=== PATIENT | male | born 1970 | race Two or more races ===

== ENCOUNTER 2017-01-17 09:24 | Inpatient (IN) | payer MEDICARE, MEDICAID ==
[2017-01-17] MEDS ORDERED: NEUR100C PO (09:39)
[2017-01-17] MEDS ORDERED: INSUDET SC (09:39)
[2017-01-17] MEDS ORDERED: DULO1CAP PO (09:39)
[2017-01-17] MEDS ORDERED: OXYC1TAB23 PO (09:39)
[2017-01-17] MEDS ORDERED: AMLO5TAB2 PO (09:39)
[2017-01-17] MEDS ORDERED: SYNT150T PO (09:39)
[2017-01-17] MEDS ORDERED: METO12TA PO (09:39)
[2017-01-17] MEDS ORDERED: LOSA50TA20 PO (09:39)
[2017-01-17] MEDS ORDERED: QUET1TAB7 PO (09:39)
[2017-01-17] MEDS ORDERED: PANT40TA2 PO (09:39)
[2017-01-17] MEDS ORDERED: PERCOCET 5MG/325MG TAB PO ONE (10:30)
[2017-01-17] MEDS ORDERED: amLODIPine 5 MG TAB PO ONE (10:45)
[2017-01-17] MEDS ORDERED: METOPROLOL TART 25 MG TABLET PO ONE (10:45)
[2017-01-17] MEDS ORDERED: LOSARTAN 50 MG TAB PO ONE (10:45)
[2017-01-17] MEDS ORDERED: PANTOPRAZOLE 40MG TAB (PROTONIX) PO ONE (10:45)
[2017-01-17 11:00] LABS: ANION GAP 14 MEQ/L (8-16); BLOOD UREA NITROGEN 103 MG/DL (7-18); CALCIUM LEVEL 8.1 MG/DL (8.5-10.1); CARBON DIOXIDE LEVEL 18 MEQ/L (21-32); CHLORIDE LEVEL 105 MEQ/L (98-107); GLOMERULAR FILTRATION RATE 4.9 (>60); GLUCOSE, FASTING 95 MG/DL (70-105); SODIUM LEVEL 137 MEQ/L (136-145)
[2017-01-17 11:06] LABS: BASO % 0.3 % (0.0-1.0); EOS # 0.1 K/mm3 (0.0-0.50); EOS % 0.9 % (0.0-3.0); LARGE UNSTAINED CELL # 0.1 K/mm3 (0.0-0.4); LARGE UNSTAINED CELL % 1.2 % (0.0-4.0); LYMPH # 1.2 K/mm3 (1.5-4.5); LYMPH % 12.4 % (24.0-44.0); MEAN CORPUSCULAR HEMOGLOBIN 27.4 pg (27.0-33.0); MEAN CORPUSCULAR HGB CONC 31.6 g/dl (32.0-36.5); MEAN CORPUSCULAR VOLUME 86.7 fl (80.0-96.0); MONO # 0.4 K/mm3 (0.0-0.8); MONO % 4.6 % (0.0-5.0); NEUTROPHILS # 7.8 K/mm3 (1.8-7.7); NEUTROPHILS % 80.7 % (36.0-66.0); PLATELET COUNT, AUTOMATED 261 k/mm3 (150-450); RED CELL DISTRIBUTION WIDTH 16.8 % (11.5-14.5); WHITE BLOOD COUNT 9.7 K/mm3 (4.0-10.0)
[2017-01-17] MEDS ORDERED: HumuLIN R (REGULAR) INSULIN (NovoLIN R) **100U/ML** PER UNIT IV STA (11:23)
[2017-01-17] MEDS ORDERED: DEXTROSE 50% 50 ML SYRINGE IV STA (11:26)
--- NOTE | 2017-01-17 11:27 | REP ---
Clinical: Dyspnea and cough. Comparison: None. Findings: Examination is limited by portable technique, underpenetration and poor inspiratory effort. Cardiomegaly along with atelectasis and/or pulmonary vascular congestion/interstitial edema cannot definitively be excluded. No prior examination is available for comparison. Double-lumen central venous catheter with tip in the right atrium. No obvious effusion. No pneumothorax. Skeletal structures grossly intact. Impression: Cardiomegaly. Cannot exclude pulmonary vascular congestion/interstitial edema as well as atelectasis. Signed by Bladimir Hough MD 01/17/2017 11:18 A
[2017-01-17] MEDS ORDERED: SOD POLYSTYRENE SULFONATE SUSP 15 GM/60 ML UD PO ONE (11:30)
[2017-01-17] MEDS ORDERED: CALCIUM CHLORIDE 10% 1 GM in D5W 100 ML IV ONE (11:30)
[2017-01-17] MEDS ORDERED: GLUCAGON FOR INJ 1 MG VIAL (J1610) SC PRN (11:45)
[2017-01-17] MEDS ORDERED: GLUCOSE 4 GM CHEW TABLET PO PRN (11:45)
[2017-01-17] MEDS ORDERED: DEXTROSE 50% 50 ML SYRINGE IV PRN (11:45)
[2017-01-17] MEDS ORDERED: NYST100024 TOP (11:57)
[2017-01-17] MEDS ORDERED: CALC667T PO (11:57)
[2017-01-17] MEDS: HumaLOG INSULIN (NovoLOG) PER UNIT SC SCH ×3 (12:00→21:00)
[2017-01-17] MEDS ORDERED: PERCOCET 5MG/325MG TAB PO PRN (12:15)
[2017-01-17] MEDS ORDERED: VANCOMYCIN HCL 1,000 MG, VIAL MATE ADAPTER 1 EACH in D5W 250 ML IV SCH (12:15)
--- NOTE | 2017-01-17 12:34 | REP ---
Clinical: Scrotal swelling. Rule out abscess. Technique: Real time tabor scale and color Doppler evaluation using linear high frequency transducer. Findings: The bilateral testicles demonstrate microlithiasis without evidence for mass lesion and there is no evidence for orchitis/epididymitis or torsion. No hydrocele or varicoceles are identified. Right testicle measures 2.7 x 1.6 x 2.9 cm. Left testicle measures 3.8 x 1.6 x 2.6 cm. Right epididymis demonstrates two cysts measuring 3.1 x 1.2 x 1.6 cm and 1.4 x 1.0 x 1.0 cm as well as a 3 mm tunica cyst at the lower pole. Left epididymis demonstrates 4 mm cyst. Posterior scrotal wall edema and infiltration is appreciated without discrete fluid collection, abscess or mass. Impression: 1. The testicles demonstrate microlithiasis without mass lesion. 2. Scrotal wall swelling and edema without discrete fluid collection/abscess or mass lesion. 3. Large right epididymal cysts and smaller bilateral cysts as described above. 4. No evidence for torsion or epididymitis/orchitis. Signed by Bladimir Hough MD 01/17/2017 12:25 P
[2017-01-17] MEDS: ONDANSETRON 4MG/2ML VIAL (J2405) IV PRN ×2 (12:39→18:48)
--- NOTE | 2017-01-17 13:49 | HPE ---
DATE OF ADMISSION: 01/17/2017 PRIMARY CARE PROVIDER: Dr. Hang Etienne SANE NURSE: Patient is in the process of moving over from [place], nephrology on consult, Dr. Melany Sen. CHIEF COMPLAINT: Missing dialysis, shortness of breath. HISTORY OF PRESENT ILLNESS: This is a 46-year-old male patient with underlying medical history of end stage renal disease on dialysis, poor compliance, missing dialysis Wednesday and Wednesday, chronic phantom pain lower extremity with bilateral lower extremity amputations with right above knee and left below knee amputation, and also with history of scrotal infection, diabetes, hypertension, gastroesophageal reflux disease (GERD). Patient is in the process of moving from [place] to [place]. Initially moved from [place] to [place]. Patient stated he is moving because he wants a better experience in a bigger town. Subsequently, patient missed dialysis on Wednesday and Wednesday. Reported since Wednesday with progressive worsening weakness and shortness of breath, nausea and vomiting. Subsequently presented to the emergency room. Denies any chest pain, pressure or discomfort. Reported scrotal pain. Has a history of scrotal infection. The patient is also legally blind by history. Patient is poorly compliant at baseline, missing dialysis with 10 days to a week often. Patient is also a smoker. In the ED, patient was found to have a potassium of 7 with no EKG changes. Given Kayexalate, calcium chloride, insulin, D50 in the emergency room. Nephrology was consulted urgently in the emergency room. ALLERGIES: No known drug allergies. PAST MEDICAL HISTORY: End stage renal disease. Diabetes, insulin dependent. Hypertension. Legally blind. Scrotal infection. Poor compliance. PAST SURGICAL HISTORY: Tunneled hemodialysis catheter placement. Bilateral lower extremity amputation. FAMILY HISTORY: Mother with congestive heart failure (CHF). Father and brother with kidney disease. SOCIAL HISTORY: Patient just moved over from [place], lives alone. Family is in [place]. One pack per day smoking history for 30 years. No alcohol drinking. Denies cocaine, heroine, marijuana or any other illicit drugs. REVIEW OF SYSTEMS: Negative except for those mentioned in the history of present illness, nausea and vomiting, and also phantom limb pain as well as legally blind and shortness of breath. Denies any shortness of breath. Otherwise, other review of systems are negative. HOME MEDICATIONS: - Norvasc 5 mg by mouth daily - calcium acetate 1334 mg by mouth with meals - duloxetine 20 mg by mouth at bedtime - Neurontin 100 mg by mouth three times a day - Levemir 10 units subcu at bedtime - Synthroid 150 mcg by mouth daily - losartan 50 mg by mouth daily - metoprolol 25 mg by mouth twice a day - nystatin topical twice a day as needed - Percocet 5/325 by mouth three times a day as needed - Protonix 40 mg by mouth daily - Seroquel 25 mg by mouth at bedtime PHYSICAL EXAMINATION: VITAL SIGNS: Temperature 98, pulse 100, respirations 20, blood pressure 194/99, pulse oximetry 96% on room air. GENERAL: Patient alert and oriented times three in no acute distress, obese. Disheveled. HEENT: Normocephalic, atraumatic. PULMONARY: Diminished breath sounds bilateral. CARDIAC: Mild tachycardia. Regular S1 and S2. ABDOMEN: Soft, obese, nontender. GENITALIA: With scrotal swelling and redness and ulcers. EXTREMITIES: Bilateral lower extremity amputation, seems to be healing well. No abscess or drainage. NEUROLOGIC: No focal deficits. EKG shows left anterior fascicular block. Sinus rhythm. Nonspecific ST segment changes. No peak T waves. No Sin waves. LABORATORY: WBC 9.7, hemoglobin and hematocrit 12.3/33.8, platelets 261. Chemistries: Sodium 137, potassium 7, chloride 105, bicarb 18, anion gap 14, BUN 103, creatinine 11.9. Troponin negative times one. X-ray cardiomegaly. No acute changes. IMPRESSION: This is a 46-year-old male, poorly compliant, end stage renal disease on dialysis, diabetes insulin dependent, hypertension, legally blind with diabetic retinopathy, and scrotal cellulitis admitted with missing dialysis and hyperkalemia. PROBLEMS: 1. End stage renal disease with hyperkalemia, missing dialysis. Nephrology consulted. Urgently patient taken for dialysis. Continue home medications as ordered. Further management as per dialysis. Patient and family services (PFS) consulted for outpatient arrangement and social work. 2. Peripheral vascular disease with bilateral lower extremity amputation. PFS, physical therapy/occupational therapy. Followup cardiac enzymes. EKG is appreciated. Telemetry monitoring. 3. Insulin dependent diabetes. Insulin at a reduced dose, basal bolus. Follow fingerstick. Followup A1c. Fingerstick every hour for the next 4-5 given the patient was given D50 and insulin as well as Kayexalate and calcium. Will continue to monitor. 4. Diabetic retinopathy. Control glucose. Encouraged compliance. 5. Hypertensive urgency. Monitoring in ICU. Urgently taken to dialysis. Continue home blood pressure medication. 6. Scrotal cellulitis. Ultrasound appreciated with no fluid collection. Vancomycin and Zosyn for now. Followup cultures, wound care. 7. Poor compliance. Complicating care. 8. Obesity. Complicating care. 9. Phantom limb pain. Pain medication as ordered. 10. Deep vein thrombosis (DVT) prophylaxis. Heparin subcu. 11. Hypothyroidism. Followup thyroid panel. Continue Synthroid. DISPOSITION: Pending dialysis, social work, clinical improvement. Followup C-reactive protein. Physical therapy/occupational therapy. MTDD
[2017-01-17] MEDS: CHECK TO SEE IF PATIENT IS RECEIVING DIALYSIS TODAY AND REFER TO THE VANCOMYCIN ORDER XX SCH (16:00)
[2017-01-17 16:43] LABS: ANION GAP 12 MEQ/L (8-16); BLOOD UREA NITROGEN 43 MG/DL (7-18); CALCIUM LEVEL 8.5 MG/DL (8.5-10.1); CARBON DIOXIDE LEVEL 22 MEQ/L (21-32); CHLORIDE LEVEL 106 MEQ/L (98-107); GLOMERULAR FILTRATION RATE 10.6 (>60); GLUCOSE, FASTING 98 MG/DL (70-105); POTASSIUM SERUM 4.2 MEQ/L (3.5-5.1); SODIUM LEVEL 140 MEQ/L (136-145)
[2017-01-17 17:33] VITALS: BP 143/82
[2017-01-17] MEDS: CALCIUM ACETATE 667 MG GELCAP PO SCH (18:24)
[2017-01-17] MEDS: GABAPENTIN 100 MG CAP PO SCH ×2 (18:24→21:23)
[2017-01-17] MEDS: PIPERACILLIN/TAZOBACTAM SOD 2.25 GM in D5W MINI-BAG PLUS 50 ML IV SCH (18:25)
[2017-01-17] MEDS: NYSTATIN 100,000 UNITS/GM TOPICAL PWD 15 GM TOP PRN ×2 (18:48→21:36)
[2017-01-17 20:00] VITALS: BP 154/87
--- NOTE | 2017-01-17 20:40 | CR ---
DATE OF CONSULTATION: 01/17/2017 REQUESTING PHYSICIAN: Dr. Kenan Rivera CONSULTING PHYSICIAN: Dr. Sen REASON FOR CONSULTATION: Management of end-stage renal disease, hemodialysis and hyperkalemia. CHIEF COMPLAINT: Patient presented to the emergency room today after missing two sessions of hemodialysis. HISTORY OF PRESENT ILLNESS: Mr. William Moore is a 46-year-old male with a past medical history of end-stage renal disease on hemodialysis every Wednesday, Wednesday and Wednesday. He gets his hemodialysis at [place], [place]. He recently moved to [place] for a better level of care. His regular hemodialysis days are Wednesday, Wednesday and Wednesday. He missed his dialysis on last Wednesday and Wednesday. He presented to the emergency room today with weakness, shortness of breath, headache, nausea, vomiting. In the emergency room, he was found to have systolic blood pressures in the 200s. Initial laboratories in the emergency room showed that his potassium was 7. His BUN was 103, creatinine was 11.9. Patient reports that he was scheduled to start hemodialysis at [place], but because of the transportation issues, he was not able to go there. Patient denies any recent fevers, chills, rigors. He has multiple other comorbidities, as mentioned below. In the emergency room, patient got a starting dose of Kayexalate, calcium chloride, insulin, and D50 for hyperkalemia and nephrology service was called for further help in the management of end-stage renal disease and hemodialysis in this patient. Patient also reports a history of a scrotal infection, which is not being treated at this time. PAST MEDICAL HISTORY: 1. Diabetes mellitus type 2. 2. Hypertension. 3. End-stage renal disease on hemodialysis since 2003, with poor compliance of hemodialysis in the past. 4. Patient is legally blind. PAST SURGICAL HISTORY: 1. Status post right internal jugular (IJ) tunneled hemodialysis catheter placement. 2. Status post right above-knee amputation. 3. Status post left below-knee amputation. ALLERGIES: No known drug allergies. FAMILY HISTORY: No significant family history of inherited cancers. There is positive history of congestive heart failure (CHF) in the mother. Patient gets history of kidney disease in father and brother. SOCIAL HISTORY: Patient has his family members in [facility], but [place] here. He was originally at [place], [place], but he wanted to move to [place] for a higher level of care. He recently moved to [place], but he has not started getting hemodialysis at the hemodialysis center over here. Patient denies any alcohol abuse or illicit drug abuse and patient has a 30-pack year history of smoking. REVIEW OF SYSTEMS: CONSTITUTIONAL: Patient denies any fevers, chills, rigors. He did report weakness and feeling weak and tired. EYES: Patient reports legal blindness. EARS, NOSE AND THROAT (ENT): He denies any dysphagia, odynophagia or ear discharge. CARDIOVASCULAR: He denies any chest pain or palpitations, but he was found to have very high blood pressures in the emergency room (ER). RESPIRATORY: Patient reports some shortness of breath at rest. GASTROINTESTINAL (GI): Patient reports decreased appetite, nausea and vomiting, but he denies any constipation or abdominal pain. GENITOURINARY: Patient reports history of scrotal infection and inflammation in the groin. MUSCULOSKELETAL: Patient reports right above-knee amputation and left below-knee amputation. PSYCHIATRIC: He denies any history of depression or anxiety. CENTRAL NERVOUS SYSTEM: He denies any strokes or seizures. SKIN: Patient reports skin ulcerations and infection in the groin area. All other review of systems is found to be negative. PHYSICAL EXAMINATION: GENERAL: Patient is awake, alert, oriented times three, laying in bed. No apparent distress. VITAL SIGNS: Temperature is 98.5 degrees Fahrenheit, blood pressure 212/101, pulse 105, respiratory rate 16, saturating 96% on room air. HEAD AND NECK EXAMINATION: Patient is legally blind. He can only do finger counting. Mucous membranes are moist. Neck is supple. There is no jugular venous distention (JVD). Patient has a right internal jugular (IJ) tunneled hemodialysis catheter. CARDIOVASCULAR: S1, S2. Regular rate. No murmurs, rubs or gallops. RESPIRATORY: Mildly decreased breath sounds at the bases. Otherwise, no rales or rhonchi. ABDOMEN: Soft, obese. Positive bowel sounds. Nontender. No ascites. No organomegaly. EXTREMITIES: Patient has a right above-knee amputation and a left below-knee amputation. Mild tenderness at the left below-knee amputation site. There was no active bleeding or drainage on the left-sided below-knee amputation stump. GENITOURINARY: Patient has scrotal swelling, redness and multiple small abscesses and drainage from the groin area, which are foul smelling. CENTRAL NERVOUS SYSTEM: No focal neurological deficits apart from legal blindness. Power is 5/5 in bilateral upper extremities. SKIN: No rashes were found, but active groin infection, as mentioned above. PSYCHIATRIC: Normal mood and affect. LABORATORY REVIEW: CBC showed a WBC 9.7, hemoglobin 12.3, platelets 261. BMP showed sodium 137, potassium 7, chloride 105, bicarbonate 18, BUN 103, creatinine 11.9, calcium 8.1. Troponin less than 0.02. MICROBIOLOGY: Blood cultures are pending. IMAGING: An ultrasound of the scrotum was done today. It showed microlithiasis in the testes without mass lesion, scrotal wall swelling and edema without discrete fluid collection, large right epididymal cyst. Chest x-ray done today in the emergency room showed cardiomegaly along with pulmonary vascular congestion and interstitial edema. HOME MEDICATIONS: Patient's home medications include: - amlodipine 5 mg by mouth daily - PhosLo two tablets by mouth three times a day with meals - duloxetine 20 mg at bedtime - gabapentin 100 mg by mouth three times a day - insulin Levemir 10 units subcutaneously at bedtime - levothyroxine 150 mcg by mouth daily - losartan 50 mg by mouth daily - metoprolol 25 mg by mouth twice a day - oxycodone one tablet by mouth three times a day as needed for pain - Protonix 40 mg by mouth daily - quetiapine 25 mg by mouth at bedtime CURRENT INPATIENT MEDICATIONS: Patient's inpatient medications include: - Zosyn 2.25 grams IV every 12 hours - vancomycin 1 gram after hemodialysis - amlodipine 5 mg by mouth daily - PhosLo two tablets by mouth three times a day - Cymbalta 20 mg by mouth at bedtime - Neurontin 100 mg by mouth three times a day - Levemir 8 units subcutaneously at bedtime - insulin Humalog sliding scale - levothyroxine 150 mcg by mouth daily - losartan 50 mg by mouth daily - metoprolol 25 mg by mouth twice a day - Percocet as needed - Protonix 40 mg by mouth daily - Seroquel 25 mg by mouth at bedtime ASSESSMENT: A 46-year-old male with past medical history of end-stage renal disease on hemodialysis, hypertension, insulin-dependent diabetes mellitus, hypothyroidism, admitted this time because of fluid overload, missing hemodialysis and hyperkalemia, along with cellulitis in the groin area. PLANS: 1. End-stage renal disease on hemodialysis. Patient's regular dialysis days are Wednesday, Wednesday and Wednesday. He missed two sessions of hemodialysis. I have arranged urgent hemodialysis to be done today. We shall try to do his hemodialysis today for three hours and we will try to remove around 2 kg fluid as tolerated by his blood pressure. 2. Hyperkalemia. Hyperkalemia is secondary to missing hemodialysis. Patient was already given insulin, D50, Kayexalate in the emergency room. Emergent hemodialysis has been arranged. He will be dialyzed against a 1 K bath. Potassium is expected to improve after hemodialysis. 3. Cellulitis in the groin. Patient has already been started on vancomycin and Zosyn. Those will be adjusted according to renal failure. 4. Insulin-dependent diabetes mellitus. Continue current dose of insulin and sliding scale. 5. Chronic kidney disease/mineral bone disease. Continue current dose of PhosLo two tablets by mouth three times a day with meals. Check phosphorus level. 6. Hypothyroidism. Continue current dose of levothyroxine and check THS level and Free T4 in the morning. 7. Hypertension. Patient has hypertensive urgency at this time. I am not sure whether he is compliant with his medications. Part of the hypertensive urgency is because of fluid overload. Continue the home dose of medications at this time, which include amlodipine 5 mg by mouth daily, losartan 50 mg by mouth daily, metoprolol 25 mg by mouth twice a day. Blood pressure is expected to improve after hemodialysis and ultrafiltration. 8. Anemia in end-stage renal disease. Hemoglobin is 12.3 at this time. No need of Aranesp administration at this time. 9. Status post bilateral amputations and inability to ambulate. Please get social service on board for placement of this patient and arrangement of transportation from his home in [place] to dialysis center in [place]. Thank you for involving us in the care of this patient. We shall be happy to follow the patient along with you tomorrow morning. Plan of care was discussed with the hospitalist, Dr. Wilda Cassidy. Emergency hemodialysis was arranged. Patient was seen and examined during hemodialysis again.
[2017-01-17] MEDS: LEVEMIR (INSULIN DETEMIR) 1 UNITS/0.01ML SC SCH (21:00)
[2017-01-17] MEDS ORDERED: VANCOMYCIN HCL 750 MG, VIAL MATE ADAPTER 1 EACH in D5W 250 ML IV ONE (21:00)
[2017-01-17] MEDS: QUEtiapine FUMARATE 25 MG TAB PO SCH (21:22)
[2017-01-17] MEDS: METOPROLOL TART 25 MG TABLET PO SCH (21:23)
[2017-01-17] MEDS: SENOKOT S TAB PO SCH (21:23)
[2017-01-17] MEDS: DULoxetine 20 MG CAP (CYMBALTA) PO SCH (21:24)
[2017-01-17] MEDS: HEPARIN SOD (PORCINE) 5000 UNITS/ML VIAL SC SCH (21:25)
[2017-01-18] VITALS: BP 151/89
[2017-01-18 04:00] VITALS: BP 147/82
[2017-01-18 05:22] LABS: MEAN CORPUSCULAR HEMOGLOBIN 27.4 pg (27.0-33.0); MEAN CORPUSCULAR HGB CONC 31.4 g/dl (32.0-36.5); MEAN CORPUSCULAR VOLUME 87.4 fl (80.0-96.0); RED CELL DISTRIBUTION WIDTH 16.8 % (11.5-14.5); WHITE BLOOD COUNT 6.1 K/mm3 (4.0-10.0)
[2017-01-18 05:38] LABS: ALBUMIN 2.2 GM/DL (3.2-5.2); CALCIUM LEVEL 7.9 MG/DL (8.5-10.1); CREATININE FOR GFR 8.62 MG/DL (0.70-1.30); GLOMERULAR FILTRATION RATE 7.1 (>60); MAGNESIUM LEVEL 1.8 MG/DL (1.8-2.4); PHOSPHORUS LEVEL 8.4 MG/DL (2.5-4.9); THYROXINE (T4) 2.2 UG/DL (4.5-12.0)
[2017-01-18 05:41] LABS: POTASSIUM SERUM 6.2 MEQ/L (3.5-5.1)
[2017-01-18] MEDS: HEPARIN SOD (PORCINE) 5000 UNITS/ML VIAL SC SCH ×3 (06:26→21:48)
[2017-01-18] MEDS: LEVOTHYROXINE 0.15 MG TAB (150 MCG) PO SCH (06:26)
[2017-01-18] MEDS: PIPERACILLIN/TAZOBACTAM SOD 2.25 GM in D5W MINI-BAG PLUS 50 ML IV SCH ×2 (06:26→17:13)
[2017-01-18 07:25] VITALS: BP 152/87
[2017-01-18] MEDS: HumaLOG INSULIN (NovoLOG) PER UNIT SC SCH ×4 (07:28→21:00)
[2017-01-18] MEDS ORDERED: SLF 3 ML SYR IV PRN (09:00)
--- NOTE | 2017-01-18 09:02 | IPN ---
DATE: 01/18/2017 Mr. Moore is a hospitalist patient admitted with scrotal cellulitis and end stage renal disease with hyperkalemia after missing dialysis. Events the last few days have been outlined in previous notes. He is having significant itching in his groin and is demanding medication for this. He has already been seen by nephrology. He had dialysis yesterday and has more planned for today. EXAM: 154/82. Pulse 89. Respiratory rate 18. 93% oxygen saturation. General Appearance: Lying in bed. He has excoriations on his groin, inguinal area, scrotum and abdomen. Lungs: Clear. Heart: Regular rhythm. Abdomen: Soft. Nontender. Bilateral lower extremity amputations. LABS: White count 6.1, hemoglobin 11.3 and platelets 247. Sodium 137, potassium 6.2, BUN 59, creatinine 8.6, glucose 78. Hemoglobin A1c was 4.5%. IMPRESSIONS: 1. Scrotal cellulitis. He is currently on Zosyn and vancomycin. I would continue these for now. Dosing is being done after dialysis. I have ordered some Atarax for the pruritus, but most of which is related to his renal condition. He also has Nystatin powder ordered. 2. Hypertension. His blood pressure has come down with initiating antihypertensives and being dialyzed. 3. Hyperkalemia. He is due for another dialysis session today. He is on telemetry. 4. Diabetes. He is on a sliding scale with coverage as well as low dose Levemir 8 units at bedtime. His hemoglobin A1c is actually low, which puts him actually at increased cardiovascular risk and would suggest less strident control of his blood sugars as an outpatient. 5. Peripheral arterial disease. Bilateral amputations. He is not on a statin. Defer to nephrology on this issue.
[2017-01-18] MEDS: CALCIUM ACETATE 667 MG GELCAP PO SCH ×3 (09:37→17:13)
[2017-01-18] MEDS ORDERED: HEPARIN 1,000 UNITS/ML 10ML VIAL (FOR RADIOLOGY& DIALYSIS ONLY) IV ONE (11:15)
[2017-01-18 12:50] VITALS: BP 141/81
[2017-01-18] MEDS: LANTHANUM CARBONATE 500 MG CHEW TABLET PO SCH ×2 (13:17→17:13)
[2017-01-18] MEDS: amLODIPine 5 MG TAB PO SCH (13:18)
[2017-01-18] MEDS: LOSARTAN 50 MG TAB PO SCH (13:19)
[2017-01-18] MEDS: METOPROLOL TART 25 MG TABLET PO SCH ×2 (13:19→21:47)
[2017-01-18] MEDS: SENOKOT S TAB PO SCH ×2 (13:19→21:47)
[2017-01-18] MEDS: CALCITRIOL 0.25 MCG CAP (S0169) PO SCH (13:19)
[2017-01-18] MEDS: hydrOXYzine 25 MG TAB PO PRN ×2 (13:19→21:54)
[2017-01-18] MEDS: PANTOPRAZOLE 40MG TAB (PROTONIX) PO SCH (13:20)
[2017-01-18] MEDS: GABAPENTIN 100 MG CAP PO SCH ×4 (13:22→21:47)
[2017-01-18] MEDS: CHECK TO SEE IF PATIENT IS RECEIVING DIALYSIS TODAY AND REFER TO THE VANCOMYCIN ORDER XX SCH (14:45)
[2017-01-18] MEDS: SLF 3 ML SYR IV SCH ×2 (14:45→21:48)
[2017-01-18 15:50] VITALS: BP 140/59
[2017-01-18 20:00] VITALS: BP 137/74
--- NOTE | 2017-01-18 20:46 | IPN ---
DATE: 01/18/2017 SUBJECTIVE: Patient was seen and examined at the bedside today morning during hemodialysis. He was tolerating the hemodialysis procedure well. Patient got a hemodialysis session yesterday as well, but he was hyperkalemic again so he had to be dialyzed. Patient reports that he is having itching all over, which is not getting better with the baths and topical lotions. REVIEW OF SYSTEMS: Patient denies any fevers, chills, rigors headache, nausea, vomiting, chest pain, shortness of breath, abdominal pain, constipation or diarrhea. He reports itching all over the skin. OBJECTIVE: VITAL SIGNS: Temperature 98 degrees Fahrenheit, blood pressure 141/81, pulse 90 , respiratory rate 18, saturating 94% on room air. INTAKE AND OUTPUT: Patient got hemodialysis don yesterday. 2.5 liters of fluid was removed. He made 200 mL of urine as well. Weight in the bed scale is 94.4 kg. PHYSICAL EXAMINATION: GENERAL: Patient is awake, alert, oriented times three, laying in bed getting hemodialysis done. No apparent distress at this time. HEAD AND NECK EXAMINATION: Patient is legally blind. He can do finger counting. Mucous membranes are moist. Neck is supple. There is no jugular venous distention (JVD). He has a right internal jugular (IJ) tunneled hemodialysis catheter. CARDIOVASCULAR: S1, S2. Regular rate. No murmurs, rubs or gallops. RESPIRATORY: Clear to auscultation bilaterally. Bilateral equal air entry. No rales or rhonchi. ABDOMEN: Soft, obese. Positive bowel sounds. Nontender. No ascites. No organomegaly. EXTREMITIES: Patient has right above-knee amputation and left below-knee amputation. GENITOURINARY: Patient has scrotal swelling and multiple small swellings and fungal rash in the groin area. CENTRAL NERVOUS SYSTEM: No focal neurological deficits apart from legal blindness. Power is 5/5 in bilateral upper extremities. SKIN: Multiple hyperpigmented scars from previous infections on the back. Otherwise, no rash. LABORATORY REVIEW: CBC showed a WBC 6.1, hemoglobin 11.3, platelets 247. BMP showed sodium 137, potassium 6.2, chloride 107, bicarbonate 21, BUN 59, creatinine 8.6, glucose 78, <<2:34>> 4.5, calcium 7.9, phosphorus 8.4. Parathyroid hormone 1351. Albumin 2.2. MICROBIOLOGY: Blood cultures are negative so far. CURRENT MEDICATIONS: Patient's medications were all reviewed by me. He continues to be on IV antibiotics. - Patient was started on calcitriol 0.25 mcg by mouth daily - He has also been started on lanthanum 500 mg by mouth three times a day with meals There are no other changes in the medications today as compared with yesterday. ASSESSMENT: A 46-year-old male with past medical history of end-stage renal disease on hemodialysis, history of diabetic foot ulcers and peripheral vascular disease, history of right above-knee amputation and left below-knee amputation, hypertension, insulin-dependent diabetes, hypothyroidism, admitted this time because of fluid overload and hyperkalemia after missing two sessions of hemodialysis. PLAN: 1. End-stage renal disease on hemodialysis. Patient's regular dialysis days are Wednesday, Wednesday and Wednesday. He is being dialyzed according to his regular schedule today. We shall try to do an ultrafiltration of 2 liters, as tolerated by his blood pressure. 2. Hyperkalemia. Patient's hyperkalemia is after missing dialysis. Potassium is still high today. Patient is again being dialyzed with a 1 K bath. I have changed his diet to a low potassium diet as well. 3. Cellulitis in the groin. Patient is already on vancomycin and Zosyn. He is also getting topical nystatin for fungal rash as well. 4. Insulin-dependent diabetes mellitus. Continue insulin sliding scale as per primary team. 5. Secondary hyperparathyroidism. Patient's PTH level is very high. I have started him on calcitriol 0.25 micrograms by mouth daily. The rest of the secondary hyperparathyroid management will be according to outpatient dialysis protocol. 6. Hypertension. Blood pressure is acceptable at this time. It significantly improved after hemodialysis and ultrafiltration. Continue amlodipine 5 mg daily , losartan 50 mg daily, metoprolol 25 mg by mouth twice a day. 7. Anemia in end-stage renal disease. Hemoglobin is more than 11. No need of Aranesp administration at this time. 8. Chronic kidney disease/mineral bone disease. Patient has hyperphosphatemia. He is already on PhosLo. I have added lanthanum 500 mg by mouth three times a day with meals to lower the phosphorus level. MTDD
[2017-01-18] MEDS: LEVEMIR (INSULIN DETEMIR) 1 UNITS/0.01ML SC SCH (21:00)
[2017-01-18] MEDS: QUEtiapine FUMARATE 25 MG TAB PO SCH (21:47)
[2017-01-18] MEDS: DULoxetine 20 MG CAP (CYMBALTA) PO SCH (21:47)
[2017-01-19] VITALS: BP 140/88
[2017-01-19 04:00] VITALS: BP 145/92
[2017-01-19 05:16] LABS: MEAN CORPUSCULAR HEMOGLOBIN 26.9 pg (27.0-33.0); MEAN CORPUSCULAR HGB CONC 30.9 g/dl (32.0-36.5); MEAN CORPUSCULAR VOLUME 87.1 fl (80.0-96.0); WHITE BLOOD COUNT 4.5 K/mm3 (4.0-10.0)
[2017-01-19 05:28] LABS: ALBUMIN 2.3 GM/DL (3.2-5.2); CALCIUM LEVEL 8.6 MG/DL (8.5-10.1); CREATININE FOR GFR 6.76 MG/DL (0.70-1.30); GLOMERULAR FILTRATION RATE 9.4 (>60); MAGNESIUM LEVEL 1.9 MG/DL (1.8-2.4); PHOSPHORUS LEVEL 7.1 MG/DL (2.5-4.9)
--- NOTE | 2017-01-19 06:26 | ECGEPIP ---
Stationary ECG Study [facility] - ED Test Date: 2017-01-17 Pat Name: ELO ROSENBERG Department: Room: [place] [id number] Gender: M Quality Control Head: lillian : 1970 Requested By: Kwabena Skaggs Order Number: [id number] Reading MD: Kwabena Ramirez Measurements Intervals [place] Rate: 99 P: 19 NE: 153 QRS: -79 QRSD: 110 T: 12 QT: 345 QTc: 444 Interpretive Statements SINUS RHYTHM LEFT ANTERIOR FASCICULAR BLOCK ANTERIOR MYOCARDIAL INFARCTION, OF INDETERMINATE AGE NSTTW ABNORMALITIES NO PRIORS Electronically Signed On 01-19-2017 6:25:35 EDT by Kwabena Ramirez
[2017-01-19] MEDS: SLF 3 ML SYR IV SCH ×2 (06:50→14:00)
[2017-01-19] MEDS: PIPERACILLIN/TAZOBACTAM SOD 2.25 GM in D5W MINI-BAG PLUS 50 ML IV SCH (06:50)
[2017-01-19] MEDS: HEPARIN SOD (PORCINE) 5000 UNITS/ML VIAL SC SCH ×2 (06:50→14:00)
[2017-01-19] MEDS: LEVOTHYROXINE 0.15 MG TAB (150 MCG) PO SCH (06:50)
[2017-01-19] MEDS: HumaLOG INSULIN (NovoLOG) PER UNIT SC SCH ×2 (07:30→12:00)
[2017-01-19 07:45] VITALS: BP 153/70
[2017-01-19] MEDS: CALCIUM ACETATE 667 MG GELCAP PO SCH ×2 (08:00→12:30)
[2017-01-19] MEDS: LANTHANUM CARBONATE 500 MG CHEW TABLET PO SCH ×2 (08:25→12:30)
[2017-01-19 08:27] VITALS: BP 153/70
[2017-01-19] MEDS: LOSARTAN 50 MG TAB PO SCH (08:27)
[2017-01-19] MEDS: amLODIPine 5 MG TAB PO SCH (08:27)
[2017-01-19] MEDS: PANTOPRAZOLE 40MG TAB (PROTONIX) PO SCH (08:27)
[2017-01-19] MEDS: SENOKOT S TAB PO SCH (08:27)
[2017-01-19] MEDS: METOPROLOL TART 25 MG TABLET PO SCH (08:27)
[2017-01-19] MEDS: GABAPENTIN 100 MG CAP PO SCH (08:27)
[2017-01-19] MEDS: CALCITRIOL 0.25 MCG CAP (S0169) PO SCH (08:28)
--- NOTE | 2017-01-19 11:40 | IPN ---
DATE: 01/19/2017 SUBJECTIVE: Patient was seen and examined at the bedside today morning. The patient was dialyzed yesterday. He tolerated the hemodialysis procedure well. The patient is afebrile and hemodynamically stable at this time. REVIEW OF SYSTEMS: Patient denies any fevers, chills, rigors headache, nausea, vomiting, chest pain, shortness of breath, pain in the abdomen, constipation or diarrhea. He reports that the pain in the groin is getting better. The rest of the review of systems is negative. OBJECTIVE: VITAL SIGNS: Temperature 98.3 degrees Fahrenheit, blood pressure is 153/70, pulse is 84, respiratory rate 18, saturating 97% on room air. INTAKE AND OUTPUT: Urine output was not recorded. He got hemodialysis done yesterday and 2 liters of fluid was removed. The patient refused to be weighed today. PHYSICAL EXAMINATION: GENERAL: Patient is awake, alert, oriented times three, laying in bed. No apparent distress. HEAD AND NECK EXAMINATION: Patient is legally blind. He can do finger counting only. Mucous membranes are moist. Neck is supple. There is no jugular venous distention (JVD). He has a right internal jugular (IJ) tunneled hemodialysis catheter. CARDIOVASCULAR: S1, S2. Regular rate. No murmurs, rubs or gallops. RESPIRATORY: Chest is clear to auscultation bilaterally. Bilateral equal air entry. No rales or rhonchi. ABDOMEN: Soft, obese. Positive bowel sounds. Nontender. No ascites. No organomegaly. EXTREMITIES: Patient has right above-knee amputation and left below-knee amputation. GENITOURINARY: Patient has fungal rash and multiple small swellings and abscesses in the groin and scrotal area, which is getting better as compared with his admission. CENTRAL NERVOUS SYSTEM: No focal neurological deficits apart from legal blindness. Power is 5/5 in bilateral upper extremities. SKIN: He does not have any active rash, but he does have multiple hyperpigmented scars from previous infections, boils and abscesses on the back. LABORATORY REVIEW: CBC showed a WBC 4.5, hemoglobin 11, platelets 220. BMP showed sodium 139, potassium 5, chloride 109, bicarbonate 21, BUN 39, creatinine 6.7, phosphorous 7.1, albumin is 2.3. CURRENT MEDICATIONS: Patient's current inpatient medications were reviewed. There are no changes in the medications today as compared with yesterday. ASSESSMENT: A 46-year-old male with past medical history of end-stage renal disease on hemodialysis, history of diabetic foot ulcers and peripheral vascular disease, status post right above-knee amputation and left below-knee amputations, hypertension, insulin-dependent diabetic, hypothyroidism, admitted this time because of fluid overload and hyperkalemia after missing dialysis. He recently moved to [place] from [place]. PLAN: 1. End-stage renal disease on hemodialysis. Patient's regular dialysis days are Wednesday, Wednesday and Wednesday. He is being dialyzed back to back for the last two days. Next hemodialysis session will be tomorrow. No urgent need of hemodialysis today. 2. Hyperkalemia. Potassium is improved after two sessions of hemodialysis. I have changed his diet to low potassium diet as well. Potassium is acceptable today. 3. Cellulitis in the groin. Patient is already on vancomycin and Zosyn. Groin cellulitis is improving. 4. Insulin-dependent diabetes mellitus. Continue insulin sliding scale and home dose of insulin regimen. 5. Secondary hyperparathyroidism. Patient was started on calcitriol 0.25 micrograms by mouth daily. The rest of the management of hyperparathyroid will be according to outpatient protocol. 6. Hypertension. Blood pressure is acceptable at this time. Continue current dose of amlodipine 5 mg daily, losartan 50 mg daily, metoprolol 25 mg by mouth twice a day. 7. Anemia in end-stage renal disease. Hemoglobin is 11. No need of Aranesp administration at this time. If hemoglobin drops below 11, he will be started on Aranesp. 8. Hyperphosphatemia. The patient is already on PhosLo. I have added lanthanum starting yesterday. Phosphorous level is coming down with the phos binders and dialysis. DISCHARGE PLAN: The patient just moved to [place] from [place]. He is legally blind. He has bilateral lower extremity amputations. He needs social support, including home health aide and arrangement of transportation from his home to dialysis center three times a week. Whenever the social scientist are taken care of, the patient can be discharged from nephrology standpoint. He already has a spot at [facility] for Wednesday, Wednesday and Wednesday.
[2017-01-19 12:00] VITALS: BP 153/93
[2017-01-19] MEDS ORDERED: CEFD1CAP8 PO (12:29)
[2017-01-19] MEDS ORDERED: CALC1CAP31 PO (12:29)
[2017-01-19] MEDS ORDERED: LANT50TA PO (12:29)
--- NOTE | 2017-01-20 08:38 | DSES ---
DATE OF ADMISSION: 01/17/2017 DATE OF DISCHARGE: 01/19/2017 PRIMARY CARE PROVIDER: Dr. Etienne at the resident's clinic. EMERGENCY COMMUNICATIONS OPERATOR: Dr. Sen DISCHARGE DIAGNOSES: 1. Hyperkalemia and fluid overload due to missing hemodialysis. 2. End stage renal disease on hemodialysis. 3. Peripheral vascular disease with bilateral lower extremity amputations. 4. Diabetes. 5. Diabetic retinopathy. 6. Legal blindness. 7. Hypertensive urgency. 8. Scrotal cellulitis. 9. Obesity. 10. Phantom limb pain. 11. Hypothyroidism. 12. Anemia of end stage renal disease. 13. Secondary hyperparathyroidism. DISCHARGE MEDICATIONS: - calcitriol 0.25 mcg by mouth daily - Cefdinir 300 mg by mouth every 48 hours - Fosrenol 500 mg by mouth with meals - amlodipine 5 mg by mouth daily - calcium acetate 1334 mg by mouth with meals - Cymbalta 20 mg by mouth at night - Neurontin 100 mg by mouth three times a day - Levemir 10 units at bedtime - Synthroid 150 mcg by mouth daily - Losartan 50 mg by mouth daily - metoprolol tartrate 25 mg by mouth twice a day - nystatin powder to be applied in the groin area - oxycodone/acetaminophen 5/325 one tablet by mouth three times a day as needed for pain - pantoprazole 40 mg by mouth daily - quetiapine 25 mg at bedtime -Vancomycin post HD. HOSPITALIZATION COURSE: This is a 46-year-old male with the above past medical history who recently moved from [facility] and missed dialysis on Wednesday and Wednesday, presented to the hospital with fever, weakness, and shortness of breath, nausea and vomiting on 01/17/2017. The patient at baseline has a history of poor compliance, missing hemodialysis up to 7 to 10 days at a stretch. The patient was found to be fluid overloaded and hyperkalemic. The patient was gently dialyzed back to back on 01/17/2017, and 01/18/2017 with resolution of his fluid overload and hyperkalemia. The patient was also noted to have swollen scrotum with scrotal cellulitis. The patient had an ultrasound of the scrotum done, which did not show any abscess or any fluid collection. He was started on Zosyn and vancomycin. Subsequently, Zosyn was changed to cefdinir and vancomycin was continued on discharge to be given post dialysis. The patient was seen by patient and family services (PFS) and case management and appropriate home care services were set up, as well as transportation to and from dialysis unit was set up. On the day of discharge, the patient's symptoms are resolved. The patient' s vitals were stable, and the patient was functioning at baseline. The patient was discharged home in a stable condition. PHYSICAL EXAMINATION: VITAL SIGNS: Temperature 98.1, pulse 69, respiratory rate 18, blood pressure 153/93, pulse oximetry 95% on room air. GENERAL: The patient was awake, alert and oriented times three. Lying down in bed and in no acute distress. HEENT: Normocephalic, atraumatic. Moist mucous membranes. Anicteric eyes. CHEST: Clear to auscultation. CARDIOVASCULAR: S1, S2 regular. No rub, murmur, or gallop. ABDOMEN: Obese, soft, nontender. Bowel sounds present. GENITAL: Scrotal swelling improved. There are some superficial excoriations present; however, there is no broken skin and cellulitis seems to be improving. EXTREMITIES: The patient is status post bilateral below knee amputations. LABORATORY DATA: WBC 4.5, hemoglobin 11, platelets 220. Sodium 139, potassium 5, chloride 109, bicarbonate 21, BUN 39, creatinine 6.7, glucose 74, calcium 8.6, phosphorous 7.1, magnesium 1.9, albumin 2.3. Blood cultures are negative after 48 hours. Scrotum ultrasound showed scrotal wall swelling and edema without discrete fluid collection or abscess or mass lesion. Testicles demonstrated microlithiasis without mass lesion. There was a large right epididymal cyst and smaller bilateral cysts, described above. No evidence of torsion or epididymis or orchitis. DISPOSITION: The patient is discharged home with home services. DISCHARGE INSTRUCTIONS: The patient is to followup with his routine hemodialysis on Wednesday, Wednesday and Wednesday. The patient is to followup with primary care provider in one week. Renal diet. Activity as tolerated. MTDD
== END 2017-01-19 15:25 | disposition home health service (06) | DRG 727 ==
LOC: EDBD 09:24 → M ED 10:25 → M ED INP 12:12 → M PCU 17:13
PROVIDERS: ADMIT Hospitalist; ATTEND Internal Medicine Nephrology
DX: N49.2 Inflammatory disorders of scrotum (principal); N18.6 End stage renal disease; N25.81 Secondary hyperparathyroidism of renal origin; Z91.19 Patient's noncompliance with other medical treatment and regimen; E03.9 Hypothyroidism, unspecified; D63.1 Anemia in chronic kidney disease; E66.9 Obesity, unspecified; E11.319 Type 2 diabetes mellitus with unspecified diabetic retinopathy without macular edema; E87.5 Hyperkalemia; H54.8 Legal blindness, as defined in USA; I16.0 Hypertensive urgency; I73.9 Peripheral vascular disease, unspecified; G54.6 Phantom limb syndrome with pain; Z79.899 Other long term (current) drug therapy; Z89.511 Acquired absence of right leg below knee; Z89.512 Acquired absence of left leg below knee; K21.9 Gastro-esophageal reflux disease without esophagitis; Z79.4 Long term (current) use of insulin; E83.39 Other disorders of phosphorus metabolism

== ENCOUNTER 2017-02-06 16:10 | Inpatient (IN) | payer MEDICARE, OTHER ==
[~2017-02-06 16:10] MED LIST: AMLO5TAB2 PO; CALC1CAP31 PO; CALC667T PO; CEFD1CAP8 PO; DULO1CAP PO; HEPARIN SOD (PORCINE) 5000 UNITS/ML VIAL SC SCH; INSUDET SC; LANT50TA PO; LOSA50TA20 PO; METO12TA PO; NEUR100C PO; NYST100024 TOP; OXYC1TAB23 PO; PANT40TA2 PO; QUET1TAB7 PO; SYNT150T PO
[2017-02-06] MEDS ORDERED: VANCOMYCIN HCL 1,000 MG, VIAL MATE ADAPTER 1 EACH in D5W 250 ML IV ONE (18:15)
[2017-02-06] MEDS ORDERED: CALC1CAP31 PO (18:22)
[2017-02-06] MEDS ORDERED: TYLE325T5 PO (18:26)
--- NOTE | 2017-02-06 18:30 | REPUSA ---
CLINICAL HISTORY: Rule out right-sided abscess. TECHNIQUE: Realtime sonographic images were obtained in multiple projections. COMMENTS: Both testicles are of normal size and shape and are of homogeneous echo texture. The right testicle measures 3.5 x 2.2 x 2.4 cm. The right epididymis measures 33.0 cm. The scrotal w all is 6.0 mm. Right epididymis head cysts measure 3.1 x 1.4 x 1.5 cm and 1.2 x 0.8 x 1.1 cm. Right cyst measuring 0.3 x 0.3 x 0.3 cm Tunica Albuginea. RI: 0.56. PSV: 2.7. EDV: 1.2. The left testicle measures 3.4 x 2.0 x 2.7 mm. Left epididymis measures 5.9mm. The scrotal wall is 3.3 mm. Left epididymis head cyst measure 0.4 x 0.3 x 0.5 cm. RI: 0.54. PSV: 2.8. EDV: 1.3. Bilateral microlithiasis. Severe soft tissue edema seen bilaterally, right > left. No drainable fluid collection seen. IMPRESSION: 1. Bilateral microlithiasis. 2. Left and right epididymis head cyst. 3. Severe soft tissue edema. Thank you for your kind referral of this patient. We appreciate the opportunity to participate in thi s patient's care.
[2017-02-06 18:41] LABS: BASO % 0.1 % (0.0-1.0); EOS # 0.1 K/mm3 (0.0-0.50); EOS % 0.4 % (0.0-3.0); LARGE UNSTAINED CELL # 0.1 K/mm3 (0.0-0.4); LARGE UNSTAINED CELL % 0.9 % (0.0-4.0); LYMPH # 0.9 K/mm3 (1.5-4.5); LYMPH % 6.7 % (24.0-44.0); MEAN CORPUSCULAR HEMOGLOBIN 27.2 pg (27.0-33.0); MEAN CORPUSCULAR HGB CONC 31.2 g/dl (32.0-36.5); MEAN CORPUSCULAR VOLUME 87.4 fl (80.0-96.0); MONO # 0.5 K/mm3 (0.0-0.8); MONO % 3.5 % (0.0-5.0); NEUTROPHILS # 11.7 K/mm3 (1.8-7.7); NEUTROPHILS % 88.3 % (36.0-66.0); PLATELET COUNT, AUTOMATED 200 k/mm3 (150-450); RED CELL DISTRIBUTION WIDTH 17.1 % (11.5-14.5); WHITE BLOOD COUNT 13.3 K/mm3 (4.0-10.0)
[2017-02-06 19:02] LABS: ALBUMIN 2.6 GM/DL (3.2-5.2); ALBUMIN/GLOBULIN RATIO 0.49 (1.00-1.93); BILIRUBIN,DIRECT 0.1 MG/DL (0.0-0.2); BILIRUBIN,TOTAL 0.5 MG/DL (0.2-1.0); CALCIUM LEVEL 7.2 MG/DL (8.5-10.1); GLOMERULAR FILTRATION RATE 4.1 (>60); TOTAL PROTEIN 7.9 GM/DL (6.4-8.2)
[2017-02-06] MEDS ORDERED: PIPERACILLIN/TAZOBACTAM SOD 3.375 GM in D5W MINI-BAG PLUS 50 ML IV ONE (19:15)
[2017-02-06 19:27] LABS: ERYTHROCYTE SEDIMENTATION RATE 84 mm/hr (0-15)
[2017-02-06 19:28] LABS: POTASSIUM SERUM 7.2 MEQ/L (3.5-5.1)
[2017-02-06] MEDS ORDERED: DEXTROSE 50% 50 ML SYRINGE IV STA (19:29)
[2017-02-06] MEDS ORDERED: ALBUTEROL SULFATE 2.5 MG/0.5 ML INH NEB SOLN INH ONE (19:30)
[2017-02-06] MEDS ORDERED: CALCIUM GLUCONATE 1,000 MG in D5W MINI-BAG PLUS 100 ML IV ONE (19:45)
[2017-02-06] MEDS ORDERED: SOD POLYSTYRENE SULFONATE SUSP 15 GM/60 ML UD PO ONE (19:45)
--- NOTE | 2017-02-06 19:51 | ECGEPIP ---
Stationary ECG Study [facility] - ED Test Date: 2017-02-06 Pat Name: ELO ROSENBERG Department: Room: - Gender: M Glass Calibrator: tanna : 1970 Requested By: Rachna Andre Order Number: [id number] Reading MD: Rachna Andre Measurements Intervals Platinum Rate: 110 P: 13 UT: 156 QRS: -70 QRSD: 109 T: 22 QT: 334 QTc: 452 Interpretive Statements SINUS TACHYCARDIA LEFT ANTERIOR FASCICULAR BLOCK POSSIBLE ANTERIOR MYOCARDIAL INFARCTION, OF INDETERMINATE AGE LAD CW 01/17/17 RATE INCREASED Electronically Signed On 02-06-2017 19:51:27 EDT by Rachna Andre
[2017-02-06] MEDS ORDERED: PIPERACILLIN/TAZOBACTAM SOD 2.25 GM in D5W MINI-BAG PLUS 50 ML IV ONE (20:00)
[2017-02-06] MEDS ORDERED: diphenhydrAMINE INJ 50MG/ML VIAL (J1200) IV ONE (21:45)
[2017-02-06] MEDS ORDERED: GLUCAGON FOR INJ 1 MG VIAL (J1610) SC PRN (23:15)
[2017-02-06] MEDS ORDERED: DEXTROSE 50% 50 ML SYRINGE IV PRN (23:15)
[2017-02-06] MEDS ORDERED: GLUCOSE 4 GM CHEW TABLET PO PRN (23:15)
[2017-02-07] VITALS (7 sets, daily range): BP systolic 139–200; BP diastolic 70–98
[2017-02-07] MEDS: GABAPENTIN 100 MG CAP PO SCH ×4 (01:47→20:31)
[2017-02-07] MEDS: QUEtiapine FUMARATE 25 MG TAB PO SCH ×2 (01:47→20:37)
[2017-02-07 01:49] LABS: CALCIUM LEVEL 7.3 MG/DL (8.5-10.1); CREATININE FOR GFR 14.4 MG/DL (0.70-1.30); GLOMERULAR FILTRATION RATE 3.9 (>60)
[2017-02-07 01:52] LABS: POTASSIUM SERUM 6.9 MEQ/L (3.5-5.1)
[2017-02-07] MEDS: METOPROLOL TART 25 MG TABLET PO SCH ×3 (01:54→20:31)
[2017-02-07] MEDS: PERCOCET 5MG/325MG TAB PO PRN (01:55)
[2017-02-07] MEDS ORDERED: HumuLIN R (REGULAR) INSULIN (NovoLIN R) **100U/ML** PER UNIT IV STA (01:59)
[2017-02-07] MEDS ORDERED: DEXTROSE 50% 50 ML SYRINGE IV STA (01:59)
[2017-02-07] MEDS ORDERED: SODIUM BICARBONATE 8.4% INJ 50 ML SYRINGE IV STA (01:59)
--- NOTE | 2017-02-07 03:11 | PHACANCOPD ---
PHARMACY VANCOMYCIN DOSING Pt Demographics Demographics Patient Age:46 , Weight:102.500 , Gender: male Adjusted Body Weight Date: 02/07/17, Adjusted Body Weight: [102] Kg Events Past 24 Hours Events Past 24 Hours: NO: Dialysis, Diuretic Therapy, Change in CrCl, Fever, Elevation in WBC, Pending Diagnostics, Pending Procedures, Other Vancomycin Vancomycin indication: SCROTAL, GROIN, PANNUS CELLULITIS Vancomycin Target Ranges: 10-20 mcg/ml Vancomycin Load Y/N: No Load Dose Date Time Vancomycin Load Dose: Date: Time: Vancomycin Dose Date: 02/07/17. Current Vancomycin Dose: [1G IV AFTER HD] Intermittent Dosing?: No Labs Labs Item Value Date Time White Blood Count 13.3 K/mm3 H 02/06/17 1714 Creatinine 14.40 MG/DL H 02/07/17 0117 Vital Signs Label Value Date Time Patient Temperature 98.7 degrees F 02/07/17 0200 Temperature Source Temporal 02/07/17 0200 Micro Microbiology 02/06/17 Blood Culture, Received Pending 02/06/17 Blood Culture, Received Pending 02/06/17 Wound Culture, Received Pending 02/06/17 Wound Culture, Received Pending Creatinine Clearance Date:02/07/17. Creatinine Clearance: [~2ML/MIN]. Assessment and Plan Maintaining Current Dose?: Yes Reason for dose change: No Dose Change Pharmacist Note Pharmacist Note Date: 02/07/17. Pharmacist note: Pt is a 46 year old male being treated for scrotal, groin, pannus, cellulitis and was previous treated for the same issue at the end of december 2016. Creatinine clearance is estimated at about 2ml/min. Pt is historically resistant to being measured or weighed, he is a double amputee above one knee and below the other. States he was 5'8" before amputation. Pt has not been attending Hemodialysis since last visit and is scheduled to receive HD tomorrow. His previous schedule was MWF. He received 1g of vancomycin at 21:00 02/06 and we will be continuing his previous therapy of 1g vancomycin after HD. We will continue to monitor and adjust dose as needed. [facility] Feb 07, 2017 03:11
[2017-02-07] MEDS: ACETAMINOPHEN TAB 650MG DOSE (2X325MG) PO PRN (03:21)
[2017-02-07] MEDS ORDERED: MORPHINE 4 MG/ML 1ML SYRINGE IV ONE (05:00)
[2017-02-07 05:13] LABS: EOS # 0.1 K/mm3 (0.0-0.50); EOS % 0.7 % (0.0-3.0); LARGE UNSTAINED CELL # 0.1 K/mm3 (0.0-0.4); LARGE UNSTAINED CELL % 0.4 % (0.0-4.0); LYMPH # 0.5 K/mm3 (1.5-4.5); LYMPH % 3.5 % (24.0-44.0); MEAN CORPUSCULAR HEMOGLOBIN 26.9 pg (27.0-33.0); MEAN CORPUSCULAR HGB CONC 31.9 g/dl (32.0-36.5); MEAN CORPUSCULAR VOLUME 84.4 fl (80.0-96.0); MONO # 0.6 K/mm3 (0.0-0.8); MONO % 4.3 % (0.0-5.0); NEUTROPHILS # 12.5 K/mm3 (1.8-7.7); PLATELET COUNT, AUTOMATED 180 k/mm3 (150-450); RED CELL DISTRIBUTION WIDTH 16.9 % (11.5-14.5); WHITE BLOOD COUNT 13.7 K/mm3 (4.0-10.0)
[2017-02-07 05:30] LABS: ALBUMIN 2.4 GM/DL (3.2-5.2); ALBUMIN/GLOBULIN RATIO 0.5 (1.00-1.93); BILIRUBIN,TOTAL 0.5 MG/DL (0.2-1.0); CREATININE FOR GFR 14.5 MG/DL (0.70-1.30); GLOMERULAR FILTRATION RATE 3.9 (>60); TOTAL PROTEIN 7.2 GM/DL (6.4-8.2)
[2017-02-07 05:34] LABS: POTASSIUM SERUM 6.6 MEQ/L (3.5-5.1)
[2017-02-07] MEDS: HEPARIN SOD (PORCINE) 5000 UNITS/ML VIAL SC SCH ×3 (06:00→23:01)
[2017-02-07] MEDS: LEVOTHYROXINE 150MCG TABLET (0.15MG) PO SCH (06:00)
[2017-02-07] MEDS: NYSTATIN 100,000 UNITS/GM TOPICAL PWD 15 GM TOP PRN (06:14)
[2017-02-07] MEDS: HumaLOG INSULIN (NovoLOG) PER UNIT SC SCH ×3 (07:30→17:04)
[2017-02-07 07:47] LABS: CALCIUM LEVEL 6.7 MG/DL (8.5-10.1); CREATININE FOR GFR 14.8 MG/DL (0.70-1.30); GLOMERULAR FILTRATION RATE 3.8 (>60)
[2017-02-07 07:54] LABS: POTASSIUM SERUM 6.8 MEQ/L (3.5-5.1)
--- NOTE | 2017-02-07 08:39 | REP ---
Portable chest x-ray: Single view. History: Systemic inflammatory response syndrome. Comparison chest x-ray: January 17, 2017. Findings: A tunneled catheter is seen via the right internal jugular vein region with its tip in the expected location of the superior vena cava. The heart is mildly enlarged but unchanged from the prior study. Pulmonary vasculature is somewhat cephalized. There is no evidence of infiltrate or pleural effusion. Impression: Cardiomegaly. Central line. No acute infiltrate. Signed by Tam Jones MD 02/07/2017 09:01 A
[2017-02-07] MEDS: CALCITRIOL 0.25 MCG CAP (S0169) PO SCH (08:56)
[2017-02-07] MEDS: PANTOPRAZOLE 40MG TAB (PROTONIX) PO SCH (08:56)
[2017-02-07] MEDS: CALCIUM ACETATE 667 MG GELCAP PO SCH ×3 (08:56→18:20)
[2017-02-07] MEDS: amLODIPine 5 MG TAB PO SCH (08:57)
[2017-02-07] MEDS: PIPERACILLIN/TAZOBACTAM SOD 2.25 GM in D5W MINI-BAG PLUS 50 ML IV SCH ×2 (08:57→20:32)
[2017-02-07] MEDS ORDERED: ISOVUE-370 76% 100ML VIAL (Q9967) As Ordered ONE (10:43)
--- NOTE | 2017-02-07 11:05 | SMCUROLCON ---
Urology Consultation General Date of Consultation 02/07/17 Reason For Consultation This patient is seen for Cellulitis,Scrotum;Esrd On Dialysis;Hyperkalemia. History of Present Illness The patient is a 46-year-old male with a past medical history for IDDM, ESRD on HD admitted for redness and tenderness of groin/scrotum, upper thighs, and lower abdominal wall. He reports that he first noticed a 'rash' that started about a week ago down in his scrotum. He reports that the rash spread over last week and he was brought to [facility] yesterday for this issue. He has had BLE AKA's secondary to his DM. He has not had any h/o previous genital infection or other significant genitourinary issue. He normally voids voluntarily per urethra without significant difficulty. Since admission he has placed on broad spectrum ABx and had a scrotal U/S. Past Medical History Medical History IDDM, ESRD on HD, hypothyroidism, depression, HTN Surgical Hstory Bilateral LE AKA, Vascular access Social History * Smoker: current smoker Alcohol: Denies Drugs: denies Medications Current Medications Current Medications Acetaminophen (Tylenol Tab) 650 mg QID PRN PO PAIN Last administered on 03:21; Start 02/06/17 at 23:00; Stop 03/08/17 at 22:59 Amlodipine Besylate (Norvasc) 5 mg DAILY PO Last administered on 02/07/17 08: 57; Start 02/07/17 at 09:00; Stop 03/09/17 at 08:59 Calcitriol (Rocaltrol) 0.25 mcg DAILY PO Last administered on 02/07/17 08:56; Start 02/07/17 at 09:00; Stop 03/09/17 at 08:59 Calcium Acetate (Phoslo) 1,334 mg WM PO Last administered on 02/07/17 08:56; Start 02/07/17 at 08:00; Stop 03/09/17 at 07:59 Dextrose (Dextrose 50%) 25 ml ASDIRECTED PRN IV SEE LABEL COMMENTS; Start 02/06 at 23:15; Stop 03/08/17 at 23:14 Dextrose (Dextrose 50%) 25 ml STAT STAT IV Last administered on 02/06/17 19: 54; Start 02/06/17 at 19:29; Stop 02/06/17 at 19:32; Status DC Dextrose (Dextrose 50%) 50 ml STAT STAT IV Last administered on 02/07/17 03: 55; Start 02/07/17 at 01:59; Stop 02/07/17 at 02:04; Status DC Duloxetine HCl (Cymbalta) 20 mg QHS PO ; Start 02/07/17 at 21:00; Stop 03/09/17 at 20:59 Gabapentin (Neurontin) 200 mg TID PO Last administered on 02/07/17 08:57; Start 02/06/17 at 21:00; Stop 03/08/17 at 20:59 Glucagon (Glucagon) 1 mg ASDIRECTED PRN SC SEE LABEL COMMENTS; Start 02/06/17 at 23:15; Stop 03/08/17 at 23:14 Glucose (Glucose) 16 GM ASDIRECTED PRN PO SEE LABEL COMMENTS; Start 02/06/17 at 23:15; Stop 03/08/17 at 23:14 Heparin Sodium (Porcine) (Heparin) 5,000 units Q8H SC ; Start 02/06/17 at 06:00 ; Stop 02/07/17 at 01:32; Status DC Heparin Sodium (Porcine) (Heparin) 5,000 units Q8H SC Last administered on 02/07 06:00; Start 02/07/17 at 06:00; Stop 02/12/17 at 05:59 Home Med (Med Rec Complete!) ASDIRECTED XX ; Start 02/06/17 at 18:45; Stop at 18:48; Status DC Insulin Detemir (Levemir Insulin) 10 units QHS SC ; Start 02/07/17 at 21:00; Stop 03/09/17 at 20:59 Insulin Human Lispro (HumaLOG INSULIN) See Protocol Table AC SC Last administered on 02/07/17 07:30; Start 02/07/17 at 07:30; Stop 03/09/17 at 07:29 Insulin Human Regular (HumuLIN R INSULIN) 5 units STAT STAT IV Last administered on 02/07/17 03:54; Start 02/07/17 at 01:59; Stop 02/07/17 at 02:04 ; Status DC Levothyroxine Sodium (Synthroid) 150 mcg DAILY@0600 PO Last administered on 06:00; Start 02/07/17 at 06:00; Stop 03/09/17 at 05:59 Metoprolol Tartrate (Lopressor) 25 mg BID PO Last administered on 02/07/17 08: 56; Start 02/06/17 at 21:00; Stop 03/08/17 at 20:59 Non-Formulary Medication ( See Comment Field Below ) . DAILY@16 XX ; Start 02/07/17 at 16:00; Stop 03/09/17 at 15:59 Nystatin (Mycostatin Powder, Nystop) 1 dose BID PRN TOP RASH Last administered on 02/07/17 06:14; Start 02/06/17 at 23:00; Stop 03/08/17 at 22:59 Oxycodone/ Acetaminophen (Percocet 5mg/ 325mg Tablet) 1 tab TID PRN PO PAIN Last administered on 02/07/17 01:55; Start 02/06/17 at 23:00; Stop 02/13/17 at 22:59 Pantoprazole Sodium (Protonix) 40 mg DAILY PO Last administered on 02/07/17 08 :56; Start 02/07/17 at 09:00; Stop 03/09/17 at 08:59 Piperacillin Sod/ Tazobactam Sod 2.25 gm/Dextrose 50 ml @ 100 mls/hr Q12H IV Last administered on 02/07/17 08:57; Start 02/07/17 at 09:00; Stop 02/14/17 at 08:59 Quetiapine Fumarate (SEROquel) 25 mg QHS PO Last administered on 02/07/17 01: 47; Start 02/06/17 at 21:00; Stop 03/08/17 at 20:59 Sodium Bicarbonate (Sodium Bicarbonate) 50 meq STAT STAT IV Last administered on 02/07/17 03:54; Start 02/07/17 at 01:59; Stop 02/07/17 at 02:04; Status DC Vancomycin HCl 1000 mg/IV Miscellaneous Supplies 1 each/ Dextrose 270 ml @ 270 mls/hr HD IV ; Start 02/07/17 at 10:00; Stop 02/14/17 at 09:59 Allergies Allergies: Coded Allergies: No Known Allergies (Unverified , 01/17/17) Review of Systems Gastrointestinal: Reports: Diarrhea Physical Examination General Exam: Cooperative, Mild Distress Chest Exam: Clear to auscultation, Normal air movement Heart Exam: Rate Normal, Regular Rhythm, Normal S1, Normal S2, No: Murmurs, Rubs Abdomen Exam: Normal Bowel Sounds, Soft, No: Tenderness, Hepatospenomegaly Male Exam: Tenderness Male Exam Circumcised phallus, widespread skin erythema tenderness and edema throughout scrotal skin and upper thighs and up to lower abdomen/pannus, no visible purulence or any other drainage, no visible necrotic or gangrenous lesions, no open skin wounds, no crepitus; bilateral testes palable in scrotum Extremity Exam: Other Neuro Exam: Sensation Intact Vital Signs/I&O Vital Signs Date Time Temp Pulse Resp B/P (MAP) Pulse Ox O2 Delivery O2 Flow Rate FiO2 02/07/17 08:00 101.2 103 20 149/70 (96) 91 Room Air I&O- Last 24 Hours up to 6 AM 02/07/17 06:00 Intake Total 840 ml Output Total 600 ml Balance 240 ml Laboratory Data 24H Labs Laboratory Tests 2 02/06/17 17:14: White Blood Count 13.3H, Red Blood Count 3.77L, Hemoglobin 10.3L, Hematocrit 32.9L, Mean Corpuscular Volume 87.4, Mean Corpuscular Hemoglobin 27.2, Mean Corpuscular Hemoglobin Concent 31.2L, Red Cell Distribution Width 17.1H, Platelet Count 200, Neutrophils (%) (Auto) 88.3H, Lymphocytes (%) (Auto) 6.7L, Monocytes (%) (Auto) 3.5, Eosinophils (%) (Auto) 0.4, Basophils (%) (Auto) 0.1, Neutrophils # (Auto) 11.7H, Lymphocytes # (Auto) 0.9L, Monocytes # (Auto) 0.5, Eosinophils # (Auto) 0.1, Basophils # (Auto) 0.0, Large Unclassified Cells % 0.9 , Large Unclassified Cells # 0.1, Erythrocyte Sedimentation Rate 84H, Anion Gap 17H, Glomerular Filtration Rate 4.1L, Lactic Acid Level 0.6, Calcium Level 7.2L , Aspartate Amino Transf (AST/SGOT) 19, Alanine Aminotransferase (ALT/SGPT) 24, Alkaline Phosphatase 174H, Total Bilirubin 0.5, Direct Bilirubin 0.1, Total Creatine Kinase 93, Creatine Kinase MB 7.5H, Creatine Kinase MB Relative Index 8.06H, Troponin I 0.02, C-Reactive Protein, Quantitative 18.80H, Total Protein 7.9, Albumin 2.6L, Albumin/Globulin Ratio 0.49L 02/06/17 23:10: Bedside Glucose (Misc Panel) 74 02/07/17 01:17: Anion Gap 16, Glomerular Filtration Rate 3.9L, Calcium Level 7.3L, Blood Urea Nitrogen 114H, Creatinine 14.40H, Sodium Level 135L, Potassium Level 6.9*H, Chloride Level 106, Carbon Dioxide Level 13L 02/07/17 02:38: Bedside Glucose (Misc Panel) 79 02/07/17 03:26: Bedside Glucose (Misc Panel) 88 02/07/17 04:13: Bedside Glucose (Misc Panel) 188H 02/07/17 04:49: White Blood Count 13.7H, Red Blood Count 3.54L, Hemoglobin 9.5L, Hematocrit 29.9L, Mean Corpuscular Volume 84.4, Mean Corpuscular Hemoglobin 26.9L, Mean Corpuscular Hemoglobin Concent 31.9L, Red Cell Distribution Width 16.9H, Platelet Count 180, Neutrophils (%) (Auto) 91.0H, Lymphocytes (%) (Auto) 3.5L, Monocytes (%) (Auto) 4.3, Eosinophils (%) (Auto) 0.7, Basophils (%) (Auto) 0.0, Neutrophils # (Auto) 12.5H, Lymphocytes # (Auto) 0.5L, Monocytes # (Auto) 0.6, Eosinophils # (Auto) 0.1, Basophils # (Auto) 0.0, Large Unclassified Cells % 0.4 , Large Unclassified Cells # 0.1, Anion Gap 17H, Glomerular Filtration Rate 3.9L , Blood Urea Nitrogen 110H, Creatinine 14.50H, Sodium Level 136, Potassium Level 6.6*H, Chloride Level 105, Carbon Dioxide Level 14L, Calcium Level 7.0L, Aspartate Amino Transf (AST/SGOT) 23, Alanine Aminotransferase (ALT/SGPT) 24, Alkaline Phosphatase 158H, Total Bilirubin 0.5, Total Protein 7.2, Albumin 2.4L , Albumin/Globulin Ratio 0.50L 02/07/17 07:06: Anion Gap 16, Glomerular Filtration Rate 3.8L, Blood Urea Nitrogen 112H, Creatinine 14.80H, Sodium Level 132L, Potassium Level 6.8*H, Chloride Level 102 , Carbon Dioxide Level 14L, Calcium Level 6.7L, Troponin I 0.04# CBC/BMP Laboratory Tests 02/06/17 17:14 Red Blood Count 3.77 L, Mean Corpuscular Volume 87.4, Mean Corpuscular Hemoglobin 27.2, Mean Corpuscular Hemoglobin Concent 31.2 L, Red Cell Distribution Width 17.1 H, Neutrophils (%) (Auto) 88.3 H, Lymphocytes (%) (Auto ) 6.7 L, Monocytes (%) (Auto) 3.5, Eosinophils (%) (Auto) 0.4, Basophils (%) ( Auto) 0.1, Neutrophils # (Auto) 11.7 H, Lymphocytes # (Auto) 0.9 L, Monocytes # (Auto) 0.5, Eosinophils # (Auto) 0.1, Basophils # (Auto) 0.0 02/07/17 01:17 Calcium Level 7.3 L 02/07/17 04:49 Red Blood Count 3.54 L, Mean Corpuscular Volume 84.4, Mean Corpuscular Hemoglobin 26.9 L, Mean Corpuscular Hemoglobin Concent 31.9 L, Red Cell Distribution Width 16.9 H, Neutrophils (%) (Auto) 91.0 H, Lymphocytes (%) (Auto ) 3.5 L, Monocytes (%) (Auto) 4.3, Eosinophils (%) (Auto) 0.7, Basophils (%) ( Auto) 0.0, Neutrophils # (Auto) 12.5 H, Lymphocytes # (Auto) 0.5 L, Monocytes # (Auto) 0.6, Eosinophils # (Auto) 0.1, Basophils # (Auto) 0.0, Calcium Level 7.0 L, Aspartate Amino Transf (AST/SGOT) 23, Alanine Aminotransferase (ALT/SGPT) 24 , Alkaline Phosphatase 158 H, Total Bilirubin 0.5, Total Protein 7.2, Albumin 2.4 L 02/07/17 07:06 Calcium Level 6.7 L Microbiology Microbiology 02/06/17 Blood Culture, Received Pending 02/06/17 Blood Culture, Received Pending 02/06/17 Wound Culture, Received Pending 02/06/17 Wound Culture, Received Pending Assessment Extensive groin, upper thigh and lower abdominal wall cellulitis, 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 -CT scan abdomen and pelvis with IV contrast to evaluate for subcutaneous gas or other findings suggestive of necrotizing fasciitis. - will follow Time Spent on Consult: Time Spent / Consult (Minutes): 45 IGOR GALINDO MD Feb 07, 2017 11:05
--- NOTE | 2017-02-07 11:30 | REP ---
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 No comparison CT study. Scrotal sonography from February 06, 2017 showed significant soft tissue edema. The patient has history of bilateral lsjse-pvi-ozzq amputations to the lower extremities. CT contrast dose: 100 ml of Isovue 370 is administered intravenously. The patient has a history of renal failure and is on dialysis. CT findings: Digital preliminary special procedure tech radiograph shows air distended loops of small bowel and colon in the abdomen and an ileus pattern. The lung bases show plate-like atelectasis in the lower lobes and lingula. A tiny left pleural effusion is seen. The liver and the spleen are normal in size and essentially homogeneous in texture. No adrenal lesion is seen. There is vascular calcification noted in the head of the pancreas. Somewhat atrophic kidneys are seen. Prominent vascular calcification seen in the renal arteries bilaterally. No retroperitoneal mass or adenopathy is seen. Small and large intestinal bowel loops are unremarkable in the abdomen and pelvis apart from the pattern suggesting mild ileus. There is no evidence of free intraperitoneal air. A normal appendix is seen. There is dermal thickening and subcutaneous edema in the proximal thigh soft tissues medially on both sides and laterally on the left. No abscess is seen. Scrotal skin is thickened as well. There is no evidence of soft tissue gas in the region of the peroneum. There is mild bilateral inguinal lymphadenopathy noted which may be reactive nodes. The largest inguinal lymph node is on the left measuring 3.7 x 2.0 x 1.8 cm. There is subcutaneous edema along the left flank in the extra-abdominal soft tissues extending up to the region of the left breast soft tissues. No abscess or soft tissue air is seen. Seminal vesicles, prostate and urinary bladder are unremarkable. No bony destructive lesion is appreciated. Impression: 1. Mild ileus pattern in the bowel gas. 2. No evidence of free air or intra-abdominal abscess. 3. Diffuse skin thickening and subcutaneous edema in the region of the peroneum with reactive bilateral inguinal lymphadenopathy. The soft tissue edema pattern extends along the left lateral abdominal wall into the left breast soft tissues. No abscess is seen. No soft tissue gas is noted. Signed by Tam Jones MD 02/07/2017 11:33 A
[2017-02-07] MEDS: CHECK TO SEE IF PATIENT IS RECEIVING DIALYSIS TODAY AND REFER TO THE VANCOMYCIN ORDER XX SCH (16:00)
[2017-02-07] MEDS: VANCOMYCIN HCL 1,000 MG, VIAL MATE ADAPTER 1 EACH in D5W 250 ML IV SCH (16:04)
[2017-02-07] MEDS: DULoxetine 20 MG CAP (CYMBALTA) PO SCH (20:31)
[2017-02-07] MEDS: LEVEMIR (INSULIN DETEMIR) 1 UNITS/0.01ML SC SCH (20:32)
--- NOTE | 2017-02-07 21:10 | CR ---
DATE OF CONSULTATION: 02/07/2017 NEPHROLOGY CONSULTATION FOR: Promise Wynn MD REASON FOR CONSULTATION: Severe hyperkalemia in this gentleman with end-stage renal disease. HISTORY OF PRESENT ILLNESS: Mr. Moore is a 46-year-old male with known history of end-stage renal disease and noncompliance with dialysis. He recently transferred his care to [place] from [place]. He has known history of type 2 diabetes, hypertension, secondary hyperparathyroidism, end-stage renal disease and diabetic retinopathy, legally blind. The patient has been receiving dialysis only sporadically due to his chronic noncompliance and was dialyzed about a week prior to this admission. He presented to the emergency room with generalized weakness and cellulitis in his groin and perineum area. He was found to have a potassium level of 7.2 last evening. The patient was treated with medical management for hyperkalemia after we discussed over the phone with the emergency room physician. Emergency dialysis has been arranged this morning and the patient is seen this morning. PAST MEDICAL AND SURGICAL HISTORY: Significant for: 1. Diabetes. 2. Hypertension. 3. End-stage renal disease. 4. Secondary hyperparathyroidism. 5. Anemia. 6. Peripheral vascular disease, status post left tkvkf-jjz-hwgo and right cunxo-vpo-rvwu amputation. 7. Legally blind due to diabetic retinopathy. 8. History of chronic noncompliance with medical care. Past surgical history is significant for right internal jugular vein hemodialysis catheter placement, right zvbnr-lba-kaog and left dqmgv-lcd-ezln amputation. ALLERGIES: The patient has no known drug allergies. PERSONAL AND SOCIAL HISTORY: The patient reports that his family lives in [facility], he was living in [facility] and recently moved to [place]. He denies any alcohol or illicit drug use. He does have history of smoking. FAMILY HISTORY: Significant for kidney disease and congestive heart failure. REVIEW OF SYSTEMS: The patient has been feeling poorly for the last several days. He reports generalized weakness, fever and chills. Ears, nose and throat are unremarkable. Cardiovascular system negative for dyspnea or chest pain. Respiratory system negative for cough or hemoptysis. Gastrointestinal (GI) system negative for vomiting or diarrhea. He denies any abdominal pain. Genitourinary () system is significant for cellulitis in his scrotal and groin area. Endocrine system is significant for diabetes and secondary hyperparathyroidism. Musculoskeletal system significant for bilateral lower extremity amputations. Psychosocial system is significant for chronic noncompliance with medical care. Neurological system is negative for seizures or stroke. Skin is significant for cellulitis in his skin folds and in the groin area. PHYSICAL EXAMINATION: Temperature 101.2 degrees Fahrenheit, heart rate 110 per minute and respiratory rate 20 per minute. Blood pressure 149/70 mmHg and oxygen saturation 91% on room air. Head is atraumatic. Neck is supple and mildly elevated jugular venous distention (JVD). There is no thyroid enlargement and trachea is midline. Pupils equal and reactive to light and sclerae is anicteric. Oral mucosa is dry and no thrush or ulcers noted. Heart sounds are tachycardiac. Lungs clear to auscultation bilaterally. Abdomen soft and bowel sounds are present. There is tenderness in the superficial palpation on left side where he has cellulitis. There is no palpable organomegaly. Skin has significant area of chronic skin changes and some acute cellulitis in his groin area and on the scrotal area. There is also some cellulitis extending on the left lateral abdominal wall up to his breast. Neurologically he is awake, alert and oriented times three. LABORATORY DATA: On admission WBC count 13.3, hemoglobin 10.3 and hematocrit 32.9. Sodium 136 and potassium 7.2. CO2 was 14, BUN 110 and creatinine 14.0. Glucose was 65 and lactic acid level 0.6. Calcium 7.2. Total protein 7.9 and albumin 2.6. This morning labs showed sodium level 132 and potassium 6.8. CO2 14, BUN 112 and creatinine 14.8. Calcium level 6.7. CT scan of abdomen and pelvis done just prior to dialysis negative for any acute intra-abdominal pathology. There is diffuse skin thickening and subcutaneous edema in the perineum and lower abdominal wall area. PROBLEMS: 1. Severe hyperkalemia related to end-stage renal disease and noncompliance with dialysis. Urgent dialysis has been arranged this morning and the patient is being dialyzed with low potassium bath. His electrolytes will be rechecked after dialysis treatment today. 2. End-stage renal disease. The patient has been noncompliant with dialysis treatment. I have discussed with him previously and again today about need for better compliance. The patient clearly understands that his life is at risk due to noncompliance with dialysis treatments. 3. Metabolic acidosis. Again, this is related to end-stage renal disease and missed dialysis treatments. This will be corrected with hemodialysis. The patient was given one dose of sodium bicarbonate 1 ampule earlier. No other intervention is indicated. 4. Cellulitis in groin area and lower abdominal wall area. The patient has been started on antibiotics including vancomycin and Zosyn which is appropriate. We will dose his vancomycin after hemodialysis. 5. Hypertension. Blood pressure is well-controlled. It is likely to improve once his infection improves. I thank you for involving me in the care of Mr. Moore. I will follow him along with you.
[2017-02-08 00:21] VITALS: BP 147/68
[2017-02-08] MEDS: ACETAMINOPHEN TAB 650MG DOSE (2X325MG) PO PRN (01:03)
--- NOTE | 2017-02-08 02:59 | HPE ---
DATE OF ADMISSION: 02/06/2017 PRIMARY CARE PROVIDER: Bladimir Langston DO. SHUTTLE FITTING SUPERVISOR: Aby Law MD. CHIEF COMPLAINT: Groin pain. HISTORY OF PRESENT ILLNESS: This is a 46-year-old male with a history of end-stage renal disease. He has been noncompliant with dialysis. He said he has not been dialyzed for 5 days. He feels weak. He was complaining of pain in his groin, scrotum and perineal area. He said he noticed it like a rash that started about a week ago in his scrotum and then it seems to have spread. Now it is very sore and painful. Upon arrival to the emergency room (ER), blood pressure was 185/90, pulse 109, respirations 18, temperature 99.9, oxygen saturation was 95% on room air. LABORATORY STUDIES: White count was 13.3, hemoglobin 10.3, hematocrit 32.9, platelets were 200. Sodium 136, potassium 7.2, BUN 110, creatinine 14, calcium 7.2, lactic acid 0.6, C-reactive protein 18.8. Troponin was 0.02. He was given calcium gluconate in the emergency room, a dose of Kayexalate. Antibiotics were started of vancomycin and Zosyn. He was given Benadryl for itching. An ultrasound of the scrotum was done, which showed bilateral microlithiasis, left and right epididymis head cyst, severe soft tissue edema. Chest x-ray showed cardiomegaly. Blood cultures were taken. Dr. Vasquez from urology was notified and he will consult on the patient. Dr. Law, weather stripper, was notified by the ER. He will consult on the patient. Assessment was done and patient will be admitted inpatient for cellulitis of the scrotum, abdomen and penis, hyperkalemia, end-stage renal disease noncompliant with dialysis for dialysis, history of hypertension, history of hypothyroidism. Patient will be admitted inpatient to the progressive care unit (PCU) on monitoring. SOCIAL HISTORY: He recently moved to [place] from [facility]. He does not smoke cigarettes. He does not drink alcohol. He does not use recreational drugs. ALLERGIES: No known allergies. FAMILY HISTORY: He has a family history of kidney disease and congestive heart failure. PAST MEDICAL HISTORY: 1. Insulin-dependent diabetes. 2. Hypertension. 3. End-stage renal disease. 4. Secondary hyperparathyroidism. 5. Anemia. 6. Peripheral vascular disease status post left below-knee and right above-knee amputation. 7. Diabetic retinopathy and is legally blind. PAST SURGICAL HISTORY: 1. Right jugular vein hemodialysis. 2. Right nuvff-ijp-inus and left qsbcq-nso-qwvr amputations. CURRENT MEDICATIONS: - losartan potassium 50 mg by mouth daily, which I will hold - Tylenol 650 mg by mouth four times a day as needed for pain - amlodipine 5 mg by mouth daily - calcitriol 0.25 mcg by mouth daily - calcium acetate 667 mg 1334 by mouth with meals - duloxetine 20 mg by mouth nightly - Neurontin 100 mg by mouth three times a day - Levemir 10 units subcutaneously nightly - levothyroxine 150 mcg by mouth daily - metoprolol tartrate 25 mg by mouth twice a day - nystatin powder twice a day as needed to skin rash in the groin - oxycodone 5/325 one by mouth three times a day as needed for pain - Protonix 40 mg by mouth daily - Seroquel 25 mg by mouth nightly REVIEW OF SYSTEMS: No complaint of headache. He has poor vision secondary to diabetic retinopathy. No fever. No chills. No tinnitus. No hoarseness. No difficulty swallowing. No lightheadedness. No vertigo. Cardiovascular: No complaints of chest pain, shortness of breath, palpitations or edema. Respiratory: No current cough. No sputum production. No hemoptysis. No orthopnea. No wheeze. Gastrointestinal: No nausea, vomiting or diarrhea. No hematochezia. No melena. Genitourinary: No difficulty urinating. He has had rash on his groin, which has spread. It is very painful from the scrotum to the groin, abdomen up to chest. Musculoskeletal: No joint redness or swelling. Endocrine: History of insulin-dependent diabetes type 2, history of hypothyroidism. Hematological: History of anemia. Neurological: No history of seizures. Does have neuropathy. Psychological: No history of suicidal ideations. PHYSICAL EXAMINATION: 46-year-old cooperative male who looks much older than his stated years. Weight 102.5 kg. Temperature 98.7, pulse 122, blood pressure 190/94, respiratory rate 22, oxygen saturation 91% on room air. Patient is alert and oriented times three. Pupils equal and reactive to light. Extraocular muscles (EOMs) are intact. Cornea and sclerae clear. Conjunctivae were normal. No facial asymmetry. Pharynx, tongue and gums pink and moist. Tongue is midline. Neck is supple without lymphadenopathy. No thyromegaly. No goiter. Chest has decreased breath sounds to base. No wheeze or retraction. Heart is regular. Abdomen: Just below nipple down to the abdomen, the pannus, groin and scrotal area is red, warm, tender to touch. No organomegaly. Bowel sounds are positive. Extremities: He has left laxnx-wss-xrxb, right mqycb-gmb-vvud amputations. Hand lead esthetician are equal. Skin is warm and dry. IMPRESSION: 1. Cellulitis of the scrotum, abdomen, pannus. 2. Hyperkalemia. 3. End-stage renal disease, noncompliant with dialysis requiring emergency dialysis. 4. Hypertension. 5. Insulin-dependent diabetes type 2. Patient will be admitted to the progressive care unit (PCU). Consult from the emergency room doctor has been done. Dr. Law will follow the patient. He will have dialysis in the morning. Intravenous (IV) antibiotics. Wound cultures of the scrotum, groin, abdomen cellulitis. Continue vancomycin. Pharmacy to dose. Continue Zosyn. Medicate for pain. Patient will be admitted, expect two midnights. Continue levothyroxine as before admission. Tylenol and morphine for pain.
[2017-02-08 03:45] VITALS: BP 154/83
[2017-02-08 06:03] LABS: CALCIUM LEVEL 7.3 MG/DL (8.5-10.1); CREATININE FOR GFR 9.05 MG/DL (0.70-1.30); GLOMERULAR FILTRATION RATE 6.7 (>60); POTASSIUM SERUM 4.2 MEQ/L (3.5-5.1)
[2017-02-08] MEDS: CALCIUM ACETATE 667 MG GELCAP PO SCH ×3 (06:57→17:46)
[2017-02-08] MEDS: CALCITRIOL 0.25 MCG CAP (S0169) PO SCH (06:58)
[2017-02-08] MEDS: PANTOPRAZOLE 40MG TAB (PROTONIX) PO SCH (06:58)
[2017-02-08] MEDS: LEVOTHYROXINE 150MCG TABLET (0.15MG) PO SCH (06:58)
[2017-02-08] MEDS: GABAPENTIN 100 MG CAP PO SCH ×3 (06:58→21:22)
[2017-02-08] MEDS: HEPARIN SOD (PORCINE) 5000 UNITS/ML VIAL SC SCH ×3 (07:04→21:23)
[2017-02-08] MEDS: METOPROLOL TART 25 MG TABLET PO SCH ×2 (07:05→21:22)
[2017-02-08] MEDS: amLODIPine 5 MG TAB PO SCH (07:06)
[2017-02-08 07:17] LABS: MEAN CORPUSCULAR HEMOGLOBIN 26.8 pg (27.0-33.0); MEAN CORPUSCULAR HGB CONC 32.4 g/dl (32.0-36.5); MEAN CORPUSCULAR VOLUME 82.9 fl (80.0-96.0); WHITE BLOOD COUNT 6.4 K/mm3 (4.0-10.0)
[2017-02-08 08:00] VITALS: BP 160/85
[2017-02-08] MEDS ORDERED: DARBEPOETIN 300 MCG/0.6 ML *DIALYSIS* SYRINGE (J0882) IV SCH (08:00)
[2017-02-08] MEDS: HumaLOG INSULIN (NovoLOG) PER UNIT SC SCH ×3 (08:34→17:30)
[2017-02-08] MEDS: PIPERACILLIN/TAZOBACTAM SOD 2.25 GM in D5W MINI-BAG PLUS 50 ML IV SCH ×2 (09:41→21:24)
--- NOTE | 2017-02-08 11:02 | IPN ---
DATE OF VISIT: 02/08/2017 Mr. Moore is seen this morning on his bedside. He reports feeling much better. His pain has improved, and his fever has also improved. He denies any nausea, vomiting, dyspnea, or chest pain. He underwent hemodialysis yesterday, which he tolerated well. On physical examination, temperature 99 degrees Fahrenheit, heart rate 79 per minute, and respiratory rate 18 per minute. Blood pressure 160/85 mmHg and oxygen saturation 90% on room air. His head is atraumatic. Neck is supple and without jugular venous distention (JVD) or thyroid enlargement. Heart sounds are regular. Lungs clear to auscultation bilaterally. Abdomen is soft and nontender. Bowel sounds are normal. There is no palpable organomegaly. Extremities: Have no cyanosis or clubbing. He has left xjkhv-exd-lnqz and right jugtm-bnd-qtkb amputations. Cellulitis on his groin area and left chest area is improving. Wound cultures are positive for Pseudomonas aeruginosa. Other laboratories show WBC count 6.4, hemoglobin 8.9, and hematocrit 27.6. Sodium 134 and potassium 4.2. BUN 54 and creatinine 9.0. PROBLEMS: 1. Severe hyperkalemia. Potassium level corrected with hemodialysis yesterday. I have discussed with the patient once again and emphasized the importance for compliance with dialysis treatments. 2. End-stage renal disease. The patient was dialyzed yesterday, and he will be dialyzed again today, as today is his regular dialysis day. 3. Cellulitis. The patient is improving clinically and remains on intravenous (IV) antibiotics. 4. Anemia. This is related to end-stage renal disease and acute infection. The patient will be given Aranesp 300 mcg today.
[2017-02-08 12:00] VITALS: BP 171/90
[2017-02-08] MEDS ORDERED: HEPARIN 1,000 UNITS/ML 10ML VIAL (FOR RADIOLOGY& DIALYSIS ONLY) XX ONE (12:30)
[2017-02-08] MEDS ORDERED: HEPARIN 1,000 UNITS/ML 10ML VIAL (FOR RADIOLOGY& DIALYSIS ONLY) IV ONE (12:30)
--- NOTE | 2017-02-08 13:12 | IPN ---
DATE: 02/08/2017 SUBJECTIVE: The patient tells me he is feeling better. He tells me that he is not as painful in his scrotal region. He denies shortness of breath, chest pain, nausea, vomiting, or diarrhea. OBJECTIVE: VITAL SIGNS: Temperature maximum (T max) 100.3 yesterday evening. Temperature 99 at the present time. Pulse 79. Respiratory rate 19. Blood pressure 160/85. Oxygen saturation 98% on room air. General: He is disheveled man laying in bed. He did not appear to be in any acute distress. He was sleeping peacefully, but was arousable to verbal stimuli. HEENT: Moist mucous membranes. He has malodorous poor dentition. Mild elevation in central venous pressure. Cardiovascular: S1, S2, regular. Respiratory Exam: Diminished breath sounds at the bases. There are scattered rales. Abdominal Exam: Grossly obese. Scrotum has persistent area of well demarcated erythema. It did appear improved and less tense than on previous days exams. No areas of fluctuance appreciated. Status post above knee amputation (AKA) bilaterally. He has a hemodialysis catheter in his right anterior thorax. LABORATORY STUDIES: WBC 6.4 down from 13.7, hemoglobin 8.9, hematocrit 27.5 and platelet count 180. He had a sed rate of 140. Chemistry panel: Sodium 134, potassium 4.2, chloride 99, bicarbonate 25, BUN 54, creatinine 9.0, CRP 21. MICROBIOLOGY: Scrotal wound culture positive for Pseudomonas aeruginosa. Preliminary positive for Pseudomonas sensitive to Zosyn. Blood cultures negative thus far. IMAGING: The patient had a CT scan of the abdomen and pelvis with IV contrast which revealed mild ileus, no evidence of free air or intra-abdominal abscess. Diffuse skin thickening and subcutaneous edema in the region of the perineum with reactive bilateral inguinal lymphadenopathy. Soft tissue edema pattern. No abscess seen. No soft tissue gases noted. He did also have a scrotal ultrasound that revealed bilateral microlithiasis, left and right epididymis had cysts, soft tissue edema. The patient also had a chest x-ray which revealed cardiomegaly, central line and no acute infiltrate. ASSESSMENT AND PLAN: This is a 46-year-old man with severe hypokalemia and end stage renal disease in the setting of recurrent scrotal cellulitis. PROBLEMS: 1. Severe hyperkalemia. The patient is status post hemodialysis yesterday. The patient was noncompliant with hemodialysis. Compliance was stressed. He was informed once again by myself that he will likely if he does not improve his habits of obtaining regularly scheduled hemodialysis. Hyperkalemia is resolved at this time. 2. End stage renal disease. The plan is to dialyze him again today as per Dr. Law. Today is his regular hemodialysis day. 3. Scrotal cellulitis. Urology's help is appreciated. No evidence of Bisi's gangrene. The patient is improving clinically. Would continue with IV antibiotics. I will check a methicillin-resistant Staphylococcus aureus (MRSA) screen of the nares. If this is negative, can likely discontinue the vancomycin and continue with Zosyn while his symptoms improve. 4. Anemia secondary to end stage renal disease. He is on Aranesp. 5. Mood disorder. He is on Cymbalta. The patient is on Seroquel. 6. Hypertension. He is on Norvasc and metoprolol 25 mg twice a day. 7. Gastroesophageal reflux disease. He is on Protonix. 8. Type 2 diabetes. He is on insulin with sliding scale. 9. Hypothyroidism. He is on Synthroid. 10. Deep vein thrombosis prophylaxis. He is on heparin. 11. Chronic pain. He is on Percocet and Neurontin. DISPOSITION: The patient is improved at this time and medically stable for transfer out of the progressive care unit. He had a similar hospitalization one month ago. I suspect that he would benefit from home care services or possibly even placement. He works with a wheelchair at his baseline. A patient and family service (PFS) consult has been placed.
[2017-02-08] MEDS: CHECK TO SEE IF PATIENT IS RECEIVING DIALYSIS TODAY AND REFER TO THE VANCOMYCIN ORDER XX SCH (16:00)
[2017-02-08 17:10] VITALS: BP 178/90
[2017-02-08] MEDS: VANCOMYCIN HCL 1,000 MG, VIAL MATE ADAPTER 1 EACH in D5W 250 ML IV SCH (17:47)
[2017-02-08] MEDS: QUEtiapine FUMARATE 25 MG TAB PO SCH (21:22)
[2017-02-08] MEDS: LEVEMIR (INSULIN DETEMIR) 1 UNITS/0.01ML SC SCH (21:23)
[2017-02-08] MEDS: DULoxetine 20 MG CAP (CYMBALTA) PO SCH (21:23)
[2017-02-08] MEDS ORDERED: METOPROLOL TART 25 MG TABLET PO ONE (22:15)
[2017-02-08] MEDS: **hydrALAZINE** 50 MG TAB PO SCH (23:34)
[2017-02-09 01:20] VITALS: BP 152/86
[2017-02-09] MEDS ORDERED: amLODIPine 5 MG TAB PO ONE (03:15)
[2017-02-09 04:00] VITALS: BP 170/104
[2017-02-09] MEDS: LEVOTHYROXINE 150MCG TABLET (0.15MG) PO SCH (05:30)
[2017-02-09] MEDS: HEPARIN SOD (PORCINE) 5000 UNITS/ML VIAL SC SCH ×3 (05:30→21:14)
[2017-02-09 06:00] VITALS: BP 168/90
[2017-02-09 06:26] LABS: MEAN CORPUSCULAR HEMOGLOBIN 27.2 pg (27.0-33.0); MEAN CORPUSCULAR HGB CONC 32.1 g/dl (32.0-36.5); MEAN CORPUSCULAR VOLUME 84.8 fl (80.0-96.0); RED CELL DISTRIBUTION WIDTH 17.2 % (11.5-14.5); WHITE BLOOD COUNT 4.5 K/mm3 (4.0-10.0)
[2017-02-09 06:44] LABS: CALCIUM LEVEL 7.7 MG/DL (8.5-10.1); CREATININE FOR GFR 5.56 MG/DL (0.70-1.30); GLOMERULAR FILTRATION RATE 11.8 (>60); POTASSIUM SERUM 4.4 MEQ/L (3.5-5.1)
[2017-02-09] MEDS: HumaLOG INSULIN (NovoLOG) PER UNIT SC SCH ×3 (07:30→17:30)
[2017-02-09] MEDS: PANTOPRAZOLE 40MG TAB (PROTONIX) PO SCH (08:57)
[2017-02-09] MEDS: amLODIPine 5 MG TAB PO SCH (08:57)
[2017-02-09] MEDS: GABAPENTIN 100 MG CAP PO SCH ×3 (08:57→21:16)
[2017-02-09] MEDS: METOPROLOL TART 50 MG TAB PO SCH ×2 (08:57→21:15)
[2017-02-09] MEDS: PIPERACILLIN/TAZOBACTAM SOD 2.25 GM in D5W MINI-BAG PLUS 50 ML IV SCH ×2 (08:58→21:17)
[2017-02-09] MEDS: **hydrALAZINE** 50 MG TAB PO SCH ×3 (08:58→21:16)
[2017-02-09] MEDS: CALCIUM ACETATE 667 MG GELCAP PO SCH ×3 (08:58→17:41)
[2017-02-09] MEDS: CALCITRIOL 0.25 MCG CAP (S0169) PO SCH (08:58)
[2017-02-09] MEDS ORDERED: **hydrALAZINE** 50 MG TAB PO SCH (09:00)
[2017-02-09 14:00] VITALS: BP 152/70
[2017-02-09] MEDS: PERCOCET 5MG/325MG TAB PO PRN ×2 (14:00→21:15)
--- NOTE | 2017-02-09 14:19 | IPN ---
DATE: 02/09/2017 Mr. Moore is seen this morning on his bedside. He is concerned about his high blood pressure. He denies any nausea, vomiting, dyspnea, chest pain, fever or chills. He feels that cellulitis on his groin area and abdominal wall area has improved. His pain has also improved. PHYSICAL EXAMINATION: Temperature 98.8 degrees Fahrenheit, heart rate 82 per minute and respiratory rate 18 per minute. Blood pressure 168/90 mmHg and oxygen saturation 90% on room air. Head is atraumatic. Neck veins are difficult to be assessed. Ears, nose and throat are unremarkable. He is legally blind bilaterally. Heart sounds are regular and lungs clear to auscultation. Abdomen is soft and nontender. Lower abdominal area cellulitis is improving. Extremities have no cyanosis or clubbing. He has a right tihqq-lcj-kgvc and left zgxjm-tzb-moca amputations. Neurologically, he is awake, alert and oriented times three. Today's labs show WBC count 4.5, hemoglobin 8.8 and hematocrit 27.5. Platelets 179. Sodium 136 and potassium 4.4. BUN 27 and creatinine 5.56. C-reactive protein is down to 13.5. PROBLEMS: 1. End-stage renal disease. The patient underwent hemodialysis yesterday. We will dialyze him again tomorrow, which is his regular day. At present, his electrolytes are all within normal range. 2. Hyperkalemia. This has completely resolved and within normal range now. No intervention is indicated. 3. Hypertension. His blood pressure is uncontrolled at present. He is quite concerned about it. His volume status seems to be reasonably well-compensated. He is currently receiving metoprolol 50 mg twice a day, hydralazine 50 mg twice a day, and amlodipine 10 mg daily. We can increase his hydralazine dose to 50 mg three times a day and continue to monitor. We will reevaluate his blood pressure tomorrow after dialysis. 4. Cellulitis on abdominal wall and groin area. The patient is improving clinically and remains on vancomycin and Zosyn.
[2017-02-09] MEDS: CHECK TO SEE IF PATIENT IS RECEIVING DIALYSIS TODAY AND REFER TO THE VANCOMYCIN ORDER XX SCH (16:00)
--- NOTE | 2017-02-09 16:25 | IPNPDOC ---
Subjective Date Seen The patient was seen on 02/09/17. Subjective Chief Complaint/HPI The patient is a 46-year-old male admitted with a reason for visit of Cellulitis ,Scrotum;Esrd On Dialysis;Hyperkalemia. Events since last encounter no acute events, denied sop, cp, abd pain, f/c. reported groin pain improved General: Denies: Chills, Fatigue Constitutional: Denies: Chills, Fever Eyes: Denies: Pain, Vision change ENT: Denies: Head Aches, Ear Pain Skin: Reports: Lesions, Breakdown (scrotal) Pulmonary: Denies: Dyspnea Cardiovascular: Denies: Chest Pain, Palpitations Gastrointestinal: Denies: Nausea, Vomiting, Abdominal Pain Genitourinary: Denies: Dysuria, Frequency Objective Physical Examination General Exam: Positive: Alert, Cooperative, No Acute Distress Eye Exam: Positive: PERRLA, Conjunctiva & lids normal Chest Exam: Positive: Clear to auscultation, Normal air movement, Negative: Rales, Rhonchi, Wheezing Heart Exam: Positive: Rate Normal, Normal S1, Normal S2 Abdomen Exam: Positive: Soft, Other (obese) Male Exam: Positive: Lesions (srotal and groin ulcer), Erythema, Tenderness Extremity Exam: Positive: Swelling, Other (b/l le ampuation with edema) Assessment /Plan Assessment This is a 46-year-old man with h/o ESRD, poor compliance missing HD, IDDM, HTN, anemia, PVD with b/l LE amputation, diabetic retinopathy leggally blind admitted with severe hyperkalemia and end stage renal disease in the setting of recurrent scrotal cellulitis. Problems (1) Cellulitis, scrotum Status: Acute Problem Text: Urology consulted, no evidence ofr Bisi'g gangrene cultures appreciated, f/u vanoc and zosyn ID consulted for PO antibiotics (2) Hyperkalemia Status: Acute Problem Text: 2/2 to poor compliance with HD, Counseling provided. informed patient could potentially , Resolved (3) Anemia in chronic illness Problem Text: monitor H/H (4) Mood disorder Problem Text: c/w med (5) HTN (hypertension) Problem Text: norvasc and metoprolol (6) GERD (gastroesophageal reflux disease) Problem Text: ppi (7) DMII (diabetes mellitus, type 2) Problem Text: insulin as per protocol, f/u fs, adjust as needed (8) Hypothyroid Problem Text: c/w Synthroid (9) Chronic pain Problem Text: c/w current meds (10) Poor compliance Problem Text: counseling provided, complicating care (11) ESRD (end stage renal disease) on dialysis Status: Acute Problem Text: poor compliance with HD, consulted Nephrology c/w HD, counseling provided Plan/VTE VTE Prophylaxis Ordered?: Yes (Heparin SQ) Disposition Pending ID consult, PT, clinical improvement VS, I&O, 24H, Fishbone Vital Signs/I&O Vital Signs Date Time Temp Pulse Resp B/P (MAP) Pulse Ox O2 Delivery O2 Flow Rate FiO2 02/09/17 14:30 18 02/09/17 14:00 97.8 86 152/70 (97) 92 Room Air I&O- Last 24 Hours up to 6 AM 02/09/17 06:00 Intake Total 1720 ml Output Total 3400 ml Balance -1680 ml Laboratory Data 24H LABS Laboratory Tests 2 02/08/17 17:17: Bedside Glucose (Misc Panel) 108H 02/08/17 20:39: Bedside Glucose (Misc Panel) 105 02/09/17 06:05: Erythrocyte Sedimentation Rate 126H, Anion Gap 9, Glomerular Filtration Rate 11.8L, Blood Urea Nitrogen 27H, Creatinine 5.56H, Sodium Level 136, Potassium Level 4.4, Chloride Level 103, Carbon Dioxide Level 24, Calcium Level 7.7L, C- Reactive Protein, Quantitative 13.50H CBC/BMP Laboratory Tests 02/09/17 06:05 Red Blood Count 3.25 L, Mean Corpuscular Volume 84.8, Mean Corpuscular Hemoglobin 27.2, Mean Corpuscular Hemoglobin Concent 32.1, Red Cell Distribution Width 17.2 H, Calcium Level 7.7 L Microbiology Microbiology 02/06/17 Blood Culture - Preliminary, Resulted No Growth after 48 hours. All Specime... 02/06/17 Blood Culture - Preliminary, Resulted No Growth after 48 hours. All Specime... 02/06/17 Wound Culture - Final, Complete Pseudomonas Aeruginosa Escherichia Coli Enterococcus Faecalis Staphylococcus Sp Coag Neg 02/09/17 MRSA Screen, Ordered Pending 02/06/17 Wound Culture - Final, Complete Pseudomonas Aeruginosa Escherichia Coli Enterococcus Faecalis Staphylococcus Sp Coag Neg VIRGIL PERRY MD Feb 09, 2017 16:25
[2017-02-09] MEDS: LEVEMIR (INSULIN DETEMIR) 1 UNITS/0.01ML SC SCH (21:14)
[2017-02-09] MEDS: QUEtiapine FUMARATE 25 MG TAB PO SCH (21:15)
[2017-02-09] MEDS: DULoxetine 20 MG CAP (CYMBALTA) PO SCH (21:16)
[2017-02-09] MEDS: NYSTATIN 100,000 UNITS/GM TOPICAL PWD 15 GM TOP PRN (21:20)
[2017-02-09 22:00] VITALS: BP 168/88
[2017-02-10] MEDS: HEPARIN SOD (PORCINE) 5000 UNITS/ML VIAL SC SCH ×3 (05:58→21:50)
[2017-02-10] MEDS: LEVOTHYROXINE 150MCG TABLET (0.15MG) PO SCH (05:59)
[2017-02-10] MEDS: **hydrALAZINE** 50 MG TAB PO SCH (06:00)
[2017-02-10 06:43] LABS: MEAN CORPUSCULAR HEMOGLOBIN 26.6 pg (27.0-33.0); MEAN CORPUSCULAR HGB CONC 30.7 g/dl (32.0-36.5); MEAN CORPUSCULAR VOLUME 86.6 fl (80.0-96.0); RED CELL DISTRIBUTION WIDTH 16.9 % (11.5-14.5); WHITE BLOOD COUNT 5.6 K/mm3 (4.0-10.0)
[2017-02-10] MEDS: CALCITRIOL 0.25 MCG CAP (S0169) PO SCH (06:43)
[2017-02-10] MEDS: CALCIUM ACETATE 667 MG GELCAP PO SCH ×3 (06:44→17:37)
[2017-02-10] MEDS: amLODIPine 5 MG TAB PO SCH (06:45)
[2017-02-10] MEDS: GABAPENTIN 100 MG CAP PO SCH ×3 (06:45→21:50)
[2017-02-10] MEDS: METOPROLOL TART 50 MG TAB PO SCH ×2 (06:46→21:51)
[2017-02-10] MEDS: PANTOPRAZOLE 40MG TAB (PROTONIX) PO SCH (06:46)
[2017-02-10 07:14] LABS: CALCIUM LEVEL 7.9 MG/DL (8.5-10.1); CREATININE FOR GFR 7.1 MG/DL (0.70-1.30); GLOMERULAR FILTRATION RATE 8.9 (>60); POTASSIUM SERUM 4.6 MEQ/L (3.5-5.1); VANCOMYCIN RANDOM 23.6 UG/ML
[2017-02-10] MEDS: HumaLOG INSULIN (NovoLOG) PER UNIT SC SCH ×3 (07:37→17:36)
[2017-02-10] MEDS: PIPERACILLIN/TAZOBACTAM SOD 2.25 GM in D5W MINI-BAG PLUS 50 ML IV SCH ×2 (08:05→21:49)
[2017-02-10] MEDS ORDERED: HEPARIN 1,000 UNITS/ML 10ML VIAL (FOR RADIOLOGY& DIALYSIS ONLY) XX ONE (11:45)
[2017-02-10] MEDS ORDERED: HEPARIN 1,000 UNITS/ML 10ML VIAL (FOR RADIOLOGY& DIALYSIS ONLY) IV ONE (11:45)
[2017-02-10] MEDS: SENOKOT S TAB PO SCH ×2 (11:52→21:50)
[2017-02-10 14:00] VITALS: BP 174/71
[2017-02-10] MEDS: CHECK TO SEE IF PATIENT IS RECEIVING DIALYSIS TODAY AND REFER TO THE VANCOMYCIN ORDER XX SCH (14:43)
[2017-02-10] MEDS: **hydrALAZINE HCL** 25 MG TAB PO SCH ×2 (17:39→21:51)
--- NOTE | 2017-02-10 17:55 | CR ---
DATE OF CONSULTATION: 02/09/2017 The patient was seen at 4:00. Asked to consult by the hospitalist for evaluation of groin and abdominal wall cellulitis. HISTORY OF PRESENT ILLNESS: Mrs. Moore is a 46-year-old gentleman with a history of end-stage renal disease, on hemodialysis, very poorly compliant, who recently moved from the [facility] to [place]. He was hospitalized in the end of December for hyperkalemia. He states he had noticed a rash in his groin area since that admission. This rash continued to spread. He developed a scrotal ulcer, fever, extensive redness and pain, and therefore came to the emergency room. The patient had a fever up to 101.8. Ultrasound of the scrotum showed bilateral microlithiasis. Epididymis had cyst left and right and soft tissue edema but no evidence for Bisi's gangrene. He was seen in consultation with urology and nephrology. He was started on broad-spectrum antibiotic and has markedly improved in the past 3 days. PAST MEDICAL HISTORY: Significant for: 1. End-stage renal disease, on dialysis, noncompliant. Goes to Dr. Law. 2. Hypertension. 3. Hypothyroidism. 4. Insulin-dependent diabetes. 5. Secondary hyperparathyroidism. 6. Anemia of renal disease. 7. Peripheral vascular disease status post left below-knee amputation (BKA) and right above-knee amputation (AKA) in the past year. 8. Diabetic retinopathy. He is legally blind. PAST SURGICAL HISTORY: 1. Right jugular vein hemodialysis. Failed attempt of graft on the left arm. 2. Right ylryu-jzq-pboa and qcgap-ajx-knrt amputation. 3. Vascular bypass grafts attempted in [place] that have failed. MEDICATIONS: - hydralazine 75 mg by mouth three times a day - metoprolol 50 mg by mouth twice a day - amlodipine 10 mg by mouth daily - Aranesp 300 mcg intravenous (IV) with hemodialysis - Cymbalta 20 mg by mouth at bedtime - Levemir 10 units subcutaneous at bedtime - calcitriol 0.25 mcg by mouth daily - Vancomycin has been given with hemodialysis. - Zosyn 2.25 grams IV every 12 hour - Protonix 40 mg by mouth daily - calcium acetate 1334 mg with meals - levothyroxine 150 mcg daily - nystatin topical to groin area - Seroquel 25 mg by mouth at bedtime ALLERGIES: No known drug allergies. LABORATORY DATA: White count on admission was 13.7, today was 4.5, hemoglobin 8.8, hematocrit 27.5, platelets 179. ESR 126, down from 140. Sodium 136, potassium 4.4, chloride 103, bicarbonate 24, BUN 27, creatinine 5.5, glucose 78, calcium 7.8, CRP 13.5, down from 21.4, albumin 2.4. Blood cultures, two sets, on February 06 were no growth after 72 hours. Scrotal culture and thigh culture had Pseudomonas, Escherichia (E) coli, Enterococcus faecalis, and staphylococcus species. The staphylococcus species were moderate in growth. Pseudomonas, E. coli were heavy. Pseudomonas was sensitive to gentamicin, intermediate to levofloxacin, sensitive to cefotaxime, Zosyn. E. coli was resistant to Bactrim and levofloxacin. Enterococcus faecalis is sensitive to penicillin. Methicillin-resistant Staphylococcus aureus (MRSA) screen is pending. IMAGING: Scrotal ultrasound shows bilateral microlithiasis. Epididymis had cysts bilaterally and severe soft tissue edema. CT of the abdomen and pelvis showed mild ileus. No evidence of intraperitoneal abscess or air. Diffuse skin thickening and subcutaneous edema in the region of the perineum with reactive bilateral inguinal adenopathy. No abscesses seen. Chest x-ray: Cardiomegaly with no acute infiltrate. PHYSICAL EXAMINATION: He is a pleasant 46-year-old gentleman in no acute distress, chronically ill. Temperature is 98.3, pulse 85, respirations 16, blood pressure 168/88, oxygen saturation 91% on room air. HEART: Normal S1, S2. No murmurs. LUNGS: Clear. No wheezes, rales, or rhonchi. ABDOMEN: Soft, nontender. Lower abdominal area has mild erythema, which is improving. Both groin areas have slight erythema. GENITOURINARY: Shows scrotal edema, which has diminished posteriorly on the scrotal area. In the midline there is an ulcer measuring 7 x 3 cm with minimal drainage. Left thigh mild redness. He has a large scar from vascular bypass. Below-knee amputation on the left, right above-knee amputation. Both stumps were well healed. NEUROLOGIC: Normal. Alert and oriented times three. Moves all extremities. IMPRESSION: Cellulitis of the scrotal area that started as what seems like a large ulcer in the scrotum and extended to the abdominal and perineal area with polymicrobial demetris, most prominently Pseudomonas, E. coli, and Enterococcus faecalis. The patient has improved on Zosyn and vancomycin. Unfortunately, E. coli and Pseudomonas are resistant to quinolones, and the patient will need to remain on Zosyn until the infection has resolved, as he does not have oral alternative. I do not think staphylococcus coagulase negative is a culprit in this infection and was only of moderate growth than more likely the gram negatives are the reason for the infection. He is currently day #4 of appropriate IV antibiotics. PLAN: Continue IV Zosyn. Discontinue IV vancomycin. There is no need to cover the staphylococcus coagulase negative. The patient will need at least 7-10 days of IV Zosyn. Depending on clinical improvement, will continue to follow and decide on antibiotic choices based on clinical improvement.
[2017-02-10 18:00] VITALS: BP 185/84
--- NOTE | 2017-02-10 18:35 | IPN ---
DATE: 02/10/2017 Mr. Moore is seen this morning on his bedside during hemodialysis. He is feeling well and denies any fever, chills, nausea, vomiting, abdominal pain, dyspnea or chest pain. His blood pressure has been running high for the last couple of days and he is quite concerned about it. At the start of dialysis, is blood pressure was high, however, has now started to come down as fluid is being removed. PHYSICAL EXAMINATION: On physical examination, the patient is awake and alert at his baseline mentation. Temperature 97.6 degrees Fahrenheit, heart rate 85 per minute and respiratory rate 20 per minute. Blood pressure 190/98 mmHg and oxygen saturation is 90% on room air. Head is atraumatic. He is legally blind bilaterally. Neck is supple and jugular venous distention (JVD) is mildly elevated. Nose and throat are unremarkable. Heart sounds are regular and lungs with slightly diminished breath sounds and bibasilar rales. Abdomen is soft, obese and nontender. Cellulitis on lower abdominal wall and groin area has improved. Extremities have no cyanosis or clubbing. He has bilateral lower extremity amputations. Neurologically, he is awake, alert and oriented times three. LABORATORY DATA: Today's laboratories show WBC count 5.6, hemoglobin 9.2 and hematocrit 30. ESR is 124 today. Sodium 137 and potassium 4.6. BUN 37 and creatinine 7.10. His C-reactive protein has come down to 8.5. PROBLEMS: 1. End-stage renal disease. The patient is being dialyzed today. He will complete his four-hour dialysis treatment. His electrolytes are within normal range. 2. Uncontrolled hypertension. Most likely this is related to hypervolemia in addition to chronic hypertension. His medications have been adjusted. We will remove about four liters of fluid today and see if his blood pressure improves. Further adjustment in his medications will be done over the next 24-48 hours. 3. Cellulitis on groin and lower abdominal wall area. Cellulitis has improved significantly. The patient remains on antibiotics and is currently afebrile. 4. Anemia. No significant change in his anemia. The patient will be treated with Aranesp once a week during dialysis. Complete blood count (CBC) will be checked again tomorrow morning.
--- NOTE | 2017-02-10 18:59 | IPNPDOC ---
Subjective Date Seen The patient was seen on 02/10/17. Subjective Chief Complaint/HPI The patient is a 46-year-old male admitted with a reason for visit of Cellulitis ,Scrotum;Esrd On Dialysis;Hyperkalemia. Events since last encounter pt seen in HR, Denied cp, and pain, sob, n/v/diarrhea, reported gassy. Report groin pain improved Constitutional: Denies: Chills, Fever ENT: Denies: Head Aches Pulmonary: Denies: Dyspnea, Cough Cardiovascular: Denies: Chest Pain, Palpitations, Orthopnea Gastrointestinal: Denies: Nausea, Vomiting, Abdominal Pain, Diarrhea, Constipation Objective Physical Examination General Exam: Positive: Alert, Cooperative, No Acute Distress Eye Exam: Positive: PERRLA, Conjunctiva & lids normal Chest Exam: Positive: Clear to auscultation, Normal air movement, Negative: Rales, Rhonchi, Wheezing Heart Exam: Positive: Rate Normal, Normal S1, Normal S2 Abdomen Exam: Positive: Soft, Other (obese) Male Exam: Positive: Lesions (srotal and groin ulcer, healing), Tenderness Extremity Exam: Positive: Swelling, Other (b/l le ampuation with edema) Assessment /Plan Problems (1) Cellulitis, scrotum Status: Acute Problem Text: Urology consulted, no evidence ofr Bisi'g gangrene cultures appreciated, initally on van and zon ID consulted recomented dc [facility], [facility] gent with HD Wednesday and Wednesday. (2) Hyperkalemia Status: Acute Problem Text: 2/2 to poor compliance with HD, Counseling provided. informed patient could potentially , Resolved (3) Anemia in chronic illness Problem Text: monitor H/H (4) Mood disorder Problem Text: c/w med (5) HTN (hypertension) Problem Text: norvasc and metoprolol (6) GERD (gastroesophageal reflux disease) Problem Text: ppi (7) DMII (diabetes mellitus, type 2) Problem Text: insulin as per protocol, f/u fs, adjust as needed (8) Hypothyroid Problem Text: c/w Synthroid (9) Chronic pain Problem Text: c/w current meds (10) Poor compliance Problem Text: counseling provided, complicating care (11) ESRD (end stage renal disease) on dialysis Status: Acute Problem Text: poor compliance with HD, consulted Nephrology c/w HD, counseling provided Plan/VTE VTE Prophylaxis Ordered?: Yes (Heparin SQ) Disposition Pending arrangement of antibiotics and PT. VS, I&O, 24H, Fishbone Vital Signs/I&O Vital Signs Date Time Temp Pulse Resp B/P (MAP) Pulse Ox O2 Delivery O2 Flow Rate FiO2 02/10/17 17:39 174/71 02/10/17 14:00 98.6 87 18 92 Room Air I&O- Last 24 Hours up to 6 AM 02/10/17 06:00 Intake Total 2260 ml Output Total 900 ml Balance 1360 ml Laboratory Data 24H LABS Laboratory Tests 2 02/09/17 20:31: Bedside Glucose (Misc Panel) 106H 02/10/17 06:13: Anion Gap 9, Glomerular Filtration Rate 8.9L, Blood Urea Nitrogen 37H, Creatinine 7.10H, Sodium Level 137, Potassium Level 4.6, Chloride Level 103, Carbon Dioxide Level 25, Calcium Level 7.9L, C-Reactive Protein, Quantitative 8.53H, Random Vancomycin Level 23.6 02/10/17 06:15: Erythrocyte Sedimentation Rate 124H 02/10/17 06:32: Bedside Glucose (Misc Panel) 82 CBC/BMP Laboratory Tests 02/10/17 06:13 Calcium Level 7.9 L 02/10/17 06:15 Red Blood Count 3.47 L, Mean Corpuscular Volume 86.6, Mean Corpuscular Hemoglobin 26.6 L, Mean Corpuscular Hemoglobin Concent 30.7 L, Red Cell Distribution Width 16.9 H Microbiology Microbiology 02/06/17 Blood Culture - Preliminary, Resulted No Growth after 72 hours. All specime... 02/06/17 Blood Culture - Preliminary, Resulted No Growth after 72 hours. All specime... 02/06/17 Wound Culture - Final, Complete Pseudomonas Aeruginosa Escherichia Coli Enterococcus Faecalis Staphylococcus Sp Coag Neg 02/09/17 MRSA Screen, Ordered Pending 02/06/17 Wound Culture - Final, Complete Pseudomonas Aeruginosa Escherichia Coli Enterococcus Faecalis Staphylococcus Sp Coag Neg VIRGIL PERRY MD Feb 10, 2017 18:59
[2017-02-10] MEDS: LEVEMIR (INSULIN DETEMIR) 1 UNITS/0.01ML SC SCH (21:00)
[2017-02-10] MEDS: QUEtiapine FUMARATE 25 MG TAB PO SCH (21:51)
[2017-02-10] MEDS: DULoxetine 20 MG CAP (CYMBALTA) PO SCH (21:51)
[2017-02-10 21:53] VITALS: BP 177/85
[2017-02-10] MEDS: diphenhydrAMINE 25 MG CAP PO PRN (23:22)
[2017-02-11] VITALS (7 sets, daily range): BP systolic 118–215; BP diastolic 60–101
[2017-02-11] MEDS: cloNIDine 0.1 MG TAB PO SCH ×4 (03:17→20:47)
[2017-02-11] MEDS: HEPARIN SOD (PORCINE) 5000 UNITS/ML VIAL SC SCH ×3 (05:59→21:00)
[2017-02-11] MEDS: LEVOTHYROXINE 150MCG TABLET (0.15MG) PO SCH (05:59)
[2017-02-11 06:13] LABS: MEAN CORPUSCULAR HEMOGLOBIN 26.4 pg (27.0-33.0); MEAN CORPUSCULAR VOLUME 85.2 fl (80.0-96.0); RED CELL DISTRIBUTION WIDTH 17.1 % (11.5-14.5); WHITE BLOOD COUNT 5.2 K/mm3 (4.0-10.0)
[2017-02-11 06:24] LABS: CALCIUM LEVEL 8.1 MG/DL (8.5-10.1); CREATININE FOR GFR 5.32 MG/DL (0.70-1.30); GLOMERULAR FILTRATION RATE 12.4 (>60); POTASSIUM SERUM 4.1 MEQ/L (3.5-5.1)
[2017-02-11] MEDS: HumaLOG INSULIN (NovoLOG) PER UNIT SC SCH ×3 (07:30→17:24)
[2017-02-11] MEDS: **hydrALAZINE HCL** 25 MG TAB PO SCH ×4 (09:00→20:59)
[2017-02-11] MEDS ORDERED: TOBRAMYCIN INJ 80 MG/2 ML VIAL (J3260) IP ONE (09:00)
[2017-02-11] MEDS: METOPROLOL TART 50 MG TAB PO SCH (09:00)
[2017-02-11] MEDS: MIRALAX *UNIT DOSE* 17GM PACKET PO SCH (09:00)
[2017-02-11] MEDS: CALCITRIOL 0.25 MCG CAP (S0169) PO SCH (09:22)
[2017-02-11] MEDS: amLODIPine 5 MG TAB PO SCH (09:32)
[2017-02-11] MEDS: PANTOPRAZOLE 40MG TAB (PROTONIX) PO SCH (09:33)
[2017-02-11] MEDS: GABAPENTIN 100 MG CAP PO SCH ×3 (09:34→20:58)
[2017-02-11] MEDS: SENOKOT S TAB PO SCH ×2 (09:34→20:59)
[2017-02-11] MEDS: CALCIUM ACETATE 667 MG GELCAP PO SCH ×3 (09:34→17:24)
[2017-02-11] MEDS: PERCOCET 5MG/325MG TAB PO PRN (09:36)
[2017-02-11] MEDS: PIPERACILLIN/TAZOBACTAM SOD 2.25 GM in D5W MINI-BAG PLUS 50 ML IV SCH ×2 (09:36→21:00)
[2017-02-11] MEDS: METOPROLOL TARTRATE 100 MG TAB PO SCH ×2 (10:12→20:59)
[2017-02-11] MEDS ORDERED: TOBRAMYCIN SULF 160 MG in D5W 50 ML IV ONE (12:00)
[2017-02-11] MEDS: CHECK TO SEE IF PATIENT IS RECEIVING DIALYSIS TODAY AND REFER TO THE VANCOMYCIN ORDER XX SCH (16:00)
--- NOTE | 2017-02-11 16:25 | IPN ---
DATE: 02/10/2017 Mr. Moore seems to be doing better. He wants to go home tomorrow. He has had no fever in 48 hours. He denies nausea, vomiting or diarrhea. No abdominal pain. The concern is his compliance with followup. He has no pain in the scrotal area. No drainage. LABORATORY DATA: White count is 5.6, hemoglobin 9.2, hematocrit 30.1, platelets 217. ESR 124, sodium 137, potassium 4.6, chloride 103, bicarbonate 25, BUN 37, creatinine 7.1, glucose 80, calcium 7.9, CRP 8.53. Wound cultures are positive for Pseudomonas, Escherichia (E) coli and Enterococcus faecalis Staphylococcus coagulase negative. Wound scrotal ulcer measures about 6 x 3 cm, dry, with minimal drainage on the bed and minimal tenderness groin area, there is no open lesions, no tenderness, no erythema. IMPRESSION: Scrotal cellulitis and abdominal wall cellulitis markedly improved with polymicrobial demetris. The patient had been on vancomycin and Zosyn, currently day #5. Quinolones are resistant and therefore the only options are IV antibiotic. He will receive one dose of tobramycin tonight and then he will get two doses of gentamicin, one on Wednesday during dialysis and one on Wednesday to finish his treatment for the Escherichia (E) coli and Pseudomonas. I have discussed the case with Dr. Law who has agreed on giving him gentamicin after hemodialysis. As for the Enterococcus faecalis, he could be treated with amoxicillin 500 mg by mouth twice a day. Staphylococcus coagulase negative is probably a skin demetris.
--- NOTE | 2017-02-11 18:37 | IPNPDOC ---
Subjective Date Seen The patient was seen on 02/11/17. Subjective Chief Complaint/HPI The patient is a 46-year-old male admitted with a reason for visit of Cellulitis ,Scrotum;Esrd On Dialysis;Hyperkalemia. Events since last encounter No acute events overnight. Patient hypertensive, denied, cp, sob, abd pain, n, v. denied groin pain Constitutional: Denies: Chills, Fever Skin: Denies: Rash, Lesions Pulmonary: Denies: Dyspnea, Cough Cardiovascular: Denies: Chest Pain, Palpitations Gastrointestinal: Denies: Nausea, Vomiting, Abdominal Pain Objective Physical Examination General Exam: Positive: Alert, Cooperative, No Acute Distress Eye Exam: Positive: PERRLA, Conjunctiva & lids normal Chest Exam: Positive: Clear to auscultation, Normal air movement, Negative: Rales, Rhonchi, Wheezing Heart Exam: Positive: Rate Normal, Normal S1, Normal S2 Abdomen Exam: Positive: Soft, Other (obese) Male Exam: Positive: Lesions (srotal and groin ulcer, healing), Tenderness Extremity Exam: Positive: Swelling, Other (b/l le ampuation with edema) Assessment /Plan Assessment This is a 46-year-old man with h/o ESRD, poor compliance missing HD, IDDM, HTN, anemia, PVD with b/l LE amputation, diabetic retinopathy leggally blind admitted with severe hyperkalemia and end stage renal disease in the setting of recurrent scrotal cellulitis. Problems (1) Cellulitis, scrotum Status: Acute Problem Text: Urology consulted, no evidence ofr Bisi'g gangrene cultures appreciated, initally on vanoc and zosyn ID consulted recomented dc vanco, Tobramycin x1 on zosyn while inpatient potential DC antibiotics rec gent with HD Wednesday and Wednesday. and amoxicilin (2) Hyperkalemia Status: Acute Problem Text: 2/2 to poor compliance with HD, Counseling provided. informed patient could potentially , Resolved (3) Anemia in chronic illness Problem Text: monitor H/H (4) Mood disorder Problem Text: c/w med (5) HTN (hypertension) Problem Text: hypertensive urgency overnight appreciate Dr Law's assistance in management of BP norvasc, clonidine ,hydralazine and metoprolol (6) GERD (gastroesophageal reflux disease) Problem Text: ppi (7) DMII (diabetes mellitus, type 2) Problem Text: insulin as per protocol, f/u fs, adjust as needed (8) Hypothyroid Problem Text: c/w Synthroid (9) Chronic pain Problem Text: c/w current meds (10) Poor compliance Problem Text: counseling provided, complicating care (11) ESRD (end stage renal disease) on dialysis Status: Acute Problem Text: poor compliance with HD, consulted Nephrology c/w HD, counseling provided Plan/VTE VTE Prophylaxis Ordered?: Yes (Heparin SQ) Disposition dc on hold 09/24 to hypertensive urgency, VS, I&O, 24H, Fishbone Vital Signs/I&O Vital Signs Date Time Temp Pulse Resp B/P (MAP) Pulse Ox O2 Delivery O2 Flow Rate FiO2 02/11/17 16:32 146/64 02/11/17 14:00 97.6 73 18 95 Room Air I&O- Last 24 Hours up to 6 AM 02/11/17 05:59 Intake Total 1830 ml Output Total 4880 ml Balance -3050 ml Laboratory Data 24H LABS Laboratory Tests 2 02/10/17 20:08: Bedside Glucose (Misc Panel) 95 02/11/17 05:41: Erythrocyte Sedimentation Rate 106H, Anion Gap 9, Glomerular Filtration Rate 12.4L, Blood Urea Nitrogen 21H, Creatinine 5.32H, Sodium Level 137, Potassium Level 4.1, Chloride Level 101, Carbon Dioxide Level 27, Calcium Level 8.1L, C- Reactive Protein, Quantitative 4.56H 02/11/17 11:36: Bedside Glucose (Misc Panel) 113H 02/11/17 16:28: Bedside Glucose (Misc Panel) 106H CBC/BMP Laboratory Tests 02/11/17 05:41 Red Blood Count 3.57 L, Mean Corpuscular Volume 85.2, Mean Corpuscular Hemoglobin 26.4 L, Mean Corpuscular Hemoglobin Concent 31.0 L, Red Cell Distribution Width 17.1 H, Calcium Level 8.1 L Microbiology Microbiology 02/06/17 Blood Culture - Final, Complete NO GROWTH AFTER 5 DAYS 02/06/17 Blood Culture - Final, Complete NO GROWTH AFTER 5 DAYS 02/06/17 Wound Culture - Final, Complete Pseudomonas Aeruginosa Escherichia Coli Enterococcus Faecalis Staphylococcus Sp Coag Neg 02/09/17 MRSA Screen, Ordered Pending 02/06/17 Wound Culture - Final, Complete Pseudomonas Aeruginosa Escherichia Coli Enterococcus Faecalis Staphylococcus Sp VIRGIL Cortez MD Feb 11, 2017 18:37
[2017-02-11] MEDS: DULoxetine 20 MG CAP (CYMBALTA) PO SCH (21:00)
[2017-02-11] MEDS: QUEtiapine FUMARATE 25 MG TAB PO SCH (21:00)
[2017-02-11] MEDS: LEVEMIR (INSULIN DETEMIR) 1 UNITS/0.01ML SC SCH (21:01)
--- NOTE | 2017-02-11 21:25 | IPN ---
DATE: 02/11/2017 Mr. Moore is seen this morning on his bedside. He is lying in the bed without any distress. He denies any dyspnea, chest pain, fever, chills, nausea or vomiting. He underwent hemodialysis yesterday which he tolerated well. PHYSICAL EXAMINATION: Temperature 97.7 degrees Fahrenheit, heart rate 80 per minute and respiratory rate 18 per minute. Blood pressure 215/101 mmHg and oxygen saturation 96% on room air. His head is atraumatic. Neck is supple and without JVD or thyroid enlargement. Dialysis catheter in right upper chest is intact without any signs of infection or bleeding. Heart: Sounds regular and lungs clear to auscultation. Abdomen: Soft and nontender and without palpable organomegaly. Bowel sounds are normal. Extremities have no cyanosis or clubbing. He has right [id number] and left nxhwc-quw-elsf amputations. Cellulitis in his groin and lower abdominal wall area has improved significantly. Today's labs show WBC count 5.2, hemoglobin 9.4 and hematocrit 30.4. Sodium 137 and potassium 4.1. BUN 21 and creatinine 5.32. C-reactive protein is down to 4.56. PROBLEMS: 1. End-stage renal disease. The patient underwent hemodialysis yesterday. His next dialysis will be scheduled for tomorrow. Volume status is well-compensated now and electrolytes are within normal range. Four liters of fluid was removed yesterday which he tolerated well. 2. Uncontrolled hypertension. Blood pressure control remains suboptimal. Medications have been adjusted. I am increasing his metoprolol to 100 mg twice a day. I will also increase hydralazine to 100 mg three times a day. . 3. Anemia. Slight improvement in anemia is noted. The patient will receive Aranesp when his blood pressure control improves. 4. Cellulitis. This is improving and he remains on antibiotics. Dr. Ford has ordered a dose of tobramycin 160 mg which will be given intravenously today. 5. DISPOSITION: The patient is not quite ready for discharge due to suboptimal blood pressure control.
[2017-02-11] MEDS: diphenhydrAMINE 25 MG CAP PO PRN (22:09)
[2017-02-11] MEDS: NYSTATIN 100,000 UNITS/GM TOPICAL PWD 15 GM TOP PRN (22:12)
[2017-02-12 02:00] VITALS: BP 149/78
[2017-02-12] MEDS: cloNIDine 0.1 MG TAB PO SCH ×4 (02:41→22:13)
[2017-02-12] MEDS: GABAPENTIN 100 MG CAP PO SCH ×3 (05:04→22:13)
[2017-02-12] MEDS: PANTOPRAZOLE 40MG TAB (PROTONIX) PO SCH (05:05)
[2017-02-12] MEDS: SENOKOT S TAB PO SCH ×2 (05:05→21:00)
[2017-02-12] MEDS: CALCITRIOL 0.25 MCG CAP (S0169) PO SCH (05:05)
[2017-02-12] MEDS: HEPARIN SOD (PORCINE) 5000 UNITS/ML VIAL SC SCH ×3 (05:06→22:12)
[2017-02-12] MEDS: CALCIUM ACETATE 667 MG GELCAP PO SCH ×4 (05:06→22:12)
[2017-02-12] MEDS: PIPERACILLIN/TAZOBACTAM SOD 2.25 GM in D5W MINI-BAG PLUS 50 ML IV SCH ×2 (05:07→22:12)
[2017-02-12] MEDS: MIRALAX *UNIT DOSE* 17GM PACKET PO SCH (05:10)
[2017-02-12] MEDS: LEVOTHYROXINE 150MCG TABLET (0.15MG) PO SCH (05:48)
[2017-02-12 06:00] VITALS: BP 138/62
[2017-02-12 06:20] LABS: MEAN CORPUSCULAR HGB CONC 31.6 g/dl (32.0-36.5); MEAN CORPUSCULAR VOLUME 85.5 fl (80.0-96.0); RED CELL DISTRIBUTION WIDTH 17.2 % (11.5-14.5); WHITE BLOOD COUNT 5.4 K/mm3 (4.0-10.0)
[2017-02-12 06:27] LABS: CALCIUM LEVEL 8.2 MG/DL (8.5-10.1); CREATININE FOR GFR 6.89 MG/DL (0.70-1.30); GLOMERULAR FILTRATION RATE 9.2 (>60); POTASSIUM SERUM 4.2 MEQ/L (3.5-5.1)
[2017-02-12] MEDS: HumaLOG INSULIN (NovoLOG) PER UNIT SC SCH ×3 (07:02→17:11)
[2017-02-12 07:53] VITALS: BP 152/84
[2017-02-12] MEDS: amLODIPine 5 MG TAB PO SCH (08:04)
[2017-02-12] MEDS: **hydrALAZINE HCL** 25 MG TAB PO SCH ×3 (08:05→22:12)
[2017-02-12] MEDS: METOPROLOL TARTRATE 100 MG TAB PO SCH ×2 (08:05→22:13)
[2017-02-12] MEDS ORDERED: HEPARIN 1,000 UNITS/ML 10ML VIAL (FOR RADIOLOGY& DIALYSIS ONLY) XX ONE (10:30)
[2017-02-12] MEDS ORDERED: HEPARIN 1,000 UNITS/ML 10ML VIAL (FOR RADIOLOGY& DIALYSIS ONLY) IV ONE (10:30)
[2017-02-12] MEDS ORDERED: D5W IV ONE (12:00)
[2017-02-12] MEDS ORDERED: BISACODYL ENEMA 10 MG/30 ML PR ONE (12:00)
[2017-02-12] MEDS ORDERED: TOBRAMYCIN SULF IV ONE (12:00)
[2017-02-12 14:00] VITALS: BP 165/79
[2017-02-12] MEDS: CHECK TO SEE IF PATIENT IS RECEIVING DIALYSIS TODAY AND REFER TO THE VANCOMYCIN ORDER XX SCH (14:42)
--- NOTE | 2017-02-12 15:37 | IPNPDOC ---
Subjective Date Seen The patient was seen on 02/12/17. Subjective Chief Complaint/HPI The patient is a 46-year-old male admitted with a reason for visit of Cellulitis ,Scrotum;Esrd On Dialysis;Hyperkalemia. Events since last encounter no acute events overnight. pulled his IV, Denied cp, abd pain, sob, n/v. groin pain resolved. Attempted to leave AMA after HD Constitutional: Denies: Chills, Fever Pulmonary: Denies: Dyspnea, Cough Cardiovascular: Denies: Chest Pain, Palpitations Gastrointestinal: Denies: Nausea, Vomiting, Abdominal Pain, Diarrhea Objective Physical Examination General Exam: Positive: Alert, Cooperative, No Acute Distress Eye Exam: Positive: PERRLA, Conjunctiva & lids normal Chest Exam: Positive: Clear to auscultation, Normal air movement, Negative: Rales, Rhonchi, Wheezing Heart Exam: Positive: Rate Normal, Normal S1, Normal S2 Abdomen Exam: Positive: Soft, Other (obese) Male Exam: Positive: Lesions (srotal and groin ulcer, healing), Tenderness Extremity Exam: Positive: Swelling, Other (b/l le ampuation with edema resolving) Assessment /Plan Problems (1) Cellulitis, scrotum Status: Acute Problem Text: Urology consulted, no evidence of Bisi'g gangrene cultures appreciated, initally on vanoc and zosyn ID consulted recomented dc vanco, Tobramycin x2 on zosyn while inpatient (2) Hyperkalemia Status: Acute Problem Text: 2/2 to poor compliance with HD, Counseling provided. informed patient could potentially , Resolved (3) Anemia in chronic illness Problem Text: monitor H/H (4) Mood disorder Problem Text: c/w med (5) HTN (hypertension) Problem Text: hypertensive urgency overnight appreciate Dr Law's assistance in management of BP norvasc, clonidine ,hydralazine and metoprolol (6) GERD (gastroesophageal reflux disease) Problem Text: ppi (7) DMII (diabetes mellitus, type 2) Problem Text: insulin as per protocol, f/u fs, adjust as needed (8) Hypothyroid Problem Text: c/w Synthroid (9) Chronic pain Problem Text: c/w current meds (10) Poor compliance Problem Text: counseling provided, complicating care (11) ESRD (end stage renal disease) on dialysis Status: Acute Problem Text: poor compliance with HD, consulted Nephrology c/w HD, counseling provided Plan/VTE VTE Prophylaxis Ordered?: Yes (Heparin SQ) Disposition passed PT, likely DC in 1-2 days VS, I&O, 24H, Fishbone Vital Signs/I&O Vital Signs Date Time Temp Pulse Resp B/P (MAP) Pulse Ox O2 Delivery O2 Flow Rate FiO2 02/12/17 14:41 165/79 02/12/17 06:00 98.4 64 16 93 Room Air I&O- Last 24 Hours up to 6 AM 02/12/17 05:59 Intake Total 2124 ml Output Total 970 ml Balance 1154 ml Laboratory Data 24H LABS Laboratory Tests 2 02/11/17 16:28: Bedside Glucose (Misc Panel) 106H 02/11/17 20:18: Bedside Glucose (Misc Panel) 139H 02/12/17 05:36: Bedside Glucose (Misc Panel) 120H 02/12/17 06:03: Anion Gap 8, Glomerular Filtration Rate 9.2L, Blood Urea Nitrogen 30H, Creatinine 6.89H, Sodium Level 136, Potassium Level 4.2, Chloride Level 101, Carbon Dioxide Level 27, Calcium Level 8.2L CBC/BMP Laboratory Tests 02/12/17 06:03 Red Blood Count 3.54 L, Mean Corpuscular Volume 85.5, Mean Corpuscular Hemoglobin 27.0, Mean Corpuscular Hemoglobin Concent 31.6 L, Red Cell Distribution Width 17.2 H, Calcium Level 8.2 L Microbiology Microbiology 02/06/17 Blood Culture - Final, Complete NO GROWTH AFTER 5 DAYS 02/06/17 Blood Culture - Final, Complete NO GROWTH AFTER 5 DAYS 02/06/17 Wound Culture - Final, Complete Pseudomonas Aeruginosa Escherichia Coli Enterococcus Faecalis Staphylococcus Sp Coag Neg 02/09/17 MRSA Screen, Ordered Pending 02/06/17 Wound Culture - Final, Complete Pseudomonas Aeruginosa Escherichia Coli Enterococcus Faecalis Staphylococcus Sp Coag Neg VIRGIL PERRY MD Feb 12, 2017 15:37
--- NOTE | 2017-02-12 19:35 | IPN ---
DATE: 02/12/2017 Mr. Moore is seen this morning during hemodialysis on his bedside. He is feeling well and denies any dyspnea, chest pain, fever or chills. He reports pain in the lower abdominal and groin area where he had cellulitis and wounds has improved significantly. Yesterday his antihypertensives were adjusted and blood pressure seems to be much better controlled over the last 12 hours. PHYSICAL EXAMINATION: Temperature 98.4 degrees Fahrenheit, heart rate 64 per minute and respiratory rate 16 per minute. Blood pressure 152/84 mmHg and oxygen saturation 93% on room air. Head: Is atraumatic. Neck is supple. Dialysis catheter on right upper chest is without any signs of infection. The patient is legally blind from both eyes. Heart: Sounds are regular and lungs clear to auscultation. Abdomen: Soft and nontender and without palpable organomegaly. Bowel sounds are normal. Extremities have no cyanosis or clubbing. Skin has no ulcers and cellulitis on his lower abdominal wall and groin area has improved significantly. Today's labs show WBC count 5.4, hemoglobin 9.6 and hematocrit 30.3. Platelets 198. Sodium 136 and potassium 4.2. BUN 13, creatinine 6.89. PROBLEMS: 1. End-stage renal disease. The patient is very well dialyzed since he is in hospital. As outpatient he has been noncompliant with dialysis treatments. Now his electrolytes and volume status are well compensated. I have discussed with the patient on multiple occasions about need for compliance with dialysis treatments. His next dialysis will be scheduled for WednesdayFebruary 15. 2. Hypertension. Blood pressure control has improved. He should continue with all current antihypertensive medications. I have discussed with hospitalist service about getting him new prescriptions for his antihypertensive meds at the time of discharge. 3. Anemia. At present his anemia is stable. He receives Aranesp during hemodialysis. 4. Cellulitis. His cellulitis has also improved significantly. The patient will be given one dose of tobramycin 80 mg today after dialysis. He still also on Zosyn 2.25 grams every 12 hours. DISPOSITION: From a renal standpoint, the patient can be discharged to home when deemed medically stable.
[2017-02-12 20:42] VITALS: BP 179/86
[2017-02-12] MEDS: LEVEMIR (INSULIN DETEMIR) 1 UNITS/0.01ML SC SCH (22:11)
[2017-02-12] MEDS: DULoxetine 20 MG CAP (CYMBALTA) PO SCH (22:13)
[2017-02-12] MEDS: diphenhydrAMINE 25 MG CAP PO PRN (22:13)
[2017-02-12] MEDS: QUEtiapine FUMARATE 25 MG TAB PO SCH (22:13)
[2017-02-12] MEDS: NYSTATIN 100,000 UNITS/GM TOPICAL PWD 15 GM TOP PRN (22:16)
[2017-02-13] MEDS: cloNIDine 0.1 MG TAB PO SCH ×2 (02:09→08:32)
[2017-02-13 06:00] VITALS: BP 159/95
[2017-02-13] MEDS: HEPARIN SOD (PORCINE) 5000 UNITS/ML VIAL SC SCH ×2 (06:28→14:00)
[2017-02-13] MEDS: LEVOTHYROXINE 150MCG TABLET (0.15MG) PO SCH (06:28)
[2017-02-13 06:36] LABS: MEAN CORPUSCULAR HEMOGLOBIN 27.3 pg (27.0-33.0); MEAN CORPUSCULAR HGB CONC 31.7 g/dl (32.0-36.5); MEAN CORPUSCULAR VOLUME 86.3 fl (80.0-96.0); RED CELL DISTRIBUTION WIDTH 17.5 % (11.5-14.5); WHITE BLOOD COUNT 6.8 K/mm3 (4.0-10.0)
[2017-02-13 06:55] LABS: CALCIUM LEVEL 8.6 MG/DL (8.5-10.1); CREATININE FOR GFR 5.19 MG/DL (0.70-1.30); GLOMERULAR FILTRATION RATE 12.7 (>60); MAGNESIUM LEVEL 2.3 MG/DL (1.8-2.4); POTASSIUM SERUM 4.5 MEQ/L (3.5-5.1)
[2017-02-13] MEDS: HumaLOG INSULIN (NovoLOG) PER UNIT SC SCH ×2 (07:26→12:00)
[2017-02-13] MEDS: PIPERACILLIN/TAZOBACTAM SOD 2.25 GM in D5W MINI-BAG PLUS 50 ML IV SCH (08:33)
[2017-02-13] MEDS: METOPROLOL TARTRATE 100 MG TAB PO SCH (08:41)
[2017-02-13] MEDS: PANTOPRAZOLE 40MG TAB (PROTONIX) PO SCH (08:41)
[2017-02-13 08:42] VITALS: BP 159/95
[2017-02-13] MEDS: CALCITRIOL 0.25 MCG CAP (S0169) PO SCH (08:42)
[2017-02-13] MEDS: GABAPENTIN 100 MG CAP PO SCH (08:42)
[2017-02-13] MEDS: amLODIPine 5 MG TAB PO SCH (08:42)
[2017-02-13] MEDS: **hydrALAZINE HCL** 25 MG TAB PO SCH (08:42)
[2017-02-13] MEDS: SENOKOT S TAB PO SCH (08:43)
[2017-02-13] MEDS: MIRALAX *UNIT DOSE* 17GM PACKET PO SCH (08:43)
--- NOTE | 2017-02-13 09:28 | IPNPDOC ---
Assessment/Plan Date Seen The patient was seen on 02/13/17. Problems (1) Cellulitis, scrotum Status: Acute (2) Hyperkalemia Status: Acute (3) Anemia in chronic illness (4) Mood disorder (5) HTN (hypertension) (6) GERD (gastroesophageal reflux disease) (7) DMII (diabetes mellitus, type 2) (8) Hypothyroid (9) Chronic pain (10) Poor compliance (11) ESRD (end stage renal disease) on dialysis Status: Acute Plan/VTE VTE Prophylaxis Ordered?: Yes (Heparin SQ) Subjective Review oF Systems Chief Complaint The patient is a 46-year-old male admitted with a reason for visit of cellulitis scrotum; ESRD on HD; DM; HTN; hyperparathyroid; hypothyroid; depression; right BKA; left AKA. Comfortable. Scrotal/thigh swelling improved on IV Zosyn per ID. Planned dc today. po, flatus. 67, 20, 97.7f, 159/95. Abdo: Benign. : Scrotal midline posterior spontaneous drained abscess; granulating. No abscess recur/induration/erythema. Testes normal bilateral. Blood culture (02/06/17) negative. Wound culture (02/06/17) pseudomonas; E. coli ; enterococcus. CT (02/07/17) w/ IV scrotal edema; bilateral inguinal lymph nodes; no air/abscess. (02/13/17) Hg 9.8, wbc 6.8, Cr 5.2. A: Above. P: Antibiotics per ID. dc home. f/u Urology 1 week. Wound care (02/16/17). Wet to dry dressing change bid. Objective Physical Examination Heart Exam: Positive: Rate Normal, Normal S1, Normal S2 Vital Signs/I&O Vital Signs Date Time Temp Pulse Resp B/P (MAP) Pulse Ox O2 Delivery O2 Flow Rate FiO2 02/13/17 08:42 159/95 02/13/17 08:42 67 02/13/17 06:00 97.7 20 92 Room Air I&O- Last 24 Hours up to 6 AM 02/13/17 06:00 Intake Total 1850 ml Output Total 3650 ml Balance -1800 ml Laboratory Data Labs 24H Laboratory Tests 2 02/12/17 16:46: Bedside Glucose (Misc Panel) 136H 02/12/17 20:40: Bedside Glucose (Misc Panel) 125H 02/13/17 06:07: Anion Gap 8, Glomerular Filtration Rate 12.7L, Blood Urea Nitrogen 20H, Creatinine 5.19H, Sodium Level 137, Potassium Level 4.5, Chloride Level 103, Carbon Dioxide Level 26, Calcium Level 8.6, Magnesium Level 2.3 CBC/BMP Laboratory Tests 02/13/17 06:07 Red Blood Count 3.60 L, Mean Corpuscular Volume 86.3, Mean Corpuscular Hemoglobin 27.3, Mean Corpuscular Hemoglobin Concent 31.7 L, Red Cell Distribution Width 17.5 H, Calcium Level 8.6 FSBS Laboratory Tests Test 02/12/17 16:46 02/12/17 20:40 Range/Units Bedside Glucose (Misc Panel) 136 125 70-105 MG/DL Microbiology Microbiology 02/06/17 Blood Culture - Final, Complete NO GROWTH AFTER 5 DAYS 02/06/17 Blood Culture - Final, Complete NO GROWTH AFTER 5 DAYS 02/06/17 Wound Culture - Final, Complete Pseudomonas Aeruginosa Escherichia Coli Enterococcus Faecalis Staphylococcus Sp Coag Neg 02/06/17 Wound Culture - Final, Complete Pseudomonas Aeruginosa Escherichia Coli Enterococcus Faecalis Staphylococcus Sp Coag Neg FRACISCO BEAR MD Feb 13, 2017 09:28
[2017-02-13] MEDS ORDERED: AMOX500C PO (11:18)
[2017-02-13] MEDS ORDERED: CLON0.2T PO (11:18)
[2017-02-13] MEDS ORDERED: LOPR1TAB7 PO (11:18)
[2017-02-13] MEDS ORDERED: SENN1TAB2 PO (11:18)
[2017-02-13] MEDS ORDERED: HYDR100T PO (11:18)
[2017-02-13] MEDS ORDERED: AMLO10TA PO (11:20)
[2017-02-13] MEDS ORDERED: LANT50TA PO (12:18)
[2017-02-13] MEDS ORDERED: LANTHANUM CARBONATE 500 MG CHEW TABLET PO SCH (12:30)
[2017-02-13] MEDS: CALCIUM ACETATE 667 MG GELCAP PO SCH (12:30)
[2017-02-13] MEDS ORDERED: CALC1CAP PO (13:56)
--- NOTE | 2017-02-13 15:45 | IPN ---
DATE: 02/13/2017 SUBJECTIVE: The patient was seen and examined at the bedside today in the morning. The patient denies any active complaints. The patient got hemodialysis according to his Wednesday, Wednesday, Wednesday schedule yesterday. He feels much better today. He reports that his cellulitis is also improving, and he wants to go home today, and he is promising that he will show up for hemodialysis next Wednesday as outpatient. REVIEW OF SYSTEMS: The patient denies any fevers, chills, rigors, headaches, nausea, vomiting, chest pain, shortness of breath, pain abdomen, constipation, or diarrhea. He does report some pain in the groin area cellulitis, but reports that it is getting beter. Rest of review of systems is negative. OBJECTIVE: VITAL SIGNS: Temperature is 97.7 degrees Fahrenheit, blood pressure is 159/95, pulse is 67, respiratory rate of 18, saturating 92% on room air. INTAKE AND OUTPUT: Urine output recorded as 450 mL overnight. Ultrafiltration with hemodialysis was three liters yesterday. Weight in the bed scale is 95.3 kg. PHYSICAL EXAMINATION: GENERAL: The patient is awake, alert, and oriented times three, sitting in the bed in no apparent distress. HEAD/NECK: The patient is legally blind. Neck is supple. There is no jugular venous distention (JVD). CARDIOVASCULAR: S1, S2. Regular rate. No murmur, rub, or gallop. RESPIRATORY: Chest is clear to auscultation bilaterally. Bilateral equal air entry. No rales or rhonchi. ARTERIOVENOUS (AV) ACCESS: The patient has a right internal jugular tunneled hemodialysis catheter. ABDOMEN: Soft. Positive bowel sounds. Nontender. No ascites. No organomegaly. GENITOURINARY: The patient has healing cellulitis and multiple small abscesses in the groin area and perineum. EXTREMITIES: The patient has bilateral lower extremity amputations. CENTRAL NERVOUS SYSTEM (MANAGER LIFE): No focal deficit apart from legal blindness. Power is 5/5 in bilateral upper extremities. PSYCHIATRIC: Normal mood and affect. LABORATORY DATA: CBC showed a WBC of 6.8, hemoglobin 9.8, platelets are 204. BMP showed sodium 137, potassium 4.5, chloride 103, bicarbonate 26, BUN 20, creatinine 5.1, calcium 8.6, magnesium 2.3. MICROBIOLOGY: No new cultures available. CURRENT INPATIENT MEDICATIONS: The patient's inpatient medications are all reviewed by me. I started the patient on lanthanum 500 mg by mouth three times a day with meals because the patient does not like taking PhosLo. ASSESSMENT: A 46-year-old male with past medical history of end-stage renal disease on hemodialysis, legally blind, hypertension, hypothyroidism, insulin-dependent diabetes mellitus, chronic noncompliance with hemodialysis, was admitted this time because of hyperkalemia and fluid overload after missing hemodialysis., along with cellulitis in the groin and perineal area. PLAN: 1. End-stage renal disease: The patient has regular dialysis days on Wednesday, Wednesday, Wednesday. He was dialyzed according to his regular schedule yesterday. His volume status is optimized. Next hemodialysis session will be on Wednesday, February 15, 2017. 2. Anemia in end-stage renal disease: Hemoglobin is slightly suboptimized; however, I will continue the current dose of Aranesp 300 mcg intravenous (IV) with hemodialysis. Rest of the anemia management will be according to outpatient protocol. 3. Hypertension: Blood pressure is acceptable at this time. Continue current dose of amlodipine 10 mg by mouth daily, clonidine 0.1 mg by mouth every six hours, hydralazine 100 mg by mouth twice a day, metoprolol 100 mg by mouth twice a day. 4. Chronic kidney disease, mineral bone disease: Continue PhosLo 1334 mg by mouth with meals. However, I have added lanthanum 500 mg by mouth three times a day with meals because the patient requested lanthanum and he does not like taking PhosLo. 5. Cellulitis in the groin and perineal area: The patient is currently on Zosyn. He was also given a dose of tobramycin after dialysis. Cellulitis was with polymicrobial demetris. The patient will need another dose of gentamicin after dialysis on Wednesday. We shall arrange for his gentamicin after dialysis as outpatient. DISCHARGE PLANNING: It is okay to discharge the patient from nephrology standpoint. The patient will dialyzed according to schedule on Wednesday as outpatient.
--- NOTE | 2017-02-14 01:19 | DSES ---
DATE OF ADMISSION: 02/06/2017 DATE OF DISCHARGE: 02/13/2017 ENTERTAINER & COMIC: Dr. Law. UROLOGIST: Dr. Trejo. INFECTIOUS DISEASE SPECIALIST: Dr. oFrd. PRIMARY CARE PROVIDER: Bladimir Alexander DO. FINAL DIAGNOSES: 1. End-stage renal disease, poor compliance missing dialysis. 2. Hyperkalemia. 3. Cellulitis of the scrotum. 4. Anasarca. 5. Anemia of chronic disease. 6. Mood disorder. 7. Hypertension. 8. Gastroesophageal reflux disease (GERD). 9. Type 2 diabetes poorly controlled. 10. Hypothyroidism. 11. Chronic pain. 12. Bilateral lower extremity amputation. HISTORY OF PRESENT ILLNESS: This is a 46-year-old male patient with underlying medical history of end-stage renal disease, poorly compliant with dialysis, missing multiple sessions, has not been dialyzed for 5 days, feels weak and complaining of pain in his groin, scrotum area, had noticed rash for about a week that has been spreading, very painful. Subsequently, presented to the emergency room, found to have a potassium 7.2. Subsequently, admitted for emergency dialysis. Patient with also anasarca on presentation. HOSPITAL COURSE: Patient was admitted to the hospital. Urology consulted. Emergently dialyzed. Nephrology consulted. Patient was started on intravenous (IV) antibiotics. Cultures were obtained. Fluid was removed via dialysis. Patient initially on vancomycin, Zosyn. Infectious disease consultation, patient's antibiotics were adjusted. Vancomycin was discontinued. Zosyn was continued. Tobramycin was given. Cultures appreciated. As per Dr. Ford, patient can be discharged on amoxicillin. Hyperkalemia also resolved with dialysis. Patient's hemoglobin and hematocrit was monitored. Physical therapy was done. Diabetes was actually managed. Patient's home medication was continued. Counseling was provided that patient has to continue with dialysis and be compliant, otherwise he could potentially . Patient does show full comprehension. Patient recently moved from [facility] to [place]. As per patient, in search of a bigger city. Patient is alert, oriented times three, fully competent. Currently is tolerating oral. Ready for discharge for further care as outpatient. Physical therapy has been done. Additional supplies ordered for home. Patient currently is tolerating oral. Ready for discharge for further care at home. Encouraged compliance. PHYSICAL EXAMINATION: VITAL SIGNS: Temperature 97.7, pulse 67, respirations 20, blood pressure 159/97, pulse oximetry 92% on room air. GENERAL: Patient alert and oriented times three in no acute distress. Obese. HEENT: Normocephalic, atraumatic. Pupils equal, round and reactive. PULMONARY: Bilaterally clear to auscultation. CARDIAC: Regular rate and rhythm. Normal S1, S2. ABDOMEN: Obese, soft, nontender. Positive bowel sounds. Groin area with lesions, ulcers well healing. No significant erythema. Swelling has much improved, only a trace at this time. Trace edema. LABORATORY: WBC 6.8, hemoglobin and hematocrit 9.8/31.1, platelets 204. Chemistry: Sodium 137, potassium 4.5, chloride 103, bicarbonate 26, BUN 20, creatinine 5.19. DISCHARGE MEDICATIONS: - Norvasc 10 mg by mouth daily - amoxicillin 500 mg by mouth twice a day for 10 capsules - clonidine 0.2 mg by mouth twice a day - hydralazine 100 mg by mouth three times a day - Fosrenol 500 mg by mouth before food, 90 capsules - metoprolol 100 mg by mouth twice a day - Senna Plus one tablet by mouth twice a day - continue acetaminophen 650 by mouth four times a day as needed - calcitriol 0.25 mcg by mouth daily - duloxetine 20 mg by mouth nightly - Neurontin 200 mg by mouth three times a day - Levemir 10 units by mouth nightly - Synthroid 150 mcg by mouth daily - nystatin powder topically twice a day - oxycodone/acetaminophen 5/325 mg by mouth as needed for pain - Protonix 40 mg by mouth daily - Seroquel 25 mg by mouth nightly DISCHARGE INSTRUCTIONS: Patient is instructed to followup with primary care provider in 7 days. Followup with animal services officer for dialysis Wednesday, Wednesday, Wednesday and urologist in 2 weeks. Return to the hospital if symptoms worsen. Encouraged compliance.
== END 2017-02-13 14:36 | disposition home health service (06) | DRG 727 ==
LOC: EDBD 16:10 → M ED 16:50 → M ED INP 22:51 → M MSPAV 02-07 00:05 → M PCU 02-07 03:15 → M MSPAV 02-08 16:29
PROVIDERS: ADMIT Internal Medicine; ATTEND Hospitalist
DX: N49.2 Inflammatory disorders of scrotum (principal); N18.6 End stage renal disease; L03.311 Cellulitis of abdominal wall; I12.0 Hypertensive chronic kidney disease with stage 5 chronic kidney disease or end stage renal disease; N25.81 Secondary hyperparathyroidism of renal origin; E87.5 Hyperkalemia; K21.9 Gastro-esophageal reflux disease without esophagitis; E03.9 Hypothyroidism, unspecified; E11.319 Type 2 diabetes mellitus with unspecified diabetic retinopathy without macular edema; R60.1 Generalized edema; Z91.19 Patient's noncompliance with other medical treatment and regimen; Z79.899 Other long term (current) drug therapy; D63.1 Anemia in chronic kidney disease; I73.9 Peripheral vascular disease, unspecified; H54.8 Legal blindness, as defined in USA; F39 Unspecified mood [affective] disorder; Z89.512 Acquired absence of left leg below knee; Z89.611 Acquired absence of right leg above knee; B96.29 Other Escherichia coli [E. coli] as the cause of diseases classified elsewhere; B96.5 Pseudomonas (aeruginosa) (mallei) (pseudomallei) as the cause of diseases classified elsewhere; B95.8 Unspecified staphylococcus as the cause of diseases classified elsewhere

== ENCOUNTER 2017-02-26 03:18 | Inpatient (IN) | payer MEDICARE, OTHER ==
[~2017-02-26 03:18] MED LIST changes: +AMLO10TA PO; +AMOX500C PO; +CALC1CAP PO; +CLON0.2T PO; -HEPARIN SOD (PORCINE) 5000 UNITS/ML VIAL SC SCH; +HYDR100T PO; +LOPR1TAB7 PO; -METO12TA PO; +METO1TAB87 PO; -NYST100024 TOP; +NYST1POW9 TOP; +SENN1TAB2 PO; +TYLE325T5 PO
[2017-02-26] MEDS ORDERED: PERCOCET 5MG/325MG TAB PO ONE ×2 (03:45→06:15)
[2017-02-26 04:19] LABS: BASO % 0.3 % (0.0-1.0); EOS # 0.1 K/mm3 (0.0-0.50); LARGE UNSTAINED CELL # 0.1 K/mm3 (0.0-0.4); LARGE UNSTAINED CELL % 1.1 % (0.0-4.0); LYMPH # 1.4 K/mm3 (1.5-4.5); LYMPH % 15.4 % (24.0-44.0); MEAN CORPUSCULAR HEMOGLOBIN 26.8 pg (27.0-33.0); MEAN CORPUSCULAR HGB CONC 31.2 g/dl (32.0-36.5); MEAN CORPUSCULAR VOLUME 85.9 fl (80.0-96.0); MONO # 0.5 K/mm3 (0.0-0.8); MONO % 6.3 % (0.0-5.0); NEUTROPHILS # 6.4 K/mm3 (1.8-7.7); NEUTROPHILS % 75.8 % (36.0-66.0); PLATELET COUNT, AUTOMATED 305 k/mm3 (150-450); RED CELL DISTRIBUTION WIDTH 17.7 % (11.5-14.5); WHITE BLOOD COUNT 8.4 K/mm3 (4.0-10.0)
[2017-02-26 04:40] LABS: CALCIUM LEVEL 7.4 MG/DL (8.5-10.1); CREATININE FOR GFR 13.7 MG/DL (0.70-1.30); GLOMERULAR FILTRATION RATE 4.2 (>60)
[2017-02-26 04:42] LABS: POTASSIUM SERUM 6.4 MEQ/L (3.5-5.1)
[2017-02-26] MEDS ORDERED: SOD POLYSTYRENE SULFONATE SUSP 15 GM/60 ML UD PO ONE (05:00)
[2017-02-26] MEDS ORDERED: CALC667T PO (05:47)
[2017-02-26] MEDS ORDERED: AMLO10TA2 PO (05:47)
[2017-02-26] MEDS ORDERED: HYDR100T PO (05:47)
[2017-02-26] MEDS ORDERED: LOSA50TA20 PO (05:47)
[2017-02-26] MEDS ORDERED: FOSR1000 PO (05:47)
[2017-02-26] MEDS ORDERED: METO100T5 PO (05:47)
[2017-02-26] MEDS ORDERED: INSUDET SC (05:47)
[2017-02-26] MEDS ORDERED: CLON0.2T PO (05:47)
--- NOTE | 2017-02-26 06:07 | HPEPDOC ---
General Date of Admission Chief Complaint The patient is a 46-year-old male admitted with a reason for visit of Scrotal Pain. Source: Patient Exam Limitations: No limitations Severity: Moderate History of Present Illness 46 year old male with past medical history of IDDM, HTN, ESRD on dialysis, secondary hyperparathyroidism, anemia, PVD s/p left BK and AKA, diabetic retinopathy legally blind who presents today for 3 day history of worsening groin and scrotal pain and swelling with some purulent drainage, the patient said that it is so painful that he cant sit for long periods of time so he decided to skip his dialysis. Of note he was admitted to our hospital December 2016 for very similar presentation. He is very tired and seems to almost fall asleep during questioning, as such he is a poor historian. He does tell me he vomited once yesterday, no blood and mostly food. HE denies fever, chills or muscle aches, pain with defecation, he does produce little urine and states no pain with urination. Denies abdominal pain. He has no active complaints aside from the pain in his scrotum. Home Medications Scheduled Amlodipine Besylate (Amlodipine Besylate) 10 Mg Tab, 10 MG PO DAILY, (Reported) Calcium Acetate (Calcium Acetate) 667 Mg Tab, 1,334 MG PO WM, (Reported) Clonidine Hydrochloride (Clonidine HCl) 0.2 Mg Tab, 0.2 MG PO BID, (Reported) Duloxetine Hcl (Duloxetine HCl) 20 Mg Cap, 20 MG PO QHS, (Reported) Gabapentin (Neurontin) 100 Mg Cap, 100 MG PO TID, (Reported) Insulin Detemir (Levemir) 1 Units/0.01 Ml Susp, 10 UNITS SC QHS, (Reported) Lanthanum Carbonate (Fosrenol) 1,000 Mg Chw, 1,000 MG PO WM, (Reported) Levothyroxine Sodium (Synthroid) 150 Mcg Tab, 150 MCG PO DAILY, (Reported) Losartan Potassium (Losartan Potassium) 50 Mg Tab, 50 MG PO BID, (Reported) Metoprolol Tartrate (Metoprolol Tartrate) 100 Mg Tab, 100 MG PO BID, (Reported) Quetiapine Fumerate (Seroquel) 50 Mg Tab, 50 MG PO QHS Silver Sulfadiazine (Ssd) 1 % Cre, 1 GM TOP BID hydrALAZINE HCL (Hydralazine HCl) 100 Mg Tab, 100 MG PO TID, (Reported) Scheduled PRN Nystatin (Nystatin Powder) 100,000 Unit/Gm Pow, 1 DOSE TOP TID PRN for RASH, ( Reported) APPLY TO GROIN AREA Oxycodone/Acetaminophen (Percocet 5MG/325MG Tablet) 1 Tab Tab, 1 TAB PO Q12HP PRN for MILD/MODERATE PAIN (PS 1-7) Simethicone (Simethicone) 80 Mg Chew, 80 MG PO TIDP PRN for GAS PAIN Allergies Coded Allergies: No Known Allergies (Unverified , 01/17/17) Past Medical History Medical History 1. Insulin-dependent diabetes. 2. Hypertension. 3. End-stage renal disease. 4. Secondary hyperparathyroidism. 5. Anemia. 6. Peripheral vascular disease status post left below-knee and right above-knee amputation. 7. Diabetic retinopathy and is legally blind. Family History Significant Family History: No pertinent family hx Social History * Smoker: Denies Alcohol: Denies Drugs: denies Review of Symptoms Constitutional: Reports: Malaise, Denies: Chills, Fever Eyes: Denies: Vision change, Conjunctivae inflammation Skin: Reports: Rash, Lesions (scrotum) Pulmonary: Denies: Dyspnea, Cough Cardiovascular: Denies: Chest Pain Gastrointestinal: Reports: Nausea Genitourinary: Denies: Dysuria, Frequency Musculoskeletal: Reports: Other Symptoms (scrotal pain) Neurological: Reports: Weakness Physical Examination General Exam: Positive: Cooperative, Mild Distress, Other (pt seems to fall asleep on exam), Negative: Alert Eye Exam: Positive: EOMI, Negative: Sclera icteric ENT Exam: Positive: Atraumatic Neck Exam: Positive: Supple Chest Exam: Positive: Clear to auscultation, Normal air movement, Diminished, Negative: Rales, Rhonchi, Wheezing Heart Exam: Positive: Rate Normal, Normal S1, Normal S2, Negative: Gallops, Murmurs Abdomen Exam: Positive: Normal bowel sounds, Soft, Negative: Tenderness, Hepatospenomegaly Skin Exam: Positive: Breakdown (bottom of scrotum, tinea barbae, some serous drainage from skin break down) Neuro Exam: Negative: Normal Speech (speech is garbled at times) Psych Exam: Positive: Oriented x 3 (not orientated to time) Vital Signs Vital Signs Date Time Temp Pulse Resp B/P (MAP) Pulse Ox O2 Delivery O2 Flow Rate FiO2 02/26/17 05:54 97.8 02/26/17 04:03 86 94 02/26/17 03:45 16 Laboratory Data Labs 24H Laboratory Tests 2 02/26/17 04:11: White Blood Count 8.4, Red Blood Count 3.55L, Hemoglobin 9.5L, Hematocrit 30.5L , Mean Corpuscular Volume 85.9, Mean Corpuscular Hemoglobin 26.8L, Mean Corpuscular Hemoglobin Concent 31.2L, Red Cell Distribution Width 17.7H, Platelet Count 305, Neutrophils (%) (Auto) 75.8H, Lymphocytes (%) (Auto) 15.4L, Monocytes (%) (Auto) 6.3H, Eosinophils (%) (Auto) 1.0, Basophils (%) (Auto) 0.3 , Neutrophils # (Auto) 6.4, Lymphocytes # (Auto) 1.4L, Monocytes # (Auto) 0.5, Eosinophils # (Auto) 0.1, Basophils # (Auto) 0.0, Large Unclassified Cells % 1.1 , Large Unclassified Cells # 0.1, Anion Gap 16, Glomerular Filtration Rate 4.2L , Blood Urea Nitrogen 119H, Creatinine 13.70H, Sodium Level 140, Potassium Level 6.4*H, Chloride Level 108H, Carbon Dioxide Level 16L, Calcium Level 7.4L CBC/BMP Laboratory Tests 02/26/17 04:11 Red Blood Count 3.55 L, Mean Corpuscular Volume 85.9, Mean Corpuscular Hemoglobin 26.8 L, Mean Corpuscular Hemoglobin Concent 31.2 L, Red Cell Distribution Width 17.7 H, Neutrophils (%) (Auto) 75.8 H, Lymphocytes (%) (Auto ) 15.4 L, Monocytes (%) (Auto) 6.3 H, Eosinophils (%) (Auto) 1.0, Basophils (%) (Auto) 0.3, Neutrophils # (Auto) 6.4, Lymphocytes # (Auto) 1.4 L, Monocytes # ( Auto) 0.5, Eosinophils # (Auto) 0.1, Basophils # (Auto) 0.0, Calcium Level 7.4 L Microbiology Microbiology 02/26/17 Blood Culture, Received Pending Problems (1) Uremia Status: Acute Response to Treatment: Stable Problem Text: creatine 13.7 baseline 5-7 suspect this is attributing to his altered mental status will be dialyzed today (2) Hyperkalemia Status: Resolved Response to Treatment: Stable Problem Text: K 6.4 Will be dialyzed today. EKG in ED no acute findings. (3) Noncompliance with diet and medication regimen Status: Chronic Response to Treatment: Stable (4) Cellulitis, scrotum Status: Acute Response to Treatment: Stable Problem Text: wound culture of area begin antibiotics pain control (5) HTN (hypertension) Status: Chronic Response to Treatment: Stable Problem Text: continue home medications Plan / VTE VTE Prophylaxis Ordered?: No (pt bka) GME ATTESTATION GME ATTESTATION My preceptor for this patient encounter was physically present in the building during the encounter and was fully available. As needed, all aspects of the patient interview, examination, medical decision making process, and medical care plan development were reviewed and approved by the preceptor. Preceptor is aware and concurs with the plan as stated in the body of this note and will attest to such by his/her cosignature. ATTENDING NOTE Pt seen and examined by me. Findings and plan reviewed with resident. Resident note reviewed and agree with documented findings and plan. 1. Epididymitis/Orchitis Continue IV abx Scrotal sling Pain control Consult urology (dr pastor contacted by ED) 2. IDDM with multiorgan complication (vascular/neuro/renal/cardiac) Continue insulin FS with coverage 3. ESRD/HD Pt with hyperkalemia and uremia ECG stable Tele Delirium possibly due to uremic encephalopathy renal consult for HD 4. Bfkisket-plahc-nmosiqkwn v septic Pt's delirium possibly due to uremia v orchitis Pt on iv abx and for HD in am Monitor MS and should improve with treatment of both NEDA STRATTON DO Feb 26, 2017 06:06 Jomar Kenney MD Mar 01, 2017 20:25
[2017-02-26] MEDS ORDERED: NYSTATIN 100,000 UNITS/GM TOPICAL PWD 15 GM TOP PRN (06:15)
[2017-02-26] MEDS ORDERED: ACETAMINOPHEN TAB 650MG DOSE (2X325MG) PO PRN (06:15)
[2017-02-26] MEDS ORDERED: ONDANSETRON 4MG/2ML VIAL (J2405) IV PRN (06:15)
[2017-02-26] MEDS ORDERED: cloNIDine 0.2 MG TAB PO ONE (06:30)
[2017-02-26] MEDS ORDERED: LEVEMIR (INSULIN DETEMIR) 1 UNITS/0.01ML SC ONE ×2 (06:30→22:00)
[2017-02-26 08:03] VITALS: BP 198/74
[2017-02-26] MEDS: GABAPENTIN 100 MG CAP PO SCH ×3 (08:29→22:11)
[2017-02-26] MEDS: LOSARTAN 50 MG TAB PO SCH ×2 (08:29→22:12)
[2017-02-26] MEDS: amLODIPine 10 MG TAB PO SCH (08:30)
[2017-02-26] MEDS: METOPROLOL TARTRATE 100 MG TAB PO SCH ×2 (08:30→22:10)
[2017-02-26] MEDS: LEVOTHYROXINE 150MCG TABLET (0.15MG) PO SCH (08:30)
[2017-02-26] MEDS: **hydrALAZINE** 50 MG TAB PO SCH ×3 (08:31→22:11)
[2017-02-26] MEDS: HEPARIN SOD (PORCINE) 5000 UNITS/ML VIAL SC SCH ×3 (08:32→22:13)
[2017-02-26] MEDS: LANTHANUM CARBONATE 500 MG CHEW TABLET PO SCH ×3 (08:32→17:28)
[2017-02-26] MEDS: CALCIUM ACETATE 667 MG GELCAP PO SCH ×3 (08:32→17:28)
[2017-02-26] MEDS ORDERED: DEXTROSE 50% 50 ML SYRINGE IV PRN (11:15)
[2017-02-26] MEDS ORDERED: GLUCOSE 4 GM CHEW TABLET PO PRN (11:15)
[2017-02-26] MEDS ORDERED: GLUCAGON FOR INJ 1 MG VIAL (J1610) SC PRN (11:15)
[2017-02-26] MEDS ORDERED: HEPARIN 1,000 UNITS/ML 10ML VIAL (FOR RADIOLOGY& DIALYSIS ONLY) IV ONE (12:00)
[2017-02-26] MEDS ORDERED: HEPARIN 1,000 UNITS/ML 10ML VIAL (FOR RADIOLOGY& DIALYSIS ONLY) XX ONE (12:00)
--- NOTE | 2017-02-26 13:30 | ECGEPIP ---
Stationary ECG Study [facility] Test Date: 2017-02-26 Pat Name: ELO ROSENBERG Department: Room: [place] [address] Gender: M Cotton Opener: : 1970 Requested By: Jomar Dyson Order Number: [id number] Reading MD: Milagros Richardson Measurements Intervals [place] Rate: 94 P: 92 NH: 169 QRS: -90 QRSD: 102 T: 90 QT: 355 QTc: 444 Interpretive Statements SINUS RHYTHM RATE SLOWER LOW QRS VOLTAGE IN EXTREMITY LEADS new POSSIBLE ANTERIOR MYOCARDIAL INFARCTION, OF INDETERMINATE AGE PRWP INFERIOR MYOCARDIAL INFARCTION AND/OR LAFB LEAD 1 NOT AVAIL AXIS INDETERMINANT NEW LAT T ABN C/W 02/06/17 Electronically Signed On 02-26-2017 13:30:33 EDT by Milagros Richardson
[2017-02-26 14:00] VITALS: BP 158/72
[2017-02-26] MEDS: HumaLOG INSULIN (NovoLOG) PER UNIT SC SCH ×3 (14:45→20:47)
--- NOTE | 2017-02-26 19:40 | CR ---
DATE OF CONSULTATION: 02/26/2017 REASON FOR CONSULTATION: Hyperkalemia and uremia. HISTORY OF PRESENT ILLNESS: Mr. Moore is a 46-year-old male with multiple chronic medical problems including history of diabetes, hypertension, end-stage renal disease requiring hemodialysis, anemia, peripheral vascular disease with bilateral lower extremity amputations and history of diabetic retinopathy, legally blind. The patient has history of chronic noncompliance with dialysis and medical care. He did not come to dialysis since last week Wednesday, despite multiple efforts to get him to dialysis. He presented to the emergency room this morning with complaint of scrotal pain and was found to have hyperkalemia with potassium level 6.4. BUN and creatinine are also elevated significantly with total BUN 190 and creatinine 13.7. Nephrology consultation was requested as the patient needs urgent hemodialysis. PAST MEDICAL AND SURGICAL HISTORY: Significant for: 1. Insulin-dependent diabetes. 2. Hypertension. 3. End-stage renal disease. 4. Secondary hyperparathyroidism. 5. Anemia. 6. Peripheral vascular disease, status post left [id number] and right sdzrt-lwe-awzd amputation. 7. Diabetic retinopathy, legally blind. 8. History of noncompliance. 9. Depression. 10. Hypothyroidism. MEDICATIONS: His home medications include: - amlodipine 10 mg daily - calcium acetate 2 capsules three times a day with meals - clonidine 0.2 mg twice a day - Cymbalta 20 mg at bedtime - gabapentin 100 mg three times a day - Levemir insulin 10 units at bedtime - fosinopril 100 mg three times a day with meals - levothyroxine 150 mcg daily - losartan 50 mg twice a day - metoprolol 100 mg twice a day - quetiapine 25 mg at bedtime - hydralazine 100 mg three times a day ALLERGIES: The patient has NO KNOWN DRUG ALLERGIES. PERSONAL AND SOCIAL HISTORY: The patient lives by himself. He denies any smoking, alcohol or drug use. He has chronic noncompliance with medical care. He moved from [place] to [facility] a couple of months ago and since then has been admitted at least three times. He comes to outpatient dialysis clinic only once or twice every couple of weeks. FAMILY HISTORY: Negative for end-stage renal disease. REVIEW OF SYSTEMS: The patient denies any fever or chills. He is weak and reports malaise and scrotal area of pain and ulcers. Eyes: He is legally blind due to diabetic retinopathy. Ears, nose and throat are unremarkable. Cardiovascular system is significant for some mild dyspnea. He denies any chest pain. Respiratory system negative for cough, hemoptysis or pleuritic type of chest pain. GI system is negative for vomiting, diarrhea, abdominal pain or rectal pain. system is negative for dysuria. He has history of scrotal area cellulitis for which she was recently admitted. Now he complains of pain and ulcers. Musculoskeletal system is significant for bilateral lower extremity amputations. He is mostly bed-bound. Endocrine system is significant for hypothyroidism and secondary hyperparathyroidism in addition to diabetes. Hematological system is significant for anemia of chronic kidney disease. PHYSICAL EXAMINATION: Temperature 98 degrees Fahrenheit, heart rate 92 per minute and respiratory rate 22 per minute. Blood pressure 198/74 mmHg and oxygen saturation 92% on room air. Head: Is atraumatic. He is legally blind due to diabetic retinopathy. Ears, nose and throat are unremarkable. Neck is supple and JVD is moderately elevated. Heart: Sounds are regular. Lungs with good bilateral air entry and few basilar rales. Abdomen: Soft and nontender and bowel sounds are present. Extremities: Have no cyanosis or clubbing. Neurologically he is awake and has no focal deficit. He is able to answer questions appropriately. LABORATORY DATA: WBC count 8.4, hemoglobin 9.5 and hematocrit 30.5. Platelets 305. Sodium 140 and potassium 6.4. BUN is 119 and creatinine 13.7. CO2 is 16 and chloride 108. PROBLEMS: 1. Hyperkalemia. This is related to noncompliance with dialysis treatment in the setting of end-stage renal disease. The patient will be dialyzed with 1.0 mEq potassium bath today. This will correct his hyperkalemia. 2. Uremia, again this is a results of missed dialysis treatments. The patient was last dialyzed about a week ago and that did not show up since then. He will be dialyzed for 4 hours today. 3. Anemia. His anemia is mild and stable at about baseline. At present he does not need any transfusion. We will order Aranesp 100 mcg to be given once a week during dialysis. 4. Scrotal area cellulitis and ulcers. I will defer to hospitalist service about antibiotic therapy. 5. Chronic noncompliance. The patient has been noncompliant with dialysis treatment. I would suggest to consider for placement due to his multiple core morbid conditions which post put him at risk for poor care. I thank you for involving me in the care of Mr. Moore. I will follow him along with you.
[2017-02-26 20:00] VITALS: BP 147/70
--- NOTE | 2017-02-26 20:52 | ECGEPIP ---
Stationary ECG Study [facility] - ED Test Date: 2017-02-26 Pat Name: ELO ROSENBERG Department: Room: - Gender: M Subsorter: celeste : 1970 Requested By: SHARIFA MCCOY Order Number: [id number] Reading MD: Carissa Trevino Measurements Intervals [place] Rate: 81 P: 9 OR: 155 QRS: -65 QRSD: 108 T: 4 QT: 385 QTc: 448 Interpretive Statements SINUS RHYTHM LEFT ANTERIOR FASCICULAR BLOCK POSSIBLE ANTERIOR/INFERIOR MYOCARDIAL INFARCTION, OF INDETERMINATE AGE DECREASED RATE 02/26/17 Electronically Signed On 02-26-2017 20:52:10 EDT by Carissa Trevino
[2017-02-26] MEDS: LEVEMIR (INSULIN DETEMIR) 1 UNITS/0.01ML SC SCH (21:55)
[2017-02-26] MEDS ORDERED: diphenhydrAMINE 25 MG CAP PO ONE (22:00)
[2017-02-26] MEDS ORDERED: KETOROLAC 30 MG/ML VIAL (J1885) IV ONE (22:00)
[2017-02-26] MEDS: cloNIDine 0.2 MG TAB PO SCH (22:11)
[2017-02-26] MEDS: DULoxetine 20 MG CAP (CYMBALTA) PO SCH (22:11)
[2017-02-26] MEDS: QUEtiapine FUMARATE 25 MG TAB PO SCH (22:12)
[2017-02-27 05:10] VITALS: BP 126/58
[2017-02-27 05:58] LABS: MEAN CORPUSCULAR HEMOGLOBIN 27.5 pg (27.0-33.0); MEAN CORPUSCULAR HGB CONC 32.1 g/dl (32.0-36.5); MEAN CORPUSCULAR VOLUME 85.6 fl (80.0-96.0); RED CELL DISTRIBUTION WIDTH 17.9 % (11.5-14.5); WHITE BLOOD COUNT 4.9 K/mm3 (4.0-10.0)
[2017-02-27 06:06] LABS: ALBUMIN 2.1 GM/DL (3.2-5.2); CALCIUM LEVEL 8.3 MG/DL (8.5-10.1); CREATININE FOR GFR 8.21 MG/DL (0.70-1.30); GLOMERULAR FILTRATION RATE 7.5 (>60); PHOSPHORUS LEVEL 8.8 MG/DL (2.5-4.9); POTASSIUM SERUM 4.4 MEQ/L (3.5-5.1)
[2017-02-27] MEDS: HEPARIN SOD (PORCINE) 5000 UNITS/ML VIAL SC SCH ×3 (06:10→22:38)
[2017-02-27] MEDS: LEVOTHYROXINE 150MCG TABLET (0.15MG) PO SCH (06:10)
[2017-02-27] MEDS: HumaLOG INSULIN (NovoLOG) PER UNIT SC SCH ×4 (07:39→21:00)
[2017-02-27] MEDS: CALCIUM ACETATE 667 MG GELCAP PO SCH ×3 (08:21→17:57)
[2017-02-27] MEDS: LANTHANUM CARBONATE 500 MG CHEW TABLET PO SCH ×3 (08:21→17:57)
[2017-02-27] MEDS: cloNIDine 0.2 MG TAB PO SCH ×2 (08:21→20:16)
[2017-02-27] MEDS: **hydrALAZINE** 50 MG TAB PO SCH ×3 (08:22→20:16)
[2017-02-27] MEDS: GABAPENTIN 100 MG CAP PO SCH ×3 (08:22→20:17)
[2017-02-27] MEDS: LOSARTAN 50 MG TAB PO SCH ×2 (08:22→20:17)
[2017-02-27] MEDS: amLODIPine 10 MG TAB PO SCH (08:23)
[2017-02-27] MEDS: METOPROLOL TARTRATE 100 MG TAB PO SCH ×2 (08:23→20:17)
--- NOTE | 2017-02-27 08:46 | IPNPDOC ---
Subjective Date Seen The patient was seen on 02/27/17. Subjective Chief Complaint/HPI The patient is a 46-year-old male admitted with a reason for visit of Hyperkalemia/Uremia. Events since last encounter Complaining of scrotal pain and unable to sit due to severe pain. Had HD yesterday , will be going again today. Has chronic Scrotal ulcer since October causing him lot of pain an soreness and difficulty in sitting so misses dialysis frequently. Objective Physical Examination General Exam: Positive: Cooperative, Mild Distress, Other (pt seems to fall asleep on exam), Negative: Alert Eye Exam: Positive: PERRLA, EOMI, Negative: Sclera icteric ENT Exam: Positive: Atraumatic Neck Exam: Positive: Supple Chest Exam: Positive: Clear to auscultation, Normal air movement, Diminished, Negative: Rales, Rhonchi, Wheezing Heart Exam: Positive: Rate Normal, Regular Rhythm, Normal S1, Normal S2, Negative: Gallops, Murmurs Abdomen Exam: Positive: Normal bowel sounds, Soft, Negative: Tenderness, Hepatospenomegaly Male Exam: Positive: Lesions (scrotal ulcer with raised margins and scant discharge. ) Skin Exam: Positive: Breakdown (bottom of scrotum, tinea barbae, some serous drainage from skin break down) Neuro Exam: Negative: Normal Speech (speech is garbled at times) Psych Exam: Positive: Oriented x 3 (not orientated to time) Assessment /Plan Problems (1) Scrotal ulcer Status: Chronic Problem Text: Present since october will try to get a biopsy culture from it previously has been polymicrobial there may be some contamination with stool. does not have any surrounding cellulitis so will not give any antibiotics at present. (2) Metabolic encephalopathy Status: Resolved Problem Text: Uremia inadequate dialysis due to noncompliance and pain meds contributing. (3) ESRD (end stage renal disease) on dialysis Status: Chronic Problem Text: Had been on HS for about 3 years. Known to be very noncompliant. Goes for HD once in 7 to 10 days. (4) Hyperkalemia Status: Resolved Response to Treatment: Stable (5) Noncompliance with diet and medication regimen Status: Chronic (6) HTN (hypertension) Status: Chronic Response to Treatment: Stable Problem Text: continue home medications (7) DMII (diabetes mellitus, type 2) Status: Chronic Response to Treatment: Stable (8) Hypothyroid Status: Chronic Response to Treatment: Stable (9) GERD (gastroesophageal reflux disease) Status: Chronic Response to Treatment: Stable (10) Blindness Status: Chronic Problem Text: legally blind due to diabetic retinopathy (11) PVD (peripheral vascular disease) Status: Chronic Problem Text: has left below knee amputation and right above knee amputation. Plan/VTE VTE Prophylaxis Ordered?: Yes (pt bka) VS, I&O, 24H, Fishbone Vital Signs/I&O Vital Signs Date Time Temp Pulse Resp B/P (MAP) Pulse Ox O2 Delivery O2 Flow Rate FiO2 02/27/17 08:23 62 174/90 02/27/17 05:10 97.3 20 91 Room Air I&O- Last 24 Hours up to 6 AM 02/27/17 06:00 Intake Total 600 ml Output Total 200 ml Balance 400 ml Laboratory Data 24H LABS Laboratory Tests 2 02/26/17 08:35: Bedside Glucose (Misc Panel) 110H 02/26/17 14:03: Bedside Glucose (Misc Panel) 86 02/26/17 16:29: Bedside Glucose (Misc Panel) 89 02/26/17 20:37: Bedside Glucose (Misc Panel) 79 02/27/17 05:07: Blood Urea Nitrogen 53#H, Creatinine 8.21H, Sodium Level 137, Potassium Level 4.4#, Chloride Level 102, Carbon Dioxide Level 24, Anion Gap 11, Glomerular Filtration Rate 7.5L, Calcium Level 8.3L, Phosphorus Level 8.8H, Albumin 2.1L CBC/BMP Laboratory Tests 02/27/17 05:07 Red Blood Count 3.38 L, Mean Corpuscular Volume 85.6, Mean Corpuscular Hemoglobin 27.5, Mean Corpuscular Hemoglobin Concent 32.1, Red Cell Distribution Width 17.9 H, Anion Gap 11 Microbiology Microbiology 02/26/17 Blood Culture - Preliminary, Resulted No growth after 24 hours . All specim... BOOKER PARKS MD Feb 27, 2017 08:46
[2017-02-27] MEDS ORDERED: DARBEPOETIN 100 MCG/0.5 ML *DIALYSIS* SYRINGE (J0882) IV SCH (10:45)
[2017-02-27] MEDS ORDERED: HEPARIN 1,000 UNITS/ML 10ML VIAL (FOR RADIOLOGY& DIALYSIS ONLY) XX ONE (12:00)
[2017-02-27] MEDS ORDERED: HEPARIN 1,000 UNITS/ML 10ML VIAL (FOR RADIOLOGY& DIALYSIS ONLY) IV ONE (12:00)
[2017-02-27 14:00] VITALS: BP 126/62
[2017-02-27] MEDS: PERCOCET 5MG/325MG TAB PO PRN (15:12)
--- NOTE | 2017-02-27 16:33 | IPN ---
DATE: 02/27/2017 SUBJECTIVE: The patient was seen and examined at the bedside today in the morning during hemodialysis. He is tolerating the hemodialysis procedure well. The patient is currently hemodynamically stable. REVIEW OF SYSTEMS: The patient denies any fevers, chills, rigors, headaches, nausea, vomiting, chest pain or shortness of breath. He reports that his scrotal swelling and pain is improving now. Rest of review of systems is negative. OBJECTIVE: VITAL SIGNS: Temperature is 97.3 degrees Fahrenheit, blood pressure is 174/90, pulse is 62, respiratory rate of 20, saturating 91% on room air. INTAKE AND OUTPUT: Urine output recorded is zero mL since overnight. Weight in the bed scale is 98.2 kg. PHYSICAL EXAMINATION: GENERAL: The patient is awake, alert, and oriented times three, lying in bed, getting hemodialysis, no apparent distress. HEAD/NECK: The patient is legally blind. Mucous membranes are moist. Neck is supple. There is no jugular venous distention (JVD). CARDIOVASCULAR: S1, S2. Regular rate. No murmur, rub, or gallop. RESPIRATORY: Chest is clear to auscultation bilaterally. Bilateral equal air entry. No rales or rhonchi. The patient has a right internal jugular (IJ) tunneled hemodialysis catheter. ABDOMEN: Soft. Positive bowel sounds. Nontender. No ascites. No organomegaly. GENITOURINARY: The patient's scrotal cellulitis is improving now. No active ulcerations at this time. MUSCULOSKELETAL: The patient has a right above-knee amputation and left below-knee amputation. CENTRAL NERVOUS SYSTEM (CHARGE AUTHORIZER): The patient is legally blind. Otherwise, no focal deficit. Patient follows commands, moves bilateral upper extremities. PSYCHIATRIC: Normal mood and affect. SKIN: The patient has a rash in the groin region. Otherwise, no active ulcerations. LABORATORY DATA: CBC showed a WBC 4.9, hemoglobin 9.3, platelets are 269. BMP shows sodium 137, potassium 4.4, chloride 102, bicarbonate 24, BUN 53, creatinine is 8.2, calcium 8.3, phosphorus 8.8, albumin 2.1. MICROBIOLOGY: Blood cultures are negative so far. CURRENT INPATIENT MEDICATIONS: The patient's medications were all reviewed by me. I have started the patient on Aranesp 200 mcg intravenous (IV) with hemodialysis. There is no other change in the medication today as compared with yesterday. ASSESSMENT: A 46-year-old male with past medical history of end-stage renal disease on hemodialysis, diabetes mellitus type 2, hypertension, legally blind, chronically bedridden with bilateral lower extremity amputations, admitted this time because of hyperkalemia and fluid overload because of noncompliance with hemodialysis. PLAN: 1. Hyperkalemia. The patient was dialyzed yesterday. Potassium is down to 4.4. He is being dialyzed again today against a 2K bath. Potassium level is improving with hemodialysis. The patient needs to get three times a week hemodialysis. Compliance with hemodialysis was again advised to the patient. 2. End-stage renal disease. The patient's regular dialysis days are Wednesday, Wednesday, Wednesday. He missed two sessions of dialysis last week. He only got one session during admission yesterday. I am going to do another session of hemodialysis for uremia and fluid overload. 3. Anemia in end-stage renal disease. The patient's hemoglobin is suboptimal. The patient will get Aranesp with hemodialysis today. 4. Scrotal cellulitis and ulcerations. The patient reports that he cannot come to the dialysis center because of pain at his scrotal cellulitis site. Continue the topical nystatin at this time. The patient is not on any antibiotics. 5. Hypertension. Continue current dose of clonidine 0.2 mg twice a day, amlodipine 10 mg by mouth daily, hydralazine 100 mg by mouth three times a day, losartan 50 mg twice a day, metoprolol 100 mg by mouth twice a day. Hemodialysis and ultrafiltration will also help improve the blood pressure. 6. Chronic kidney disease, mineral bone disease. The patient has hyperphosphatemia, probably he is noncompliant with the phosphorus binders as well. Continue current dose of PhosLo 1.3 grams by mouth three times a day with meals and Lanthanum 1 gram by mouth three times a day with meals. 7. Chronic noncompliance with dialysis procedure. The patient has multiple admissions to the hospital after missing dialysis. He gets dialyzed for a few days. Once he goes home, he does not come for hemodialysis. Every time the patient has been advised to be compliant with dialysis procedure. The patient likely needs to be placed at the correction.
[2017-02-27] MEDS: QUEtiapine FUMARATE 25 MG TAB PO SCH (20:17)
[2017-02-27] MEDS: DULoxetine 20 MG CAP (CYMBALTA) PO SCH (20:18)
[2017-02-27 21:10] VITALS: BP 160/84
[2017-02-27] MEDS: SILVER SULFADIAZINE 1% CR 50 GM JAR TOP SCH (22:39)
[2017-02-27] MEDS: LEVEMIR (INSULIN DETEMIR) 1 UNITS/0.01ML SC SCH (22:40)
[2017-02-28 06:00] VITALS: BP 165/81
[2017-02-28] MEDS: LEVOTHYROXINE 150MCG TABLET (0.15MG) PO SCH (06:01)
[2017-02-28] MEDS: HEPARIN SOD (PORCINE) 5000 UNITS/ML VIAL SC SCH ×3 (06:02→22:00)
[2017-02-28] MEDS: LANTHANUM CARBONATE 500 MG CHEW TABLET PO SCH ×3 (09:16→17:39)
[2017-02-28] MEDS: CALCIUM ACETATE 667 MG GELCAP PO SCH ×3 (09:18→17:40)
[2017-02-28] MEDS: **hydrALAZINE** 50 MG TAB PO SCH ×3 (09:19→20:12)
[2017-02-28] MEDS: amLODIPine 10 MG TAB PO SCH (09:20)
[2017-02-28] MEDS: LOSARTAN 50 MG TAB PO SCH ×2 (09:21→20:12)
[2017-02-28] MEDS: cloNIDine 0.2 MG TAB PO SCH ×2 (09:21→20:13)
[2017-02-28] MEDS: METOPROLOL TARTRATE 100 MG TAB PO SCH ×2 (09:21→20:11)
[2017-02-28] MEDS: GABAPENTIN 100 MG CAP PO SCH ×3 (09:21→20:12)
[2017-02-28] MEDS: HumaLOG INSULIN (NovoLOG) PER UNIT SC SCH ×4 (09:22→21:00)
[2017-02-28] MEDS: SILVER SULFADIAZINE 1% CR 50 GM JAR TOP SCH ×2 (09:23→20:13)
[2017-02-28] MEDS: PERCOCET 5MG/325MG TAB PO PRN (09:26)
--- NOTE | 2017-02-28 09:28 | CR ---
DATE OF CONSULTATION: 02/27/2017 REASON FOR CONSULTATION: Scrotal wound. HISTORY OF THE PRESENT ILLNESS: The patient is a pleasant 46-year-old man with multiple medical problems. He has a history of diabetes and hypertension and has end-stage renal disease on hemodialysis. He has a history of anemia and hyperparathyroidism. He is status post a left below-knee amputation and a right above-knee amputation. He reports that back in October, he had developed a sore on the undersurface of the scrotum just to the left of the midline. This has not healed since then. He was admitted to the hospital in December for some shortness of breath and noncompliance with hemodialysis and was noted at that time to have an ulceration in this area. He was admitted in January of this year at [facility] with a diagnosis of cellulitis of the scrotum. He has now been readmitted with a chief complaint on this occasion of scrotal pain, which he says interferes with his ability to comply with dialysis. He has not noticed any increase in the size of this area nor has he noticed significant healing. It remains tender, though perhaps slightly better over the last few days. He is not noticing much in the way of drainage. He denies any definite injury to the area but indicates that it had started at one point after he had been sitting in his wheelchair for a time. He has not been applying any topical remedies to the area since moving from [place] to the [facility]. I was asked by Dr. Garvey of the hospitalist service to evaluate this and particularly to consider whether a biopsy of the area would be prudent. MEDICATIONS: Are multiple and as listed in the patient chart. His medical history as noted is significant for insulin-dependent diabetes, hypertension, end-stage renal disease, secondary hyperparathyroidism, anemia, peripheral vascular disease, status post bilateral lower extremity amputations, and diabetic retinopathy, and visual impairment. He reports no known drug allergies. FAMILY HISTORY: Is not helpful. SOCIAL HISTORY: Is also without any history of smoking or significant alcohol use. His review of systems in regard to this area is significant only for persistent tenderness of the area of the scrotum. He denies any history of prior injury to this area. He has not had any perirectal or perianal infections requiring treatment. PHYSICAL EXAMINATION: Again limited to the area of interest on the scrotum shows that on the undersurface of the scrotum just to the left of the median raphe, there is an approximately 5 cm long x 1.5 to 2 cm wide irregular area of pink skin. There are several pits in the skin containing some debris or nonviable tissue. There are two or three larger areas with brown eschars or scabs overlying the underlying tissue. There is no sign of deep tracking of this process. The skin other than in the area of the actual lesion is supple. There is no sign of acute infection. IMPRESSION: Chronic wound of the scrotum of unclear etiology. It is my impression that this does not appear suggestive of a skin malignancy. I would think it would be reasonable to continue local treatment for a time and see if this could be encouraged to heal rather than proceeding directly to a biopsy. PLAN: I have recommended use of some Silvadene to this area, which at least in the hospital setting could be applied twice daily. I would then be happy to monitor this wound to see if we can effect any improvement in the open areas and allow further healing. The patient is not eager to have a biopsy done at this time anyway and is agreeable with the plan for some topical antibiotic treatment. We will see how this works and can certainly proceed with a biopsy if there is no improvement. [place]
--- NOTE | 2017-02-28 10:33 | IPNPDOC ---
Subjective Date Seen The patient was seen on 02/28/17. Subjective Chief Complaint/HPI The patient is a 46-year-old male admitted with a reason for visit of Hyperkalemia/Uremia. Events since last encounter feeling better today , scrotal pain now intermittent and if he is not sitting up it does not bother him. no chest pain or sob , no cough or phlegm , no abdominal pain nausea or vomiting. Objective Physical Examination General Exam: Positive: Cooperative, Mild Distress, Other (pt seems to fall asleep on exam), Negative: Alert Eye Exam: Positive: PERRLA, EOMI, Negative: Sclera icteric ENT Exam: Positive: Atraumatic Neck Exam: Positive: Supple Chest Exam: Positive: Clear to auscultation, Normal air movement, Diminished, Negative: Rales, Rhonchi, Wheezing Heart Exam: Positive: Rate Normal, Regular Rhythm, Normal S1, Normal S2, Negative: Gallops, Murmurs Abdomen Exam: Positive: Normal bowel sounds, Soft, Negative: Tenderness, Hepatospenomegaly Male Exam: Positive: Lesions (scrotal ulcer with raised margins and scant discharge. ) Skin Exam: Positive: Breakdown (bottom of scrotum, tinea barbae, some serous drainage from skin break down) Neuro Exam: Negative: Normal Speech (speech is garbled at times) Psych Exam: Positive: Oriented x 3 (not orientated to time) Assessment /Plan Problems (1) Scrotal ulcer Status: Chronic Problem Text: Present since october culture from it previously has been polymicrobial there may be some contamination with stool. does not have any surrounding cellulitis so will not give any antibiotics at present. Seen by Dr Dunn to try silveridine oint now and will follow up as outpatient to see if it is healing or not. (2) Metabolic encephalopathy Status: Resolved Problem Text: Uremia inadequate dialysis due to noncompliance and pain meds contributing. (3) ESRD (end stage renal disease) on dialysis Status: Chronic Problem Text: Had been on HS for about 3 years. Known to be very noncompliant. Goes for HD once in 7 to 10 days. 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 Plan/VTE VTE Prophylaxis Ordered?: Yes (pt bka) VS, I&O, 24H, Fishbone Vital Signs/I&O Vital Signs Date Time Temp Pulse Resp B/P (MAP) Pulse Ox O2 Delivery O2 Flow Rate FiO2 02/28/17 09:26 18 02/28/17 09:21 142/70 02/28/17 09:21 80 02/28/17 06:00 98.5 95 Room Air I&O- Last 24 Hours up to 6 AM 02/28/17 06:00 Intake Total 960 ml Output Total 3700 ml Balance -2740 ml Laboratory Data 24H LABS Laboratory Tests 2 02/27/17 13:47: Bedside Glucose (Misc Panel) 77 02/27/17 16:36: Bedside Glucose (Misc Panel) 152H 02/27/17 20:26: Bedside Glucose (Misc Panel) 82 02/28/17 05:27: Bedside Glucose (Misc Panel) 85 Microbiology Microbiology 02/26/17 Blood Culture - Preliminary, Resulted No Growth after 48 hours. All Specime... BOOKER PARKS MD Feb 28, 2017 10:33
[2017-02-28] MEDS: SIMETHICONE 80 MG CHEW TAB PO PRN ×2 (12:35→19:46)
[2017-02-28 14:00] VITALS: BP 136/61
[2017-02-28] MEDS: DULoxetine 20 MG CAP (CYMBALTA) PO SCH (20:11)
[2017-02-28] MEDS: QUEtiapine FUMARATE 25 MG TAB PO SCH (20:12)
[2017-02-28] MEDS: LEVEMIR (INSULIN DETEMIR) 1 UNITS/0.01ML SC SCH (21:00)
--- NOTE | 2017-02-28 21:13 | IPN ---
DATE: 02/28/2017 SUBJECTIVE: The patient was seen and examined at the bedside today morning. The patient reports that he is feeling gassy and bloated, and he reports some swelling at the scrotal scabs and cellulitis site. He was dialyzed yesterday. He tolerated the hemodialysis procedure well. REVIEW OF SYSTEMS: The patient denies any fevers, chills, rigors, headaches, nausea, vomiting, chest pain, shortness of breath. He is feeling gassy and bloated. Rest of review of systems is negative. OBJECTIVE: VITAL SIGNS: Temperature is 98.5 degrees Fahrenheit, blood pressure is 142/70, pulse is 80, respiratory rate of 18, saturating 95% on room air. INTAKE AND OUTPUT: Urine output recorded as 200 mL yesterday. There is no urine output recorded right now. Ultrafiltration with hemodialysis was 3.5 liters. Weight in the bed scale is 95.6 kg. PHYSICAL EXAMINATION: GENERAL: The patient is awake, alert, and oriented times three. Lying in bed, no apparent distress. HEAD/NECK: The patient is legally blind. Mucous membranes are moist. Neck is supple. There is no jugular venous distention (JVD). CARDIOVASCULAR: S1, S2. Regular rate. No murmur, rub, or gallop. RESPIRATORY: Chest is clear to auscultation bilaterally. Bilateral equal air entry. No rales or rhonchi. Patient has a right internal jugular (IJ) tunneled hemodialysis catheter. ABDOMEN: Soft. Positive bowel sounds. Nontender. No ascites. No organomegaly. GENITOURINARY: The patient has scabs over the scrotal cellulitis site. MUSCULOSKELETAL: The patient has right above-knee amputation and left below-knee amputation. CENTRAL NERVOUS SYSTEM (CERTIFIED CONTROL SYSTEMS TECHNICIAN): No focal neurological deficits other than patient is legally blind. The patient follows commands and is able to communicate. LABORATORY DATA: CBC showed a WBC 4.9, hemoglobin 9.3, platelets are 269. BMP showed sodium 137, potassium 4.4, and these labs are from yesterday. There are no new labs available today. CURRENT MEDICATIONS: The patient's medications were all reviewed by me. He has been started on simethicone 80 mg by mouth three times a day as needed for gas pain. There is no other change in the medications today as compared with yesterday. ASSESSMENT: A 46-year-old male with past medical history of end-stage renal disease on hemodialysis, diabetes mellitus type 2, hypertension, legally blind, chronically bedridden with bilateral lower extremity amputations, admitted this time because of hyperkalemia, fluid overload, along with scrotal cellulitis. PLAN: 1. End-stage renal disease. The patient's regular dialysis days are Wednesday, Wednesday, Wednesday. He missed two sessions of hemodialysis last week. He was dialyzed back to back for the last two days. No urgent need of hemodialysis today. Next hemodialysis will be done as outpatient after patient is discharged in the morning. 2. Anemia in end-stage renal disease. The patient is getting Aranesp 200 mcg IV with hemodialysis. The rest of the anemia management will be done as outpatient. 3. Hypertension. Blood pressure is acceptable at this time. Continue current dose of clonidine, amlodipine, hydralazine, losartan and metoprolol. 4. Scrotal cellulitis and ulcerations. The patient's cellulitis is improving at this time. It has scabbed over. However, the patient still complains of pain. He is currently getting Percocet as needed for pain. 5. Dyspepsia. The patient was given simethicone as needed for gassy pain and distention. 6. Discharge planning: It is okay to discharge the patient from nephrology standpoint whenever the ride is available. The patient can be discharged as outpatient tomorrow in the afternoon as per his regular schedule. Plan of care was discussed with the hospitalist, Dr. Merle Garvey.
[2017-02-28 22:00] VITALS: BP 158/76
[2017-03-01] MEDS: HEPARIN SOD (PORCINE) 5000 UNITS/ML VIAL SC SCH (05:50)
[2017-03-01] MEDS: LEVOTHYROXINE 150MCG TABLET (0.15MG) PO SCH (05:50)
[2017-03-01 06:00] VITALS: BP 152/79
[2017-03-01] MEDS ORDERED: SIME80TA PO (06:27)
[2017-03-01] MEDS ORDERED: SILV50CR TOP (06:27)
[2017-03-01] MEDS ORDERED: PERCOCET PO (06:27)
[2017-03-01] MEDS: HumaLOG INSULIN (NovoLOG) PER UNIT SC SCH (07:30)
[2017-03-01] MEDS ORDERED: SERO50TA PO (08:14)
[2017-03-01] MEDS: LANTHANUM CARBONATE 500 MG CHEW TABLET PO SCH (09:09)
[2017-03-01] MEDS: CALCIUM ACETATE 667 MG GELCAP PO SCH (09:09)
[2017-03-01] MEDS: LOSARTAN 50 MG TAB PO SCH (09:12)
[2017-03-01] MEDS: GABAPENTIN 100 MG CAP PO SCH (09:12)
[2017-03-01 09:14] VITALS: BP 202/90
[2017-03-01] MEDS: METOPROLOL TARTRATE 100 MG TAB PO SCH (09:14)
[2017-03-01] MEDS: cloNIDine 0.2 MG TAB PO SCH (09:14)
[2017-03-01] MEDS: amLODIPine 10 MG TAB PO SCH (09:14)
[2017-03-01] MEDS: **hydrALAZINE** 50 MG TAB PO SCH (09:14)
[2017-03-01] MEDS: SILVER SULFADIAZINE 1% CR 50 GM JAR TOP SCH (09:15)
[2017-03-01] MEDS: SIMETHICONE 80 MG CHEW TAB PO PRN (09:20)
[2017-03-01 09:22] VITALS: BP 202/90
[2017-03-01 10:36] VITALS: BP 164/80
--- NOTE | 2017-03-04 10:50 | DSES ---
DATE OF ADMISSION: 02/26/2017 DATE OF DISCHARGE: 03/01/2017 LOCOMOTIVE CRANE ENGINEER: Dr. Law. PRIMARY CARE PROVIDER: Dr. Bladimir Alexander at the [facility]. DISCHARGE DIAGNOSIS: Chronic scrotal ulcer. Metabolic encephalopathy due to pain meds and possibly inadequate dialysis. End stage renal disease (ESRD), noncompliant with medication and dialysis. Hypertension. Diabetes. Hypothyroid. Gastroesophageal reflux disease (GERD). Legal blindness due to diabetic retinopathy. Peripheral vascular disease with bilateral amputations, left below knee amputations and right above knee amputation. Secondary hypothyroidism. Anemia of chronic disease. Peripheral neuropathy. HOSPITAL COURSE: This is a 46-year-old male who presented to the hospital for severe scrotal pain. Patient has been having scrotal pain and ulcer since October 2014. Patient also had scrotal cellulitis and had several courses of antibiotics. At present, patient continues to have a chronic ulceration and due to this, he has severe pain and difficulty in sitting in his wheelchair, in his dialysis chair, that is why he misses his treatments as he cannot sit in the dialysis chair. This time also he missed two treatments and when he came to the hospital, he was found to be hyperkalemic, fluid overloaded with high BUN and creatinine. Patient was dialyzed on two consecutive days with improvement in his laboratory values and improvement in his symptoms. He was initially also very somnolent which was thought to be related to pain medications as well as some degree of uremia due to missing dialysis sessions. His mental status improved as well as his fluid status improved after decision of dialysis. In the hospital, he was also seen by Dr. Dunn from surgery and was advised local antibiotic ointment as well as daily dressing. Patient is going to be followed up by Dr. Dunn as an outpatient to monitor the healing of the chronic scrotal ulcer. On the day of discharge, patient's symptoms were better controlled. His pain had improved. His vitals were stable and he was functionally at his baseline. PHYSICAL EXAMINATION: Vital signs: Temperature 97.4, pulse 68, blood pressure 164/80, pulse oximetry 93% on room air. General: Patient awake, alert, oriented times three. Sitting up in bed in no acute distress. HEENT: Normocephalic, atraumatic. Moist mucous membranes. Anicteric eyes. Chest: Clear to auscultation. Cardiovascular: S1, S2, regular. No rub, murmur or gallop. Abdomen: Obese, soft, nontender. Bowel sounds present. Extremities: No edema. LABORATORY DATA: WBC 4.9, hemoglobin 9.3, platelets 269. Sodium 137, potassium 4.4, chloride 102, bicarbonate 24, BUN 53, creatinine 8.2, glucose 100, calcium 8.3, phosphorus 8.8, albumin 2.1. Blood culture no growth. DISPOSITION: Patient is discharged home in stable condition. DISCHARGE INSTRUCTIONS: Patient to followup with primary care provider in 1-2 weeks. Patient will go to his dialysis unit for his routine hemodialysis. Carbohydrate consistent diet. Activity as tolerated. Fluid restriction 1500 mL in 24 hours.
== END 2017-03-01 11:00 | disposition home health service (06) | DRG 729 ==
LOC: EDBD 03:18 → M ED 03:18 → M ED INP 03:19 → M MSPAV 08:14 → OBSVTOIN 10:18
PROVIDERS: ATTEND Internal Medicine Nephrology
PROC: 5A1D60Z (ICD-10-PCS; principal; 2017-02-26)
DX: N50.89 Other specified disorders of the male genital organs (principal); N18.6 End stage renal disease; G93.41 Metabolic encephalopathy; N25.81 Secondary hyperparathyroidism of renal origin; I12.0 Hypertensive chronic kidney disease with stage 5 chronic kidney disease or end stage renal disease; Z91.19 Patient's noncompliance with other medical treatment and regimen; E11.319 Type 2 diabetes mellitus with unspecified diabetic retinopathy without macular edema; E03.9 Hypothyroidism, unspecified; D63.1 Anemia in chronic kidney disease; H54.8 Legal blindness, as defined in USA; I73.9 Peripheral vascular disease, unspecified; Z89.611 Acquired absence of right leg above knee; Z89.512 Acquired absence of left leg below knee; E87.5 Hyperkalemia; Z79.4 Long term (current) use of insulin; F32.9 Major depressive disorder, single episode, unspecified; K21.9 Gastro-esophageal reflux disease without esophagitis

== ENCOUNTER 2017-03-17 02:05 | Emergency (ER) | payer MEDICARE, OTHER ==
[~2017-03-17 02:05] MED LIST changes: +AMLO10TA2 PO; +FOSR1000 PO; +METO100T5 PO; +PERCOCET PO; +SERO50TA PO; +SILV50CR TOP; +SIME80TA PO
[2017-03-17 02:14] VITALS: BP 198/91
[2017-03-17] MEDS ORDERED: MORPHINE 10 MG/ML 1ML VIAL IM ONE (03:45)
[2017-03-17] MEDS ORDERED: ACETAMINOPHEN 325 MG TAB PO ONE (06:00)
== END 2017-03-17 06:13 | disposition home or self-care (01) ==
LOC: EDBD 02:05 → M ED 02:05
DX: M54.5 Low back pain (principal); E11.9 Type 2 diabetes mellitus without complications; I10 Essential (primary) hypertension; N18.6 End stage renal disease; Z99.2 Dependence on renal dialysis; G89.29 Other chronic pain; F17.200 Nicotine dependence, unspecified, uncomplicated; Z79.4 Long term (current) use of insulin; Z79.899 Other long term (current) drug therapy; Z88.0 Allergy status to penicillin

== ENCOUNTER 2017-03-19 00:37 | Emergency (ER) | payer MEDICARE, OTHER ==
[~2017-03-19] VITALS: Ht 160 cm; Wt 82.4 kg
--- NOTE | 2017-03-19 02:10 | REPUSA ---
Indication: Suspected abscess. Findings: Real-time ultrasound images were obtained. No abscess formation is noted. The medial aspect of the distal right thigh. Scattered calcified areas are seen. Small amount of soft tissue edema. Impression: Calcified areas. No abscess.
[2017-03-19] MEDS ORDERED: ACETAMINOPHEN 325 MG TAB PO ONE (02:45)
[2017-03-19 04:17] VITALS: BP 206/83
== END 2017-03-19 04:19 | disposition home or self-care (01) ==
LOC: EDBD 00:37 → M ED 00:37
DX: G89.29 Other chronic pain (principal); Z89.511 Acquired absence of right leg below knee; Z89.512 Acquired absence of left leg below knee; E11.9 Type 2 diabetes mellitus without complications; I10 Essential (primary) hypertension; N19 Unspecified kidney failure; F11.20 Opioid dependence, uncomplicated; Z87.891 Personal history of nicotine dependence; Z79.4 Long term (current) use of insulin; Z79.899 Other long term (current) drug therapy; Z88.0 Allergy status to penicillin

== ENCOUNTER 2017-03-29 16:52 | Inpatient (IN) | payer MEDICARE, OTHER ==
[~2017-03-29] VITALS: Ht 172.7 cm; Wt 102.2 kg
--- NOTE | 2017-03-29 17:52 | REP ---
Chest one-view HISTORY: Weakness Comparison: 02/06/2017 The lungs are clear. The cardiac silhouette is enlarged. The pulmonary vasculature is normal in appearance. A catheter is present in the superior vena cava. Impression: Cardiomegaly. Signed by Braden Bryan MD 03/29/2017 05:43 P
[2017-03-29 18:17] LABS: BASO % 0.3 % (0.0-1.0); EOS # 0.1 K/mm3 (0.0-0.50); EOS % 1.2 % (0.0-3.0); LARGE UNSTAINED CELL # 0.1 K/mm3 (0.0-0.4); LARGE UNSTAINED CELL % 1.2 % (0.0-4.0); LYMPH % 8.9 % (24.0-44.0); MEAN CORPUSCULAR HEMOGLOBIN 27.5 pg (27.0-33.0); MEAN CORPUSCULAR HGB CONC 32.4 g/dl (32.0-36.5); MEAN CORPUSCULAR VOLUME 84.8 fl (80.0-96.0); MONO # 0.6 K/mm3 (0.0-0.8); MONO % 4.9 % (0.0-5.0); NEUTROPHILS # 9.3 K/mm3 (1.8-7.7); NEUTROPHILS % 83.4 % (36.0-66.0); PLATELET COUNT, AUTOMATED 258 k/mm3 (150-450); RED CELL DISTRIBUTION WIDTH 17.2 % (11.5-14.5); WHITE BLOOD COUNT 11.2 K/mm3 (4.0-10.0)
[2017-03-29 18:40] LABS: CALCIUM LEVEL 7.1 MG/DL (8.5-10.1); CREATININE FOR GFR 12.1 MG/DL (0.70-1.30); GLOMERULAR FILTRATION RATE 4.8 (>60)
[2017-03-29 18:45] LABS: POTASSIUM SERUM 6.2 MEQ/L (3.5-5.1)
[2017-03-29] MEDS ORDERED: ONDANSETRON 4MG/2ML VIAL (J2405) IV PRN (20:30)
[2017-03-29] MEDS ORDERED: ACETAMINOPHEN TAB 650MG DOSE (2X325MG) PO PRN (20:30)
[2017-03-29] MEDS ORDERED: DEXTROSE 50% 50 ML SYRINGE IV PRN (20:30)
[2017-03-29] MEDS ORDERED: GLUCOSE 4 GM CHEW TABLET PO PRN (20:30)
[2017-03-29] MEDS ORDERED: IPRATROPIUM 0.5MG/ALBUTEROL 2.5MG INH SOL UD 3ML (DUONEB)(J7620) NEB PRN (20:30)
[2017-03-29] MEDS ORDERED: PERCOCET 5MG/325MG TAB PO PRN (20:30)
[2017-03-29] MEDS ORDERED: GLUCAGON FOR INJ 1 MG VIAL (J1610) SC PRN (20:30)
[2017-03-29] MEDS ORDERED: QUET5TAB PO (20:35)
[2017-03-29] MEDS ORDERED: PATIENT COMMENT (20:39)
[2017-03-29] MEDS: DOCUSATE SODIUM 100 MG CAP PO SCH (21:00)
[2017-03-29] MEDS: METOPROLOL TART 50 MG TAB PO SCH (21:00)
[2017-03-29] MEDS ORDERED: HumaLOG INSULIN (NovoLOG) PER UNIT SC SCH (21:00)
[2017-03-29] MEDS ORDERED: DARBEPOETIN 100 MCG/0.5 ML *DIALYSIS* SYRINGE (J0882) IV SCH (22:00)
[2017-03-29] MEDS ORDERED: VANCOMYCIN HCL 1,000 MG, VIAL MATE ADAPTER 1 EACH in D5W 250 ML IV SCH (22:15)
--- NOTE | 2017-03-30 01:03 | HPEPDOC ---
Medical History and Physical Date of Admission Mar 29, 2017 at 20:28 History and Physical PRIMARY CARE PROVIDER: Glycerin Supervisor is Dr. Sen ATTENDING: Kenan Gomez DO CHIEF COMPLAINT: Hyperkalemia, uremia HISTORY OF PRESENT ILLNESS: Mr. Moore is a 46-year-old male with multiple chronic medical problems including diabetes, hypertension, end-stage renal disease requiring hemodialysis, anemia, peripheral vascular disease, bilateral lower extremity amputations and history of diabetic retinopathy and is legally blind. He presents to the emergency department is originally scheduled to have hemodialysis Wednesday, Wednesday, Wednesday missed his dialysis last Wednesday and states that now he's feeling ill. Has had some generalized weakness, some nausea with no vomiting and complaining of left leg pain. He was seen in the emergency department, noted to have elevated potassium and elevated BUN/ creatinine. Nephrology was consulted by the ER physician and requested the hospitalist admit the patient so that he could have hemodialysis seeping and monitored for his hyperkalemia. PAST MEDICAL HISTORY: 1. Insulin-dependent diabetes. 2. Hypertension. 3. End-stage renal disease. 4. Secondary hyperparathyroidism. 5. Anemia. 6. Peripheral vascular disease, status post left [id number]-[id number] and right lajbb-nlz-tiao amputation. 7. Diabetic retinopathy, legally blind. 8. History of noncompliance. 9. Depression. 10. Hypothyroidism. 11. History of medical noncompliance PAST SURGICAL HISTORY: Tunneled hemodialysis catheter placement. Bilateral lower extremity amputation. SOCIAL HISTORY: Lives alone. Family is in [place]. One pack per day smoking history for 30 years. No alcohol drinking. Denies cocaine, heroine, marijuana or any other illicit drugs. FAMILY HISTORY: Mother with congestive heart failure (CHF). Father and brother with kidney disease. ALLERGIES: No known drug allergies. REVIEW OF SYSTEMS: CONSTITUTIONAL: No fever, chills, weight loss, nausea or vomiting . HEENT: No headache, lightheadedness, blurred or loss of vision. No difficulty with speech or swallow. CARDIOVASCULAR: No chest pain, palpitations, paroxysmal nocturnal dyspnea or lower extremity edema RESPIRATORY: No cough, productive sputum, wheeze or hemoptysis GENITOURINARY: No dysuria, frequency, or discharge MUSCULOSKELETAL: No bone, muscle or joint pain. GASTROINTESTINAL: Nausea with intermittent vomiting and abdominal discomfort but no change in appetite change in appetite. Bowel movements are regular without hematochezia or melena. No bladder or bowel incontinence. SKIN: No complaint of lesions, abrasions or rashes NEUROLOGICAL: No blurred vision, headaches, parasthesias or paralysis PSYCHIATRIC: No depression, anxiety, audiovisual hallucinations. No suicidal ideations. ENDOCRINE: History of diabetes but no thyroid disorder. HEMATOLOGIC/LYMPHATIC: No lumpbs, bumps or swelling of neck, axilla or groin. No night sweats or weight loss. HOME MEDICATIONS: Please see below. PHYSICAL EXAMINATION: VITAL SIGNS: See below GENERAL APPEARANCE: No acute distress. HEENT: Unremarkable. CARDIOVASCULAR: Regular rate and rhythm. LUNGS: GERD auscultation. ABDOMEN: Soft, nontender, nondistended, positive bowel sounds. MUSCULOSKELETAL: Bilateral BKA's. EXTREMITIES: Bilateral BKA's. NEUROLOGICAL: Cranial nerves II through XII intact. PSYCHIATRIC: Suicidalideation.Noaudiovisualhallucinations. LABORATORY DATA: See below. IMAGING: Portable chest x-ray: Cardiomegaly but no acute changes. 12-lead EKG: Sinus tachycardia, no acute ST-T wave abnormality, ventricular rate of 101. No change from prior EKG dated 02/26/2017 ASSESSMENT: #1. End-stage renal disease with hyperkalemia and missed dialysis days. #2. Peripheral vascular disease with bilateral lower extremity amputations. #3. Insulin-dependent diabetes. #4. Diabetic retinopathy. #5 hypertension. #7 medical noncompliance. #8. Phantom limb pain. #9. Hypothyroidism. PLAN: Patient was admitted to PCU on telemetry due to hyperkalemia. We did consult Dr. Adams who presents with one dialysis this evening. This should correct for his hyperkalemia and elevated BUN. I noticed that there is some discrepancy on his medication list. I did ask Dr. Adams to review his medication list and if he wouldn't mind to update the orders. Since we're having difficulty with the med reconciliation based on the patient's personal history. Consistent carb diet. Fingersticks before meals at bedtime and sliding scale insulin per [facility] protocol. Additionally, nephrology did do a culture of the patient's chest wall where he had some erythema to rule out abscess and blood cultures pending. Patient has been started on vancomycin. DVT prophylaxis with heparin. Disposition: Patient is admitted. Anticipate there'll be here greater than to midnight. . Vital Signs Vital Signs Date Time Temp Pulse Resp B/P (MAP) Pulse Ox O2 Delivery O2 Flow Rate FiO2 03/30/17 00:19 100 16 141/70 (93) 94 Room Air 03/29/17 17:11 98.2 Laboratory Data Labs 24H Laboratory Tests 2 03/29/17 18:08: White Blood Count 11.2H, Red Blood Count 3.23L, Hemoglobin 8.9L, Hematocrit 27.4L, Mean Corpuscular Volume 84.8, Mean Corpuscular Hemoglobin 27.5, Mean Corpuscular Hemoglobin Concent 32.4, Red Cell Distribution Width 17.2H, Platelet Count 258, Neutrophils (%) (Auto) 83.4H, Lymphocytes (%) (Auto) 8.9L, Monocytes (%) (Auto) 4.9, Eosinophils (%) (Auto) 1.2, Basophils (%) (Auto) 0.3, Neutrophils # (Auto) 9.3H, Lymphocytes # (Auto) 1.0L, Monocytes # (Auto) 0.6, Eosinophils # (Auto) 0.1, Basophils # (Auto) 0.0, Large Unclassified Cells % 1.2 , Large Unclassified Cells # 0.1, Anion Gap 15, Glomerular Filtration Rate 4.8L , Blood Urea Nitrogen 90H, Creatinine 12.10H, Sodium Level 136, Potassium Level 6.2*H, Chloride Level 101, Carbon Dioxide Level 20L, Calcium Level 7.1L, Total Creatine Kinase 99, Creatine Kinase MB 6.9H, Creatine Kinase MB Relative Index 6.96H, Troponin I 0.03 03/30/17 00:24: Bedside Glucose (Misc Panel) 81 CBC/BMP Laboratory Tests 03/29/17 18:08 Red Blood Count 3.23 L, Mean Corpuscular Volume 84.8, Mean Corpuscular Hemoglobin 27.5, Mean Corpuscular Hemoglobin Concent 32.4, Red Cell Distribution Width 17.2 H, Neutrophils (%) (Auto) 83.4 H, Lymphocytes (%) (Auto ) 8.9 L, Monocytes (%) (Auto) 4.9, Eosinophils (%) (Auto) 1.2, Basophils (%) ( Auto) 0.3, Neutrophils # (Auto) 9.3 H, Lymphocytes # (Auto) 1.0 L, Monocytes # ( Auto) 0.6, Eosinophils # (Auto) 0.1, Basophils # (Auto) 0.0, Calcium Level 7.1 L , Total Creatine Kinase 99 Microbiology Microbiology 03/29/17 Blood Culture, Received Pending 03/29/17 Gram Stain, Received Pending 03/29/17 Abscess Culture, Received Pending Home Medications Scheduled Amlodipine Besylate (Amlodipine Besylate) 10 Mg Tab, 10 MG PO DAILY Clonidine Hydrochloride (Clonidine HCl) 0.2 Mg Tab, 0.2 MG PO BID Gabapentin (Neurontin) 100 Mg Cap, 100 MG PO TID Insulin Detemir (Levemir) 1 Units/0.01 Ml Susp, 10 UNITS SC QHS Levothyroxine Sodium (Synthroid) 150 Mcg Tab, 150 MCG PO DAILY Losartan Potassium (Losartan Potassium) 50 Mg Tab, 50 MG PO BID Metoprolol Tartrate (Metoprolol Tartrate) 100 Mg Tab, 100 MG PO BID Quetiapine Fumerate (Quetiapine Fumarate) 50 Mg Tab, 50 MG PO QHS hydrALAZINE HCL (Hydralazine HCl) 100 Mg Tab, 100 MG PO TID Scheduled PRN Nystatin (Nystatin Powder) 100,000 Unit/Gm Pow, 1 DOSE TOP TID PRN for RASH APPLY TO GROIN AREA Miscellaneous Medications [Patient Comment] PATIENT STATES HE TAKES 3 BLOOD PRESSURE MEDICATIONS AND THE EXTERNAL MEDICATION HISTORY LIST SHOWS 5. DR. GOMEZ IS AWARE AND CONTACTING A DOCTOR AT THE CLINIC THAT THE PATIENT GOES TO. Allergies Coded Allergies: Penicillins (Verified Allergy, Unknown, 03/29/17) KENAN GOMEZ DO Mar 30, 2017 01:03
[2017-03-30] MEDS ORDERED: LEVOTHYROXINE 150MCG TABLET (0.15MG) PO SCH (06:00)
[2017-03-30] MEDS ORDERED: HEPARIN SOD (PORCINE) 5000 UNITS/ML VIAL SC SCH (06:00)
[2017-03-30 07:14] LABS: MEAN CORPUSCULAR HGB CONC 32.1 g/dl (32.0-36.5); MEAN CORPUSCULAR VOLUME 83.9 fl (80.0-96.0); RED CELL DISTRIBUTION WIDTH 17.4 % (11.5-14.5); WHITE BLOOD COUNT 8.5 K/mm3 (4.0-10.0)
[2017-03-30] MEDS ORDERED: HumaLOG INSULIN (NovoLOG) PER UNIT SC SCH (07:30)
[2017-03-30 07:39] LABS: CREATININE FOR GFR 8.53 MG/DL (0.70-1.30); GLOMERULAR FILTRATION RATE 7.2 (>60); PHOSPHORUS LEVEL 7.9 MG/DL (2.5-4.9); POTASSIUM SERUM 4.7 MEQ/L (3.5-5.1)
[2017-03-30 08:00] VITALS: BP 170/68
[2017-03-30] MEDS ORDERED: LANTHANUM CARBONATE 500 MG CHEW TABLET PO SCH (08:00)
[2017-03-30] MEDS: IPRATROPIUM 0.5MG/ALBUTEROL 2.5MG INH SOL UD 3ML (DUONEB)(J7620) NEB SCH ×3 (08:00→17:00)
[2017-03-30] MEDS: DOCUSATE SODIUM 100 MG CAP PO SCH (09:00)
[2017-03-30] MEDS ORDERED: LOSARTAN 50 MG TAB PO SCH (09:00)
[2017-03-30] MEDS ORDERED: amLODIPine 10 MG TAB PO SCH (09:00)
[2017-03-30] MEDS ORDERED: DULoxetine 20 MG CAP (CYMBALTA) PO SCH (09:00)
[2017-03-30 09:12] VITALS: BP 170/68
[2017-03-30] MEDS: METOPROLOL TART 50 MG TAB PO SCH (09:12)
[2017-03-30] MEDS ORDERED: METOPROLOL TART 50 MG TAB PO ONE (10:30)
--- NOTE | 2017-03-30 10:40 | ECGEPIP ---
Stationary ECG Study [facility] - ED Test Date: 2017-03-29 Pat Name: ELO ROSENBERG Department: Room: - Gender: M Irrigator Overhead: rn : 1970 Requested By: Kwabena Skaggs Order Number: [id number] Reading MD: Carissa Trevino Measurements Intervals [place] Rate: 101 P: 11 MT: 139 QRS: -61 QRSD: 95 T: 21 QT: 347 QTc: 451 Interpretive Statements SINUS TACHYCARDIA PATTERN CONSISTENT WITH PULMONARY DISEASE LEFT ANTERIOR FASCICULAR BLOCK POSSIBLE ANTERIOR/INFERIOR INFARCT OLD SIMILAR 02/26/17 Electronically Signed On 03-30-2017 10:39:38 EDT by Carissa Trevino
[2017-03-30 10:50] VITALS: BP 170/75
--- NOTE | 2017-03-30 11:21 | DS.PDOC ---
Discharge Summary General Date of Admission Mar 29, 2017 at 20:28 Date of Discharge 03/30/17 Specialist/Consultants Involve: MARCO MATTSON MD Discharge Summary PROCEDURES PERFORMED DURING STAY: [None]. DISCHARGE DIAGNOSES: 1. Insulin-dependent diabetes. 2. Hypertension. 3. End-stage renal disease. 4. Secondary hyperparathyroidism. 5. Anemia. 6. PVD, status post left BKA and right AKA. 7. Diabetic retinopathy, legally blind. 8. History of noncompliance. 9. Depression. 10. Hypothyroidism. 11. History of medical noncompliance 12. Hyperkalemia COMPLICATIONS/CHIEF COMPLAINT: Esrd On Dialysis, Hyperkalemia. HOSPITAL COURSE: Mr. Moore is a 46-year-old male with multiple chronic medical problems including diabetes, hypertension, end-stage renal disease requiring hemodialysis, anemia, peripheral vascular disease, bilateral lower extremity amputations and history of diabetic retinopathy and is legally blind. He presents to the emergency department is originally scheduled to have hemodialysis Wednesday, Wednesday, Wednesday missed his dialysis last Wednesday and states that now he's feeling ill. Has had some generalized weakness, some nausea with no vomiting and complaining of left leg pain. He was seen in the emergency department, noted to have elevated potassium and elevated BUN/ creatinine. Nephrology was consulted by the ER physician and requested the hospitalist admit the patient so that he could have hemodialysis seeping and monitored for his hyperkalemia. Patient received dialysis, was re-evaluated by nephrology, deemed safe for discharge home. DISCHARGE MEDICATIONS: Please see below. ALLERGIES: Please see below. PHYSICAL EXAMINATION ON DISCHARGE: VITAL SIGNS: Please see below. GENERAL: NAD HEENT: NC/AT, EOMI, PERRL NECK: supple CARDIOVASCULAR EXAMINATION: +S1S2, RRR RESPIRATORY EXAMINATION: CTA B/L ABDOMINAL EXAMINATION: soft, NT, +BS EXTREMITIES: no edema, left AKA, right BKA LABORATORY DATA: Please see below. ACTIVITY: [As tolerated]. DIET: 2 gram sodium, carb consistent, renal DISCHARGE INSTRUCTIONS: 1. Stop smoking. 2. Medications as directed. 3. Medical appointments as scheduled. 4. Dialysis as scheduled. 5. PCP in 3-5 days. DISCHARGE CONDITION: [Stable], guarded prognosis given non-compliance and extensive medical history TIME SPENT ON DISCHARGE: Greater than 30 minutes. Vital Signs/I&Os Vital Signs Date Time Temp Pulse Resp B/P (MAP) Pulse Ox O2 Delivery O2 Flow Rate FiO2 03/30/17 10:50 170/75 (106) 03/30/17 09:12 96 03/30/17 08:00 Room Air 03/30/17 08:00 98.0 19 97 I&O- Last 24 Hours up to 6 AM 03/30/17 06:00 Intake Total 270 ml Balance 270 ml Laboratory Data Labs 24H Laboratory Tests 2 03/29/17 18:08: White Blood Count 11.2H, Red Blood Count 3.23L, Hemoglobin 8.9L, Hematocrit 27.4L, Mean Corpuscular Volume 84.8, Mean Corpuscular Hemoglobin 27.5, Mean Corpuscular Hemoglobin Concent 32.4, Red Cell Distribution Width 17.2H, Platelet Count 258, Neutrophils (%) (Auto) 83.4H, Lymphocytes (%) (Auto) 8.9L, Monocytes (%) (Auto) 4.9, Eosinophils (%) (Auto) 1.2, Basophils (%) (Auto) 0.3, Neutrophils # (Auto) 9.3H, Lymphocytes # (Auto) 1.0L, Monocytes # (Auto) 0.6, Eosinophils # (Auto) 0.1, Basophils # (Auto) 0.0, Large Unclassified Cells % 1.2 , Large Unclassified Cells # 0.1, Anion Gap 15, Glomerular Filtration Rate 4.8L , Blood Urea Nitrogen 90H, Creatinine 12.10H, Sodium Level 136, Potassium Level 6.2*H, Chloride Level 101, Carbon Dioxide Level 20L, Calcium Level 7.1L, Total Creatine Kinase 99, Creatine Kinase MB 6.9H, Creatine Kinase MB Relative Index 6.96H, Troponin I 0.03 03/30/17 00:24: Bedside Glucose (Misc Panel) 81 03/30/17 06:55: Anion Gap 10, Glomerular Filtration Rate 7.2L, Blood Urea Nitrogen 57H, Creatinine 8.53H, Sodium Level 136, Potassium Level 4.7#, Chloride Level 102, Carbon Dioxide Level 24, Calcium Level 8.0L, Phosphorus Level 7.9H, Albumin 2.0L CBC/BMP Laboratory Tests 03/29/17 18:08 Red Blood Count 3.23 L, Mean Corpuscular Volume 84.8, Mean Corpuscular Hemoglobin 27.5, Mean Corpuscular Hemoglobin Concent 32.4, Red Cell Distribution Width 17.2 H, Neutrophils (%) (Auto) 83.4 H, Lymphocytes (%) (Auto ) 8.9 L, Monocytes (%) (Auto) 4.9, Eosinophils (%) (Auto) 1.2, Basophils (%) ( Auto) 0.3, Neutrophils # (Auto) 9.3 H, Lymphocytes # (Auto) 1.0 L, Monocytes # ( Auto) 0.6, Eosinophils # (Auto) 0.1, Basophils # (Auto) 0.0, Calcium Level 7.1 L , Total Creatine Kinase 99 03/30/17 06:55 Red Blood Count 3.13 L, Mean Corpuscular Volume 83.9, Mean Corpuscular Hemoglobin 27.0, Mean Corpuscular Hemoglobin Concent 32.1, Red Cell Distribution Width 17.4 H, Anion Gap 10 FSBS Laboratory Tests Test 03/30/17 00:24 Range/Units Bedside Glucose (Misc Panel) 81 70-105 MG/DL Microbiology Microbiology 03/29/17 Blood Culture, Received Pending 03/29/17 Gram Stain - Final, Resulted 03/29/17 Abscess Culture, Resulted Pending Discharge Medications Scheduled Amlodipine Besylate (Amlodipine Besylate) 10 Mg Tab, 10 MG PO DAILY, (Reported) Clonidine Hydrochloride (Clonidine HCl) 0.2 Mg Tab, 0.2 MG PO BID, (Reported) Gabapentin (Neurontin) 100 Mg Cap, 100 MG PO TID, (Reported) Insulin Detemir (Levemir) 1 Units/0.01 Ml Susp, 10 UNITS SC QHS, (Reported) Levothyroxine Sodium (Synthroid) 150 Mcg Tab, 150 MCG PO DAILY, (Reported) Losartan Potassium (Losartan Potassium) 50 Mg Tab, 50 MG PO BID, (Reported) Metoprolol Tartrate (Metoprolol Tartrate) 100 Mg Tab, 100 MG PO BID, (Reported) Quetiapine Fumerate (Quetiapine Fumarate) 50 Mg Tab, 50 MG PO QHS, (Reported) hydrALAZINE HCL (Hydralazine HCl) 100 Mg Tab, 100 MG PO TID, (Reported) Scheduled PRN Nystatin (Nystatin Powder) 100,000 Unit/Gm Pow, 1 DOSE TOP TID PRN for RASH, ( Reported) APPLY TO GROIN AREA Miscellaneous Medications [Patient Comment] , (Reported) PATIENT STATES HE TAKES 3 BLOOD PRESSURE MEDICATIONS AND THE EXTERNAL MEDICATION HISTORY LIST SHOWS 5. DR. GOMEZ IS AWARE AND CONTACTING A DOCTOR AT THE CLINIC THAT THE PATIENT GOES TO. Allergies Coded Allergies: Penicillins (Verified Allergy, Unknown, 03/29/17) ROSANNA SILVERMAN MD Mar 30, 2017 11:21
--- NOTE | 2017-03-30 15:25 | IPN ---
DATE: 03/30/2017 SUBJECTIVE: The patient was seen and examined at the bedside today morning. The patient is feeling better. The patient got hemodialysis done yesterday overnight emergently because of hyperkalemia. His potassium has improved. The patient is afebrile and hemodynamically stable at this time. The patient was actually in the hallway on the wheelchair getting ready to leave and sign out against medical advice (AMA) when I saw the patient. The patient states that he is feeling better. He wants to go home. He does not want to stay in the hospital anymore. REVIEW OF SYSTEMS: The patient denies any fevers, chills, rigors, headache, nausea, vomiting, chest pain, shortness of breath, pain abdomen, constipation, or diarrhea. Rest of review of systems is negative. OBJECTIVE: VITAL SIGNS: Temperature is 98 degrees Fahrenheit, blood pressure is 170/68, pulse is 96, respiratory rate of 19, saturating 97% on room air. INTAKE AND OUTPUT: Ultrafiltration with hemodialysis was 1 liter. Weight in the bed scale is 102.2 kg. PHYSICAL EXAMINATION: GENERAL: The patient is awake, alert and oriented times three, sitting in the wheelchair at this time. No apparent distress. HEAD AND NECK EXAMINATION: The patient is legally blind. Mucous membranes are moist. Neck is supple. There is no jugular venous distension (JVD). CARDIOVASCULAR: S1, S2 regular rate. No murmur, rub or gallop. RESPIRATORY: Chest is clear to auscultation bilaterally. Bilateral equal air entry. No rales or rhonchi. ARTERIOVENOUS ACCESS: The patient has a right internal jugular (IJ) tunneled hemodialysis catheter which is covered with a dressing at this time. No tenderness at the catheter site. ABDOMEN: Soft, obese. Multiple small boils on the lower abdominal skin. GENITOURINARY: The patient has a foul-smelling groin with a chronic fungal infection and cellulitis in the groin. MUSCULOSKELETAL: The patient has left below-knee amputation and right above-knee amputation. CENTRAL NERVOUS SYSTEM: No focal neurological deficit at this time. Power is 5/5 in bilateral upper extremities, but the patient is legally blind. PSYCHIATRIC: The patient is anxious at this time and he wants to leave. LABORATORY REVIEW: CBC showed a WBC of 8.5, hemoglobin 8.4, platelets are 225. BMP showed sodium 136, potassium 4.7, chloride 102, bicarbonate is 24, BUN 57, creatine is 8.5, calcium is 8, phosphorus 7.9, albumin is 2. MICROBIOLOGY: Gram stain of the abscess showed no cells and no organisms. Blood culture is pending. CURRENT INPATIENT MEDICATIONS: The patient's medications were all reviewed by me. I started the patient on: - amlodipine 10 mg by mouth daily - Cymbalta 20 mg every morning - losartan 50 mg by mouth twice a day - metoprolol 100 mg by mouth twice a day ASSESSMENT: A 46-year-old male with past medical history of end-stage renal disease on hemodialysis every Wednesday, Wednesday and Wednesday, insulin-dependent diabetes, legal blindness with bilateral lower extremity amputations, admitted this time through emergency room after missing hemodialysis with weakness and hyperkalemia. PLAN: 1. End-stage renal disease. The patient was dialyzed emergently last night. No urgent need of hemodialysis today. Next hemodialysis session will be done tomorrow as outpatient at dialysis center. 2. Hyperkalemia. It was secondary to noncompliance with dialysis. The patient missed his two dialysis sessions. He was dialyzed with a 1 k bath overnight. Potassium is improved to 4.7 now. 3. Infection of the tunneled hemodialysis catheter exit site. Cultures were sent. Initial Gram stain was negative. The patient was given a dose of vancomycin after hemodialysis yesterday. Rest of the treatment will be done as outpatient with topical antibiotics if needed. 4. Hypertension. The patient's blood pressure was significantly elevated. I am not sure how many of his antihypertensive medications he takes at home. However, I started the patient on amlodipine 10 mg daily, losartan 50 mg by mouth twice a day, and increased the metoprolol dose to 100 mg by mouth twice a day. DISCHARGE PLANNING: The patient does not want to stay in the hospital anymore. Rest of the management will be done as outpatient. It is okay to discharge the patient from nephrology standpoint. Plan of care was discussed with the hospitalist, Dr. Braden Marcano.
[2017-03-30] MEDS ORDERED: CHECK TO SEE IF PATIENT IS RECEIVING DIALYSIS TODAY AND REFER TO THE VANCOMYCIN ORDER XX SCH (16:00)
--- NOTE | 2017-03-30 16:57 | CR ---
DATE OF CONSULTATION: 03/29/2017 REQUESTING: Dr. Ramirez in the emergency room. CONSULTING PHYSICIAN: Dr. Sen. REASON FOR CONSULTATION: Management of end-stage renal disease, hemodialysis and hyperkalemia. CHIEF COMPLAINT: The patient was sent from the dialysis center today because he was not able to transfer to the chair because of severe weakness, left arm pain and the patient had already missed his dialysis last session on Wednesday as well. HISTORY OF PRESENT ILLNESS: Mr. William Moore is a 46-year-old male with past medical history of end-stage renal disease on hemodialysis every Wednesday, Wednesday, Wednesday, diabetes mellitus type 2, legally blind, bilateral amputations, chronically bedridden. The patient's regular schedule of dialysis is Wednesday, Wednesday, Wednesday. His last dialysis was last Wednesday. He missed his dialysis on Wednesday and today on Wednesday, March 29, 2017 when he came for dialysis at dialysis at dialysis center he felt very weak. He also reported pain in the groin area, chills and rigors. He was unable to shift from his wheelchair to the dialysis chair. He was unable to be dialyze at the dialysis center. He was sent to the emergency room. Over here the initial labs showed he had a potassium of 6.2 and a bicarbonate of 20. Nephrology service was called for further help and the management of the end-stage renal disease, hemodialysis and hyperkalemia. PAST MEDICAL HISTORY: As mentioned above, the patient has a past medical history of end-stage renal disease on hemodialysis every Wednesday, Wednesday, Wednesday, hypertension, insulin-dependent diabetes mellitus, secondary hyperparathyroidism , anemia and end-stage renal disease, peripheral vascular disease status post left below-knee and right above-knee amputations, diabetic retinopathy, he is legally blind, history of depression, hypothyroidism and chronic noncompliance with medications and with dialysis regimen. PAST SURGICAL HISTORY: Status post right internal jugular tunnel hemodialysis catheter placement, status post left below-knee amputation and right above amputation. ALLERGIES: The patient is allergic to PENICILLINS. HOME MEDICATIONS: As per transfer records from dialysis center. His home medications include vitamin D 5000 units once a month, metoprolol tartrate 100 mg by mouth twice a day, Fosrenol 1 gram by mouth three times a day with meals, hydralazine 100 mg by mouth three times a day, clonidine 0.1 mg by mouth twice a day, Norvasc 10 mg by mouth daily, simethicone 80 mg by mouth as needed for dyspepsia, Percocet one tablet every 8 hours as needed for pain, gabapentin 100 mg by mouth three times a day, Cymbalta 20 mg once a day, PhosLo two capsules three times a day with meals, Protonix 40 mg by mouth daily, levothyroxine 150 mcg by mouth daily, Levemir 10 units subcutaneous at bedtime, losartan 50 mg by mouth twice a day. FAMILY HISTORY: No significant family history of end-stage renal disease requiring hemodialysis. SOCIAL HISTORY: The patient lives by himself. He is chronically bedridden. He recently moved from [place] to [place]. There is no history of illicit drug abuse, alcohol abuse or smoking. REVIEW OF SYSTEMS: CONSTITUTIONAL: The patient reports chills and rigors. EYES: The patient is legally blind. ENT: The patient denies any dysphagia, odynophagia or ear discharge. CARDIOVASCULAR: He denies any chest pain or palpitations. RESPIRATORY: He denies any cough, wheezing. GASTROINTESTINAL (GI): The patient reports decreased appetite. However, he denies any constipation or diarrhea. GENITOURINARY (): He denies any dysuria or hematuria, but he does report pain and swelling in the groin area. MUSCULOSKELETAL: The patient is chronically bedridden. He has bilateral lower extremity amputations. CENTRAL NERVOUS SYSTEM: The patient denies any seizures or stroke. ENDOCRINE: The patient has hypothyroidism and insulin-dependent diabetes/ SKIN: The patient reports a rash in the groin area. PSYCHIATRIC: The patient reports a history of depression . All other review of systems is negative. PHYSICAL EXAMINATION: GENERAL: The patient is awake, alert and oriented times three, laying in bed, he is legally blind. VITAL SIGNS: Temperature is 97.4 degrees Fahrenheit, blood pressure is 152/79, pulse is 66, respiratory rate of 18, saturating 93% on room air. HEAD AND NECK EXAM: The patient is legally blind. Mucous membranes are moist. Neck is supple. There is no jugular venous distension (JVD). CARDIOVASCULAR: S1, S2 regular rate, no murmur, rub or gallop. RESPIRATORY: Chest is clear to auscultation bilaterally. Bilateral equal air entry. No rales or rhonchi. ABDOMEN: Soft, obese, positive bowel sounds. Nontender. Multiple small boils on the abdomen. GENITOURINARY (): The patient has a rash in the groin area with foul smelling multiple small abscesses in the groin. Scrotum is tender. MUSCULOSKELETAL : The patient has left below-knee amputation. Amputation stump site is tender and the patient has right above-knee amputation. CENTRAL NERVOUS SYSTEM: The patient is legally blind, otherwise no focal neurological deficit. He follows commands. Moves upper extremities to commands. PSYCHIATRIC: Normal mood and affect. LYMPH NODE: No significant cervical or axillary lymphadenopathy and the patient's groin is very tender. LABORATORY REVIEW: Complete blood count (CBC) showed a white blood count (WBC) 11.2, hemoglobin 9.9, platelets are 258. Basic metabolic panel (BMP) showed sodium 136, potassium 6.2, chloride 101 bicarbonate 20, BUN is 90, creatine is 12.1, calcium 7.1, troponin is 0.03. IMAGING: Chest x-ray done today showed cardiomegaly. ASSESSMENT: 46-year-old male with past medical history of end-stage renal disease on hemodialysis every Wednesday, Wednesday, Wednesday, insulin-dependent diabetes mellitus, hypothyroidism, legally blind, chronic noncompliance with the medications and dialysis admitted at this time because of hyperkalemia after missing hemodialysis session and weakness. PLAN: 1. End-stage renal disease on hemodialysis. Today is the patient's regular day of dialysis. I arranged urgent hemodialysis to be done today, we shall do a short hemodialysis for two hours for hyperkalemia. He will be evaluated again tomorrow morning for any need of further hemodialysis. I shall remove 1 kg of fluid. 2. Hyperkalemia. It is secondary to missing hemodialysis and metabolic acidosis. Hyperkalemia is expected to improve with 1 k hemodialysis. 3. IV access. The patient has purulent drainage from the right internal jugular tunnel hemodialysis catheter site. It will be cultured and the patient will be given empiric vancomycin IV 1 gram after hemodialysis. 4. Insulin-dependent diabetes. Continue current dose of Levemir and insulin sliding scale. 5. Chronic kidney disease. Mineral bone disease. Continue current dose of lanthanum 1 gram by mouth three times a day with meals and PhosLo two tablets by mouth three times a day with meals. 6. History of depression and anxiety. Continue current dose of Seroquel and Cymbalta. 7. Hypertension. I see there are multiple medications listed as home medications for this patient, which include metoprolol, hydralazine, clonidine, Norvasc and losartan. The patient is most likely noncompliant with all of his antihypertensive medications. I am going to slowly add the medications. At this time, I' m already starting the metoprolol at 50 mg by mouth twice a day; and if needed, the patient rest of the medications will be added tomorrow morning. 8. Cellulitis in the groin area. The patient is going to be given IV vancomycin; and for gram negative coverage, I would also IV cefepime at this time. 9. Anemia and end-stage renal disease. The patient's hemoglobin is 8.9 and he will be given a dose of Aranesp 200 mcg IV with hemodialysis. Thank you for involving us in the care of this patient. We shall be happy to follow the patient along with you tomorrow morning. MTDD
[2017-03-30] MEDS ORDERED: METOPROLOL TARTRATE 100 MG TAB PO SCH (21:00)
[2017-03-30] MEDS ORDERED: QUEtiapine FUMARATE 50 MG TAB PO SCH (21:00)
== END 2017-03-30 11:55 | disposition home or self-care (01) | DRG 640 ==
LOC: EDBD 16:52 → M ED 16:52 → M ED INP 20:28
PROVIDERS: ADMIT Hospitalist; ATTEND Internal Medicine
PROC: 5A1D00Z (ICD-10-PCS; principal; 2017-03-29)
DX: E87.5 Hyperkalemia (principal); N18.6 End stage renal disease; N25.81 Secondary hyperparathyroidism of renal origin; I12.0 Hypertensive chronic kidney disease with stage 5 chronic kidney disease or end stage renal disease; Z91.15 Patient's noncompliance with renal dialysis; E03.9 Hypothyroidism, unspecified; F32.9 Major depressive disorder, single episode, unspecified; E11.319 Type 2 diabetes mellitus with unspecified diabetic retinopathy without macular edema; H54.8 Legal blindness, as defined in USA; I73.9 Peripheral vascular disease, unspecified; Z89.512 Acquired absence of left leg below knee; Z89.611 Acquired absence of right leg above knee; Z79.899 Other long term (current) drug therapy; Z88.0 Allergy status to penicillin; F17.200 Nicotine dependence, unspecified, uncomplicated; G54.6 Phantom limb syndrome with pain; Z79.4 Long term (current) use of insulin; F41.9 Anxiety disorder, unspecified; D63.8 Anemia in other chronic diseases classified elsewhere

== ENCOUNTER → 2017-04-06 | Outpatient (CLI) | payer MEDICARE, MEDICAID ==
[~2017-04-06] MED LIST changes: +BENZ100C5 PO; +DRIS50002 PO; +DULO30CA PO; +IPRASOL4 NEB; +MOME50SP; +NEBUMIS2 XX; +PATIENT COMMENT; +PROAAER10 INH; +QUET5TAB PO; +RANI15TA PO
--- NOTE | 2017-04-06 17:30 | REP ---
Left upper extremity duplex venous ultrasound: History: Left upper extremity swelling. Findings: Scanning of the venous system of the left upper extremity demonstrates echogenic nonocclusive thrombus material in the cephalic vein from the mid to distal cephalic vein segment. There is also echogenic nonocclusive material in the mid basilic vein. The brachial veins are patent. No thrombosis of the jugular axillary or subclavian segments are seen. Impression: Echogenic nonocclusive thrombus seen consistent with chronic venous thrombosis in the mid basilic vein and in the cephalic vein. No brachial vein, axillary vein, subclavian vein, or jugular vein thrombosis seen. Signed by Tam Jones MD 04/07/2017 07:57 A
== END ==
LOC: M RAD 14:37
PROVIDERS: ATTEND Family Medicine
DX: R22.32 Localized swelling, mass and lump, left upper limb (principal)

== ENCOUNTER 2017-05-12 10:36 | Emergency (ER) | payer MEDICARE, MEDICAID ==
[~2017-05-12] VITALS: Ht 121.9 cm; Wt 102.3 kg
[~2017-05-12 10:36] MED LIST changes: -BENZ100C5 PO; -DRIS50002 PO; -DULO30CA PO; -IPRASOL4 NEB; -MOME50SP; -NEBUMIS2 XX; -PROAAER10 INH; -RANI15TA PO
[2017-05-12] MEDS ORDERED: DULO30CA PO (10:58)
[2017-05-12] MEDS ORDERED: MOME50SP (10:58)
[2017-05-12] MEDS ORDERED: OXYC1TAB23 PO (10:58)
[2017-05-12] MEDS ORDERED: IPRATROPIUM 0.5MG/ALBUTEROL 2.5MG INH SOL UD 3ML (DUONEB)(J7620) NEB ONE ×2 (11:00→12:45)
[2017-05-12] MEDS ORDERED: methylPREDNISolone INJ 125 MG/2 ML VIAL (J2930) IV ONE (11:00)
[2017-05-12] MEDS ORDERED: hydrALAZINE INJ 20 MG/ML VIAL IV ONE (11:15)
[2017-05-12 11:23] LABS: ABG BASE EXCESS -2.1 (-2.0-2.0); ABG HCO3 23.2 MEQ/L (22.0-26.0); ABG PARTIAL PRESSURE CO2 42.1 mmHg (35.0-45.0); ABG PARTIAL PRESSURE O2 56.2 mmHg (75.0-100.0); ABG STANDARD HCO3 22.5 MEQ/L (22.0-26.0); ABG TOTAL CO2 24.5 MEQ/L (22.0-29.0)
[2017-05-12 11:30] LABS: BASO # 0.1 K/mm3 (0.0-0.2); BASO % 0.6 % (0.0-1.0); EOS # 0.2 K/mm3 (0.0-0.50); EOS % 2.3 % (0.0-3.0); LARGE UNSTAINED CELL # 0.1 K/mm3 (0.0-0.4); LARGE UNSTAINED CELL % 1.4 % (0.0-4.0); MEAN CORPUSCULAR HGB CONC 31.6 g/dl (32.0-36.5); MEAN CORPUSCULAR VOLUME 88.6 fl (80.0-96.0); MONO # 0.4 K/mm3 (0.0-0.8); MONO % 4.2 % (0.0-5.0); NEUTROPHILS # 7.4 K/mm3 (1.8-7.7); NEUTROPHILS % 80.5 % (36.0-66.0); PLATELET COUNT, AUTOMATED 276 k/mm3 (150-450); RED CELL DISTRIBUTION WIDTH 17.6 % (11.5-14.5); WHITE BLOOD COUNT 9.2 K/mm3 (4.0-10.0)
[2017-05-12 11:33] VITALS: BP 210/112
[2017-05-12 11:44] LABS: ALBUMIN 2.7 GM/DL (3.2-5.2); ALBUMIN/GLOBULIN RATIO 0.49 (1.00-1.93); BILIRUBIN,DIRECT 0.1 MG/DL (0.0-0.2); BILIRUBIN,TOTAL 0.3 MG/DL (0.2-1.0); CALCIUM LEVEL 8.1 MG/DL (8.5-10.1); CREATININE FOR GFR 8.59 MG/DL (0.70-1.30); GLOMERULAR FILTRATION RATE 7.1 (>60); POTASSIUM SERUM 4.8 MEQ/L (3.5-5.1); TOTAL PROTEIN 8.2 GM/DL (6.4-8.2)
[2017-05-12] MEDS ORDERED: PERCOCET 5MG/325MG TAB PO ONE (12:00)
--- NOTE | 2017-05-12 12:21 | REP ---
CHEST X-RAY: Two views. HISTORY: Dyspnea and cough. Comparison chest x-ray March 29, 2017. FINDINGS: There is a somewhat linear band of increased density in the right base consistent with plate-like atelectasis. There is some vascular congestion and interstitial edema pattern noted bilaterally and diffusely. These findings are new when compared with the prior study. A right-sided Dnbzok-E-Nbow catheter is seen in place with its tip in the expected location of the superior vena cava. Heart is not felt to be enlarged. EKG electrodes and oxygen delivery tubing are seen. IMPRESSION: Atelectasis versus infiltrate right base. Diffuse interstitial edema pattern and some vascular congestion. Signed by Tam Jones MD 05/12/2017 05:23 P
[2017-05-12] MEDS ORDERED: PROAAER10 INH (13:25)
[2017-05-12 14:27] VITALS: BP 202/89
--- NOTE | 2017-05-13 08:20 | ECGEPIP ---
Stationary ECG Study [facility] - ED Test Date: 2017-05-12 Pat Name: ELO ROSENBERG Department: Room: - Gender: M Director Instructional Material: krisat : 1970 Requested By: STEVEN Johnson Order Number: [id number] Reading MD: Carissa Trevino Measurements Intervals [place] Rate: 117 P: 19 ME: 144 QRS: -59 QRSD: 98 T: 63 QT: 330 QTc: 461 Interpretive Statements SINUS TACHYCARDIA PATTERN CONSISTENT WITH PULMONARY DISEASE LEFT ANTERIOR FASCICULAR BLOCK INCREASED RATE 03/29/17 Electronically Signed On 05-13-2017 8:19:51 EDT by Carissa Trevino
== END 2017-05-12 14:49 | disposition home or self-care (01) ==
LOC: M ED 10:36 → EDBD 10:36 → M ED 14:49
DX: R06.02 Shortness of breath (principal); R07.9 Chest pain, unspecified; J44.9 Chronic obstructive pulmonary disease, unspecified; R00.0 Tachycardia, unspecified; E11.9 Type 2 diabetes mellitus without complications; N18.6 End stage renal disease; Z99.2 Dependence on renal dialysis; F17.200 Nicotine dependence, unspecified, uncomplicated; Z79.4 Long term (current) use of insulin; Z79.899 Other long term (current) drug therapy; Z91.041 Radiographic dye allergy status; Z88.0 Allergy status to penicillin
CPT/HCPCS: 36600; 71020; 80048; 80076; 82550; 82553; 82803; 83605; 83880; 84484; 85025; 93005; 93041; 94640; 96374; 96375; 99285; J2930

== ENCOUNTER 2017-06-06 18:11 | Inpatient (IN) | payer MEDICARE, MEDICAID ==
[~2017-06-06] VITALS: Ht 121.9 cm; Wt 92.7 kg
[~2017-06-06 18:11] MED LIST changes: +DULO30CA PO; +MOME50SP; +PROAAER10 INH
[2017-06-06] MEDS ORDERED: IPRATROPIUM 0.5MG/ALBUTEROL 2.5MG INH SOL UD 3ML (DUONEB)(J7620) NEB ONE (18:45)
[2017-06-06 18:47] LABS: BASO # 0.1 10^3/uL (0.0-0.2); BASO % 0.7 % (0.0-1.0); EOS # 0.1 10^3/uL (0.0-0.50); EOS % 1.1 % (0.0-3.0); IMMATURE GRANULOCYTE % 0.4 % (0-0); LYMPH % 9.8 % (24.0-44.0); MEAN CORPUSCULAR HEMOGLOBIN 27.2 pg (27.0-33.0); MEAN CORPUSCULAR HGB CONC 31.8 g/dl (32.0-36.5); MEAN CORPUSCULAR VOLUME 85.4 fl (80.0-96.0); MONO # 0.6 10^3/uL (0.0-0.8); MONO % 5.6 % (0.0-5.0); NEUTROPHILS # 8.4 10^3/uL (1.8-7.7); NEUTROPHILS % 82.4 % (36.0-66.0); PLATELET COUNT, AUTOMATED 279 10^3/uL (150-450); RED CELL DISTRIBUTION WIDTH 16.9 % (11.5-14.5); WHITE BLOOD COUNT 10.2 10^3/uL (4.0-10.0)
[2017-06-06] MEDS ORDERED: IPRATROPIUM 0.5MG/ALBUTEROL 2.5MG INH SOL UD 3ML (DUONEB)(J7620) NEB PRN (19:00)
[2017-06-06] MEDS ORDERED: ONDANSETRON 4MG/2ML VIAL (J2405) IV PRN (19:00)
[2017-06-06] MEDS ORDERED: ACETAMINOPHEN TAB 650MG DOSE (2X325MG) PO PRN (19:00)
[2017-06-06 19:09] LABS: CALCIUM LEVEL 8.7 MG/DL (8.5-10.1); CREATININE FOR GFR 10.7 MG/DL (0.70-1.30); GLOMERULAR FILTRATION RATE 5.5 (>60)
[2017-06-06 19:12] LABS: POTASSIUM SERUM 5.9 MEQ/L (3.5-5.1)
[2017-06-06] MEDS ORDERED: METO1TAB87 PO (19:28)
[2017-06-06] MEDS ORDERED: DULO1CAP PO (19:28)
[2017-06-06] MEDS ORDERED: PROAAER10 INH (19:28)
[2017-06-06] MEDS ORDERED: AMLO5TAB2 PO (19:28)
[2017-06-06] MEDS ORDERED: PANT40TA2 PO (19:29)
[2017-06-06] MEDS ORDERED: BENZ100C5 PO (19:29)
[2017-06-06] MEDS ORDERED: DRIS50002 PO (19:29)
[2017-06-06] MEDS ORDERED: RANI15TA PO (19:29)
[2017-06-06] MEDS ORDERED: NITROGLYCERIN 2% OINT 1 GM *U/D* PKT TOP ONE (19:30)
[2017-06-06] MEDS ORDERED: PERCOCET 5MG/325MG TAB PO PRN (19:30)
[2017-06-06] MEDS ORDERED: DEXTROSE 50% 50 ML SYRINGE IV PRN (19:30)
[2017-06-06] MEDS ORDERED: CALCIUM GLUCONATE 1,000 MG in D5W MINI-BAG PLUS 100 ML IV ONE (19:30)
[2017-06-06] MEDS ORDERED: GLUCAGON FOR INJ 1 MG VIAL (J1610) SC PRN (19:30)
[2017-06-06] MEDS ORDERED: NYSTATIN 100,000 UNITS/GM TOPICAL PWD 15 GM TOP PRN (19:30)
[2017-06-06] MEDS ORDERED: CALC1CAP PO (19:30)
[2017-06-06] MEDS ORDERED: BENZONATATE 100 MG CAP PO PRN (19:30)
[2017-06-06] MEDS ORDERED: SOD POLYSTYRENE SULFONATE SUSP 15 GM/60 ML UD PO ONE (19:30)
[2017-06-06] MEDS ORDERED: ALBUTEROL 90 MCG/ACT 8GM HFA INHALER INH PRN (19:30)
[2017-06-06] MEDS ORDERED: GLUCOSE 4 GM CHEW TABLET PO PRN (19:30)
--- NOTE | 2017-06-06 20:12 | HPE ---
DATE OF ADMISSION: 06/06/2017 PRIMARY CARE PROVIDER: [facility] NEPHROLOGISTS: Dr. Law and Dr. Sen. CHIEF COMPLAINT: Shortness of breath and missing dialysis. HISTORY OF PRESENT ILLNESS: This is a 46-year-old male patient with underlying medical history of end-stage renal disease, poor compliance, diabetes, hypertension, legally blind, history of scrotal infection, bilateral peripheral vascular disease with bilateral lower extremity amputation, secondary hyperparathyroidism, diabetic retinopathy, depression, hypothyroidism, hypertension, who presented to the hospital with missing dialysis as per patient. He was originally on a Wednesday, Wednesday, Wednesday schedule for dialysis, missed dialysis on Wednesday because he was not feeling well and fatigued, went to dialysis on , was supposed to get dialyzed on Wednesday again, but as per patient, the patient's transportation did not arrive. Subsequently he presented to the emergency room today with shortness of breath, found to be in hypertensive emergency with hyperkalemia requiring emergent dialysis. Also with hypoxic respiratory failure. The patient has moved from [place] to [place] in December 2016. Since then has been admitted to the hospital almost every month on average for missing dialysis. Lives at home alone. Poorly compliant. The patient denies any chest pain, pressure, discomfort. Reported chills. No fevers, no cough. Reported shortness of breath. Denies any abdominal pain, nausea or vomiting. ALLERGIES: PENICILLIN and CONTRAST MEDIA. PAST MEDICAL HISTORY: 1. Insulin-dependent diabetes. 2. Hypertension. 3. End-stage renal disease. 4. Secondary hyperparathyroidism. 5. Anemia. 6. Peripheral vascular disease, status post left below-knee amputation and right above-knee amputation. 7. Diabetic retinopathy. 8. Legally blind. 9. History of noncompliance. 10. Depression. 11. Hypothyroidism. 12. Poor compliance. PAST SURGICAL HISTORY: 1. Tunneled hemodialysis catheter placement. 2. Bilateral lower extremity amputation, left below-knee, right above-knee. FAMILY HISTORY: Mother with congestive heart failure. Father and brother with kidney disease. SOCIAL HISTORY: The patient lives alone. Family in [place]. One pack per day smoking history for 30 years. No alcohol drinking. Denies illicit drug use. REVIEW OF SYSTEMS: Reports shortness of breath, generalized weakness. Found to be in hypertensive emergency in the emergency room. All other review of systems is negative. HOME MEDICATIONS: - ProAir inhalation every four hours as needed - Norvasc 5 mg by mouth daily - benzonatate 100 mg by mouth every 12 hours as needed - calcium acetate 1334 by mouth three times a day with meals - clonidine 0.2 mg by mouth three times a day - duloxetine 20 mg by mouth twice a day - Neurontin 100 mg by mouth three times a day - Levemir 10 units subcutaneous at bedtime - Synthroid 150 mcg by mouth daily - losartan 50 mg by mouth daily - metoprolol 25 mg by mouth twice a day - Nystatin powder as needed for rash - hydrocodone/acetaminophen 5/325 by mouth every eight hours as needed - Protonix 40 mg by mouth every evening - Seroquel 50 mg by mouth at bedtime - Zantac one tablet by mouth twice a day 150 mg - vitamin D 50,000 units by mouth every week on Wednesday PHYSICAL EXAMINATION: VITAL SIGNS: Temperature 97.9, pulse 126, respirations 24, blood pressure 225/95, pulse oximetry 86% on two liters, and 92% on 40% VentiMask. GENERAL: Patient alert and oriented times three, in mild respiratory distress. HEENT: Normocephalic, atraumatic. PULMONARY: Diminished breath sounds bilaterally, bilateral rhonchi. CARDIAC: Tachycardia regular, S1, S2. ABDOMEN: Soft, nontender. EXTREMITIES: Bilateral lower extremity amputations. No edema appreciated. ELECTROCARDIOGRAM: EKG shows sinus tachycardia at 123. No sound waves, no T waves. No specific change from previous. LABORATORY DATA: WBC 10.2, hemoglobin and hematocrit 9.9 over 31.1, platelets 279. Chemistry: Sodium 138, potassium 5.9, chloride 102, bicarbonate 23, BUN 85, creatinine 10.7. Lactic acid 0.6. Troponin negative times one. IMAGING: Chest x-ray shows evidence of flash pulmonary edema. ASSESSMENT AND PLAN: This is a 46-year-old male patient with underlying medical history of insulin-dependent diabetes, hypertension, end-stage renal disease, secondary hyperparathyroidism, anemia, peripheral vascular disease, left below-knee amputation, right above-knee amputation, diabetic retinopathy, legally blind, history of poor compliance, depression, hypothyroidism, admitted for hypoxic respiratory failure from pulmonary edema secondary to missing dialysis and end-stage renal disease. 1. Hypoxic respiratory failure, secondary to pulmonary edema due to missing dialysis. Nephrology consulted for urgent dialysis. Patient admitted to the intensive care unit (ICU). X-rays appreciated. Followup arterial blood gas (ABG), nitroglycerin, oxygen supplementation. Strict intake and output and daily weight. Wean off oxygen as tolerated after dialysis. 2. Hyperkalemia secondary to missing dialysis, poorly compliant. Nephrology consulted. Kayexalate, calcium gluconate. No EKG changes. Followup cardiac enzymes. Emergency dialysis. Admitted to ICU. 3. Hypertensive emergency secondary to missing dialysis and poorly complaint. Admit to ICU for emergent dialysis. Nephrology has been consulted. Continue home blood pressure medication. Nitroglycerin paste has been given. 4. Insulin-dependent diabetes. Holding long-acting insulin. Putting the patient on mealtime protocol. The patient is only on 10 units of Levemir at home. Followup fingersticks. 5. Hypothyroidism. Continue Synthroid. Followup thyroid function. 6. Hypertension. The patient on nitroglycerin paste. Continue clonidine, losartan, metoprolol, Norvasc. Monitor blood pressure. Urgent dialysis. 7. Secondary hyperparathyroidism. Followup nephrology. Followup phosphorus and calcium. Continue current medication. 8. Anemia of chronic disease. Monitor hemoglobin and hematocrit (H and H). 9. Peripheral vascular disease with left below-knee amputation, right above-knee amputation. Supportive care. Patient and family services (PFS). Physical therapy and occupational therapy (PT/OT). 10. Diabetic retinopathy. Supportive care. 11. Depression. Continue home medication. 12. Noncompliance. PFS consulted. Patient has been admitted multiple times for the same reason of missing dialysis. I do not believe the patient is safe for discharge home, given the patient has proved that he is not capable of taking care of himself. PFS has been consulted. PT/OT. Encourage compliance. 13. Deep venous thrombosis (DVT) prophylaxis. Heparin subcutaneous. DISPOSITION PLANNING: Pending clinical improvement.
[2017-06-06 20:51] VITALS: BP 219/106
[2017-06-06] MEDS: HumaLOG INSULIN (NovoLOG) PER UNIT SC SCH (21:00)
[2017-06-06] MEDS: SENOKOT S TAB PO SCH (21:00)
[2017-06-06] MEDS ORDERED: HEPARIN SOD (PORCINE) 5000 UNITS/ML VIAL IV ONE (21:30)
[2017-06-07] VITALS (7 sets, daily range): BP systolic 152–194; BP diastolic 66–99; O2SAT 98
[2017-06-07] MEDS: METOPROLOL TART 25 MG TABLET PO SCH ×3 (00:51→21:45)
[2017-06-07] MEDS: cloNIDine 0.2 MG TAB PO SCH ×4 (00:51→21:45)
[2017-06-07] MEDS: DULoxetine 20 MG CAP (CYMBALTA) PO SCH ×3 (00:51→21:44)
[2017-06-07] MEDS: PANTOPRAZOLE 40MG TAB (PROTONIX) PO SCH ×2 (00:52→21:44)
[2017-06-07] MEDS: HEPARIN SOD (PORCINE) 5000 UNITS/ML VIAL SC SCH ×4 (00:52→21:43)
[2017-06-07] MEDS: GABAPENTIN 100 MG CAP PO SCH ×4 (00:52→21:44)
[2017-06-07] MEDS: FAMOTIDINE 20 MG TAB PO SCH ×3 (00:52→21:44)
[2017-06-07] MEDS: QUEtiapine FUMARATE 50 MG TAB PO SCH ×2 (00:52→21:44)
--- NOTE | 2017-06-07 04:24 | CR ---
DATE OF CONSULTATION: 06/06/2017 CONSULTATION REPORT FOR: Wilda Cassidy MD. REASON FOR CONSULTATION: Shortness of breath due to pulmonary edema in this gentleman with end-stage renal disease. HISTORY OF PRESENT ILLNESS: Mr. Moore is a 46-year-old gentleman with multiple chronic medical problems including diabetes, hypertension, end-stage renal disease, and generalized vascular disease. He is chronically noncompliant with dialysis treatment and missed his dialysis on Wednesday and rescheduled for Wednesday. However, he did not come even on Wednesday. He presented to the emergency room today with shortness of breath and was found to be in pulmonary edema. He also had hyperkalemia with potassium level of 5.9. I was called for urgent dialysis. The patient has been admitted to intensive care unit and is currently on face mask oxygen. PAST MEDICAL AND SURGICAL HISTORY: Significant for: 1. Insulin-dependent diabetes. 2. Hypertension. 3. End-stage renal disease. 4. Secondary hyperparathyroidism. 5. Anemia of chronic kidney disease. 6. Generalized vascular disease, status post left rkaxv-zoe-hyah and right [id number]-[id number] amputation. 7. Diabetic retinopathy, legally blind. 8. History of depression. 9. Hypothyroidism. PAST SURGICAL HISTORY: Significant for failed arteriovenous (AV) fistula in left arm, bilateral lower extremity amputations, a hemodialysis catheter placement. FAMILY HISTORY: Mother has history of congestive heart failure. Father and brother also have kidney disease. PERSONAL AND SOCIAL HISTORY: The patient lives alone. His family is in [place]. He recently moved from [facility] to [place]. He smokes daily. Denies any alcohol or drug use. MEDICATIONS: His home medications include: - ProAir inhaler two inhalations every 4 hours as needed for dyspnea - Norvasc 5 mg daily - calcium acetate two capsules three times a day with meals - clonidine 0.2 mg three times a day - Neurontin 100 mg three times a day - Levemir insulin 10 units at bedtime - duloxetine 20 mg twice a day - Synthroid 150 mcg daily - losartan 50 mg daily - metoprolol 25 mg twice a day - Percocet one tablet every 8 hours as needed for pain - Protonix 40 mg daily - Seroquel 50 mg at bedtime - vitamin D 50,000 units once a week on Mondays ALLERGIES: The patient has allergy to PENICILLIN and RADIOCONTRAST DYE. REVIEW OF SYSTEMS: The patient denies any fever or chills. He has been short of breath since yesterday, but worsened today. Ears, nose and throat are unremarkable. He is legally blind due to diabetic retinopathy. Cardiovascular system is significant for shortness of breath since yesterday. He denies any chest pain. Respiratory system is negative for hemoptysis or pleuritic type of chest pain. GI system is negative for nausea, vomiting or diarrhea. system is significant for end-stage renal disease and minimal urine output. He also has history of scrotal edema and cellulitis recently. Musculoskeletal system is significant for bilateral ztlnf-xqf-hfen amputation. The patient is mostly wheelchair bound. Endocrine system is significant for hypothyroidism and secondary hyperparathyroidism in addition to diabetes. Hematological system is significant for anemia of chronic kidney disease. He is not on any anticoagulation. Psychosocial system is significant for depression and chronic noncompliance. Skin is negative for any acute rash or ulcers. He does have chronic problems with his scrotal area due to chronic edema and diabetes. He is noncompliant with [facility]. PHYSICAL EXAMINATION: The patient is sitting in the bed using oxygen via nasal cannula. He is quite short of breath. Temperature 98.1 degrees Fahrenheit, heart rate 116 per minute and respiratory rate 28 per minute. Blood pressure 219/106 mmHg and oxygen saturation 90% with 15 liters oxygen. His head is atraumatic. Neck veins are markedly distended. There is no oral thrush or ulcers. He is blind from both eyes. Trachea is midline. Heart sounds are tachycardiac and without a pericardial friction rub. Lungs have bilateral rales and diminished breath sounds. Abdomen: Soft and nontender and bowel sounds are present. Extremities have no cyanosis or clubbing. He has edema on the leg stumps bilaterally. Neurologically, he is awake, alert and oriented times three. LABORATORY DATA: WBC count 10.2, hemoglobin 9.9 and hematocrit 31.1. Platelets 279. Sodium 138 and potassium 5.9. BUN 85 and creatinine 10.7. Lactic acid level 0.6, calcium 8.7, total CK 86, and troponin 0.05. Chest x-ray reviewed independently shows cardiomegaly and bilateral pulmonary vascular congestion and interstitial edema. Dialysis catheter is present in right internal jugular vein with tip in the superior vena cava and right atrial area. Small bilateral pleural effusions are most likely present. PROBLEMS: 1. Shortness of breath. The patient is in pulmonary edema due to volume overload caused by noncompliance with dialysis treatment and fluid restriction. The patient needs urgent hemodialysis. I had discussed with the emergency room physician and with the hospitalist over the phone and recommended for intensive care unit admission. Now I have seen him in intensive care unit and have already arranged for urgent hemodialysis due to severe pulmonary edema. The patient is at risk for intubation in case of no dialysis tonight. Our plan is to remove at least 4-5 liters of fluid with 3-1/2 hour dialysis tonight and reassess his volume status tomorrow. We will tentatively keep him on the schedule for another dialysis session tomorrow afternoon, which is his regular day. 2. Hyperkalemia. This is again related to noncompliance with dialysis treatment and dietary restrictions. The patient will be dialyzed with low potassium bath and we will recheck his electrolytes tomorrow morning. He has already received a dose of calcium gluconate; however, no further intervention is needed at this point. Dialysis will correct his hyperkalemia definitively. I am going to cancel the order for Kayexalate. 3. Uncontrolled hypertension. The patient has historically poorly controlled hypertension and he probably missed his medications today due to not feeling well. At present, we are removing about 4-5 liters of fluid, which is likely to help with his blood pressure control. I recommend to resume all his chronic medications and probably will need increased dose of losartan up to 100 mg daily and clonidine 0.2 mg as needed. 4. Anemia. Anemia is chronic and related to end-stage renal disease. At this point, his anemia is only mild and does not need any intervention. 5. End-stage renal disease. The patient is regularly dialyzed on Wednesday, Wednesday and Wednesday schedule. He did miss his dialysis treatment on Wednesday. We will try to get him back on his regular schedule for Wednesday, Wednesday and Wednesday. I have discussed with the patient once again about need for compliance with dialysis treatment. I thank you for involving me in the care of Mr. Moore. I will follow him along with you.
[2017-06-07 07:11] LABS: MEAN CORPUSCULAR HEMOGLOBIN 26.8 pg (27.0-33.0); MEAN CORPUSCULAR VOLUME 86.6 fl (80.0-96.0); RED CELL DISTRIBUTION WIDTH 16.7 % (11.5-14.5); WHITE BLOOD COUNT 6.1 10^3/uL (4.0-10.0)
[2017-06-07] MEDS: HumaLOG INSULIN (NovoLOG) PER UNIT SC SCH ×4 (07:30→21:45)
[2017-06-07 07:47] LABS: ALBUMIN 2.5 GM/DL (3.2-5.2); CALCIUM LEVEL 8.6 MG/DL (8.5-10.1); CREATININE FOR GFR 7.03 MG/DL (0.70-1.30); MAGNESIUM LEVEL 2.2 MG/DL (1.8-2.4); PHOSPHORUS LEVEL 7.6 MG/DL (2.5-4.9); THYROXINE (T4) 3.2 UG/DL (4.5-12.0)
[2017-06-07] MEDS: CALCIUM ACETATE 667 MG GELCAP PO SCH ×3 (08:23→18:09)
[2017-06-07] MEDS: LEVOTHYROXINE 150MCG TABLET (0.15MG) PO SCH (08:23)
[2017-06-07] MEDS: LOSARTAN 50 MG TAB PO SCH (08:24)
[2017-06-07] MEDS: amLODIPine 5 MG TAB PO SCH (08:24)
[2017-06-07] MEDS: SENOKOT S TAB PO SCH ×2 (08:31→21:44)
[2017-06-07] MEDS: IPRATROPIUM 0.5MG/ALBUTEROL 2.5MG INH SOL UD 3ML (DUONEB)(J7620) NEB SCH ×3 (08:45→21:27)
--- NOTE | 2017-06-07 08:49 | REP ---
PORTABLE CHEST: AP portable view of the chest is performed. The cardiac silhouette is mildly prominent but may be magnified. There is vascular congestion again seen. There is mild increase interstitial and alveolar infiltrates bilaterally mainly in the lung bases. Right central venous catheter is again noted. Signed by Augustus Davis MD 06/08/2017 07:37 P
[2017-06-07] MEDS ORDERED: VITAMIN D 50,000 UNITS CAPSULE (ERGOCALCIFEROL 1.25MG) PO SCH (09:00)
[2017-06-07] MEDS ORDERED: LOSARTAN 50 MG TAB PO SCH (09:00)
[2017-06-07] MEDS: NYSTATIN 100,000 UNITS/GM TOPICAL PWD 15 GM TOP SCH ×2 (09:00→21:44)
--- NOTE | 2017-06-07 09:11 | ECGEPIP ---
Stationary ECG Study [facility] - ED Test Date: 2017-06-06 Pat Name: ELO ROSENBERG Department: Room: - Gender: M [employer]: [facility] : 1970 Requested By: Kwabena Skaggs Order Number: [id number] Reading MD: Kwabena Ramirez Measurements Intervals [place] Rate: 123 P: 25 TN: 157 QRS: -64 QRSD: 114 T: 65 QT: 302 QTc: 433 Interpretive Statements SINUS TACHYCARDIA LEFT ANTERIOR FASCICULAR BLOCK POOR R WAVE PROGRESSION SIMILAR TO 05/12/17 Electronically Signed On 06-07-2017 9:11:07 EDT by Kwabena Ramirez
[2017-06-07] MEDS ORDERED: HEPARIN 1,000 UNITS/ML 10ML VIAL (FOR RADIOLOGY& DIALYSIS ONLY) IV ONE (12:30)
--- NOTE | 2017-06-07 15:16 | IPN ---
DATE: 06/07/2017 Mr. Moore was without complaint, breathing much easier than yesterday. Temperature is 99, pulse 91, respiratory rate 18. Blood pressure is 190/91, 90% 2 liters. Intake and output (I's and O's) notable for a negative fluid balance of -4500 yesterday. He is sleepy but easily aroused. Mucous membranes moist. Neck supple. No thrush. Breathing symmetrical. I-to-E ratio is 1:3, somewhat diminished in the bases, partially clears with deep inspiration. Heart, distant sounding. Normal S1, S2. Abdomen, soft, doughy, nontender. He has some intertriginous erythema and moisture. He has bilateral lower extremity amputations. White cell count 6.1, hemoglobin 8.4, platelets of 216. BUN 45, creatinine 7. Potassium is 5, down from 5.9. My assessment is as follows: This is a 46-year-old with end-stage renal disease on hemodialysis who presented with pulmonary edema. Plan is as follows: 1. Patient has hypoxic respiratory failure, secondary to pulmonary edema. Patient had urgent dialysis in the intensive care unit last night, which he tolerated well. He also had underlying hyperkalemia which was resolved with dialysis. 2. The patient had some hypertensive urgency which is resolving with dialysis. 3. Patient has insulin-dependent diabetes and is continued on insulin for his stay. 4. Patient has hypothyroidism. 5. Patient has hypertension. 6. Patient has hyperparathyroidism. 7. Patient has anemia of chronic disease. 8. Patient has diabetic retinopathy. 9. Patient has depression. 10. Patient has been relatively noncompliant with dialysis, multiple admissions for the same. He may require placement. [facility]
--- NOTE | 2017-06-07 19:07 | IPN ---
DATE: 06/07/2017 Mr. Moore is seen this morning on his bedside in the intensive care unit. He was admitted last evening with sudden shortness of breath related to volume overload and the setting of end-stage renal disease. He has been chronically noncompliant and had missed his dialysis treatment during the week. In any event we arranged emergency hemodialysis last evening and 4.5 liters fluid was removed. This morning is feeling much better and is currently dozing off. He denies any fever, chills, nausea or vomiting. PHYSICAL EXAMINATION: Temperature 98 degrees Fahrenheit, heart rate 88 per minute and respiratory rate 18 per minute. Blood pressure 176/74 mmHg and oxygen saturation 97%. Head is atraumatic. Neck veins are now only mildly distended. He is legally blind. Ears, nose and throat are unremarkable. Heart: Sounds are regular with a systolic murmur grade 2/6. Lungs have few basilar rales. Abdomen: Soft and nontender and without a palpable organomegaly. Bowel sounds are normal. Extremities have no cyanosis or clubbing. On right upper chest he has a Perma-Cath without any signs of infection. He has bilateral lower extremity amputations. Neurologically he is arousable and without a focal deficit. Today's labs show WBC count 6.1, hemoglobin 8.4 and hematocrit 27.1. Sodium 138 and potassium 5.0. BUN 45 and creatinine 7.0. TSH level is 3.98. PROBLEMS: 1. Shortness of breath. The patient was volume overloaded last evening and underwent emergent hemodialysis. 4.5 liters fluid was removed. His volume status has improved significantly. Today is his regular dialysis treatment and we will plan to dialyze him again this afternoon. We will remove another 2.5-3 liters fluid as tolerated. 2. End-stage renal disease. The patient is on maintenance hemodialysis on Wednesday, Wednesday and Wednesday schedule. He did miss dialysis treatment on Wednesday. We will plan to dialyze him again today to get him back on his regular schedule. 3. His blood pressure was quite high last evening. It has improved significantly and we have adjusted his antihypertensive medications. I feel that further fluid removal today with help with the control of blood pressure. 4. Anemia. The patient has no active bleeding though his anemia is slightly worse. This most likely related to redistribution of fluid. We will recheck his CBC tomorrow morning. 5. Hyperkalemia, potassium level has corrected to high normal range. It is likely to improve further with hemodialysis today. No intervention is indicated. 6. Diabetes. Blood sugars are well-controlled. The patient will continue with insulin coverage per sliding scale.
[2017-06-08] MEDS: IPRATROPIUM 0.5MG/ALBUTEROL 2.5MG INH SOL UD 3ML (DUONEB)(J7620) NEB SCH ×3 (01:10→13:01)
[2017-06-08] MEDS: HEPARIN SOD (PORCINE) 5000 UNITS/ML VIAL SC SCH (05:18)
[2017-06-08 06:00] VITALS: BP 162/78
[2017-06-08 06:07] LABS: MEAN CORPUSCULAR HEMOGLOBIN 26.8 pg (27.0-33.0); MEAN CORPUSCULAR VOLUME 86.4 fl (80.0-96.0); RED CELL DISTRIBUTION WIDTH 16.7 % (11.5-14.5); WHITE BLOOD COUNT 5.6 10^3/uL (4.0-10.0)
[2017-06-08 06:43] LABS: ALBUMIN 2.4 GM/DL (3.2-5.2); CALCIUM LEVEL 8.8 MG/DL (8.5-10.1); CREATININE FOR GFR 5.02 MG/DL (0.70-1.30); GLOMERULAR FILTRATION RATE 13.2 (>60); MAGNESIUM LEVEL 2.3 MG/DL (1.8-2.4); PHOSPHORUS LEVEL 6.2 MG/DL (2.5-4.9); POTASSIUM SERUM 4.2 MEQ/L (3.5-5.1)
[2017-06-08] MEDS: HumaLOG INSULIN (NovoLOG) PER UNIT SC SCH ×2 (07:23→11:34)
[2017-06-08] MEDS: CALCIUM ACETATE 667 MG GELCAP PO SCH ×2 (08:36→12:33)
[2017-06-08] MEDS: FAMOTIDINE 20 MG TAB PO SCH (08:36)
[2017-06-08] MEDS: LEVOTHYROXINE 150MCG TABLET (0.15MG) PO SCH (08:36)
[2017-06-08] MEDS: GABAPENTIN 100 MG CAP PO SCH (08:36)
[2017-06-08] MEDS: SENOKOT S TAB PO SCH (08:36)
[2017-06-08 08:37] VITALS: BP 162/78
[2017-06-08] MEDS: DULoxetine 20 MG CAP (CYMBALTA) PO SCH (08:37)
[2017-06-08] MEDS: METOPROLOL TART 25 MG TABLET PO SCH (08:37)
[2017-06-08] MEDS: cloNIDine 0.2 MG TAB PO SCH (08:37)
[2017-06-08] MEDS: LOSARTAN 50 MG TAB PO SCH (08:38)
[2017-06-08] MEDS: amLODIPine 5 MG TAB PO SCH (08:38)
[2017-06-08] MEDS: NYSTATIN 100,000 UNITS/GM TOPICAL PWD 15 GM TOP SCH (08:39)
[2017-06-08] MEDS ORDERED: NEBUMIS2 XX ×2 (12:42→12:57)
[2017-06-08] MEDS ORDERED: IPRASOL4 NEB (12:42)
--- NOTE | 2017-06-08 19:03 | IPN ---
DATE: 06/08/2017 Mr. Moore is seen this morning on his bedside. He is feeling well and reports that his dyspnea has completely resolved. He reports poor appetite but no vomiting or abdominal pain. He denies any dyspnea, chest pain, fever or chills. He was admitted with severe shortness of breath and was found to be in pulmonary edema related to hypervolemia. He has known history of noncompliance with dialysis treatment and had missed his dialysis prior to admission. He was dialyzed in the evening of 06/06/2017 right after dialysis and again in the afternoon of 06/07/2017. His volume status has now completely corrected. His regular hemodialysis days are Wednesday, Wednesday and Wednesday. PHYSICAL EXAMINATION: Temperature is 97.8 degrees Fahrenheit, heart rate 70 per minute and respiratory rate 18 per minute. Blood pressure 162/78 mmHg and oxygen saturation 93% on room air. Head: Is atraumatic. Neck is supple and without any significant jugular venous distention (JVD) or thyroid enlargement. He is legally blind in both eyes. Heart: Sounds are regular with systolic murmur grade 2/6. Lungs sound clear to auscultation today. Abdomen: Soft and nontender and without any palpable organomegaly. Extremities: Have no cyanosis or clubbing. He has bilateral lower extremity amputations. Neurologically he is awake, alert and oriented times three. Today's labs show WBC count 5.6, hemoglobin 8.9 and hematocrit 28.7. Platelets 225. Sodium 136 and potassium 4.2. BUN 28 and creatinine 5.02. PROBLEM #1: Shortness of breath. His respiratory status has improved. His volume status has corrected with hemodialysis on 06/06/2017 and 06/07/2017. At present, there is no indication for dialysis today. He will be scheduled for next hemodialysis tomorrow as an outpatient. PROBLEM #2: End-stage renal disease. The patient is regularly dialyzed on Wednesday, Wednesday and Wednesday schedule. He has been noncompliant with dialysis treatment. I have discussed with him and importance of compliance with dialysis treatment explained once again. He understands to report to dialysis treatment on 06/09/2017 at regular scheduled time. PROBLEM #3: Anemia. This is chronic and related to end-stage renal disease. No intervention is indicated at this point. His anemia will be managed in outpatient dialysis clinic. PROBLEM #4: Diabetes. Diabetes is very well controlled, and the patient will continue with chronic treatment. PROBLEM #5: Hypertension. Blood pressure is reasonably well-controlled. I have increased his losartan dose to 100 mg daily, and he will continue with amlodipine 5 mg daily and clonidine 0.2 mg three times a day. He is also on metoprolol 25 mg twice a day. PROBLEM #6: Disposition. From a renal standpoint, the patient is ready for discharge and can be discharged today. The patient will followup in outpatient dialysis clinic.
--- NOTE | 2017-06-10 16:57 | DS.PDOC ---
Discharge Summary General Date of Admission Jun 06, 2017 at 18:53 Date of Discharge 06/10/2017 Primary Care Physician: ROSANNA MCDONALD DO Attending Physician: ROSANNA SILVERMAN MD Discharge Summary PROCEDURES PERFORMED DURING STAY: None ADMITTING DIAGNOSES: 1. Acute hypoxia respiratory failure. 2. Hyperkalemia. 3. Hypertensive emergency. 4. Diabetes, insulin control 5. Hypothyroidism 6. Hypertension 7. Secondary hyperparathyroidism 8. Anemia chronic disease 9. Peripheral vascular disease 10. Below knee and rotation, left. [id number] amputation on the right. 11. Depression 12. Diabetic retinopathy. 13. Noncompliance DISCHARGE DIAGNOSES: 1. Acute hypoxia respiratory failure. 2. Hyperkalemia. 3. Hypertensive emergency. 4. Diabetes, insulin control 5. Hypothyroidism 6. Hypertension 7. Secondary hyperparathyroidism 8. Anemia chronic disease 9. Peripheral vascular disease 10. Below knee and rotation, left. [id number] amputation on the right. 11. Depression 12. Diabetic retinopathy. 13. Noncompliance COMPLICATIONS/CHIEF COMPLAINT: Esrd (End Stage Renal Disease). HISTORY OF PRESENT ILLNESS: Patient is 46-year-old male noncompliant with end- stage renal disease, diabetes, hypertension, peripheral vascular disease, bilateral amputations, diabetic retinopathy, hypothyroidism, hypertension presented to the hospital missing dialysis one day prior. Patient was originally scheduled to go to dialysis Wednesday and Wednesday. He ended up missing dialysis Wednesday and was rescheduled for it last . He was then scheduled for dialysis Wednesday but as per patient, the transportation did not arrive. He then presents emergency room with shortness of breath. He was found to be hypertensive urgency with hyperkalemia, requiring urgent dialysis as well as hypoxic respiratory failure. He was admitted in the past from missing dialysis. He lives at home by himself with home care. Patient is poorly compliant. HOSPITAL COURSE: Patient received urgent dialysis. Patient was admitted to the ICU. He was found to be in hypertensive emergency as well as acute hypoxic respiratory failure. This is most likely secondary to pulmonary edema due to missing dialysis. Home blood pressure medication was continued and neck with certain pace was given. Hyperkalemia was managed with dialysis. Patient was also given calcium gluconate. No changes were noted on EKG. Cardiac enzymes were followed and remained stable. Nephrology was consulted. Patient was placed on fluid restriction. His I+O were monitored. Patient became less symptomatic post dialysis. No longer required oxygen. Hyperkalemia corrected and potassium was normal on discharge. Patient was transferred from ICU to the floor. Patient continued to improve. Was not short of breath on room air. Able to maintain pulse ox. DISCHARGE MEDICATIONS: Please see below. ALLERGIES: Please see below. PHYSICAL EXAMINATION ON DISCHARGE: VITAL SIGNS: Please see below. GENERAL: Alert, comfortable. Lying in bed. No acute distress. HEENT: Atraumatic, no rhinorrhea. Nares patent. NECK: No enlarged masses. CARDIOVASCULAR EXAMINATION: Normal S1 and S2. No murmurs. RESPIRATORY EXAMINATION: Clear to auscultation. ABDOMINAL EXAMINATION: Soft, round, nondistended. No tenderness to palpation. Bowel sounds auscultation. EXTREMITIES: Amputation site non-erythematous. SKIN: No new rashes or lesions. NEUROLOGICAL EXAMINATION: Speech intact. PSYCHIATRIC EXAMINATION: Normal affect. LABORATORY DATA: Please see below. IMAGING: Chest radiograph showed The cardiac silhouette is mildly prominent but may be magnified. There is vascular congestion again seen. There is mild increase interstitial and alveolar infiltrates bilaterally mainly in the lung bases. Right central venous catheter is again noted PROGNOSIS: Patient is a 46-year-old male who presented with acute respiratory failure secondary to missing dialysis. ACTIVITY: As tolerated. DIET: Renal diet. DISCHARGE PLAN: Plan is discharge patient home. We'll continue with home care. We'll follow up dialysis outpatient clinic. DISPOSITION: 01 Home, Self-Care. DISCHARGE INSTRUCTIONS: 1. Follow-up with PCP Dr. Mcdonald 06/14/2017. 2. Follow-up with outpatient dialysis 3. Continue current medications DISCHARGE CONDITION: Stable TIME SPENT ON DISCHARGE: Greater than 30 minutes. Vital Signs/I&Os Vital Signs Date Time Temp Pulse Resp B/P (MAP) Pulse Ox O2 Delivery O2 Flow Rate FiO2 06/08/17 08:40 Room Air 06/08/17 08:37 70 162/78 06/08/17 06:00 97.8 18 93 06/07/17 22:00 06/07/17 02:00 50 Microbiology Microbiology 06/06/17 Blood Culture - Preliminary, Resulted No Growth after 72 hours. All specime... Discharge Medications Scheduled Amlodipine Besylate (Amlodipine Besylate) 5 Mg Tab, 5 MG PO DAILY, (Reported) Calcium Acetate (Calcium Acetate) 667 Mg Cap, 1,334 MG PO TID, (Reported) WITH MEALS Clonidine Hydrochloride (Clonidine HCl) 0.2 Mg Tab, 0.2 MG PO TID, (Reported) Duloxetine Hcl (Duloxetine HCl) 20 Mg Cap, 20 MG PO BID, (Reported) Gabapentin (Neurontin) 100 Mg Cap, 100 MG PO TID, (Reported) Insulin Detemir (Levemir) 1 Units/0.01 Ml Susp, 10 UNITS SC QHS, (Reported) Levothyroxine Sodium (Synthroid) 150 Mcg Tab, 150 MCG PO DAILY, (Reported) Losartan Potassium (Losartan Potassium) 50 Mg Tab, 50 MG PO DAILY, (Reported) Metoprolol Tartrate (Metoprolol Tartrate) 25 Mg Tab, 25 MG PO BID, (Reported) Pantoprazole Sodium (Pantoprazole Sodium) 40 Mg Tab, 40 MG PO QPM, (Reported) Quetiapine Fumerate (Quetiapine Fumarate) 50 Mg Tab, 50 MG PO QHS, (Reported) Ranitidine Hcl (Zantac) 150 Mg Tab, 1 TAB PO BID, (Reported) Vitamin D (Drisdol) 50,000 Unit Cap, 50,000 UNIT PO QWEEK, (Reported) WEDNESDAY AT DIALYSIS Scheduled PRN Albuterol Sulfate (Proair Hfa) 108 Mcg/Act Aer, 2 PUFF INH Q4H PRN for SOB/COUGH , (Reported) Benzonatate (Benzonatate) 100 Mg Cap, 100 MG PO Q12H PRN for COUGH, (Reported) Nystatin (Nystatin Powder) 100,000 Unit/Gm Pow, 1 DOSE TOP DAILY PRN for RASH, ( Reported) APPLY TO GROIN AREA Oxycodone/Acetaminophen (Oxycodone/Acetaminophen 5-325 mg) 1 Tab Tab, 1 TAB PO Q8H PRN for PAIN, (Reported) Allergies Coded Allergies: Penicillins (Verified Allergy, Unknown, 03/29/17) Contrast Media (Verified Adverse Reaction, Unknown, 05/12/17) D/T renal failure GME ATTESTATION GME ATTESTATION My preceptor for this patient encounter was physically present in the building during the encounter and was fully available. As needed, all aspects of the patient interview, examination, medical decision making process, and medical care plan development were reviewed and approved by the preceptor. Preceptor is aware and concurs with the plan as stated in the body of this note and will attest to such by his/her cosignature. ROSANNA MCDONALD DO Jun 10, 2017 14:11
== END 2017-06-08 14:13 | disposition home or self-care (01) | DRG 189 ==
LOC: EDBD 18:11 → M ED 18:11 → M ED INP 18:53 → M ICU 20:39 → M MSPAV 06-07 13:54
PROVIDERS: ADMIT Hospitalist; ATTEND Internal Medicine
DX: J81.0 Acute pulmonary edema (principal); J96.01 Acute respiratory failure with hypoxia; N18.6 End stage renal disease; N25.81 Secondary hyperparathyroidism of renal origin; I16.1 Hypertensive emergency; E87.5 Hyperkalemia; Z91.19 Patient's noncompliance with other medical treatment and regimen; E11.319 Type 2 diabetes mellitus with unspecified diabetic retinopathy without macular edema; E03.9 Hypothyroidism, unspecified; I73.9 Peripheral vascular disease, unspecified; Z89.611 Acquired absence of right leg above knee; Z79.899 Other long term (current) drug therapy; Z79.4 Long term (current) use of insulin; Z88.0 Allergy status to penicillin; Z91.041 Radiographic dye allergy status; H54.8 Legal blindness, as defined in USA; Z89.512 Acquired absence of left leg below knee; F32.9 Major depressive disorder, single episode, unspecified; D63.1 Anemia in chronic kidney disease

== ENCOUNTER 2018-01-28 20:08 | Emergency (ER) | payer MEDICARE, MEDICAID | END 2018-01-28 22:23 | disposition home or self-care (01) | LOC: M ED 20:08 | DX: T82.49XA Other complication of vascular dialysis catheter, initial encounter (principal); N18.6 End stage renal disease; E11.9 Type 2 diabetes mellitus without complications; I12.0 Hypertensive chronic kidney disease with stage 5 chronic kidney disease or end stage renal disease; F17.200 Nicotine dependence, unspecified, uncomplicated; Z91.041 Radiographic dye allergy status; Z88.0 Allergy status to penicillin; Z79.4 Long term (current) use of insulin; Z79.890 Hormone replacement therapy; Z79.899 Other long term (current) drug therapy | CPT/HCPCS: 99284 ==

== ENCOUNTER 2018-02-04 11:26 | Inpatient (IN) | payer MEDICARE, MEDICAID ==
[2018-02-04 12:14] LABS: BEDSIDE GLUCOSE 88 MG/DL (70-105)
[2018-02-04] MEDS ORDERED: PERCOCET 5MG/325MG TAB PO (12:45)
[2018-02-04] MEDS: MORPHINE 4 MG/ML 1ML VIAL/SYRINGE (J2270) IV ×2 (13:28→15:01)
[2018-02-04 13:49] LABS: BASO % 0.2 % (0.0-1.0); HEMATOCRIT 37.8 % (42.0-52.0); IMMATURE GRANULOCYTE % 0.5 % (0-3.0); LYMPH # 0.9 10^3/uL (1.5-4.5); LYMPH % 8.9 % (24.0-44.0); MEAN CORPUSCULAR HEMOGLOBIN 28.5 pg (27.0-33.0); MEAN CORPUSCULAR HGB CONC 31.7 g/dl (32.0-36.5); MEAN CORPUSCULAR VOLUME 89.8 fl (80.0-96.0); MONO # 0.6 10^3/uL (0.0-0.8); MONO % 5.4 % (0.0-5.0); NEUTROPHILS # 8.8 10^3/uL (1.8-7.7); PLATELET COUNT, AUTOMATED 245 10^3/uL (150-450); RED BLOOD COUNT 4.21 10^6/uL (4.30-6.10); RED CELL DISTRIBUTION WIDTH 17.8 % (11.5-14.5); WHITE BLOOD COUNT 10.3 10^3/uL (4.0-10.0)
[2018-02-04 14:11] LABS: ANION GAP 13 MEQ/L (8-16); BLOOD UREA NITROGEN 71 MG/DL (7-18); CALCIUM LEVEL 8.7 MG/DL (8.5-10.1); CARBON DIOXIDE LEVEL 23 MEQ/L (21-32); CHLORIDE LEVEL 102 MEQ/L (98-107); GLOMERULAR FILTRATION RATE 5.9 (>60); GLUCOSE, FASTING 79 MG/DL (70-100); SODIUM LEVEL 138 MEQ/L (136-145)
[2018-02-04] MEDS: hydrALAZINE INJ 20 MG/ML VIAL IV (14:29)
[2018-02-04 14:30] LABS: POTASSIUM SERUM 5.6 MEQ/L (3.5-5.1)
[2018-02-04] MEDS: HYDROmorphone HCL 1 MG/ML SYRINGE (J1170) IV (16:14)
[2018-02-04] MEDS ORDERED: ACETAMINOPHEN TAB 650MG DOSE (2X325MG) PO (16:15)
[2018-02-04] MEDS: VANCOMYCIN HCL 1,000 MG, VIAL MATE ADAPTER 1 EACH in D5W 250 ML IV ×2 (16:30→23:24)
[2018-02-04] MEDS: LevoFLOXacin IV 750 MG in APPROPRIATE DILUENT 1 EA IV (18:00)
[2018-02-04] MEDS ORDERED: NYSTATIN 100,000 UNITS/GM TOPICAL PWD 15 GM TOP (18:00)
[2018-02-04 18:14] LABS: ESTIMATED AVERAGE GLUCOSE 62 MG/DL (60-110); HEMOGLOBIN A1c 3.8 %
[2018-02-04 18:27] LABS: C REACTIVE PROTEIN QUANTITATIV 5.74 MG/DL (0.00-0.30)
[2018-02-04 18:51] LABS: ERYTHROCYTE SEDIMENTATION RATE 57 mm/hr (0-15)
[2018-02-04] MEDS: LOSARTAN 25 MG TAB PO (20:52)
[2018-02-04] MEDS: HEPARIN SOD (PORCINE) 5000 UNITS/ML VIAL SC (20:53)
[2018-02-04] MEDS: GABAPENTIN 100 MG CAP PO (20:53)
[2018-02-04] MEDS: amLODIPine 5 MG TAB PO (20:53)
[2018-02-04] MEDS: PANTOPRAZOLE 40MG TAB (PROTONIX) PO (20:53)
[2018-02-04] MEDS: METOPROLOL TART 50 MG TAB PO (20:53)
[2018-02-04] MEDS: QUEtiapine FUMARATE 25 MG TAB PO (20:58)
[2018-02-04] MEDS: **hydrALAZINE** 50 MG TAB PO (20:58)
[2018-02-04] MEDS: PERCOCET 5MG/325MG TAB PO (22:11)
[2018-02-05] MEDS: diphenhydrAMINE 25 MG CAP PO ×2 (02:32→14:35)
[2018-02-05 05:27] LABS: IONIZED CALCIUM 4.5 MG/DL (4.5-5.3)
[2018-02-05 05:30] LABS: HEMATOCRIT 37.1 % (42.0-52.0); HEMOGLOBIN 11.7 g/dl (13.5-17.5); MEAN CORPUSCULAR HEMOGLOBIN 28.5 pg (27.0-33.0); MEAN CORPUSCULAR HGB CONC 31.5 g/dl (32.0-36.5); MEAN CORPUSCULAR VOLUME 90.3 fl (80.0-96.0); PLATELET COUNT, AUTOMATED 205 10^3/uL (150-450); RED BLOOD COUNT 4.11 10^6/uL (4.30-6.10); WHITE BLOOD COUNT 6.1 10^3/uL (4.0-10.0)
[2018-02-05 05:47] LABS: ALBUMIN 2.4 GM/DL (3.2-5.2); ALBUMIN/GLOBULIN RATIO 0.43 (1.00-1.93); ALKALINE PHOSPHATASE 132 U/L (45-117); ALT/SGPT 16 U/L (12-78); ANION GAP 9 MEQ/L (8-16); AST/SGOT 23 U/L (7-37); BILIRUBIN,TOTAL 0.5 MG/DL (0.2-1.0); BLOOD UREA NITROGEN 32 MG/DL (7-18); CALCIUM LEVEL 8.9 MG/DL (8.5-10.1); CARBON DIOXIDE LEVEL 26 MEQ/L (21-32); CHLORIDE LEVEL 103 MEQ/L (98-107); CREATININE FOR GFR 6.43 MG/DL (0.70-1.30); GLOMERULAR FILTRATION RATE 9.9 (>60); GLUCOSE, FASTING 65 MG/DL (70-100); MAGNESIUM LEVEL 2.1 MG/DL (1.8-2.4); POTASSIUM SERUM 4.4 MEQ/L (3.5-5.1); SODIUM LEVEL 138 MEQ/L (136-145)
[2018-02-05 05:50] LABS: PHOSPHORUS LEVEL 6.6 MG/DL (2.5-4.9)
[2018-02-05] MEDS: LEVOTHYROXINE 150MCG TABLET (0.15MG) PO (06:37)
[2018-02-05] MEDS: PERCOCET 5MG/325MG TAB PO ×2 (07:20→16:09)
[2018-02-05] MEDS: PANTOPRAZOLE 40MG TAB (PROTONIX) PO ×2 (08:06→20:52)
[2018-02-05] MEDS: **hydrALAZINE** 50 MG TAB PO ×3 (08:06→20:52)
[2018-02-05] MEDS: amLODIPine 5 MG TAB PO ×2 (08:06→14:36)
[2018-02-05] MEDS: GABAPENTIN 100 MG CAP PO ×3 (08:06→20:52)
[2018-02-05] MEDS: LOSARTAN 25 MG TAB PO ×3 (08:07→20:52)
[2018-02-05] MEDS: METOPROLOL TART 50 MG TAB PO ×2 (08:07→20:51)
[2018-02-05] MEDS: HEPARIN SOD (PORCINE) 5000 UNITS/ML VIAL SC ×2 (08:08→20:52)
[2018-02-05] MEDS: LANTHANUM CARBONATE 500 MG CHEW TABLET PO ×2 (13:36→17:54)
[2018-02-05] MEDS: QUEtiapine FUMARATE 25 MG TAB PO (20:52)
[2018-02-05 22:46] LABS: BEDSIDE GLUCOSE 83 MG/DL (70-105)
[2018-02-06] MEDS: **hydrALAZINE** 50 MG TAB PO ×3 (04:07→21:18)
[2018-02-06] MEDS: amLODIPine 5 MG TAB PO ×2 (04:07→08:21)
[2018-02-06 04:47] LABS: HEMATOCRIT 35.4 % (42.0-52.0); HEMOGLOBIN 11.1 g/dl (13.5-17.5); MEAN CORPUSCULAR HEMOGLOBIN 28.3 pg (27.0-33.0); MEAN CORPUSCULAR HGB CONC 31.4 g/dl (32.0-36.5); MEAN CORPUSCULAR VOLUME 90.3 fl (80.0-96.0); PLATELET COUNT, AUTOMATED 199 10^3/uL (150-450); RED BLOOD COUNT 3.92 10^6/uL (4.30-6.10); RED CELL DISTRIBUTION WIDTH 17.7 % (11.5-14.5); WHITE BLOOD COUNT 6.3 10^3/uL (4.0-10.0)
[2018-02-06 05:11] LABS: ALBUMIN 2.3 GM/DL (3.2-5.2); ALBUMIN/GLOBULIN RATIO 0.46 (1.00-1.93); ALKALINE PHOSPHATASE 126 U/L (45-117); ALT/SGPT 14 U/L (12-78); ANION GAP 13 MEQ/L (8-16); AST/SGOT 20 U/L (7-37); BILIRUBIN,TOTAL 0.3 MG/DL (0.2-1.0); BLOOD UREA NITROGEN 48 MG/DL (7-18); CALCIUM LEVEL 7.9 MG/DL (8.5-10.1); CARBON DIOXIDE LEVEL 26 MEQ/L (21-32); CHLORIDE LEVEL 102 MEQ/L (98-107); CREATININE FOR GFR 7.86 MG/DL (0.70-1.30); GLOMERULAR FILTRATION RATE 7.9 (>60); GLUCOSE, FASTING 85 MG/DL (70-100); MAGNESIUM LEVEL 2.1 MG/DL (1.8-2.4); SODIUM LEVEL 141 MEQ/L (136-145); TOTAL PROTEIN 7.3 GM/DL (6.4-8.2)
[2018-02-06] MEDS: LEVOTHYROXINE 150MCG TABLET (0.15MG) PO (06:32)
[2018-02-06] MEDS: LANTHANUM CARBONATE 500 MG CHEW TABLET PO ×3 (08:16→16:55)
[2018-02-06] MEDS: METOPROLOL TART 50 MG TAB PO ×2 (08:16→21:17)
[2018-02-06] MEDS: GABAPENTIN 100 MG CAP PO ×3 (08:16→21:17)
[2018-02-06] MEDS: PANTOPRAZOLE 40MG TAB (PROTONIX) PO ×2 (08:17→21:17)
[2018-02-06] MEDS: LOSARTAN 50 MG TAB PO ×2 (08:17→21:17)
[2018-02-06] MEDS: HEPARIN SOD (PORCINE) 5000 UNITS/ML VIAL SC ×2 (08:18→21:20)
[2018-02-06] MEDS: LevoFLOXacin IV 500 MG in APPROPRIATE DILUENT 1 EA IV (08:19)
[2018-02-06] MEDS: diphenhydrAMINE 25 MG CAP PO ×2 (08:21→21:17)
[2018-02-06] MEDS: PERCOCET 5MG/325MG TAB PO ×2 (08:24→19:21)
[2018-02-06] MEDS: QUEtiapine FUMARATE 25 MG TAB PO (21:17)
[2018-02-07] MEDS: diphenhydrAMINE 25 MG CAP PO ×2 (05:16→18:00)
[2018-02-07] MEDS: LEVOTHYROXINE 150MCG TABLET (0.15MG) PO (05:16)
[2018-02-07 05:54] LABS: HEMATOCRIT 34.6 % (42.0-52.0); HEMOGLOBIN 10.8 g/dl (13.5-17.5); MEAN CORPUSCULAR HEMOGLOBIN 27.9 pg (27.0-33.0); MEAN CORPUSCULAR HGB CONC 31.2 g/dl (32.0-36.5); MEAN CORPUSCULAR VOLUME 89.4 fl (80.0-96.0); PLATELET COUNT, AUTOMATED 197 10^3/uL (150-450); RED BLOOD COUNT 3.87 10^6/uL (4.30-6.10); RED CELL DISTRIBUTION WIDTH 17.5 % (11.5-14.5)
[2018-02-07 06:13] LABS: ALBUMIN 2.1 GM/DL (3.2-5.2); ALBUMIN/GLOBULIN RATIO 0.39 (1.00-1.93); ALKALINE PHOSPHATASE 135 U/L (45-117); ALT/SGPT 16 U/L (12-78); ANION GAP 12 MEQ/L (8-16); AST/SGOT 17 U/L (7-37); BILIRUBIN,TOTAL 0.3 MG/DL (0.2-1.0); BLOOD UREA NITROGEN 65 MG/DL (7-18); CALCIUM LEVEL 7.9 MG/DL (8.5-10.1); CARBON DIOXIDE LEVEL 24 MEQ/L (21-32); CHLORIDE LEVEL 103 MEQ/L (98-107); GLOMERULAR FILTRATION RATE 6.6 (>60); GLUCOSE, FASTING 86 MG/DL (70-100); MAGNESIUM LEVEL 2.2 MG/DL (1.8-2.4); SODIUM LEVEL 139 MEQ/L (136-145); TOTAL PROTEIN 7.5 GM/DL (6.4-8.2); VANCOMYCIN RANDOM 9.9 UG/ML
[2018-02-07 06:17] LABS: CREATININE FOR GFR 9.13 MG/DL (0.70-1.30); POTASSIUM SERUM 5.3 MEQ/L (3.5-5.1)
[2018-02-07] MEDS: LANTHANUM CARBONATE 500 MG CHEW TABLET PO ×3 (07:59→16:55)
[2018-02-07] MEDS: PERCOCET 5MG/325MG TAB PO ×2 (07:59→18:00)
[2018-02-07] MEDS: **hydrALAZINE** 50 MG TAB PO ×3 (08:00→21:03)
[2018-02-07] MEDS: HEPARIN SOD (PORCINE) 5000 UNITS/ML VIAL SC ×2 (08:00→21:03)
[2018-02-07] MEDS: GABAPENTIN 100 MG CAP PO ×3 (08:01→21:02)
[2018-02-07] MEDS: LOSARTAN 50 MG TAB PO ×2 (08:01→21:02)
[2018-02-07] MEDS: METOPROLOL TART 50 MG TAB PO ×2 (08:01→21:02)
[2018-02-07] MEDS: amLODIPine 10 MG TAB PO (08:02)
[2018-02-07] MEDS: PANTOPRAZOLE 40MG TAB (PROTONIX) PO ×2 (08:02→21:02)
[2018-02-07] MEDS: **VANCO AFTER HD** MISC XX (16:00)
[2018-02-07] MEDS: VANCOMYCIN HCL 500 MG in D5W MINI-BAG PLUS 100 ML IV (16:53)
[2018-02-07] MEDS: HEPARIN 1,000 UNITS/ML 10ML VIAL (FOR RADIOLOGY& DIALYSIS ONLY) IV (17:45)
[2018-02-07] MEDS ORDERED: HEPARIN 1,000 UNITS/ML 10ML VIAL (FOR RADIOLOGY& DIALYSIS ONLY) IV (17:45)
[2018-02-07] MEDS: HEPARIN 1,000 UNITS/ML 10ML VIAL (FOR RADIOLOGY& DIALYSIS ONLY) XX (17:45)
[2018-02-07] MEDS: VANCOMYCIN HCL 1,000 MG, VIAL MATE ADAPTER 1 EACH in D5W 250 ML IV (18:27)
[2018-02-07 19:00] LABS: ERYTHROCYTE SEDIMENTATION RATE 63 mm/hr (0-15)
[2018-02-07] MEDS: QUEtiapine FUMARATE 25 MG TAB PO (21:02)
[2018-02-07] MEDS: MEROPENEM INJ 1 GM in APPROPRIATE DILUENT 1 EA IV (21:03)
[2018-02-08] MEDS: LEVOTHYROXINE 150MCG TABLET (0.15MG) PO (06:05)
[2018-02-08 07:16] LABS: HEMATOCRIT 36.3 % (42.0-52.0); HEMOGLOBIN 11.6 g/dl (13.5-17.5); MEAN CORPUSCULAR HEMOGLOBIN 28.6 pg (27.0-33.0); MEAN CORPUSCULAR VOLUME 89.6 fl (80.0-96.0); PLATELET COUNT, AUTOMATED 203 10^3/uL (150-450); RED BLOOD COUNT 4.05 10^6/uL (4.30-6.10); RED CELL DISTRIBUTION WIDTH 17.5 % (11.5-14.5); WHITE BLOOD COUNT 6.1 10^3/uL (4.0-10.0)
[2018-02-08 08:06] LABS: ALBUMIN 2.2 GM/DL (3.2-5.2); ALBUMIN/GLOBULIN RATIO 0.41 (1.00-1.93); ALKALINE PHOSPHATASE 160 U/L (45-117); ALT/SGPT 17 U/L (12-78); ANION GAP 11 MEQ/L (8-16); AST/SGOT 22 U/L (7-37); BILIRUBIN,TOTAL 0.3 MG/DL (0.2-1.0); BLOOD UREA NITROGEN 38 MG/DL (7-18); CALCIUM LEVEL 8.5 MG/DL (8.5-10.1); CARBON DIOXIDE LEVEL 27 MEQ/L (21-32); CHLORIDE LEVEL 101 MEQ/L (98-107); CREATININE FOR GFR 6.13 MG/DL (0.70-1.30); GLOMERULAR FILTRATION RATE 10.5 (>60); GLUCOSE, FASTING 84 MG/DL (70-100); SODIUM LEVEL 139 MEQ/L (136-145); TOTAL PROTEIN 7.6 GM/DL (6.4-8.2)
[2018-02-08 08:07] LABS: POTASSIUM SERUM 5.2 MEQ/L (3.5-5.1)
[2018-02-08] MEDS: PERCOCET 5MG/325MG TAB PO (08:07)
[2018-02-08] MEDS: LANTHANUM CARBONATE 500 MG CHEW TABLET PO ×3 (08:07→18:30)
[2018-02-08] MEDS: GABAPENTIN 100 MG CAP PO ×3 (08:08→20:48)
[2018-02-08] MEDS: HEPARIN SOD (PORCINE) 5000 UNITS/ML VIAL SC ×2 (08:08→20:50)
[2018-02-08] MEDS: LOSARTAN 50 MG TAB PO ×2 (08:08→20:48)
[2018-02-08] MEDS: PANTOPRAZOLE 40MG TAB (PROTONIX) PO ×2 (08:08→20:50)
[2018-02-08] MEDS: amLODIPine 10 MG TAB PO (08:09)
[2018-02-08] MEDS: METOPROLOL TART 50 MG TAB PO ×2 (08:09→20:49)
[2018-02-08] MEDS: **hydrALAZINE** 50 MG TAB PO ×3 (08:10→20:49)
[2018-02-08] MEDS: **VANCO AFTER HD** MISC XX (16:00)
[2018-02-08] MEDS: SANTYL OINT 30GM TOP (18:29)
[2018-02-08] MEDS: ZINC OXIDE 30.6% CREAM 92GM TUBE (SECURA EPC) TOP (18:30)
[2018-02-08] MEDS: DIAPER RELIEF PASTE (DESITIN) 60GM TOP (18:30)
[2018-02-08] MEDS: ONDANSETRON 4MG/2ML VIAL (J2405) IV (19:51)
[2018-02-08] MEDS: ALBUTEROL 90 MCG/ACT 8GM HFA INHALER INH (19:58)
[2018-02-08] MEDS: MEROPENEM INJ 1 GM in APPROPRIATE DILUENT 1 EA IV (20:48)
[2018-02-08] MEDS: QUEtiapine FUMARATE 25 MG TAB PO (20:48)
[2018-02-08] MEDS: BISACODYL 10 MG SUPP PR (20:49)
[2018-02-08] MEDS: DOCUSATE SODIUM 100 MG CAP PO (20:49)
[2018-02-08] MEDS: SENNA 8.6 MG TAB (SENOKOT) PO (20:50)
[2018-02-09] MEDS: PANTOPRAZOLE 40MG TAB (PROTONIX) PO ×2 (06:14→20:34)
[2018-02-09] MEDS: DOCUSATE SODIUM 100 MG CAP PO ×2 (06:14→20:34)
[2018-02-09] MEDS: GABAPENTIN 100 MG CAP PO ×3 (06:14→20:34)
[2018-02-09] MEDS: **hydrALAZINE** 50 MG TAB PO ×3 (06:15→20:34)
[2018-02-09] MEDS: METOPROLOL TART 50 MG TAB PO ×2 (06:15→20:35)
[2018-02-09] MEDS: LOSARTAN 50 MG TAB PO (06:15)
[2018-02-09] MEDS: HEPARIN SOD (PORCINE) 5000 UNITS/ML VIAL SC ×2 (06:16→20:33)
[2018-02-09] MEDS: LEVOTHYROXINE 150MCG TABLET (0.15MG) PO (06:16)
[2018-02-09] MEDS: amLODIPine 10 MG TAB PO (06:16)
[2018-02-09 06:43] LABS: HEMATOCRIT 35.8 % (42.0-52.0); MEAN CORPUSCULAR HEMOGLOBIN 28.1 pg (27.0-33.0); MEAN CORPUSCULAR HGB CONC 30.7 g/dl (32.0-36.5); MEAN CORPUSCULAR VOLUME 91.3 fl (80.0-96.0); PLATELET COUNT, AUTOMATED 189 10^3/uL (150-450); RED BLOOD COUNT 3.92 10^6/uL (4.30-6.10); RED CELL DISTRIBUTION WIDTH 17.4 % (11.5-14.5); WHITE BLOOD COUNT 6.1 10^3/uL (4.0-10.0)
[2018-02-09 07:21] LABS: ALBUMIN 2.1 GM/DL (3.2-5.2); ALBUMIN/GLOBULIN RATIO 0.38 (1.00-1.93); ALKALINE PHOSPHATASE 160 U/L (45-117); ALT/SGPT 17 U/L (12-78); ANION GAP 11 MEQ/L (8-16); AST/SGOT 29 U/L (7-37); BILIRUBIN,TOTAL 0.4 MG/DL (0.2-1.0); BLOOD UREA NITROGEN 52 MG/DL (7-18); C REACTIVE PROTEIN QUANTITATIV 7.76 MG/DL (0.00-0.30); CALCIUM LEVEL 8.4 MG/DL (8.5-10.1); CARBON DIOXIDE LEVEL 26 MEQ/L (21-32); CHLORIDE LEVEL 102 MEQ/L (98-107); CREATININE FOR GFR 7.79 MG/DL (0.70-1.30); GLOMERULAR FILTRATION RATE 7.9 (>60); GLUCOSE, FASTING 82 MG/DL (70-100); MAGNESIUM LEVEL 2.3 MG/DL (1.8-2.4); SODIUM LEVEL 139 MEQ/L (136-145); TOTAL PROTEIN 7.7 GM/DL (6.4-8.2); VANCOMYCIN RANDOM 24.4 UG/ML
[2018-02-09 07:22] LABS: POTASSIUM SERUM 6.3 MEQ/L (3.5-5.1)
[2018-02-09] MEDS ORDERED: DARBEPOETIN 100 MCG/0.5 ML *DIALYSIS* SYRINGE (J0882) IV (08:00)
[2018-02-09] MEDS: LANTHANUM CARBONATE 500 MG CHEW TABLET PO ×3 (08:00→18:46)
[2018-02-09] MEDS: HEPARIN 1,000 UNITS/ML 10ML VIAL (FOR RADIOLOGY& DIALYSIS ONLY) XX (09:30)
[2018-02-09] MEDS: HEPARIN 1,000 UNITS/ML 10ML VIAL (FOR RADIOLOGY& DIALYSIS ONLY) IV (09:30)
[2018-02-09] MEDS ORDERED: SLF 3 ML SYR IV (12:15)
[2018-02-09] MEDS: DIAPER RELIEF PASTE (DESITIN) 60GM TOP (13:34)
[2018-02-09] MEDS: ZINC OXIDE 30.6% CREAM 92GM TUBE (SECURA EPC) TOP (13:34)
[2018-02-09] MEDS: SANTYL OINT 30GM TOP (13:34)
[2018-02-09] MEDS: SLF 3 ML SYR IV ×2 (13:35→20:36)
[2018-02-09] MEDS: VANCOMYCIN HCL 1,000 MG, VIAL MATE ADAPTER 1 EACH in D5W 250 ML IV (15:42)
[2018-02-09] MEDS: **VANCO AFTER HD** MISC XX (15:42)
[2018-02-09 17:29] LABS: BEDSIDE GLUCOSE 99 MG/DL (70-105)
[2018-02-09] MEDS: MEROPENEM INJ 1 GM in APPROPRIATE DILUENT 1 EA IV (20:33)
[2018-02-09] MEDS: QUEtiapine FUMARATE 25 MG TAB PO (20:34)
[2018-02-09] MEDS: SENNA 8.6 MG TAB (SENOKOT) PO (20:34)
[2018-02-09] MEDS: LOSARTAN 25 MG TAB PO (20:34)
[2018-02-09] MEDS: PERCOCET 5MG/325MG TAB PO (20:35)
[2018-02-10] MEDS: SLF 3 ML SYR IV ×3 (05:27→20:56)
[2018-02-10] MEDS: LEVOTHYROXINE 150MCG TABLET (0.15MG) PO (05:27)
[2018-02-10 07:03] LABS: HEMATOCRIT 35.2 % (42.0-52.0); HEMOGLOBIN 10.6 g/dl (13.5-17.5); MEAN CORPUSCULAR HEMOGLOBIN 27.5 pg (27.0-33.0); MEAN CORPUSCULAR HGB CONC 30.1 g/dl (32.0-36.5); MEAN CORPUSCULAR VOLUME 91.2 fl (80.0-96.0); PLATELET COUNT, AUTOMATED 179 10^3/uL (150-450); RED BLOOD COUNT 3.86 10^6/uL (4.30-6.10); RED CELL DISTRIBUTION WIDTH 17.5 % (11.5-14.5); WHITE BLOOD COUNT 6.2 10^3/uL (4.0-10.0)
[2018-02-10 07:13] LABS: C REACTIVE PROTEIN QUANTITATIV 5.25 MG/DL (0.00-0.30)
[2018-02-10 07:40] LABS: ALBUMIN 2.2 GM/DL (3.2-5.2); ALBUMIN/GLOBULIN RATIO 0.43 (1.00-1.93); ALKALINE PHOSPHATASE 165 U/L (45-117); ALT/SGPT 12 U/L (12-78); ANION GAP 11 MEQ/L (8-16); AST/SGOT 20 U/L (7-37); BILIRUBIN,TOTAL 0.3 MG/DL (0.2-1.0); BLOOD UREA NITROGEN 35 MG/DL (7-18); CALCIUM LEVEL 8.3 MG/DL (8.5-10.1); CARBON DIOXIDE LEVEL 25 MEQ/L (21-32); CHLORIDE LEVEL 105 MEQ/L (98-107); CREATININE FOR GFR 6.13 MG/DL (0.70-1.30); GLOMERULAR FILTRATION RATE 10.5 (>60); GLUCOSE, FASTING 76 MG/DL (70-100); MAGNESIUM LEVEL 2.1 MG/DL (1.8-2.4); SODIUM LEVEL 141 MEQ/L (136-145); TOTAL PROTEIN 7.3 GM/DL (6.4-8.2)
[2018-02-10 08:23] LABS: POTASSIUM SERUM 5.6 MEQ/L (3.5-5.1)
[2018-02-10] MEDS ORDERED: PATIROMER SORBITEX CALCIUM 8.4 GM POWDER PACKET (VELTASSA) PO (09:00)
[2018-02-10] MEDS: MIRALAX *UNIT DOSE* 17GM PACKET PO (09:42)
[2018-02-10] MEDS: PERCOCET 5MG/325MG TAB PO ×2 (09:42→20:55)
[2018-02-10] MEDS: HEPARIN SOD (PORCINE) 5000 UNITS/ML VIAL SC ×2 (09:43→20:53)
[2018-02-10] MEDS: DIAPER RELIEF PASTE (DESITIN) 60GM TOP (09:43)
[2018-02-10] MEDS: ZINC OXIDE 30.6% CREAM 92GM TUBE (SECURA EPC) TOP (09:43)
[2018-02-10] MEDS: SANTYL OINT 30GM TOP (09:44)
[2018-02-10] MEDS: SENOKOT S TAB PO ×2 (09:44→20:56)
[2018-02-10] MEDS: BISACODYL 5 MG TAB PO (09:44)
[2018-02-10] MEDS: LANTHANUM CARBONATE 500 MG CHEW TABLET PO ×3 (09:44→17:04)
[2018-02-10] MEDS: GABAPENTIN 100 MG CAP PO ×3 (09:44→20:54)
[2018-02-10] MEDS: amLODIPine 10 MG TAB PO (09:45)
[2018-02-10] MEDS: **hydrALAZINE** 50 MG TAB PO ×3 (09:45→20:54)
[2018-02-10] MEDS: PANTOPRAZOLE 40MG TAB (PROTONIX) PO ×2 (09:45→20:55)
[2018-02-10] MEDS: LOSARTAN 25 MG TAB PO ×2 (09:45→20:55)
[2018-02-10] MEDS: METOPROLOL TART 50 MG TAB PO ×2 (09:45→20:55)
[2018-02-10] MEDS: PATIROMER SORBITEX CALCIUM 8.4 GM POWDER PACKET (VELTASSA) PO (12:27)
[2018-02-10] MEDS: **VANCO AFTER HD** MISC XX (16:00)
[2018-02-10] MEDS: BISACODYL 10 MG SUPP PR ×2 (16:05→17:00)
[2018-02-10] MEDS: ONDANSETRON 4MG/2ML VIAL (J2405) IV (17:04)
[2018-02-10] MEDS: MEROPENEM INJ 1 GM in APPROPRIATE DILUENT 1 EA IV (20:54)
[2018-02-10] MEDS: QUEtiapine FUMARATE 25 MG TAB PO (20:55)
[2018-02-10] MEDS: FLEET ENEMA PR (20:56)
[2018-02-11] MEDS: PERCOCET 5MG/325MG TAB PO ×2 (05:32→21:17)
[2018-02-11] MEDS: LEVOTHYROXINE 150MCG TABLET (0.15MG) PO (05:32)
[2018-02-11] MEDS: SLF 3 ML SYR IV ×3 (05:32→21:17)
[2018-02-11 07:08] LABS: HEMATOCRIT 34.2 % (42.0-52.0); HEMOGLOBIN 10.6 g/dl (13.5-17.5); MEAN CORPUSCULAR HEMOGLOBIN 28.1 pg (27.0-33.0); MEAN CORPUSCULAR VOLUME 90.7 fl (80.0-96.0); PLATELET COUNT, AUTOMATED 226 10^3/uL (150-450); RED BLOOD COUNT 3.77 10^6/uL (4.30-6.10); RED CELL DISTRIBUTION WIDTH 17.2 % (11.5-14.5); WHITE BLOOD COUNT 6.8 10^3/uL (4.0-10.0)
[2018-02-11] MEDS: HEPARIN SOD (PORCINE) 5000 UNITS/ML VIAL SC ×2 (07:22→21:15)
[2018-02-11] MEDS: LANTHANUM CARBONATE 500 MG CHEW TABLET PO ×3 (07:22→17:00)
[2018-02-11] MEDS: LOSARTAN 25 MG TAB PO ×2 (07:25→21:16)
[2018-02-11] MEDS: BISACODYL 5 MG TAB PO (07:25)
[2018-02-11] MEDS: GABAPENTIN 100 MG CAP PO ×3 (07:26→21:16)
[2018-02-11] MEDS: PANTOPRAZOLE 40MG TAB (PROTONIX) PO ×2 (07:26→21:15)
[2018-02-11] MEDS: MIRALAX *UNIT DOSE* 17GM PACKET PO (07:26)
[2018-02-11] MEDS: amLODIPine 10 MG TAB PO (07:26)
[2018-02-11] MEDS: SENOKOT S TAB PO ×2 (07:26→21:16)
[2018-02-11 07:27] LABS: ALBUMIN/GLOBULIN RATIO 0.37 (1.00-1.93); ALKALINE PHOSPHATASE 162 U/L (45-117); ALT/SGPT 14 U/L (12-78); ANION GAP 11 MEQ/L (8-16); AST/SGOT 24 U/L (7-37); BILIRUBIN,TOTAL 0.3 MG/DL (0.2-1.0); BLOOD UREA NITROGEN 52 MG/DL (7-18); C REACTIVE PROTEIN QUANTITATIV 3.71 MG/DL (0.00-0.30); CALCIUM LEVEL 8.2 MG/DL (8.5-10.1); CARBON DIOXIDE LEVEL 24 MEQ/L (21-32); CHLORIDE LEVEL 105 MEQ/L (98-107); CREATININE FOR GFR 7.72 MG/DL (0.70-1.30); GLUCOSE, FASTING 76 MG/DL (70-100); MAGNESIUM LEVEL 2.1 MG/DL (1.8-2.4); SODIUM LEVEL 140 MEQ/L (136-145); TOTAL PROTEIN 7.4 GM/DL (6.4-8.2); VANCOMYCIN RANDOM 28.1 UG/ML
[2018-02-11] MEDS: METOPROLOL TART 50 MG TAB PO ×2 (07:27→21:16)
[2018-02-11] MEDS: **hydrALAZINE** 50 MG TAB PO ×3 (07:27→21:15)
[2018-02-11 07:28] LABS: POTASSIUM SERUM 5.9 MEQ/L (3.5-5.1)
[2018-02-11] MEDS: ZINC OXIDE 30.6% CREAM 92GM TUBE (SECURA EPC) TOP (07:30)
[2018-02-11] MEDS: SANTYL OINT 30GM TOP (07:30)
[2018-02-11] MEDS: DIAPER RELIEF PASTE (DESITIN) 60GM TOP (07:30)
[2018-02-11] MEDS: FLEET ENEMA PR (07:35)
[2018-02-11] MEDS: HEPARIN 1,000 UNITS/ML 10ML VIAL (FOR RADIOLOGY& DIALYSIS ONLY) XX (10:00)
[2018-02-11] MEDS: HEPARIN 1,000 UNITS/ML 10ML VIAL (FOR RADIOLOGY& DIALYSIS ONLY) IV (10:00)
[2018-02-11] MEDS: DIBUCAINE 1% OINTMENT 30GM TOP (10:35)
[2018-02-11] MEDS ORDERED: PREPARATION H OINTMENT (HEMORRHOID) PR (11:15)
[2018-02-11] MEDS: SOD POLYSTYRENE SULFONATE SUSP 15 GM/60 ML UD PO (11:42)
[2018-02-11] MEDS: MEROPENEM INJ 1 GM in APPROPRIATE DILUENT 1 EA IV (21:15)
[2018-02-11] MEDS: QUEtiapine FUMARATE 25 MG TAB PO (21:16)
[2018-02-12] MEDS: SLF 3 ML SYR IV ×3 (06:00→22:05)
[2018-02-12] MEDS: LEVOTHYROXINE 150MCG TABLET (0.15MG) PO (06:13)
[2018-02-12] MEDS: LANTHANUM CARBONATE 500 MG CHEW TABLET PO ×3 (08:00→17:14)
[2018-02-12] MEDS: amLODIPine 10 MG TAB PO (09:00)
[2018-02-12] MEDS: MIRALAX *UNIT DOSE* 17GM PACKET PO (09:00)
[2018-02-12] MEDS: SENOKOT S TAB PO ×3 (09:00→22:04)
[2018-02-12] MEDS: **hydrALAZINE** 50 MG TAB PO (09:00)
[2018-02-12] MEDS: PANTOPRAZOLE 40MG TAB (PROTONIX) PO ×3 (09:00→22:03)
[2018-02-12] MEDS: GABAPENTIN 100 MG CAP PO ×4 (09:00→22:04)
[2018-02-12] MEDS: ZINC OXIDE 30.6% CREAM 92GM TUBE (SECURA EPC) TOP (09:00)
[2018-02-12] MEDS: HEPARIN SOD (PORCINE) 5000 UNITS/ML VIAL SC ×2 (09:00→22:05)
[2018-02-12] MEDS: LOSARTAN 25 MG TAB PO (09:00)
[2018-02-12] MEDS: SANTYL OINT 30GM TOP (09:00)
[2018-02-12] MEDS: METOPROLOL TART 50 MG TAB PO ×3 (09:00→22:04)
[2018-02-12] MEDS: DIAPER RELIEF PASTE (DESITIN) 60GM TOP (09:00)
[2018-02-12] MEDS: BISACODYL 5 MG TAB PO (09:00)
[2018-02-12] MEDS: **hydrALAZINE HCL** 25 MG TAB PO ×3 (14:40→22:03)
[2018-02-12] MEDS: SIMETHICONE 80 MG CHEW TAB PO (17:08)
[2018-02-12] MEDS: QUEtiapine FUMARATE 25 MG TAB PO ×2 (21:00→22:04)
[2018-02-12] MEDS: MEROPENEM INJ 1 GM in APPROPRIATE DILUENT 1 EA IV (22:05)
[2018-02-12] MEDS: ONDANSETRON 4MG/2ML VIAL (J2405) IV (22:11)
[2018-02-13] MEDS: LEVOTHYROXINE 150MCG TABLET (0.15MG) PO (06:00)
[2018-02-13] MEDS: SLF 3 ML SYR IV ×3 (06:00→22:22)
[2018-02-13 08:08] LABS: HEMATOCRIT 35.2 % (42.0-52.0); HEMOGLOBIN 11.1 g/dl (13.5-17.5); MEAN CORPUSCULAR HEMOGLOBIN 28.1 pg (27.0-33.0); MEAN CORPUSCULAR HGB CONC 31.5 g/dl (32.0-36.5); MEAN CORPUSCULAR VOLUME 89.1 fl (80.0-96.0); PLATELET COUNT, AUTOMATED 231 10^3/uL (150-450); RED BLOOD COUNT 3.95 10^6/uL (4.30-6.10); RED CELL DISTRIBUTION WIDTH 17.3 % (11.5-14.5); WHITE BLOOD COUNT 7.4 10^3/uL (4.0-10.0)
[2018-02-13] MEDS: HEPARIN SOD (PORCINE) 5000 UNITS/ML VIAL SC ×2 (08:24→22:19)
[2018-02-13] MEDS: GABAPENTIN 100 MG CAP PO ×3 (08:24→22:20)
[2018-02-13] MEDS: LANTHANUM CARBONATE 500 MG CHEW TABLET PO ×3 (08:24→17:46)
[2018-02-13] MEDS: **hydrALAZINE HCL** 25 MG TAB PO ×3 (08:25→22:20)
[2018-02-13] MEDS: BISACODYL 5 MG TAB PO (08:25)
[2018-02-13 08:26] LABS: ANION GAP 10 MEQ/L (8-16); BLOOD UREA NITROGEN 50 MG/DL (7-18); CALCIUM LEVEL 8.2 MG/DL (8.5-10.1); CARBON DIOXIDE LEVEL 26 MEQ/L (21-32); CHLORIDE LEVEL 103 MEQ/L (98-107); CREATININE FOR GFR 7.42 MG/DL (0.70-1.30); GLOMERULAR FILTRATION RATE 8.4 (>60); GLUCOSE, FASTING 80 MG/DL (70-100); SODIUM LEVEL 139 MEQ/L (136-145)
[2018-02-13] MEDS: METOPROLOL TART 50 MG TAB PO ×2 (08:27→22:21)
[2018-02-13] MEDS: PERCOCET 5MG/325MG TAB PO ×2 (08:27→17:46)
[2018-02-13] MEDS: PANTOPRAZOLE 40MG TAB (PROTONIX) PO ×2 (08:28→22:21)
[2018-02-13] MEDS: SENOKOT S TAB PO ×2 (08:28→21:00)
[2018-02-13] MEDS: MIRALAX *UNIT DOSE* 17GM PACKET PO (08:28)
[2018-02-13] MEDS: amLODIPine 10 MG TAB PO (08:28)
[2018-02-13 08:29] LABS: POTASSIUM SERUM 5.6 MEQ/L (3.5-5.1)
[2018-02-13] MEDS: DIAPER RELIEF PASTE (DESITIN) 60GM TOP (08:29)
[2018-02-13] MEDS: ZINC OXIDE 30.6% CREAM 92GM TUBE (SECURA EPC) TOP (08:30)
[2018-02-13] MEDS: SANTYL OINT 30GM TOP (08:31)
[2018-02-13] MEDS: PATIROMER SORBITEX CALCIUM 8.4 GM POWDER PACKET (VELTASSA) PO (12:17)
[2018-02-13] MEDS: SIMETHICONE 80 MG CHEW TAB PO (17:47)
[2018-02-13] MEDS: MEROPENEM INJ 1 GM in APPROPRIATE DILUENT 1 EA IV (22:19)
[2018-02-13] MEDS: QUEtiapine FUMARATE 25 MG TAB PO (22:20)
[2018-02-14] MEDS: SLF 3 ML SYR IV ×3 (06:00→21:05)
[2018-02-14] MEDS: HEPARIN SOD (PORCINE) 5000 UNITS/ML VIAL SC ×2 (06:21→21:05)
[2018-02-14] MEDS: GABAPENTIN 100 MG CAP PO ×3 (06:21→21:04)
[2018-02-14] MEDS: PANTOPRAZOLE 40MG TAB (PROTONIX) PO ×2 (06:21→21:05)
[2018-02-14] MEDS: LEVOTHYROXINE 150MCG TABLET (0.15MG) PO (06:21)
[2018-02-14] MEDS: METOPROLOL TART 50 MG TAB PO ×2 (06:23→21:04)
[2018-02-14] MEDS: **hydrALAZINE HCL** 25 MG TAB PO ×3 (06:23→21:05)
[2018-02-14] MEDS: LANTHANUM CARBONATE 500 MG CHEW TABLET PO ×3 (06:23→15:19)
[2018-02-14] MEDS: SENOKOT S TAB PO ×2 (06:24→21:04)
[2018-02-14] MEDS: BISACODYL 5 MG TAB PO (06:24)
[2018-02-14] MEDS: amLODIPine 10 MG TAB PO (06:24)
[2018-02-14 07:02] LABS: BASO # 0.1 10^3/uL (0.0-0.2); BASO % 0.7 % (0.0-1.0); EOS # 0.1 10^3/uL (0.0-0.50); EOS % 1.9 % (0.0-3.0); HEMATOCRIT 34.5 % (42.0-52.0); HEMOGLOBIN 10.8 g/dl (13.5-17.5); IMMATURE GRANULOCYTE % 0.4 % (0-3.0); LYMPH # 1.3 10^3/uL (1.5-4.5); LYMPH % 17.4 % (24.0-44.0); MEAN CORPUSCULAR HEMOGLOBIN 27.8 pg (27.0-33.0); MEAN CORPUSCULAR HGB CONC 31.3 g/dl (32.0-36.5); MEAN CORPUSCULAR VOLUME 88.7 fl (80.0-96.0); MONO # 0.7 10^3/uL (0.0-0.8); MONO % 8.9 % (0.0-5.0); NEUTROPHILS # 5.3 10^3/uL (1.8-7.7); NEUTROPHILS % 70.7 % (36.0-66.0); PLATELET COUNT, AUTOMATED 267 10^3/uL (150-450); RED BLOOD COUNT 3.89 10^6/uL (4.30-6.10); RED CELL DISTRIBUTION WIDTH 17.7 % (11.5-14.5); WHITE BLOOD COUNT 7.5 10^3/uL (4.0-10.0)
[2018-02-14 07:33] LABS: ANION GAP 10 MEQ/L (8-16); BLOOD UREA NITROGEN 62 MG/DL (7-18); C REACTIVE PROTEIN QUANTITATIV 3.92 MG/DL (0.00-0.30); CALCIUM LEVEL 7.9 MG/DL (8.5-10.1); CARBON DIOXIDE LEVEL 26 MEQ/L (21-32); CHLORIDE LEVEL 102 MEQ/L (98-107); GLUCOSE, FASTING 72 MG/DL (70-100); PHOSPHORUS LEVEL 8.9 MG/DL (2.5-4.9); SODIUM LEVEL 138 MEQ/L (136-145)
[2018-02-14 07:36] LABS: CREATININE FOR GFR 8.69 MG/DL (0.70-1.30); POTASSIUM SERUM 5.5 MEQ/L (3.5-5.1)
[2018-02-14] MEDS: MIRALAX *UNIT DOSE* 17GM PACKET PO (07:58)
[2018-02-14] MEDS: ZINC OXIDE 30.6% CREAM 92GM TUBE (SECURA EPC) TOP (08:00)
[2018-02-14] MEDS: SANTYL OINT 30GM TOP (08:01)
[2018-02-14] MEDS: DIAPER RELIEF PASTE (DESITIN) 60GM TOP (08:01)
[2018-02-14] MEDS: HEPARIN 1,000 UNITS/ML 10ML VIAL (FOR RADIOLOGY& DIALYSIS ONLY) XX (09:30)
[2018-02-14] MEDS: SIMETHICONE 80 MG CHEW TAB PO ×2 (15:19→23:53)
[2018-02-14] MEDS: PERCOCET 5MG/325MG TAB PO ×2 (15:21→23:53)
[2018-02-14] MEDS: QUEtiapine FUMARATE 25 MG TAB PO (21:04)
[2018-02-14] MEDS: CEFDINIR 300 MG CAP (OMNICEF) PO (21:04)
[2018-02-15] MEDS: LEVOTHYROXINE 150MCG TABLET (0.15MG) PO (06:12)
[2018-02-15] MEDS: SLF 3 ML SYR IV ×2 (06:12→13:00)
[2018-02-15 07:07] LABS: BASO # 0.1 10^3/uL (0.0-0.2); BASO % 1.2 % (0.0-1.0); EOS # 0.1 10^3/uL (0.0-0.50); EOS % 2.2 % (0.0-3.0); HEMATOCRIT 34.7 % (42.0-52.0); HEMOGLOBIN 10.7 g/dl (13.5-17.5); IMMATURE GRANULOCYTE % 0.3 % (0-3.0); LYMPH # 1.5 10^3/uL (1.5-4.5); LYMPH % 25.3 % (24.0-44.0); MEAN CORPUSCULAR HGB CONC 30.8 g/dl (32.0-36.5); MEAN CORPUSCULAR VOLUME 90.8 fl (80.0-96.0); MONO # 0.6 10^3/uL (0.0-0.8); MONO % 10.7 % (0.0-5.0); NEUTROPHILS # 3.5 10^3/uL (1.8-7.7); NEUTROPHILS % 60.3 % (36.0-66.0); PLATELET COUNT, AUTOMATED 250 10^3/uL (150-450); RED BLOOD COUNT 3.82 10^6/uL (4.30-6.10); RED CELL DISTRIBUTION WIDTH 17.7 % (11.5-14.5); WHITE BLOOD COUNT 5.9 10^3/uL (4.0-10.0)
[2018-02-15 07:29] LABS: ANION GAP 11 MEQ/L (8-16); BLOOD UREA NITROGEN 41 MG/DL (7-18); CALCIUM LEVEL 8.6 MG/DL (8.5-10.1); CARBON DIOXIDE LEVEL 26 MEQ/L (21-32); CHLORIDE LEVEL 103 MEQ/L (98-107); CREATININE FOR GFR 6.41 MG/DL (0.70-1.30); GLOMERULAR FILTRATION RATE 9.9 (>60); GLUCOSE, FASTING 79 MG/DL (70-100); POTASSIUM SERUM 4.7 MEQ/L (3.5-5.1); SODIUM LEVEL 140 MEQ/L (136-145)
[2018-02-15] MEDS: SENOKOT S TAB PO (08:58)
[2018-02-15] MEDS: MIRALAX *UNIT DOSE* 17GM PACKET PO (08:58)
[2018-02-15] MEDS: BISACODYL 5 MG TAB PO (08:58)
[2018-02-15] MEDS: METOPROLOL TART 50 MG TAB PO (08:58)
[2018-02-15] MEDS: LANTHANUM CARBONATE 500 MG CHEW TABLET PO ×2 (08:58→11:55)
[2018-02-15] MEDS: GABAPENTIN 100 MG CAP PO (08:58)
[2018-02-15] MEDS: PANTOPRAZOLE 40MG TAB (PROTONIX) PO (08:58)
[2018-02-15] MEDS: amLODIPine 10 MG TAB PO (08:58)
[2018-02-15] MEDS: ZINC OXIDE 30.6% CREAM 92GM TUBE (SECURA EPC) TOP (08:59)
[2018-02-15] MEDS: DIAPER RELIEF PASTE (DESITIN) 60GM TOP (08:59)
[2018-02-15] MEDS: **hydrALAZINE HCL** 25 MG TAB PO (08:59)
[2018-02-15] MEDS: HEPARIN SOD (PORCINE) 5000 UNITS/ML VIAL SC (08:59)
[2018-02-15] MEDS: SANTYL OINT 30GM TOP (09:00)
[2018-02-15] MEDS ORDERED: **hydrALAZINE** 50 MG TAB PO (16:00)
== END 2018-02-15 15:45 | disposition home health service (06) | DRG 539 ==
LOC: M MS5PR 02-09 17:09 → M ED 11:26 → M ED INP 16:06 → M PCU 21:45
PROVIDERS: Internal Medicine
PROC: 5A1D70Z Performance of Urinary Filtration, Intermittent, Less than 6 Hours Per Day (ICD-10-PCS; principal; 2018-02-04)
DX: M46.28 Osteomyelitis of vertebra, sacral and sacrococcygeal region (principal); N18.6 End stage renal disease; T81.4XXA Infection following a procedure, initial encounter; S32.592A Other specified fracture of left pubis, initial encounter for closed fracture; I12.0 Hypertensive chronic kidney disease with stage 5 chronic kidney disease or end stage renal disease; L89.152 Pressure ulcer of sacral region, stage 2; E11.40 Type 2 diabetes mellitus with diabetic neuropathy, unspecified; E11.21 Type 2 diabetes mellitus with diabetic nephropathy; E11.319 Type 2 diabetes mellitus with unspecified diabetic retinopathy without macular edema; E11.51 Type 2 diabetes mellitus with diabetic peripheral angiopathy without gangrene; E87.5 Hyperkalemia; E03.9 Hypothyroidism, unspecified; F32.9 Major depressive disorder, single episode, unspecified; H54.8 Legal blindness, as defined in USA; B95.61 Methicillin susceptible Staphylococcus aureus infection as the cause of diseases classified elsewhere; B97.29 Other coronavirus as the cause of diseases classified elsewhere; Z91.15 Patient's noncompliance with renal dialysis; Z89.512 Acquired absence of left leg below knee; Z89.611 Acquired absence of right leg above knee; F17.210 Nicotine dependence, cigarettes, uncomplicated; G47.00 Insomnia, unspecified; Z79.899 Other long term (current) drug therapy; Z88.0 Allergy status to penicillin; Z91.040 Latex allergy status; D72.829 Elevated white blood cell count, unspecified; D63.1 Anemia in chronic kidney disease; Z91.14 Patient's other noncompliance with medication regimen; K27.9 Peptic ulcer, site unspecified, unspecified as acute or chronic, without hemorrhage or perforation; W18.30XA Fall on same level, unspecified, initial encounter; Y92.009 Unspecified place in unspecified non-institutional (private) residence as the place of occurrence of the external cause

== ENCOUNTER 2018-04-22 20:08 | Inpatient (IN) | payer MEDICARE, MEDICAID ==
[2018-04-22] MEDS: ONDANSETRON 4MG/2ML VIAL (J2405) IV (21:00)
[2018-04-22 21:01] LABS: BASO % 0.5 % (0.0-1.0); EOS # 0.1 10^3/uL (0.0-0.50); EOS % 0.8 % (0.0-3.0); HEMATOCRIT 39.6 % (42.0-52.0); HEMOGLOBIN 12.2 g/dl (13.5-17.5); IMMATURE GRANULOCYTE % 0.6 % (0-3.0); LYMPH # 1.2 10^3/uL (1.5-4.5); LYMPH % 13.5 % (24.0-44.0); MEAN CORPUSCULAR HEMOGLOBIN 27.7 pg (27.0-33.0); MEAN CORPUSCULAR HGB CONC 30.8 g/dl (32.0-36.5); MONO # 0.8 10^3/uL (0.0-0.8); MONO % 9.7 % (0.0-5.0); NEUTROPHILS # 6.4 10^3/uL (1.8-7.7); NEUTROPHILS % 74.9 % (36.0-66.0); PLATELET COUNT, AUTOMATED 229 10^3/uL (150-450); RED CELL DISTRIBUTION WIDTH 18.6 % (11.5-14.5); WHITE BLOOD COUNT 8.5 10^3/uL (4.0-10.0)
[2018-04-22] MEDS: MORPHINE 2 MG/ML 1ML SYRINGE (J2270) IV ×2 (21:10→22:29)
[2018-04-22 21:13] LABS: ALBUMIN 2.3 GM/DL (3.2-5.2); ALBUMIN/GLOBULIN RATIO 0.38 (1.00-1.93); ALKALINE PHOSPHATASE 150 U/L (45-117); ALT/SGPT 17 U/L (12-78); ANION GAP 8 MEQ/L (8-16); AST/SGOT 47 U/L (7-37); BILIRUBIN,DIRECT 0.1 MG/DL (0.0-0.2); BILIRUBIN,TOTAL 0.5 MG/DL (0.2-1.0); BLOOD UREA NITROGEN 12 MG/DL (7-18); CALCIUM LEVEL 8.2 MG/DL (8.5-10.1); CARBON DIOXIDE LEVEL 31 MEQ/L (21-32); CHLORIDE LEVEL 98 MEQ/L (98-107); CK-MB VALUE MASS 3.3 NG/ML (<3.6); CPK CREATINE PHOSPHOKINASE 88 U/L (39-308); CREATININE FOR GFR 3.94 MG/DL (0.70-1.30); GLOMERULAR FILTRATION RATE 17.4 (>60); GLUCOSE, FASTING 67 MG/DL (70-100); MB/CK RELATIVE INDEX 3.75 (< OR =4); POTASSIUM SERUM 4.7 MEQ/L (3.5-5.1); SODIUM LEVEL 137 MEQ/L (136-145); TOTAL PROTEIN 8.3 GM/DL (6.4-8.2)
[2018-04-22 21:14] LABS: LACTIC ACID SEPSIS PROTOCOL 0.9 MMOL/L (0.4-2.0)
[2018-04-22] MEDS: VANCOMYCIN HCL 1,000 MG, VIAL MATE ADAPTER 1 EACH in D5W 250 ML IV (22:00)
[2018-04-22] MEDS ORDERED: ALBUTEROL 90 MCG/ACT 8GM HFA INHALER INH (22:45)
[2018-04-22] MEDS ORDERED: ONDANSETRON 4 MG TAB (S0181) PO (22:45)
[2018-04-22] MEDS: DOCUSATE SODIUM 100 MG CAP PO (22:57)
[2018-04-22] MEDS ORDERED: DEXTROSE 50% 50 ML SYRINGE IV (23:15)
[2018-04-22] MEDS: HumaLOG INSULIN (NovoLOG) PER UNIT SC (23:15)
[2018-04-22] MEDS ORDERED: GLUCAGON FOR INJ 1 MG VIAL (J1610) SC (23:15)
[2018-04-22] MEDS ORDERED: GLUCOSE 4 GM CHEW TABLET PO (23:15)
[2018-04-23] MEDS: PERCOCET 5MG/325MG TAB PO ×3 (01:21→18:37)
[2018-04-23] MEDS: PANTOPRAZOLE 40MG TAB (PROTONIX) PO ×3 (02:06→21:05)
[2018-04-23] MEDS: DOCUSATE SODIUM 100 MG CAP PO ×3 (02:06→21:06)
[2018-04-23] MEDS: METOPROLOL TART 50 MG TAB PO ×3 (02:07→21:06)
[2018-04-23] MEDS: **hydrALAZINE** 50 MG TAB PO ×4 (02:08→21:07)
[2018-04-23] MEDS: QUEtiapine FUMARATE 25 MG TAB PO ×2 (02:08→21:07)
[2018-04-23] MEDS: GABAPENTIN 100 MG CAP PO ×4 (02:08→21:06)
[2018-04-23] MEDS: LOSARTAN 25 MG TAB PO ×3 (02:08→21:07)
[2018-04-23] MEDS: HEPARIN SOD (PORCINE) 5000 UNITS/ML VIAL SC ×3 (05:50→21:07)
[2018-04-23 06:25] LABS: BASO % 0.5 % (0.0-1.0); EOS # 0.1 10^3/uL (0.0-0.50); EOS % 0.7 % (0.0-3.0); HEMATOCRIT 37.9 % (42.0-52.0); HEMOGLOBIN 11.3 g/dl (13.5-17.5); IMMATURE GRANULOCYTE % 0.7 % (0-3.0); LYMPH % 12.5 % (24.0-44.0); MEAN CORPUSCULAR HEMOGLOBIN 27.3 pg (27.0-33.0); MEAN CORPUSCULAR HGB CONC 29.8 g/dl (32.0-36.5); MEAN CORPUSCULAR VOLUME 91.5 fl (80.0-96.0); MONO # 0.9 10^3/uL (0.0-0.8); MONO % 10.6 % (0.0-5.0); NEUTROPHILS # 6.2 10^3/uL (1.8-7.7); PLATELET COUNT, AUTOMATED 238 10^3/uL (150-450); RED BLOOD COUNT 4.14 10^6/uL (4.30-6.10); RED CELL DISTRIBUTION WIDTH 18.5 % (11.5-14.5); WHITE BLOOD COUNT 8.2 10^3/uL (4.0-10.0)
[2018-04-23 06:43] LABS: ALBUMIN 2.1 GM/DL (3.2-5.2); ALBUMIN/GLOBULIN RATIO 0.36 (1.00-1.93); ALKALINE PHOSPHATASE 142 U/L (45-117); ALT/SGPT 14 U/L (12-78); ANION GAP 7 MEQ/L (8-16); AST/SGOT 23 U/L (7-37); BILIRUBIN,TOTAL 0.4 MG/DL (0.2-1.0); BLOOD UREA NITROGEN 15 MG/DL (7-18); CALCIUM LEVEL 8.1 MG/DL (8.5-10.1); CARBON DIOXIDE LEVEL 32 MEQ/L (21-32); CHLORIDE LEVEL 100 MEQ/L (98-107); CREATININE FOR GFR 4.81 MG/DL (0.70-1.30); GLOMERULAR FILTRATION RATE 13.9 (>60); GLUCOSE, FASTING 67 MG/DL (70-100); MAGNESIUM LEVEL 2.2 MG/DL (1.8-2.4); PHOSPHORUS LEVEL 6.1 MG/DL (2.5-4.9); POTASSIUM SERUM 4.7 MEQ/L (3.5-5.1); SODIUM LEVEL 139 MEQ/L (136-145); TOTAL PROTEIN 7.9 GM/DL (6.4-8.2)
[2018-04-23] MEDS ORDERED: CEFTAROLINE FOSAMIL 600 MG in D5W MINI-BAG PLUS 50 ML IV (07:15)
[2018-04-23] MEDS: HumaLOG INSULIN (NovoLOG) PER UNIT SC ×4 (07:20→20:57)
[2018-04-23] MEDS: LEVOTHYROXINE 150MCG TABLET (0.15MG) PO (08:05)
[2018-04-23] MEDS: amLODIPine 5 MG TAB PO (08:06)
[2018-04-23] MEDS: CEFTAROLINE FOSAMIL 300 MG in D5W 50 ML IV ×2 (10:30→21:00)
[2018-04-23 11:33] LABS: BEDSIDE GLUCOSE 87 MG/DL (70-105)
[2018-04-23 16:38] LABS: BEDSIDE GLUCOSE 87 MG/DL (70-105)
[2018-04-23] MEDS: NYSTATIN 100,000 UNITS/GM TOPICAL PWD 15 GM TOP (18:36)
[2018-04-23 20:03] LABS: BEDSIDE GLUCOSE 131 MG/DL (70-105)
[2018-04-23] MEDS: traMADol 50 MG TAB PO (23:33)
[2018-04-24] MEDS: HEPARIN SOD (PORCINE) 5000 UNITS/ML VIAL SC ×3 (05:45→22:20)
[2018-04-24] MEDS: PERCOCET 5MG/325MG TAB PO ×3 (05:45→17:53)
[2018-04-24 06:22] LABS: BASO % 0.3 % (0.0-1.0); EOS # 0.1 10^3/uL (0.0-0.50); EOS % 1.1 % (0.0-3.0); HEMOGLOBIN 11.4 g/dl (13.5-17.5); IMMATURE GRANULOCYTE % 0.3 % (0-3.0); LYMPH # 1.4 10^3/uL (1.5-4.5); LYMPH % 15.3 % (24.0-44.0); MEAN CORPUSCULAR HEMOGLOBIN 27.1 pg (27.0-33.0); MEAN CORPUSCULAR VOLUME 90.3 fl (80.0-96.0); MONO % 10.9 % (0.0-5.0); NEUTROPHILS # 6.6 10^3/uL (1.8-7.7); NEUTROPHILS % 72.1 % (36.0-66.0); PLATELET COUNT, AUTOMATED 233 10^3/uL (150-450); RED BLOOD COUNT 4.21 10^6/uL (4.30-6.10); RED CELL DISTRIBUTION WIDTH 18.4 % (11.5-14.5); WHITE BLOOD COUNT 9.1 10^3/uL (4.0-10.0)
[2018-04-24 06:31] LABS: ALBUMIN 2.2 GM/DL (3.2-5.2); ALBUMIN/GLOBULIN RATIO 0.37 (1.00-1.93); ALKALINE PHOSPHATASE 157 U/L (45-117); ALT/SGPT 14 U/L (12-78); ANION GAP 10 MEQ/L (8-16); AST/SGOT 22 U/L (7-37); BILIRUBIN,TOTAL 0.4 MG/DL (0.2-1.0); BLOOD UREA NITROGEN 24 MG/DL (7-18); CALCIUM LEVEL 7.6 MG/DL (8.5-10.1); CARBON DIOXIDE LEVEL 30 MEQ/L (21-32); CHLORIDE LEVEL 97 MEQ/L (98-107); CREATININE FOR GFR 6.44 MG/DL (0.70-1.30); GLOMERULAR FILTRATION RATE 9.9 (>60); GLUCOSE, FASTING 75 MG/DL (70-100); POTASSIUM SERUM 5.1 MEQ/L (3.5-5.1); SODIUM LEVEL 137 MEQ/L (136-145); TOTAL PROTEIN 8.1 GM/DL (6.4-8.2)
[2018-04-24] MEDS: HumaLOG INSULIN (NovoLOG) PER UNIT SC ×4 (07:30→20:11)
[2018-04-24] MEDS: INFLUENZA QUADRIVALENT PF VACCINE 0.5ML SYRINGE (90686) IM (09:00)
[2018-04-24] MEDS ORDERED: KETOCONAZOLE 2% CREAM TOP (09:00)
[2018-04-24] MEDS: GABAPENTIN 100 MG CAP PO ×3 (09:53→20:09)
[2018-04-24] MEDS: **hydrALAZINE** 50 MG TAB PO ×3 (09:53→20:10)
[2018-04-24] MEDS: MORPHINE 4 MG/ML 1ML VIAL/SYRINGE (J2270) IV (09:53)
[2018-04-24] MEDS: amLODIPine 5 MG TAB PO (09:54)
[2018-04-24] MEDS: PANTOPRAZOLE 40MG TAB (PROTONIX) PO ×2 (09:54→20:09)
[2018-04-24] MEDS: LOSARTAN 25 MG TAB PO ×2 (09:54→20:09)
[2018-04-24] MEDS: LEVOTHYROXINE 150MCG TABLET (0.15MG) PO (09:54)
[2018-04-24] MEDS: DOCUSATE SODIUM 100 MG CAP PO ×2 (09:54→20:10)
[2018-04-24] MEDS: METOPROLOL TART 50 MG TAB PO ×2 (09:54→20:10)
[2018-04-24] MEDS: CEFTAROLINE FOSAMIL 300 MG in D5W 50 ML IV ×2 (09:55→20:08)
[2018-04-24 12:00] LABS: BEDSIDE GLUCOSE 80 MG/DL (70-105)
[2018-04-24 16:38] LABS: BEDSIDE GLUCOSE 76 MG/DL (70-105)
[2018-04-24] MEDS: QUEtiapine FUMARATE 25 MG TAB PO (20:10)
[2018-04-24 20:12] LABS: BEDSIDE GLUCOSE 62 MG/DL (70-105)
[2018-04-25] MEDS: HEPARIN SOD (PORCINE) 5000 UNITS/ML VIAL SC ×3 (06:38→20:55)
[2018-04-25] MEDS: LEVOTHYROXINE 150MCG TABLET (0.15MG) PO (06:38)
[2018-04-25] MEDS: METOPROLOL TART 50 MG TAB PO ×2 (06:39→20:56)
[2018-04-25] MEDS: GABAPENTIN 100 MG CAP PO ×3 (06:39→20:52)
[2018-04-25] MEDS: LOSARTAN 25 MG TAB PO ×2 (06:39→20:56)
[2018-04-25] MEDS: PANTOPRAZOLE 40MG TAB (PROTONIX) PO ×2 (06:39→20:52)
[2018-04-25] MEDS: DOCUSATE SODIUM 100 MG CAP PO ×2 (06:39→20:52)
[2018-04-25] MEDS: CEFTAROLINE FOSAMIL 300 MG in D5W 50 ML IV ×2 (06:40→20:53)
[2018-04-25] MEDS: amLODIPine 5 MG TAB PO (06:40)
[2018-04-25] MEDS: **hydrALAZINE** 50 MG TAB PO ×3 (06:40→20:55)
[2018-04-25] MEDS: PERCOCET 5MG/325MG TAB PO ×3 (06:42→23:34)
[2018-04-25 07:05] LABS: BASO # 0.1 10^3/uL (0.0-0.2); BASO % 0.6 % (0.0-1.0); EOS # 0.1 10^3/uL (0.0-0.50); EOS % 0.9 % (0.0-3.0); HEMATOCRIT 38.1 % (42.0-52.0); HEMOGLOBIN 11.5 g/dl (13.5-17.5); IMMATURE GRANULOCYTE % 0.5 % (0-3.0); LYMPH # 1.1 10^3/uL (1.5-4.5); LYMPH % 12.3 % (24.0-44.0); MEAN CORPUSCULAR HEMOGLOBIN 26.9 pg (27.0-33.0); MEAN CORPUSCULAR HGB CONC 30.2 g/dl (32.0-36.5); MEAN CORPUSCULAR VOLUME 89.2 fl (80.0-96.0); MONO # 0.8 10^3/uL (0.0-0.8); NEUTROPHILS # 6.6 10^3/uL (1.8-7.7); NEUTROPHILS % 76.7 % (36.0-66.0); PLATELET COUNT, AUTOMATED 235 10^3/uL (150-450); RED BLOOD COUNT 4.27 10^6/uL (4.30-6.10); RED CELL DISTRIBUTION WIDTH 18.2 % (11.5-14.5); WHITE BLOOD COUNT 8.6 10^3/uL (4.0-10.0)
[2018-04-25 07:23] LABS: ALBUMIN 2.2 GM/DL (3.2-5.2); ALBUMIN/GLOBULIN RATIO 0.37 (1.00-1.93); ALKALINE PHOSPHATASE 157 U/L (45-117); ALT/SGPT 13 U/L (12-78); ANION GAP 8 MEQ/L (8-16); AST/SGOT 22 U/L (7-37); BILIRUBIN,TOTAL 0.5 MG/DL (0.2-1.0); BLOOD UREA NITROGEN 34 MG/DL (7-18); CALCIUM LEVEL 7.6 MG/DL (8.5-10.1); CARBON DIOXIDE LEVEL 29 MEQ/L (21-32); CHLORIDE LEVEL 96 MEQ/L (98-107); CREATININE FOR GFR 8.12 MG/DL (0.70-1.30); GLOMERULAR FILTRATION RATE 7.6 (>60); GLUCOSE, FASTING 59 MG/DL (70-100); SODIUM LEVEL 133 MEQ/L (136-145); TOTAL PROTEIN 8.2 GM/DL (6.4-8.2)
[2018-04-25 07:25] LABS: POTASSIUM SERUM 5.8 MEQ/L (3.5-5.1)
[2018-04-25] MEDS: HumaLOG INSULIN (NovoLOG) PER UNIT SC ×4 (07:30→20:56)
[2018-04-25 09:12] LABS: BEDSIDE GLUCOSE 71 MG/DL (70-105)
[2018-04-25] MEDS: HEPARIN 1,000 UNITS/ML 10ML VIAL (FOR RADIOLOGY& DIALYSIS ONLY) IV (11:15)
[2018-04-25] MEDS: HEPARIN 1,000 UNITS/ML 10ML VIAL (FOR RADIOLOGY& DIALYSIS ONLY) XX (11:15)
[2018-04-25 13:01] LABS: BEDSIDE GLUCOSE 68 MG/DL (70-105)
[2018-04-25 16:38] LABS: BEDSIDE GLUCOSE 84 MG/DL (70-105)
[2018-04-25] MEDS: QUEtiapine FUMARATE 25 MG TAB PO (20:52)
[2018-04-25 22:01] LABS: BEDSIDE GLUCOSE 77 MG/DL (70-105)
[2018-04-26] MEDS: LEVOTHYROXINE 150MCG TABLET (0.15MG) PO (05:51)
[2018-04-26] MEDS: HEPARIN SOD (PORCINE) 5000 UNITS/ML VIAL SC ×3 (05:51→20:21)
[2018-04-26] MEDS: PERCOCET 5MG/325MG TAB PO ×3 (05:52→23:12)
[2018-04-26 06:45] LABS: BASO # 0.1 10^3/uL (0.0-0.2); EOS # 0.1 10^3/uL (0.0-0.50); EOS % 1.8 % (0.0-3.0); HEMATOCRIT 39.5 % (42.0-52.0); IMMATURE GRANULOCYTE % 0.4 % (0-3.0); LYMPH # 1.1 10^3/uL (1.5-4.5); LYMPH % 14.9 % (24.0-44.0); MEAN CORPUSCULAR HEMOGLOBIN 27.3 pg (27.0-33.0); MEAN CORPUSCULAR HGB CONC 30.4 g/dl (32.0-36.5); MONO # 0.8 10^3/uL (0.0-0.8); MONO % 11.7 % (0.0-5.0); NEUTROPHILS % 70.2 % (36.0-66.0); PLATELET COUNT, AUTOMATED 211 10^3/uL (150-450); RED BLOOD COUNT 4.39 10^6/uL (4.30-6.10); RED CELL DISTRIBUTION WIDTH 18.3 % (11.5-14.5); WHITE BLOOD COUNT 7.2 10^3/uL (4.0-10.0)
[2018-04-26 07:05] LABS: ALBUMIN 2.3 GM/DL (3.2-5.2); ALBUMIN/GLOBULIN RATIO 0.38 (1.00-1.93); ALKALINE PHOSPHATASE 148 U/L (45-117); ALT/SGPT 12 U/L (12-78); ANION GAP 13 MEQ/L (8-16); AST/SGOT 22 U/L (7-37); BILIRUBIN,TOTAL 0.5 MG/DL (0.2-1.0); BLOOD UREA NITROGEN 21 MG/DL (7-18); CALCIUM LEVEL 8.7 MG/DL (8.5-10.1); CARBON DIOXIDE LEVEL 26 MEQ/L (21-32); CHLORIDE LEVEL 99 MEQ/L (98-107); CREATININE FOR GFR 6.03 MG/DL (0.70-1.30); GLOMERULAR FILTRATION RATE 10.7 (>60); GLUCOSE, FASTING 66 MG/DL (70-100); POTASSIUM SERUM 4.7 MEQ/L (3.5-5.1); SODIUM LEVEL 138 MEQ/L (136-145); TOTAL PROTEIN 8.3 GM/DL (6.4-8.2)
[2018-04-26] MEDS: HumaLOG INSULIN (NovoLOG) PER UNIT SC ×4 (07:29→20:23)
[2018-04-26 08:30] LABS: BEDSIDE GLUCOSE 104 MG/DL (70-105)
[2018-04-26] MEDS: CEFTAROLINE FOSAMIL 300 MG in D5W 50 ML IV ×2 (08:55→20:21)
[2018-04-26] MEDS: amLODIPine 5 MG TAB PO (08:56)
[2018-04-26] MEDS: LOSARTAN 25 MG TAB PO ×2 (08:56→20:23)
[2018-04-26] MEDS: PANTOPRAZOLE 40MG TAB (PROTONIX) PO ×2 (08:56→20:22)
[2018-04-26] MEDS: DOCUSATE SODIUM 100 MG CAP PO ×2 (08:56→20:21)
[2018-04-26] MEDS: METOPROLOL TART 50 MG TAB PO ×2 (08:56→20:22)
[2018-04-26] MEDS: **hydrALAZINE** 50 MG TAB PO ×3 (08:56→20:21)
[2018-04-26] MEDS: GABAPENTIN 100 MG CAP PO ×3 (08:56→20:22)
[2018-04-26] MEDS: HYDROCORTISONE 1% CREAM 30 GM TOP (09:00)
[2018-04-26] MEDS: SANTYL OINT 30GM TOP (09:00)
[2018-04-26 10:24] LABS: PTH INTACT 1575.7 PG/ML (18.5-88.0)
[2018-04-26 12:27] LABS: BEDSIDE GLUCOSE 87 MG/DL (70-105)
[2018-04-26 17:38] LABS: BEDSIDE GLUCOSE 80 MG/DL (70-105)
[2018-04-26 19:53] LABS: BEDSIDE GLUCOSE 77 MG/DL (70-105)
[2018-04-26] MEDS: QUEtiapine FUMARATE 25 MG TAB PO (20:22)
[2018-04-27] MEDS: LEVOTHYROXINE 150MCG TABLET (0.15MG) PO (05:50)
[2018-04-27] MEDS: HEPARIN SOD (PORCINE) 5000 UNITS/ML VIAL SC ×3 (05:50→21:21)
[2018-04-27] MEDS: METOPROLOL TART 50 MG TAB PO ×2 (05:51→20:40)
[2018-04-27] MEDS: **hydrALAZINE** 50 MG TAB PO ×3 (05:51→20:39)
[2018-04-27] MEDS: amLODIPine 5 MG TAB PO (05:52)
[2018-04-27] MEDS: PANTOPRAZOLE 40MG TAB (PROTONIX) PO ×2 (05:52→20:39)
[2018-04-27] MEDS: DOCUSATE SODIUM 100 MG CAP PO ×3 (05:53→21:00)
[2018-04-27] MEDS: GABAPENTIN 100 MG CAP PO ×3 (05:53→20:39)
[2018-04-27] MEDS: PERCOCET 5MG/325MG TAB PO ×2 (05:54→17:16)
[2018-04-27] MEDS: LOSARTAN 25 MG TAB PO ×2 (05:55→20:40)
[2018-04-27 06:31] LABS: BASO % 0.5 % (0.0-1.0); EOS # 0.1 10^3/uL (0.0-0.50); EOS % 1.3 % (0.0-3.0); HEMATOCRIT 38.6 % (42.0-52.0); HEMOGLOBIN 11.8 g/dl (13.5-17.5); IMMATURE GRANULOCYTE % 0.4 % (0-3.0); LYMPH # 1.1 10^3/uL (1.5-4.5); MEAN CORPUSCULAR HGB CONC 30.6 g/dl (32.0-36.5); MEAN CORPUSCULAR VOLUME 88.3 fl (80.0-96.0); MONO % 12.3 % (0.0-5.0); NEUTROPHILS # 5.6 10^3/uL (1.8-7.7); NEUTROPHILS % 71.5 % (36.0-66.0); PLATELET COUNT, AUTOMATED 217 10^3/uL (150-450); RED BLOOD COUNT 4.37 10^6/uL (4.30-6.10); WHITE BLOOD COUNT 7.8 10^3/uL (4.0-10.0)
[2018-04-27 06:54] LABS: ALBUMIN 2.2 GM/DL (3.2-5.2); ALBUMIN/GLOBULIN RATIO 0.37 (1.00-1.93); ALKALINE PHOSPHATASE 143 U/L (45-117); ALT/SGPT 12 U/L (12-78); ANION GAP 10 MEQ/L (8-16); AST/SGOT 23 U/L (7-37); BILIRUBIN,TOTAL 0.4 MG/DL (0.2-1.0); BLOOD UREA NITROGEN 35 MG/DL (7-18); CALCIUM LEVEL 8.2 MG/DL (8.5-10.1); CARBON DIOXIDE LEVEL 28 MEQ/L (21-32); CHLORIDE LEVEL 99 MEQ/L (98-107); CREATININE FOR GFR 7.52 MG/DL (0.70-1.30); GLOMERULAR FILTRATION RATE 8.3 (>60); GLUCOSE, FASTING 80 MG/DL (70-100); SODIUM LEVEL 137 MEQ/L (136-145); TOTAL PROTEIN 8.1 GM/DL (6.4-8.2)
[2018-04-27] MEDS: HumaLOG INSULIN (NovoLOG) PER UNIT SC ×4 (07:05→20:41)
[2018-04-27] MEDS: CINACALCET 30 MG TAB (SENSIPAR) PO (07:29)
[2018-04-27] MEDS: CALCITRIOL 0.25 MCG CAP (S0169) PO (07:29)
[2018-04-27] MEDS: LANTHANUM CARBONATE 500 MG CHEW TABLET PO ×4 (07:30→17:19)
[2018-04-27] MEDS: SANTYL OINT 30GM TOP ×2 (09:00)
[2018-04-27 11:44] LABS: BEDSIDE GLUCOSE 87 MG/DL (70-105)
[2018-04-27] MEDS: HEPARIN 1,000 UNITS/ML 10ML VIAL (FOR RADIOLOGY& DIALYSIS ONLY) XX (13:15)
[2018-04-27] MEDS: HEPARIN 1,000 UNITS/ML 10ML VIAL (FOR RADIOLOGY& DIALYSIS ONLY) IV (13:15)
[2018-04-27 16:45] LABS: BEDSIDE GLUCOSE 73 MG/DL (70-105)
[2018-04-27] MEDS: QUEtiapine FUMARATE 25 MG TAB PO (20:40)
[2018-04-28] MEDS: PERCOCET 5MG/325MG TAB PO (04:32)
[2018-04-28] MEDS: LEVOTHYROXINE 150MCG TABLET (0.15MG) PO (05:44)
[2018-04-28] MEDS: HEPARIN SOD (PORCINE) 5000 UNITS/ML VIAL SC (05:44)
[2018-04-28 06:51] LABS: IONIZED CALCIUM 4.2 MG/DL (4.5-5.3)
[2018-04-28 06:54] LABS: BASO # 0.1 10^3/uL (0.0-0.2); BASO % 0.8 % (0.0-1.0); EOS # 0.1 10^3/uL (0.0-0.50); EOS % 1.4 % (0.0-3.0); HEMATOCRIT 40.4 % (42.0-52.0); HEMOGLOBIN 12.2 g/dl (13.5-17.5); IMMATURE GRANULOCYTE % 0.4 % (0-3.0); LYMPH % 14.3 % (24.0-44.0); MEAN CORPUSCULAR HEMOGLOBIN 27.1 pg (27.0-33.0); MEAN CORPUSCULAR HGB CONC 30.2 g/dl (32.0-36.5); MEAN CORPUSCULAR VOLUME 89.8 fl (80.0-96.0); MONO # 0.9 10^3/uL (0.0-0.8); MONO % 12.7 % (0.0-5.0); NEUTROPHILS % 70.4 % (36.0-66.0); PLATELET COUNT, AUTOMATED 196 10^3/uL (150-450); RED CELL DISTRIBUTION WIDTH 18.3 % (11.5-14.5); WHITE BLOOD COUNT 7.2 10^3/uL (4.0-10.0)
[2018-04-28 07:14] LABS: ALBUMIN 2.3 GM/DL (3.2-5.2); ALBUMIN/GLOBULIN RATIO 0.37 (1.00-1.93); ALKALINE PHOSPHATASE 150 U/L (45-117); ALT/SGPT 14 U/L (12-78); ANION GAP 14 MEQ/L (8-16); AST/SGOT 25 U/L (7-37); BILIRUBIN,TOTAL 0.5 MG/DL (0.2-1.0); BLOOD UREA NITROGEN 19 MG/DL (7-18); CALCIUM LEVEL 8.7 MG/DL (8.5-10.1); CARBON DIOXIDE LEVEL 24 MEQ/L (21-32); CHLORIDE LEVEL 98 MEQ/L (98-107); CREATININE FOR GFR 5.35 MG/DL (0.70-1.30); GLOMERULAR FILTRATION RATE 12.3 (>60); GLUCOSE, FASTING 66 MG/DL (70-100); PHOSPHORUS LEVEL 5.7 MG/DL (2.5-4.9); POTASSIUM SERUM 4.5 MEQ/L (3.5-5.1); SODIUM LEVEL 136 MEQ/L (136-145); TOTAL PROTEIN 8.6 GM/DL (6.4-8.2)
[2018-04-28] MEDS: HumaLOG INSULIN (NovoLOG) PER UNIT SC ×2 (07:49→12:20)
[2018-04-28] MEDS: LANTHANUM CARBONATE 500 MG CHEW TABLET PO ×2 (08:43→12:42)
[2018-04-28] MEDS: DOCUSATE SODIUM 100 MG CAP PO (08:43)
[2018-04-28] MEDS: PANTOPRAZOLE 40MG TAB (PROTONIX) PO (08:43)
[2018-04-28] MEDS: CINACALCET 30 MG TAB (SENSIPAR) PO (08:43)
[2018-04-28] MEDS: CALCITRIOL 0.25 MCG CAP (S0169) PO (08:43)
[2018-04-28] MEDS: **hydrALAZINE** 50 MG TAB PO (08:44)
[2018-04-28] MEDS: GABAPENTIN 100 MG CAP PO (08:44)
[2018-04-28] MEDS: METOPROLOL TART 50 MG TAB PO (08:44)
[2018-04-28] MEDS: LOSARTAN 25 MG TAB PO (08:45)
[2018-04-28] MEDS: NYSTATIN 100,000 UNITS/GM TOPICAL PWD 15 GM TOP (08:45)
[2018-04-28] MEDS: amLODIPine 5 MG TAB PO (08:45)
[2018-04-28] MEDS: SANTYL OINT 30GM TOP (08:45)
[2018-04-28 09:00] LABS: BEDSIDE GLUCOSE 90 MG/DL (70-105)
[2018-04-28 12:11] LABS: BEDSIDE GLUCOSE 91 MG/DL (70-105)
[2018-04-28 20:25] LABS: BEDSIDE GLUCOSE 80 MG/DL (70-105)
[2018-04-29] MEDS ORDERED: VITAMIN D 50,000 UNITS CAPSULE (ERGOCALCIFEROL 1.25MG) PO (09:00)
== END 2018-04-28 14:05 | disposition home health service (06) | DRG 602 ==
LOC: M MSPAV 04-23 00:28 → M ED 20:08 → M ED INP 22:12
PROC: 5A1D70Z Performance of Urinary Filtration, Intermittent, Less than 6 Hours Per Day (ICD-10-PCS; principal; 2018-04-25)
DX: L03.311 Cellulitis of abdominal wall (principal); N18.6 End stage renal disease; L89.153 Pressure ulcer of sacral region, stage 3; N25.81 Secondary hyperparathyroidism of renal origin; I12.0 Hypertensive chronic kidney disease with stage 5 chronic kidney disease or end stage renal disease; E11.622 Type 2 diabetes mellitus with other skin ulcer; E11.319 Type 2 diabetes mellitus with unspecified diabetic retinopathy without macular edema; E11.22 Type 2 diabetes mellitus with diabetic chronic kidney disease; E11.40 Type 2 diabetes mellitus with diabetic neuropathy, unspecified; Z79.899 Other long term (current) drug therapy; Z88.0 Allergy status to penicillin; Z91.041 Radiographic dye allergy status; Z91.19 Patient's noncompliance with other medical treatment and regimen; E03.9 Hypothyroidism, unspecified; G47.00 Insomnia, unspecified; H54.8 Legal blindness, as defined in USA; G89.29 Other chronic pain; E55.9 Vitamin D deficiency, unspecified; F17.200 Nicotine dependence, unspecified, uncomplicated; D63.1 Anemia in chronic kidney disease; F32.9 Major depressive disorder, single episode, unspecified; E87.5 Hyperkalemia; B96.4 Proteus (mirabilis) (morganii) as the cause of diseases classified elsewhere; B97.29 Other coronavirus as the cause of diseases classified elsewhere; B96.29 Other Escherichia coli [E. coli] as the cause of diseases classified elsewhere

== ENCOUNTER 2018-05-04 11:57 | Inpatient (IN) | payer MEDICARE, MEDICAID ==
[2018-05-04 13:34] LABS: BASO # 0.1 10^3/uL (0.0-0.2); BASO % 0.4 % (0.0-1.0); HEMATOCRIT 42.6 % (42.0-52.0); HEMOGLOBIN 13.3 g/dl (13.5-17.5); IMMATURE GRANULOCYTE % 0.7 % (0-3.0); LYMPH # 1.1 10^3/uL (1.5-4.5); LYMPH % 6.7 % (24.0-44.0); MEAN CORPUSCULAR HEMOGLOBIN 27.1 pg (27.0-33.0); MEAN CORPUSCULAR HGB CONC 31.2 g/dl (32.0-36.5); MEAN CORPUSCULAR VOLUME 86.8 fl (80.0-96.0); MONO # 1.2 10^3/uL (0.0-0.8); NEUTROPHILS # 14.1 10^3/uL (1.8-7.7); NEUTROPHILS % 85.2 % (36.0-66.0); PLATELET COUNT, AUTOMATED 296 10^3/uL (150-450); RED BLOOD COUNT 4.91 10^6/uL (4.30-6.10); RED CELL DISTRIBUTION WIDTH 18.1 % (11.5-14.5); WHITE BLOOD COUNT 16.5 10^3/uL (4.0-10.0)
[2018-05-04] MEDS: HEPARIN SOD (PORCINE) 5000 UNITS/ML VIAL SC ×2 (14:00→22:59)
[2018-05-04 14:07] LABS: ANION GAP 15 MEQ/L (8-16); BLOOD UREA NITROGEN 87 MG/DL (7-18); CALCIUM LEVEL 8.8 MG/DL (8.5-10.1); CARBON DIOXIDE LEVEL 26 MEQ/L (21-32); CHLORIDE LEVEL 94 MEQ/L (98-107); GLOMERULAR FILTRATION RATE 4.1 (>60); GLUCOSE, FASTING 69 MG/DL (70-100); SODIUM LEVEL 135 MEQ/L (136-145)
[2018-05-04 15:04] LABS: ERYTHROCYTE SEDIMENTATION RATE 28 mm/hr (0-15)
[2018-05-04] MEDS: DEXTROSE 50% 50 ML SYRINGE IV (15:07)
[2018-05-04] MEDS: CALCIUM CHLORIDE 10% 1 GM in D5W 100 ML IV (15:07)
[2018-05-04] MEDS: SOD POLYSTYRENE SULFONATE SUSP 15 GM/60 ML UD PO (15:07)
[2018-05-04] MEDS: HumuLIN R (REGULAR) INSULIN (NovoLIN R) **100U/ML** PER UNIT IV (15:11)
[2018-05-04 15:25] LABS: CPK CREATINE PHOSPHOKINASE 32 U/L (39-308); MB/CK RELATIVE INDEX 14.38 (< OR =4)
[2018-05-04 15:53] LABS: BEDSIDE GLUCOSE 113 MG/DL (70-105)
[2018-05-04] MEDS: HEPARIN 1,000 UNITS/ML 10ML VIAL (FOR RADIOLOGY& DIALYSIS ONLY) XX (16:00)
[2018-05-04] MEDS: HEPARIN 1,000 UNITS/ML 10ML VIAL (FOR RADIOLOGY& DIALYSIS ONLY) IV (16:00)
[2018-05-04] MEDS ORDERED: NYSTATIN 100,000 UNITS/GM TOPICAL PWD 15 GM TOP (16:15)
[2018-05-04] MEDS: LANTHANUM CARBONATE 500 MG CHEW TABLET PO (19:00)
[2018-05-04] MEDS ORDERED: INFLUENZA QUADRIVALENT PF VACCINE 0.5ML SYRINGE (90686) IM (20:15)
[2018-05-04] MEDS: ACETAMINOPHEN TAB 650MG DOSE (2X325MG) PO ×2 (20:15→20:45)
[2018-05-04 20:32] LABS: ANION GAP 13 MEQ/L (8-16); BLOOD UREA NITROGEN 34 MG/DL (7-18); CALCIUM LEVEL 9.8 MG/DL (8.5-10.1); CARBON DIOXIDE LEVEL 25 MEQ/L (21-32); CHLORIDE LEVEL 99 MEQ/L (98-107); CPK CREATINE PHOSPHOKINASE 26 U/L (39-308); CREATININE FOR GFR 6.67 MG/DL (0.70-1.30); GLOMERULAR FILTRATION RATE 9.5 (>60); GLUCOSE, FASTING 62 MG/DL (70-100); MB/CK RELATIVE INDEX 16.92 (< OR =4); POTASSIUM SERUM 3.6 MEQ/L (3.5-5.1); SODIUM LEVEL 137 MEQ/L (136-145); TROPONIN I 0.25 NG/ML (< 0.10)
[2018-05-04] MEDS ORDERED: GLUCAGON FOR INJ 1 MG VIAL (J1610) SC (20:45)
[2018-05-04] MEDS ORDERED: GLUCOSE 4 GM CHEW TABLET PO (20:45)
[2018-05-04] MEDS: VANCOMYCIN HCL 1,000 MG, VIAL MATE ADAPTER 1 EACH in D5W 250 ML IV (20:49)
[2018-05-04] MEDS: GABAPENTIN 100 MG CAP PO (20:49)
[2018-05-04] MEDS: PANTOPRAZOLE 40MG TAB (PROTONIX) PO (20:50)
[2018-05-04] MEDS: METOPROLOL TART 50 MG TAB PO (20:51)
[2018-05-04] MEDS: QUEtiapine FUMARATE 25 MG TAB PO (20:56)
[2018-05-04] MEDS: SENOKOT S TAB PO (20:57)
[2018-05-04] MEDS: **hydrALAZINE** 50 MG TAB PO (21:00)
[2018-05-04] MEDS ORDERED: VANCOMYCIN INTERMITTENT/PULSE DOSING BY CLINICAL PHARMACIST PER DOSING PROTOCOL XX (21:45)
[2018-05-04 21:54] LABS: BEDSIDE GLUCOSE 96 MG/DL (70-105)
[2018-05-04] MEDS: MEROPENEM INJ 500 MG in APPROPRIATE DILUENT 1 EA IV (22:59)
[2018-05-05 00:08] LABS: BEDSIDE GLUCOSE 74 MG/DL (70-105)
[2018-05-05] MEDS: ACETAMINOPHEN TAB 650MG DOSE (2X325MG) PO ×3 (00:17→21:18)
[2018-05-05] MEDS: ONDANSETRON 4MG/2ML VIAL (J2405) IV ×2 (00:34→08:51)
[2018-05-05 01:00] LABS: CPK CREATINE PHOSPHOKINASE 21 U/L (39-308); MB/CK RELATIVE INDEX 17.14 (< OR =4)
[2018-05-05 02:17] LABS: BEDSIDE GLUCOSE 82 MG/DL (70-105)
[2018-05-05 05:27] LABS: HEMATOCRIT 42.4 % (42.0-52.0); HEMOGLOBIN 13.1 g/dl (13.5-17.5); MEAN CORPUSCULAR HEMOGLOBIN 27.1 pg (27.0-33.0); MEAN CORPUSCULAR HGB CONC 30.9 g/dl (32.0-36.5); MEAN CORPUSCULAR VOLUME 87.6 fl (80.0-96.0); PLATELET COUNT, AUTOMATED 253 10^3/uL (150-450); RED BLOOD COUNT 4.84 10^6/uL (4.30-6.10); RED CELL DISTRIBUTION WIDTH 17.5 % (11.5-14.5); WHITE BLOOD COUNT 12.9 10^3/uL (4.0-10.0)
[2018-05-05 05:51] LABS: ALBUMIN 2.1 GM/DL (3.2-5.2); ANION GAP 12 MEQ/L (8-16); BLOOD UREA NITROGEN 43 MG/DL (7-18); CARBON DIOXIDE LEVEL 25 MEQ/L (21-32); CHLORIDE LEVEL 98 MEQ/L (98-107); CREATININE FOR GFR 8.51 MG/DL (0.70-1.30); GLOMERULAR FILTRATION RATE 7.2 (>60); GLUCOSE, FASTING 72 MG/DL (70-100); MAGNESIUM LEVEL 2.2 MG/DL (1.8-2.4); PHOSPHORUS LEVEL 7.7 MG/DL (2.5-4.9); SODIUM LEVEL 135 MEQ/L (136-145)
[2018-05-05] MEDS: LEVOTHYROXINE 150MCG TABLET (0.15MG) PO (05:55)
[2018-05-05] MEDS: HEPARIN SOD (PORCINE) 5000 UNITS/ML VIAL SC ×3 (05:55→21:17)
[2018-05-05 06:27] LABS: BEDSIDE GLUCOSE 86 MG/DL (70-105)
[2018-05-05 06:27] LABS: BEDSIDE GLUCOSE 84 MG/DL (70-105)
[2018-05-05] MEDS: LANTHANUM CARBONATE 500 MG CHEW TABLET PO ×3 (08:00→18:00)
[2018-05-05] MEDS: DEXTROSE 50% 50 ML SYRINGE IV (08:52)
[2018-05-05] MEDS: PANTOPRAZOLE 40MG TAB (PROTONIX) PO ×2 (08:52→21:17)
[2018-05-05] MEDS: METOPROLOL TART 50 MG TAB PO ×2 (08:52→20:05)
[2018-05-05] MEDS: **hydrALAZINE** 50 MG TAB PO ×3 (08:52→20:03)
[2018-05-05] MEDS: CINACALCET 30 MG TAB (SENSIPAR) PO (09:00)
[2018-05-05] MEDS: LOSARTAN 25 MG TAB PO (09:00)
[2018-05-05] MEDS: GABAPENTIN 100 MG CAP PO ×3 (09:00→21:17)
[2018-05-05] MEDS: amLODIPine 5 MG TAB PO (09:00)
[2018-05-05] MEDS: SENOKOT S TAB PO ×2 (09:00→20:08)
[2018-05-05 09:35] LABS: BEDSIDE GLUCOSE 77 MG/DL (70-105)
[2018-05-05 10:02] LABS: BEDSIDE GLUCOSE 78 MG/DL (70-105)
[2018-05-05] MEDS: D5/0.9%NACL 1000ML IV (11:42)
[2018-05-05 12:09] LABS: BEDSIDE GLUCOSE 87 MG/DL (70-105)
[2018-05-05] MEDS: PATIROMER SORBITEX CALCIUM 8.4 GM POWDER PACKET (VELTASSA) PO (12:15)
[2018-05-05] MEDS: D10W/0.45% SODIUM CHLORIDE 1,000 ML IV (12:51)
[2018-05-05 14:30] LABS: BEDSIDE GLUCOSE 88 MG/DL (70-105)
[2018-05-05 16:29] LABS: BEDSIDE GLUCOSE 83 MG/DL (70-105)
[2018-05-05 16:39] LABS: VANCOMYCIN RANDOM 15.6 UG/ML
[2018-05-05 16:50] LABS: GLOMERULAR FILTRATION RATE 6.9 (>60)
[2018-05-05 16:51] LABS: ALBUMIN 2.1 GM/DL (3.2-5.2); ANION GAP 12 MEQ/L (8-16); BLOOD UREA NITROGEN 50 MG/DL (7-18); CALCIUM LEVEL 8.5 MG/DL (8.5-10.1); CARBON DIOXIDE LEVEL 25 MEQ/L (21-32); CHLORIDE LEVEL 98 MEQ/L (98-107); CREATININE FOR GFR 8.79 MG/DL (0.70-1.30); GLUCOSE, FASTING 88 MG/DL (70-100); PHOSPHORUS LEVEL 7.5 MG/DL (2.5-4.9); POTASSIUM SERUM 5.2 MEQ/L (3.5-5.1); SODIUM LEVEL 135 MEQ/L (136-145)
[2018-05-05 18:21] LABS: BEDSIDE GLUCOSE 94 MG/DL (70-105)
[2018-05-05] MEDS: SANTYL OINT 30GM TOP (18:22)
[2018-05-05 19:59] LABS: BEDSIDE GLUCOSE 90 MG/DL (70-105)
[2018-05-05] MEDS: QUEtiapine FUMARATE 25 MG TAB PO (21:17)
[2018-05-05 22:10] LABS: BEDSIDE GLUCOSE 87 MG/DL (70-105)
[2018-05-06] MEDS: MEROPENEM INJ 500 MG in APPROPRIATE DILUENT 1 EA IV ×2 (00:01→23:07)
[2018-05-06 00:12] LABS: BEDSIDE GLUCOSE 95 MG/DL (70-105)
[2018-05-06 02:12] LABS: BEDSIDE GLUCOSE 87 MG/DL (70-105)
[2018-05-06 05:07] LABS: HEMATOCRIT 36.8 % (42.0-52.0); HEMOGLOBIN 11.4 g/dl (13.5-17.5); PLATELET COUNT, AUTOMATED 229 10^3/uL (150-450); RED BLOOD COUNT 4.23 10^6/uL (4.30-6.10); RED CELL DISTRIBUTION WIDTH 17.3 % (11.5-14.5); WHITE BLOOD COUNT 14.5 10^3/uL (4.0-10.0)
[2018-05-06 05:47] LABS: ANION GAP 12 MEQ/L (8-16); BLOOD UREA NITROGEN 54 MG/DL (7-18); CALCIUM LEVEL 8.2 MG/DL (8.5-10.1); CARBON DIOXIDE LEVEL 26 MEQ/L (21-32); CHLORIDE LEVEL 97 MEQ/L (98-107); CREATININE FOR GFR 9.47 MG/DL (0.70-1.30); GLOMERULAR FILTRATION RATE 6.3 (>60); GLUCOSE, FASTING 81 MG/DL (70-100); MAGNESIUM LEVEL 1.9 MG/DL (1.8-2.4); PHOSPHORUS LEVEL 7.8 MG/DL (2.5-4.9); POTASSIUM SERUM 5.1 MEQ/L (3.5-5.1); SODIUM LEVEL 135 MEQ/L (136-145)
[2018-05-06] MEDS: LEVOTHYROXINE 150MCG TABLET (0.15MG) PO (06:09)
[2018-05-06] MEDS: HEPARIN SOD (PORCINE) 5000 UNITS/ML VIAL SC ×3 (06:09→21:10)
[2018-05-06] MEDS: D10W/0.45% SODIUM CHLORIDE 1,000 ML IV ×2 (06:09→21:56)
[2018-05-06 06:14] LABS: BEDSIDE GLUCOSE 82 MG/DL (70-105)
[2018-05-06] MEDS: LANTHANUM CARBONATE 500 MG CHEW TABLET PO ×3 (08:00→17:00)
[2018-05-06 08:27] LABS: BEDSIDE GLUCOSE 80 MG/DL (70-105)
[2018-05-06] MEDS: LOSARTAN 25 MG TAB PO (09:30)
[2018-05-06] MEDS: **hydrALAZINE** 50 MG TAB PO ×3 (09:30→21:09)
[2018-05-06] MEDS: METOPROLOL TART 50 MG TAB PO ×2 (09:30→21:11)
[2018-05-06] MEDS: amLODIPine 5 MG TAB PO (09:30)
[2018-05-06] MEDS: HEPARIN 1,000 UNITS/ML 10ML VIAL (FOR RADIOLOGY& DIALYSIS ONLY) IV (10:00)
[2018-05-06] MEDS: GABAPENTIN 100 MG CAP PO ×3 (10:00→21:11)
[2018-05-06] MEDS: HEPARIN 1,000 UNITS/ML 10ML VIAL (FOR RADIOLOGY& DIALYSIS ONLY) XX (10:00)
[2018-05-06 10:03] LABS: BEDSIDE GLUCOSE 92 MG/DL (70-105)
[2018-05-06] MEDS: SENOKOT S TAB PO ×2 (10:12→21:11)
[2018-05-06] MEDS: CINACALCET 30 MG TAB (SENSIPAR) PO (10:12)
[2018-05-06] MEDS: PANTOPRAZOLE 40MG TAB (PROTONIX) PO ×2 (10:12→21:11)
[2018-05-06] MEDS: SANTYL OINT 30GM TOP (10:12)
[2018-05-06 12:46] LABS: BEDSIDE GLUCOSE 95 MG/DL (70-105)
[2018-05-06 14:07] LABS: BEDSIDE GLUCOSE 96 MG/DL (70-105)
[2018-05-06 16:36] LABS: BEDSIDE GLUCOSE 102 MG/DL (70-105)
[2018-05-06] MEDS: VANCOMYCIN HCL 1,000 MG, VIAL MATE ADAPTER 1 EACH in D5W 250 ML IV (17:47)
[2018-05-06 17:53] LABS: BEDSIDE GLUCOSE 103 MG/DL (70-105)
[2018-05-06 19:56] LABS: BEDSIDE GLUCOSE 78 MG/DL (70-105)
[2018-05-06] MEDS: ACETAMINOPHEN TAB 650MG DOSE (2X325MG) PO (21:11)
[2018-05-06] MEDS: QUEtiapine FUMARATE 25 MG TAB PO (21:11)
[2018-05-06 22:00] LABS: BEDSIDE GLUCOSE 99 MG/DL (70-105)
[2018-05-07 00:21] LABS: BEDSIDE GLUCOSE 79 MG/DL (70-105)
[2018-05-07 02:11] LABS: BEDSIDE GLUCOSE 91 MG/DL (70-105)
[2018-05-07 04:11] LABS: BEDSIDE GLUCOSE 89 MG/DL (70-105)
[2018-05-07 04:51] LABS: HEMOGLOBIN 11.3 g/dl (13.5-17.5); MEAN CORPUSCULAR HEMOGLOBIN 26.8 pg (27.0-33.0); MEAN CORPUSCULAR HGB CONC 30.5 g/dl (32.0-36.5); MEAN CORPUSCULAR VOLUME 87.9 fl (80.0-96.0); PLATELET COUNT, AUTOMATED 200 10^3/uL (150-450); RED BLOOD COUNT 4.21 10^6/uL (4.30-6.10); RED CELL DISTRIBUTION WIDTH 17.2 % (11.5-14.5); WHITE BLOOD COUNT 9.9 10^3/uL (4.0-10.0)
[2018-05-07 05:21] LABS: ALBUMIN 1.8 GM/DL (3.2-5.2); ANION GAP 9 MEQ/L (8-16); BLOOD UREA NITROGEN 30 MG/DL (7-18); CARBON DIOXIDE LEVEL 27 MEQ/L (21-32); CHLORIDE LEVEL 98 MEQ/L (98-107); CREATININE FOR GFR 6.28 MG/DL (0.70-1.30); GLOMERULAR FILTRATION RATE 10.2 (>60); GLUCOSE, FASTING 84 MG/DL (70-100); MAGNESIUM LEVEL 1.9 MG/DL (1.8-2.4); PHOSPHORUS LEVEL 6.2 MG/DL (2.5-4.9); POTASSIUM SERUM 4.2 MEQ/L (3.5-5.1); SODIUM LEVEL 134 MEQ/L (136-145)
[2018-05-07] MEDS: LEVOTHYROXINE 150MCG TABLET (0.15MG) PO (06:16)
[2018-05-07] MEDS: HEPARIN SOD (PORCINE) 5000 UNITS/ML VIAL SC ×3 (06:16→22:06)
[2018-05-07 06:36] LABS: BEDSIDE GLUCOSE 93 MG/DL (70-105)
[2018-05-07] MEDS: SANTYL OINT 30GM TOP ×2 (09:00→09:16)
[2018-05-07] MEDS: LANTHANUM CARBONATE 500 MG CHEW TABLET PO ×3 (09:09→17:35)
[2018-05-07] MEDS: **hydrALAZINE** 50 MG TAB PO ×3 (09:11→20:05)
[2018-05-07] MEDS: LOSARTAN 25 MG TAB PO (09:11)
[2018-05-07] MEDS: METOPROLOL TART 50 MG TAB PO ×2 (09:12→20:04)
[2018-05-07] MEDS: SENOKOT S TAB PO ×2 (09:13→20:06)
[2018-05-07] MEDS: CINACALCET 30 MG TAB (SENSIPAR) PO ×2 (09:13→16:33)
[2018-05-07] MEDS: PANTOPRAZOLE 40MG TAB (PROTONIX) PO ×2 (09:14→20:06)
[2018-05-07] MEDS: amLODIPine 5 MG TAB PO (09:14)
[2018-05-07] MEDS: GABAPENTIN 100 MG CAP PO ×3 (09:16→20:06)
[2018-05-07] MEDS: traMADol 50 MG TAB PO ×2 (10:22→20:06)
[2018-05-07 10:32] LABS: BEDSIDE GLUCOSE 100 MG/DL (70-105)
[2018-05-07 12:07] LABS: BEDSIDE GLUCOSE 83 MG/DL (70-105)
[2018-05-07] MEDS ORDERED: VANCOMYCIN HCL 1,000 MG, VIAL MATE ADAPTER 1 EACH in D5W 250 ML IV (13:15)
[2018-05-07 15:01] LABS: BEDSIDE GLUCOSE 103 MG/DL (70-105)
[2018-05-07] MEDS: D10W/0.45% SODIUM CHLORIDE 1,000 ML IV (15:01)
[2018-05-07] MEDS: **VANCO AFTER HD** MISC XX (16:00)
[2018-05-07 16:16] LABS: BEDSIDE GLUCOSE 91 MG/DL (70-105)
[2018-05-07] MEDS: PERCOCET 5MG/325MG TAB PO (17:35)
[2018-05-07 18:24] LABS: BEDSIDE GLUCOSE 87 MG/DL (70-105)
[2018-05-07 19:56] LABS: BEDSIDE GLUCOSE 104 MG/DL (70-105)
[2018-05-07] MEDS: QUEtiapine FUMARATE 25 MG TAB PO (20:05)
[2018-05-07] MEDS: MEROPENEM INJ 500 MG in APPROPRIATE DILUENT 1 EA IV (22:06)
[2018-05-07 22:10] LABS: BEDSIDE GLUCOSE 87 MG/DL (70-105)
[2018-05-07 23:54] LABS: BEDSIDE GLUCOSE 86 MG/DL (70-105)
[2018-05-08] MEDS: PERCOCET 5MG/325MG TAB PO ×3 (00:11→18:14)
[2018-05-08 02:20] LABS: BEDSIDE GLUCOSE 100 MG/DL (70-105)
[2018-05-08 03:52] LABS: BEDSIDE GLUCOSE 97 MG/DL (70-105)
[2018-05-08 04:26] LABS: HEMATOCRIT 39.9 % (42.0-52.0); HEMOGLOBIN 11.9 g/dl (13.5-17.5); MEAN CORPUSCULAR HEMOGLOBIN 26.6 pg (27.0-33.0); MEAN CORPUSCULAR HGB CONC 29.8 g/dl (32.0-36.5); MEAN CORPUSCULAR VOLUME 89.1 fl (80.0-96.0); PLATELET COUNT, AUTOMATED 198 10^3/uL (150-450); RED BLOOD COUNT 4.48 10^6/uL (4.30-6.10); RED CELL DISTRIBUTION WIDTH 17.2 % (11.5-14.5); WHITE BLOOD COUNT 8.4 10^3/uL (4.0-10.0)
[2018-05-08 04:45] LABS: ALBUMIN 1.9 GM/DL (3.2-5.2); ANION GAP 11 MEQ/L (8-16); BLOOD UREA NITROGEN 41 MG/DL (7-18); CALCIUM LEVEL 7.8 MG/DL (8.5-10.1); CARBON DIOXIDE LEVEL 24 MEQ/L (21-32); CHLORIDE LEVEL 97 MEQ/L (98-107); CREATININE FOR GFR 7.55 MG/DL (0.70-1.30); GLOMERULAR FILTRATION RATE 8.2 (>60); GLUCOSE, FASTING 82 MG/DL (70-100); PHOSPHORUS LEVEL 7.4 MG/DL (2.5-4.9); POTASSIUM SERUM 4.3 MEQ/L (3.5-5.1); SODIUM LEVEL 132 MEQ/L (136-145)
[2018-05-08] MEDS: LEVOTHYROXINE 150MCG TABLET (0.15MG) PO (05:06)
[2018-05-08] MEDS: HEPARIN SOD (PORCINE) 5000 UNITS/ML VIAL SC ×3 (05:07→20:21)
[2018-05-08 07:49] LABS: BEDSIDE GLUCOSE 79 MG/DL (70-105)
[2018-05-08] MEDS: LANTHANUM CARBONATE 500 MG CHEW TABLET PO ×3 (08:00→18:00)
[2018-05-08] MEDS: D10W/0.45% SODIUM CHLORIDE 1,000 ML IV ×2 (08:01→22:51)
[2018-05-08] MEDS: **hydrALAZINE** 50 MG TAB PO ×3 (09:00→20:20)
[2018-05-08] MEDS: METOPROLOL TART 50 MG TAB PO ×2 (09:00→20:21)
[2018-05-08] MEDS: LOSARTAN 25 MG TAB PO (09:01)
[2018-05-08] MEDS: GABAPENTIN 100 MG CAP PO ×3 (09:02→20:21)
[2018-05-08] MEDS: SENOKOT S TAB PO ×2 (09:03→20:21)
[2018-05-08] MEDS: PANTOPRAZOLE 40MG TAB (PROTONIX) PO ×2 (09:03→20:21)
[2018-05-08] MEDS: amLODIPine 5 MG TAB PO (09:03)
[2018-05-08] MEDS: SANTYL OINT 30GM TOP (09:35)
[2018-05-08 10:49] LABS: BEDSIDE GLUCOSE 79 MG/DL (70-105)
[2018-05-08 12:10] LABS: BEDSIDE GLUCOSE 86 MG/DL (70-105)
[2018-05-08 13:48] LABS: BEDSIDE GLUCOSE 78 MG/DL (70-105)
[2018-05-08] MEDS: **VANCO AFTER HD** MISC XX (15:14)
[2018-05-08 16:15] LABS: BEDSIDE GLUCOSE 85 MG/DL (70-105)
[2018-05-08 18:04] LABS: BEDSIDE GLUCOSE 93 MG/DL (70-105)
[2018-05-08] MEDS: ONDANSETRON 4MG/2ML VIAL (J2405) IV (18:12)
[2018-05-08 20:14] LABS: BEDSIDE GLUCOSE 102 MG/DL (70-105)
[2018-05-08] MEDS: QUEtiapine FUMARATE 25 MG TAB PO (20:21)
[2018-05-08] MEDS: MEROPENEM INJ 500 MG in APPROPRIATE DILUENT 1 EA IV (22:51)
[2018-05-08 22:58] LABS: BEDSIDE GLUCOSE 107 MG/DL (70-105)
[2018-05-09 00:58] LABS: BEDSIDE GLUCOSE 85 MG/DL (70-105)
[2018-05-09 03:34] LABS: BEDSIDE GLUCOSE 94 MG/DL (70-105)
[2018-05-09 04:38] LABS: HEMATOCRIT 38.5 % (42.0-52.0); HEMOGLOBIN 11.8 g/dl (13.5-17.5); MEAN CORPUSCULAR HEMOGLOBIN 26.9 pg (27.0-33.0); MEAN CORPUSCULAR HGB CONC 30.6 g/dl (32.0-36.5); MEAN CORPUSCULAR VOLUME 87.9 fl (80.0-96.0); PLATELET COUNT, AUTOMATED 194 10^3/uL (150-450); RED BLOOD COUNT 4.38 10^6/uL (4.30-6.10); RED CELL DISTRIBUTION WIDTH 17.1 % (11.5-14.5); WHITE BLOOD COUNT 8.8 10^3/uL (4.0-10.0)
[2018-05-09 05:18] LABS: BEDSIDE GLUCOSE 87 MG/DL (70-105)
[2018-05-09 05:31] LABS: ALBUMIN 1.8 GM/DL (3.2-5.2); ANION GAP 12 MEQ/L (8-16); BLOOD UREA NITROGEN 50 MG/DL (7-18); CALCIUM LEVEL 7.8 MG/DL (8.5-10.1); CARBON DIOXIDE LEVEL 23 MEQ/L (21-32); CHLORIDE LEVEL 95 MEQ/L (98-107); CREATININE FOR GFR 8.27 MG/DL (0.70-1.30); GLOMERULAR FILTRATION RATE 7.4 (>60); GLUCOSE, FASTING 79 MG/DL (70-100); MAGNESIUM LEVEL 1.9 MG/DL (1.8-2.4); PHOSPHORUS LEVEL 7.9 MG/DL (2.5-4.9); POTASSIUM SERUM 4.8 MEQ/L (3.5-5.1); SODIUM LEVEL 130 MEQ/L (136-145); VANCOMYCIN RANDOM 21.6 UG/ML
[2018-05-09] MEDS: LEVOTHYROXINE 150MCG TABLET (0.15MG) PO (06:20)
[2018-05-09] MEDS: HEPARIN SOD (PORCINE) 5000 UNITS/ML VIAL SC ×3 (06:20→20:58)
[2018-05-09 08:31] LABS: BEDSIDE GLUCOSE 91 MG/DL (70-105)
[2018-05-09] MEDS: diphenhydrAMINE 50 MG CAP PO ×2 (08:49→20:59)
[2018-05-09] MEDS: AMPICILLIN SOD 1 GM in D5W MINI-BAG PLUS 50 ML IV ×2 (09:17→20:58)
[2018-05-09] MEDS: LANTHANUM CARBONATE 500 MG CHEW TABLET PO ×3 (09:19→19:54)
[2018-05-09] MEDS: SENOKOT S TAB PO ×2 (09:21→21:01)
[2018-05-09] MEDS: PANTOPRAZOLE 40MG TAB (PROTONIX) PO ×2 (09:22→20:59)
[2018-05-09] MEDS: METOPROLOL TART 50 MG TAB PO ×2 (09:22→20:59)
[2018-05-09] MEDS: **hydrALAZINE** 50 MG TAB PO ×3 (09:22→20:49)
[2018-05-09] MEDS: amLODIPine 5 MG TAB PO (09:22)
[2018-05-09] MEDS: LOSARTAN 25 MG TAB PO (09:23)
[2018-05-09] MEDS: CINACALCET 30 MG TAB (SENSIPAR) PO (09:23)
[2018-05-09] MEDS: SANTYL OINT 30GM TOP (09:23)
[2018-05-09] MEDS: GABAPENTIN 100 MG CAP PO ×3 (09:47→20:59)
[2018-05-09 10:12] LABS: BEDSIDE GLUCOSE 84 MG/DL (70-105)
[2018-05-09 11:57] LABS: BEDSIDE GLUCOSE 86 MG/DL (70-105)
[2018-05-09] MEDS: HEPARIN 1,000 UNITS/ML 10ML VIAL (FOR RADIOLOGY& DIALYSIS ONLY) XX (16:52)
[2018-05-09] MEDS: HEPARIN 1,000 UNITS/ML 10ML VIAL (FOR RADIOLOGY& DIALYSIS ONLY) IV (16:52)
[2018-05-09] MEDS: D10W/0.45% SODIUM CHLORIDE 1,000 ML IV (19:54)
[2018-05-09] MEDS: QUEtiapine FUMARATE 25 MG TAB PO (20:59)
[2018-05-09] MEDS: PERCOCET 5MG/325MG TAB PO (21:01)
[2018-05-09] MEDS: MEROPENEM INJ 500 MG in APPROPRIATE DILUENT 1 EA IV (22:03)
[2018-05-10] MEDS: traMADol 50 MG TAB PO ×2 (00:13→20:59)
[2018-05-10 05:47] LABS: HEMATOCRIT 36.4 % (42.0-52.0); HEMOGLOBIN 11.2 g/dl (13.5-17.5); MEAN CORPUSCULAR HEMOGLOBIN 26.9 pg (27.0-33.0); MEAN CORPUSCULAR HGB CONC 30.8 g/dl (32.0-36.5); MEAN CORPUSCULAR VOLUME 87.3 fl (80.0-96.0); PLATELET COUNT, AUTOMATED 173 10^3/uL (150-450); RED BLOOD COUNT 4.17 10^6/uL (4.30-6.10); RED CELL DISTRIBUTION WIDTH 16.8 % (11.5-14.5); WHITE BLOOD COUNT 9.3 10^3/uL (4.0-10.0)
[2018-05-10] MEDS: PERCOCET 5MG/325MG TAB PO ×2 (05:55→17:14)
[2018-05-10] MEDS: LEVOTHYROXINE 150MCG TABLET (0.15MG) PO (05:55)
[2018-05-10] MEDS: HEPARIN SOD (PORCINE) 5000 UNITS/ML VIAL SC ×3 (05:55→20:58)
[2018-05-10 06:16] LABS: ALBUMIN 1.7 GM/DL (3.2-5.2); ANION GAP 8 MEQ/L (8-16); BLOOD UREA NITROGEN 30 MG/DL (7-18); CALCIUM LEVEL 7.3 MG/DL (8.5-10.1); CARBON DIOXIDE LEVEL 27 MEQ/L (21-32); CHLORIDE LEVEL 97 MEQ/L (98-107); CREATININE FOR GFR 5.88 MG/DL (0.70-1.30); GLUCOSE, FASTING 82 MG/DL (70-100); MAGNESIUM LEVEL 1.8 MG/DL (1.8-2.4); PHOSPHORUS LEVEL 5.3 MG/DL (2.5-4.9); POTASSIUM SERUM 3.9 MEQ/L (3.5-5.1); SODIUM LEVEL 132 MEQ/L (136-145)
[2018-05-10 07:08] LABS: BEDSIDE GLUCOSE 101 MG/DL (70-105)
[2018-05-10 07:08] LABS: BEDSIDE GLUCOSE 87 MG/DL (70-105)
[2018-05-10 07:08] LABS: BEDSIDE GLUCOSE 80 MG/DL (70-105)
[2018-05-10 07:08] LABS: BEDSIDE GLUCOSE 79 MG/DL (70-105)
[2018-05-10 07:08] LABS: BEDSIDE GLUCOSE 87 MG/DL (70-105)
[2018-05-10] MEDS: D10W/0.45% SODIUM CHLORIDE 1,000 ML IV ×2 (07:55→15:43)
[2018-05-10] MEDS: LANTHANUM CARBONATE 500 MG CHEW TABLET PO ×3 (08:31→17:13)
[2018-05-10] MEDS: CINACALCET 30 MG TAB (SENSIPAR) PO (08:31)
[2018-05-10] MEDS: LOSARTAN 25 MG TAB PO (08:32)
[2018-05-10] MEDS: diphenhydrAMINE 50 MG CAP PO ×2 (08:32→20:58)
[2018-05-10] MEDS: SENOKOT S TAB PO ×2 (08:32→20:59)
[2018-05-10] MEDS: **hydrALAZINE** 50 MG TAB PO ×3 (08:32→21:00)
[2018-05-10] MEDS: amLODIPine 5 MG TAB PO (08:32)
[2018-05-10] MEDS: METOPROLOL TART 50 MG TAB PO ×2 (08:32→20:59)
[2018-05-10] MEDS: GABAPENTIN 100 MG CAP PO ×3 (08:33→20:59)
[2018-05-10] MEDS: PANTOPRAZOLE 40MG TAB (PROTONIX) PO ×2 (08:33→20:58)
[2018-05-10] MEDS: SANTYL OINT 30GM TOP (09:04)
[2018-05-10] MEDS: AMPICILLIN SOD 1 GM in D5W MINI-BAG PLUS 50 ML IV ×2 (09:56→21:00)
[2018-05-10] MEDS: QUEtiapine FUMARATE 25 MG TAB PO (21:00)
[2018-05-10] MEDS: MEROPENEM INJ 500 MG in APPROPRIATE DILUENT 1 EA IV (22:04)
[2018-05-11 01:26] LABS: BEDSIDE GLUCOSE 95 MG/DL (70-105)
[2018-05-11 01:26] LABS: BEDSIDE GLUCOSE 112 MG/DL (70-105)
[2018-05-11 01:27] LABS: BEDSIDE GLUCOSE 145 MG/DL (70-105)
[2018-05-11 01:27] LABS: BEDSIDE GLUCOSE 96 MG/DL (70-105)
[2018-05-11 01:27] LABS: BEDSIDE GLUCOSE 97 MG/DL (70-105)
[2018-05-11] MEDS: HEPARIN SOD (PORCINE) 5000 UNITS/ML VIAL SC ×3 (06:14→21:26)
[2018-05-11] MEDS: **hydrALAZINE** 50 MG TAB PO ×3 (06:15→21:28)
[2018-05-11] MEDS: amLODIPine 5 MG TAB PO (06:15)
[2018-05-11] MEDS: CINACALCET 30 MG TAB (SENSIPAR) PO (06:15)
[2018-05-11] MEDS: GABAPENTIN 100 MG CAP PO ×3 (06:16→21:27)
[2018-05-11] MEDS: PANTOPRAZOLE 40MG TAB (PROTONIX) PO ×2 (06:16→21:27)
[2018-05-11] MEDS: diphenhydrAMINE 50 MG CAP PO ×2 (06:16→21:27)
[2018-05-11] MEDS: LEVOTHYROXINE 150MCG TABLET (0.15MG) PO (06:16)
[2018-05-11] MEDS: LOSARTAN 25 MG TAB PO (06:16)
[2018-05-11] MEDS: METOPROLOL TART 50 MG TAB PO ×2 (06:17→21:27)
[2018-05-11] MEDS: AMPICILLIN SOD 1 GM in D5W MINI-BAG PLUS 50 ML IV ×2 (06:17→22:04)
[2018-05-11] MEDS: SENOKOT S TAB PO ×3 (06:19→21:27)
[2018-05-11 06:44] LABS: HEMATOCRIT 35.4 % (42.0-52.0); MEAN CORPUSCULAR HEMOGLOBIN 26.8 pg (27.0-33.0); MEAN CORPUSCULAR HGB CONC 31.1 g/dl (32.0-36.5); MEAN CORPUSCULAR VOLUME 86.1 fl (80.0-96.0); PLATELET COUNT, AUTOMATED 182 10^3/uL (150-450); RED BLOOD COUNT 4.11 10^6/uL (4.30-6.10); RED CELL DISTRIBUTION WIDTH 16.9 % (11.5-14.5); WHITE BLOOD COUNT 8.4 10^3/uL (4.0-10.0)
[2018-05-11 07:18] LABS: ALBUMIN 1.7 GM/DL (3.2-5.2); ANION GAP 10 MEQ/L (8-16); BLOOD UREA NITROGEN 36 MG/DL (7-18); CALCIUM LEVEL 6.9 MG/DL (8.5-10.1); CARBON DIOXIDE LEVEL 25 MEQ/L (21-32); CHLORIDE LEVEL 97 MEQ/L (98-107); CREATININE FOR GFR 7.01 MG/DL (0.70-1.30); GLUCOSE, FASTING 74 MG/DL (70-100); MAGNESIUM LEVEL 1.8 MG/DL (1.8-2.4); PHOSPHORUS LEVEL 6.3 MG/DL (2.5-4.9); POTASSIUM SERUM 4.3 MEQ/L (3.5-5.1); SODIUM LEVEL 132 MEQ/L (136-145)
[2018-05-11] MEDS: SANTYL OINT 30GM TOP (09:00)
[2018-05-11] MEDS: LANTHANUM CARBONATE 500 MG CHEW TABLET PO ×3 (09:02→17:39)
[2018-05-11 11:33] LABS: BEDSIDE GLUCOSE 76 MG/DL (70-105)
[2018-05-11 11:33] LABS: BEDSIDE GLUCOSE 82 MG/DL (70-105)
[2018-05-11] MEDS: D10W/0.45% SODIUM CHLORIDE 1,000 ML IV (12:11)
[2018-05-11] MEDS: HEPARIN 1,000 UNITS/ML 10ML VIAL (FOR RADIOLOGY& DIALYSIS ONLY) IV (12:30)
[2018-05-11] MEDS: HEPARIN 1,000 UNITS/ML 10ML VIAL (FOR RADIOLOGY& DIALYSIS ONLY) XX (12:30)
[2018-05-11 17:53] LABS: BEDSIDE GLUCOSE 97 MG/DL (70-105)
[2018-05-11] MEDS: QUEtiapine FUMARATE 25 MG TAB PO (21:27)
[2018-05-11] MEDS: MEROPENEM INJ 500 MG in APPROPRIATE DILUENT 1 EA IV (22:48)
[2018-05-12] MEDS: LEVOTHYROXINE 150MCG TABLET (0.15MG) PO (06:29)
[2018-05-12] MEDS: HEPARIN SOD (PORCINE) 5000 UNITS/ML VIAL SC ×3 (06:29→21:07)
[2018-05-12] MEDS: LANTHANUM CARBONATE 500 MG CHEW TABLET PO ×3 (08:00→18:00)
[2018-05-12] MEDS: SANTYL OINT 30GM TOP (09:00)
[2018-05-12] MEDS: PANTOPRAZOLE 40MG TAB (PROTONIX) PO ×2 (09:41→20:26)
[2018-05-12] MEDS: diphenhydrAMINE 50 MG CAP PO ×2 (09:41→20:26)
[2018-05-12] MEDS: SENOKOT S TAB PO ×2 (09:41→20:25)
[2018-05-12] MEDS: CINACALCET 30 MG TAB (SENSIPAR) PO (09:42)
[2018-05-12] MEDS: METOPROLOL TART 50 MG TAB PO ×2 (09:42→20:26)
[2018-05-12] MEDS: GABAPENTIN 100 MG CAP PO ×3 (09:43→20:26)
[2018-05-12] MEDS: LOSARTAN 25 MG TAB PO (09:43)
[2018-05-12] MEDS: amLODIPine 5 MG TAB PO (09:44)
[2018-05-12] MEDS: AMPICILLIN SOD 1 GM in D5W MINI-BAG PLUS 50 ML IV ×2 (09:44→21:07)
[2018-05-12] MEDS: **hydrALAZINE** 50 MG TAB PO ×3 (09:44→20:27)
[2018-05-12] MEDS: PERCOCET 5MG/325MG TAB PO (09:45)
[2018-05-12 09:46] LABS: HEMATOCRIT 35.1 % (42.0-52.0); HEMOGLOBIN 10.9 g/dl (13.5-17.5); MEAN CORPUSCULAR HEMOGLOBIN 26.9 pg (27.0-33.0); MEAN CORPUSCULAR HGB CONC 31.1 g/dl (32.0-36.5); MEAN CORPUSCULAR VOLUME 86.7 fl (80.0-96.0); PLATELET COUNT, AUTOMATED 197 10^3/uL (150-450); RED BLOOD COUNT 4.05 10^6/uL (4.30-6.10); RED CELL DISTRIBUTION WIDTH 17.1 % (11.5-14.5); WHITE BLOOD COUNT 6.7 10^3/uL (4.0-10.0)
[2018-05-12 10:09] LABS: ALBUMIN 1.9 GM/DL (3.2-5.2); ANION GAP 11 MEQ/L (8-16); BLOOD UREA NITROGEN 22 MG/DL (7-18); CALCIUM LEVEL 7.3 MG/DL (8.5-10.1); CARBON DIOXIDE LEVEL 26 MEQ/L (21-32); CHLORIDE LEVEL 100 MEQ/L (98-107); CREATININE FOR GFR 4.72 MG/DL (0.70-1.30); GLOMERULAR FILTRATION RATE 14.2 (>60); GLUCOSE, FASTING 66 MG/DL (70-100); PHOSPHORUS LEVEL 4.8 MG/DL (2.5-4.9); POTASSIUM SERUM 4.1 MEQ/L (3.5-5.1); SODIUM LEVEL 137 MEQ/L (136-145)
[2018-05-12] MEDS: ONDANSETRON 4MG/2ML VIAL (J2405) IV (18:54)
[2018-05-12] MEDS: QUEtiapine FUMARATE 25 MG TAB PO (20:26)
[2018-05-12] MEDS: MEROPENEM INJ 500 MG in APPROPRIATE DILUENT 1 EA IV (23:00)
[2018-05-13] MEDS: **hydrALAZINE** 50 MG TAB PO ×3 (06:19→20:22)
[2018-05-13] MEDS: diphenhydrAMINE 50 MG CAP PO ×2 (06:19→20:20)
[2018-05-13] MEDS: PANTOPRAZOLE 40MG TAB (PROTONIX) PO ×2 (06:20→20:23)
[2018-05-13] MEDS: GABAPENTIN 100 MG CAP PO ×3 (06:20→20:20)
[2018-05-13] MEDS: LOSARTAN 25 MG TAB PO (06:20)
[2018-05-13] MEDS: LEVOTHYROXINE 150MCG TABLET (0.15MG) PO (06:20)
[2018-05-13] MEDS: CINACALCET 30 MG TAB (SENSIPAR) PO (06:20)
[2018-05-13] MEDS: METOPROLOL TART 50 MG TAB PO ×2 (06:20→20:23)
[2018-05-13] MEDS: LANTHANUM CARBONATE 500 MG CHEW TABLET PO ×3 (06:21→18:16)
[2018-05-13] MEDS: HEPARIN SOD (PORCINE) 5000 UNITS/ML VIAL SC ×3 (06:21→22:31)
[2018-05-13] MEDS: amLODIPine 5 MG TAB PO (06:23)
[2018-05-13] MEDS: SENOKOT S TAB PO ×2 (06:28→20:20)
[2018-05-13] MEDS: SANTYL OINT 30GM TOP (06:28)
[2018-05-13 06:41] LABS: HEMATOCRIT 34.7 % (42.0-52.0); HEMOGLOBIN 10.7 g/dl (13.5-17.5); MEAN CORPUSCULAR HEMOGLOBIN 27.1 pg (27.0-33.0); MEAN CORPUSCULAR HGB CONC 30.8 g/dl (32.0-36.5); MEAN CORPUSCULAR VOLUME 87.8 fl (80.0-96.0); PLATELET COUNT, AUTOMATED 192 10^3/uL (150-450); RED BLOOD COUNT 3.95 10^6/uL (4.30-6.10); RED CELL DISTRIBUTION WIDTH 17.1 % (11.5-14.5)
[2018-05-13] MEDS: AMPICILLIN SOD 1 GM in D5W MINI-BAG PLUS 50 ML IV ×2 (06:42→20:19)
[2018-05-13 07:08] LABS: ALBUMIN 1.8 GM/DL (3.2-5.2); ANION GAP 12 MEQ/L (8-16); BLOOD UREA NITROGEN 29 MG/DL (7-18); CALCIUM LEVEL 7.2 MG/DL (8.5-10.1); CARBON DIOXIDE LEVEL 24 MEQ/L (21-32); CHLORIDE LEVEL 100 MEQ/L (98-107); CREATININE FOR GFR 5.88 MG/DL (0.70-1.30); GLUCOSE, FASTING 67 MG/DL (70-100); PHOSPHORUS LEVEL 5.8 MG/DL (2.5-4.9); POTASSIUM SERUM 4.1 MEQ/L (3.5-5.1); SODIUM LEVEL 136 MEQ/L (136-145)
[2018-05-13] MEDS: HEPARIN 1,000 UNITS/ML 10ML VIAL (FOR RADIOLOGY& DIALYSIS ONLY) IV (12:00)
[2018-05-13] MEDS: HEPARIN 1,000 UNITS/ML 10ML VIAL (FOR RADIOLOGY& DIALYSIS ONLY) XX (12:00)
[2018-05-13 12:32] LABS: BEDSIDE GLUCOSE 73 MG/DL (70-105)
[2018-05-13 12:32] LABS: BEDSIDE GLUCOSE 84 MG/DL (70-105)
[2018-05-13 12:32] LABS: BEDSIDE GLUCOSE 79 MG/DL (70-105)
[2018-05-13 12:32] LABS: BEDSIDE GLUCOSE 72 MG/DL (70-105)
[2018-05-13 12:32] LABS: BEDSIDE GLUCOSE 74 MG/DL (70-105)
[2018-05-13 12:33] LABS: BEDSIDE GLUCOSE 75 MG/DL (70-105)
[2018-05-13 12:33] LABS: BEDSIDE GLUCOSE 77 MG/DL (70-105)
[2018-05-13 12:33] LABS: BEDSIDE GLUCOSE 74 MG/DL (70-105)
[2018-05-13 12:33] LABS: BEDSIDE GLUCOSE 81 MG/DL (70-105)
[2018-05-13 12:33] LABS: BEDSIDE GLUCOSE 70 MG/DL (70-105)
[2018-05-13] MEDS: PERCOCET 5MG/325MG TAB PO (20:23)
[2018-05-13] MEDS: QUEtiapine FUMARATE 25 MG TAB PO (20:34)
[2018-05-13] MEDS: MEROPENEM INJ 500 MG in APPROPRIATE DILUENT 1 EA IV (22:31)
[2018-05-14] MEDS: LEVOTHYROXINE 150MCG TABLET (0.15MG) PO (06:03)
[2018-05-14] MEDS: HEPARIN SOD (PORCINE) 5000 UNITS/ML VIAL SC ×3 (06:03→21:08)
[2018-05-14 06:05] LABS: HEMATOCRIT 35.6 % (42.0-52.0); HEMOGLOBIN 10.8 g/dl (13.5-17.5); MEAN CORPUSCULAR HEMOGLOBIN 26.7 pg (27.0-33.0); MEAN CORPUSCULAR HGB CONC 30.3 g/dl (32.0-36.5); MEAN CORPUSCULAR VOLUME 88.1 fl (80.0-96.0); PLATELET COUNT, AUTOMATED 177 10^3/uL (150-450); RED BLOOD COUNT 4.04 10^6/uL (4.30-6.10); RED CELL DISTRIBUTION WIDTH 16.8 % (11.5-14.5); WHITE BLOOD COUNT 6.5 10^3/uL (4.0-10.0)
[2018-05-14] MEDS: PERCOCET 5MG/325MG TAB PO ×2 (06:15→21:07)
[2018-05-14 06:31] LABS: ALBUMIN 1.9 GM/DL (3.2-5.2); ANION GAP 11 MEQ/L (8-16); BLOOD UREA NITROGEN 25 MG/DL (7-18); CALCIUM LEVEL 7.3 MG/DL (8.5-10.1); CARBON DIOXIDE LEVEL 24 MEQ/L (21-32); CHLORIDE LEVEL 102 MEQ/L (98-107); GLUCOSE, FASTING 68 MG/DL (70-100); MAGNESIUM LEVEL 1.9 MG/DL (1.8-2.4); PHOSPHORUS LEVEL 4.9 MG/DL (2.5-4.9); POTASSIUM SERUM 4.3 MEQ/L (3.5-5.1); SODIUM LEVEL 137 MEQ/L (136-145)
[2018-05-14] MEDS: LANTHANUM CARBONATE 500 MG CHEW TABLET PO ×3 (08:54→18:04)
[2018-05-14] MEDS: CINACALCET 30 MG TAB (SENSIPAR) PO (08:54)
[2018-05-14] MEDS: **hydrALAZINE** 50 MG TAB PO ×3 (08:55→21:10)
[2018-05-14] MEDS: METOPROLOL TART 50 MG TAB PO ×2 (08:55→21:10)
[2018-05-14] MEDS: SENOKOT S TAB PO ×3 (08:55→21:00)
[2018-05-14] MEDS: amLODIPine 5 MG TAB PO (08:56)
[2018-05-14] MEDS: LOSARTAN 25 MG TAB PO (08:56)
[2018-05-14] MEDS: PANTOPRAZOLE 40MG TAB (PROTONIX) PO ×2 (08:56→21:08)
[2018-05-14] MEDS: diphenhydrAMINE 50 MG CAP PO ×2 (08:56→21:08)
[2018-05-14] MEDS: GABAPENTIN 100 MG CAP PO ×3 (08:56→21:07)
[2018-05-14] MEDS: AMPICILLIN SOD 1 GM in D5W MINI-BAG PLUS 50 ML IV ×2 (08:57→21:06)
[2018-05-14] MEDS: SANTYL OINT 30GM TOP (08:58)
[2018-05-14 11:53] LABS: BEDSIDE GLUCOSE 83 MG/DL (70-105)
[2018-05-14 11:53] LABS: BEDSIDE GLUCOSE 85 MG/DL (70-105)
[2018-05-14 11:53] LABS: BEDSIDE GLUCOSE 81 MG/DL (70-105)
[2018-05-14 11:53] LABS: BEDSIDE GLUCOSE 72 MG/DL (70-105)
[2018-05-14 11:53] LABS: BEDSIDE GLUCOSE 128 MG/DL (70-105)
[2018-05-14 14:18] LABS: BEDSIDE GLUCOSE 90 MG/DL (70-105)
[2018-05-14 17:54] LABS: BEDSIDE GLUCOSE 81 MG/DL (70-105)
[2018-05-14] MEDS: ACETAMINOPHEN TAB 650MG DOSE (2X325MG) PO (18:15)
[2018-05-14] MEDS: ONDANSETRON 4MG/2ML VIAL (J2405) IV (18:22)
[2018-05-14] MEDS: QUEtiapine FUMARATE 25 MG TAB PO (21:08)
[2018-05-14] MEDS: MEROPENEM INJ 500 MG in APPROPRIATE DILUENT 1 EA IV (22:27)
[2018-05-15] MEDS: HEPARIN SOD (PORCINE) 5000 UNITS/ML VIAL SC ×3 (05:50→23:28)
[2018-05-15] MEDS: LEVOTHYROXINE 150MCG TABLET (0.15MG) PO (05:50)
[2018-05-15 06:45] LABS: HEMATOCRIT 34.7 % (42.0-52.0); HEMOGLOBIN 10.5 g/dl (13.5-17.5); MEAN CORPUSCULAR HGB CONC 30.3 g/dl (32.0-36.5); MEAN CORPUSCULAR VOLUME 89.2 fl (80.0-96.0); PLATELET COUNT, AUTOMATED 206 10^3/uL (150-450); RED BLOOD COUNT 3.89 10^6/uL (4.30-6.10); RED CELL DISTRIBUTION WIDTH 17.2 % (11.5-14.5)
[2018-05-15 07:07] LABS: ALBUMIN 1.8 GM/DL (3.2-5.2); ANION GAP 12 MEQ/L (8-16); BLOOD UREA NITROGEN 36 MG/DL (7-18); CALCIUM LEVEL 6.9 MG/DL (8.5-10.1); CARBON DIOXIDE LEVEL 23 MEQ/L (21-32); CHLORIDE LEVEL 103 MEQ/L (98-107); CREATININE FOR GFR 6.52 MG/DL (0.70-1.30); GLOMERULAR FILTRATION RATE 9.8 (>60); GLUCOSE, FASTING 71 MG/DL (70-100); MAGNESIUM LEVEL 1.9 MG/DL (1.8-2.4); PHOSPHORUS LEVEL 6.3 MG/DL (2.5-4.9); POTASSIUM SERUM 4.6 MEQ/L (3.5-5.1); SODIUM LEVEL 138 MEQ/L (136-145)
[2018-05-15] MEDS: diphenhydrAMINE 50 MG CAP PO ×2 (07:53→20:24)
[2018-05-15] MEDS: CINACALCET 30 MG TAB (SENSIPAR) PO (07:53)
[2018-05-15] MEDS: **hydrALAZINE** 50 MG TAB PO ×3 (07:55→20:27)
[2018-05-15] MEDS: SENOKOT S TAB PO ×2 (07:56→20:28)
[2018-05-15] MEDS: LANTHANUM CARBONATE 500 MG CHEW TABLET PO ×3 (07:56→17:40)
[2018-05-15] MEDS: GABAPENTIN 100 MG CAP PO ×3 (07:56→20:24)
[2018-05-15] MEDS: LOSARTAN 25 MG TAB PO (07:57)
[2018-05-15] MEDS: amLODIPine 5 MG TAB PO (07:57)
[2018-05-15] MEDS: PANTOPRAZOLE 40MG TAB (PROTONIX) PO ×2 (07:58→20:24)
[2018-05-15] MEDS: METOPROLOL TART 50 MG TAB PO ×2 (07:58→20:28)
[2018-05-15] MEDS: SANTYL OINT 30GM TOP (07:58)
[2018-05-15] MEDS: AMPICILLIN SOD 1 GM in D5W MINI-BAG PLUS 50 ML IV ×2 (09:33→20:25)
[2018-05-15] MEDS ORDERED: MIRALAX *UNIT DOSE* 17GM PACKET PO (13:15)
[2018-05-15] MEDS: QUEtiapine FUMARATE 25 MG TAB PO (20:24)
[2018-05-15] MEDS: ONDANSETRON 4MG/2ML VIAL (J2405) IV (20:45)
[2018-05-15] MEDS: MEROPENEM INJ 500 MG in APPROPRIATE DILUENT 1 EA IV (23:28)
[2018-05-16 03:08] LABS: BEDSIDE GLUCOSE 72 MG/DL (70-105)
[2018-05-16 03:08] LABS: BEDSIDE GLUCOSE 84 MG/DL (70-105)
[2018-05-16 03:08] LABS: BEDSIDE GLUCOSE 63 MG/DL (70-105)
[2018-05-16 03:08] LABS: BEDSIDE GLUCOSE 85 MG/DL (70-105)
[2018-05-16 03:08] LABS: BEDSIDE GLUCOSE 80 MG/DL (70-105)
[2018-05-16 03:08] LABS: BEDSIDE GLUCOSE 92 MG/DL (70-105)
[2018-05-16 03:08] LABS: BEDSIDE GLUCOSE 86 MG/DL (70-105)
[2018-05-16 03:08] LABS: BEDSIDE GLUCOSE 86 MG/DL (70-105)
[2018-05-16] MEDS: AMPICILLIN SOD 1 GM in D5W MINI-BAG PLUS 50 ML IV ×2 (06:21→21:05)
[2018-05-16] MEDS: HEPARIN SOD (PORCINE) 5000 UNITS/ML VIAL SC ×3 (06:21→21:04)
[2018-05-16] MEDS: SENOKOT S TAB PO ×3 (06:22→21:05)
[2018-05-16] MEDS: LANTHANUM CARBONATE 500 MG CHEW TABLET PO ×3 (06:22→17:24)
[2018-05-16] MEDS: CINACALCET 30 MG TAB (SENSIPAR) PO (06:22)
[2018-05-16] MEDS: METOPROLOL TART 50 MG TAB PO ×2 (06:23→21:05)
[2018-05-16] MEDS: LOSARTAN 25 MG TAB PO (06:24)
[2018-05-16] MEDS: diphenhydrAMINE 50 MG CAP PO ×2 (06:24→21:04)
[2018-05-16 06:25] LABS: BEDSIDE GLUCOSE 74 MG/DL (70-105)
[2018-05-16] MEDS: **hydrALAZINE** 50 MG TAB PO ×3 (06:25→21:05)
[2018-05-16] MEDS: PANTOPRAZOLE 40MG TAB (PROTONIX) PO ×2 (06:25→21:05)
[2018-05-16] MEDS: LEVOTHYROXINE 150MCG TABLET (0.15MG) PO (06:25)
[2018-05-16] MEDS: GABAPENTIN 100 MG CAP PO ×3 (06:26→21:05)
[2018-05-16 06:40] LABS: HEMATOCRIT 33.9 % (42.0-52.0); HEMOGLOBIN 10.5 g/dl (13.5-17.5); MEAN CORPUSCULAR HEMOGLOBIN 26.9 pg (27.0-33.0); MEAN CORPUSCULAR VOLUME 86.9 fl (80.0-96.0); PLATELET COUNT, AUTOMATED 191 10^3/uL (150-450); RED CELL DISTRIBUTION WIDTH 17.1 % (11.5-14.5); WHITE BLOOD COUNT 7.6 10^3/uL (4.0-10.0)
[2018-05-16] MEDS: SANTYL OINT 30GM TOP (06:53)
[2018-05-16] MEDS: amLODIPine 10 MG TAB PO (07:03)
[2018-05-16 07:04] LABS: ALBUMIN 1.8 GM/DL (3.2-5.2); ANION GAP 13 MEQ/L (8-16); BLOOD UREA NITROGEN 46 MG/DL (7-18); CALCIUM LEVEL 6.9 MG/DL (8.5-10.1); CARBON DIOXIDE LEVEL 22 MEQ/L (21-32); CHLORIDE LEVEL 102 MEQ/L (98-107); CREATININE FOR GFR 7.44 MG/DL (0.70-1.30); GLOMERULAR FILTRATION RATE 8.4 (>60); GLUCOSE, FASTING 67 MG/DL (70-100); PHOSPHORUS LEVEL 7.1 MG/DL (2.5-4.9); POTASSIUM SERUM 5.4 MEQ/L (3.5-5.1); SODIUM LEVEL 137 MEQ/L (136-145)
[2018-05-16] MEDS: HEPARIN 1,000 UNITS/ML 10ML VIAL (FOR RADIOLOGY& DIALYSIS ONLY) XX (10:15)
[2018-05-16] MEDS: HEPARIN 1,000 UNITS/ML 10ML VIAL (FOR RADIOLOGY& DIALYSIS ONLY) IV (10:15)
[2018-05-16 10:25] LABS: BEDSIDE GLUCOSE 73 MG/DL (70-105)
[2018-05-16 18:02] LABS: BEDSIDE GLUCOSE 79 MG/DL (70-105)
[2018-05-16] MEDS: PERCOCET 5MG/325MG TAB PO (21:04)
[2018-05-16] MEDS: QUEtiapine FUMARATE 25 MG TAB PO (21:04)
[2018-05-16 21:45] LABS: BEDSIDE GLUCOSE 121 MG/DL (70-105)
[2018-05-17 05:37] LABS: BEDSIDE GLUCOSE 73 MG/DL (70-105)
[2018-05-17] MEDS: LEVOTHYROXINE 150MCG TABLET (0.15MG) PO (05:51)
[2018-05-17] MEDS: HEPARIN SOD (PORCINE) 5000 UNITS/ML VIAL SC ×3 (05:51→20:56)
[2018-05-17 06:38] LABS: HEMATOCRIT 33.8 % (42.0-52.0); HEMOGLOBIN 10.3 g/dl (13.5-17.5); MEAN CORPUSCULAR HEMOGLOBIN 26.7 pg (27.0-33.0); MEAN CORPUSCULAR HGB CONC 30.5 g/dl (32.0-36.5); MEAN CORPUSCULAR VOLUME 87.6 fl (80.0-96.0); PLATELET COUNT, AUTOMATED 193 10^3/uL (150-450); RED BLOOD COUNT 3.86 10^6/uL (4.30-6.10); RED CELL DISTRIBUTION WIDTH 17.2 % (11.5-14.5); WHITE BLOOD COUNT 7.6 10^3/uL (4.0-10.0)
[2018-05-17 06:59] LABS: ALBUMIN 1.8 GM/DL (3.2-5.2); ANION GAP 10 MEQ/L (8-16); BLOOD UREA NITROGEN 30 MG/DL (7-18); CALCIUM LEVEL 7.1 MG/DL (8.5-10.1); CARBON DIOXIDE LEVEL 26 MEQ/L (21-32); CHLORIDE LEVEL 100 MEQ/L (98-107); CREATININE FOR GFR 5.33 MG/DL (0.70-1.30); GLOMERULAR FILTRATION RATE 12.3 (>60); GLUCOSE, FASTING 69 MG/DL (70-100); MAGNESIUM LEVEL 1.9 MG/DL (1.8-2.4); PHOSPHORUS LEVEL 5.8 MG/DL (2.5-4.9); POTASSIUM SERUM 4.7 MEQ/L (3.5-5.1); SODIUM LEVEL 136 MEQ/L (136-145)
[2018-05-17] MEDS: PANTOPRAZOLE 40MG TAB (PROTONIX) PO ×2 (09:39→20:55)
[2018-05-17] MEDS: LANTHANUM CARBONATE 500 MG CHEW TABLET PO ×3 (09:39→17:26)
[2018-05-17] MEDS: CINACALCET 30 MG TAB (SENSIPAR) PO (09:39)
[2018-05-17] MEDS: GABAPENTIN 100 MG CAP PO ×3 (09:39→20:55)
[2018-05-17] MEDS: diphenhydrAMINE 50 MG CAP PO (09:39)
[2018-05-17] MEDS: **hydrALAZINE** 50 MG TAB PO ×3 (09:41→20:55)
[2018-05-17] MEDS: amLODIPine 10 MG TAB PO (09:42)
[2018-05-17] MEDS: LOSARTAN 25 MG TAB PO (09:42)
[2018-05-17] MEDS: SENOKOT S TAB PO ×2 (09:42→20:55)
[2018-05-17] MEDS: METOPROLOL TART 50 MG TAB PO ×2 (09:42→20:55)
[2018-05-17] MEDS: AMPICILLIN SOD 1 GM in D5W MINI-BAG PLUS 50 ML IV (09:42)
[2018-05-17] MEDS: SANTYL OINT 30GM TOP (09:43)
[2018-05-17 09:59] LABS: BEDSIDE GLUCOSE 74 MG/DL (70-105)
[2018-05-17 12:06] LABS: BEDSIDE GLUCOSE 63 MG/DL (70-105)
[2018-05-17 12:06] LABS: BEDSIDE GLUCOSE 82 MG/DL (70-105)
[2018-05-17] MEDS: CEFDINIR 300 MG CAP (OMNICEF) PO (13:42)
[2018-05-17 15:42] LABS: BEDSIDE GLUCOSE 81 MG/DL (70-105)
[2018-05-17] MEDS: MOM 30ML SUSPENSION UDC PO (17:26)
[2018-05-17 18:45] LABS: BEDSIDE GLUCOSE 82 MG/DL (70-105)
[2018-05-17] MEDS: QUEtiapine FUMARATE 25 MG TAB PO (20:55)
[2018-05-18 00:52] LABS: BEDSIDE GLUCOSE 97 MG/DL (70-105)
[2018-05-18 04:30] LABS: BEDSIDE GLUCOSE 71 MG/DL (70-105)
[2018-05-18 06:29] LABS: HEMATOCRIT 34.3 % (42.0-52.0); HEMOGLOBIN 10.7 g/dl (13.5-17.5); MEAN CORPUSCULAR HEMOGLOBIN 26.9 pg (27.0-33.0); MEAN CORPUSCULAR HGB CONC 31.2 g/dl (32.0-36.5); MEAN CORPUSCULAR VOLUME 86.2 fl (80.0-96.0); PLATELET COUNT, AUTOMATED 202 10^3/uL (150-450); RED BLOOD COUNT 3.98 10^6/uL (4.30-6.10); RED CELL DISTRIBUTION WIDTH 17.1 % (11.5-14.5); WHITE BLOOD COUNT 8.9 10^3/uL (4.0-10.0)
[2018-05-18] MEDS: PANTOPRAZOLE 40MG TAB (PROTONIX) PO ×2 (06:29→21:26)
[2018-05-18] MEDS: LEVOTHYROXINE 150MCG TABLET (0.15MG) PO (06:29)
[2018-05-18] MEDS: HEPARIN SOD (PORCINE) 5000 UNITS/ML VIAL SC ×3 (06:29→21:28)
[2018-05-18] MEDS: CEFDINIR 300 MG CAP (OMNICEF) PO (06:30)
[2018-05-18] MEDS: LOSARTAN 25 MG TAB PO (06:30)
[2018-05-18] MEDS: **hydrALAZINE** 50 MG TAB PO ×3 (06:31→21:28)
[2018-05-18] MEDS: GABAPENTIN 100 MG CAP PO ×3 (06:31→21:27)
[2018-05-18] MEDS: METOPROLOL TART 50 MG TAB PO ×2 (06:31→21:27)
[2018-05-18] MEDS: amLODIPine 10 MG TAB PO (06:32)
[2018-05-18] MEDS: CINACALCET 30 MG TAB (SENSIPAR) PO (06:36)
[2018-05-18] MEDS: SENOKOT S TAB PO ×2 (06:39→21:27)
[2018-05-18 06:45] LABS: ALBUMIN 1.9 GM/DL (3.2-5.2); ANION GAP 12 MEQ/L (8-16); BLOOD UREA NITROGEN 42 MG/DL (7-18); CARBON DIOXIDE LEVEL 24 MEQ/L (21-32); CHLORIDE LEVEL 101 MEQ/L (98-107); CREATININE FOR GFR 6.59 MG/DL (0.70-1.30); GLOMERULAR FILTRATION RATE 9.6 (>60); GLUCOSE, FASTING 71 MG/DL (70-100); MAGNESIUM LEVEL 2.1 MG/DL (1.8-2.4); PHOSPHORUS LEVEL 5.8 MG/DL (2.5-4.9); POTASSIUM SERUM 5.5 MEQ/L (3.5-5.1); SODIUM LEVEL 137 MEQ/L (136-145)
[2018-05-18] MEDS: LANTHANUM CARBONATE 500 MG CHEW TABLET PO ×3 (07:40→18:00)
[2018-05-18] MEDS: SANTYL OINT 30GM TOP (07:41)
[2018-05-18] MEDS: HEPARIN 1,000 UNITS/ML 10ML VIAL (FOR RADIOLOGY& DIALYSIS ONLY) IV (12:00)
[2018-05-18] MEDS: HEPARIN 1,000 UNITS/ML 10ML VIAL (FOR RADIOLOGY& DIALYSIS ONLY) XX (12:00)
[2018-05-18 13:58] LABS: BEDSIDE GLUCOSE 71 MG/DL (70-105)
[2018-05-18 16:48] LABS: BEDSIDE GLUCOSE 128 MG/DL (70-105)
[2018-05-18] MEDS: QUEtiapine FUMARATE 25 MG TAB PO (21:27)
[2018-05-19] MEDS: LEVOTHYROXINE 150MCG TABLET (0.15MG) PO (06:04)
[2018-05-19] MEDS: HEPARIN SOD (PORCINE) 5000 UNITS/ML VIAL SC ×3 (06:04→21:55)
[2018-05-19 06:32] LABS: HEMATOCRIT 34.5 % (42.0-52.0); HEMOGLOBIN 10.5 g/dl (13.5-17.5); MEAN CORPUSCULAR HGB CONC 30.4 g/dl (32.0-36.5); MEAN CORPUSCULAR VOLUME 88.7 fl (80.0-96.0); PLATELET COUNT, AUTOMATED 181 10^3/uL (150-450); RED BLOOD COUNT 3.89 10^6/uL (4.30-6.10); RED CELL DISTRIBUTION WIDTH 17.2 % (11.5-14.5); WHITE BLOOD COUNT 7.3 10^3/uL (4.0-10.0)
[2018-05-19 06:53] LABS: ALBUMIN 1.7 GM/DL (3.2-5.2); ANION GAP 7 MEQ/L (8-16); BLOOD UREA NITROGEN 28 MG/DL (7-18); CARBON DIOXIDE LEVEL 28 MEQ/L (21-32); CHLORIDE LEVEL 102 MEQ/L (98-107); CREATININE FOR GFR 5.03 MG/DL (0.70-1.30); GLOMERULAR FILTRATION RATE 13.2 (>60); GLUCOSE, FASTING 63 MG/DL (70-100); PHOSPHORUS LEVEL 4.6 MG/DL (2.5-4.9); POTASSIUM SERUM 4.9 MEQ/L (3.5-5.1); SODIUM LEVEL 137 MEQ/L (136-145)
[2018-05-19] MEDS: LANTHANUM CARBONATE 500 MG CHEW TABLET PO ×3 (08:00→17:12)
[2018-05-19] MEDS: SENOKOT S TAB PO ×2 (09:00→21:57)
[2018-05-19] MEDS: CEFDINIR 300 MG CAP (OMNICEF) PO (10:54)
[2018-05-19] MEDS: SANTYL OINT 30GM TOP (10:54)
[2018-05-19] MEDS: PERCOCET 5MG/325MG TAB PO (10:55)
[2018-05-19] MEDS: LOSARTAN 25 MG TAB PO (10:56)
[2018-05-19] MEDS: **hydrALAZINE** 50 MG TAB PO ×3 (10:57→21:56)
[2018-05-19] MEDS: GABAPENTIN 100 MG CAP PO ×3 (10:57→21:55)
[2018-05-19] MEDS: PANTOPRAZOLE 40MG TAB (PROTONIX) PO ×2 (10:57→21:56)
[2018-05-19] MEDS: METOPROLOL TART 50 MG TAB PO ×2 (10:58→21:55)
[2018-05-19] MEDS: amLODIPine 10 MG TAB PO (10:58)
[2018-05-19] MEDS: CINACALCET 30 MG TAB (SENSIPAR) PO (10:59)
[2018-05-19 16:46] LABS: BEDSIDE GLUCOSE 80 MG/DL (70-105)
[2018-05-19] MEDS: ONDANSETRON 4MG/2ML VIAL (J2405) IV (17:13)
[2018-05-19] MEDS: traMADol 50 MG TAB PO (17:21)
[2018-05-19] MEDS: QUEtiapine FUMARATE 25 MG TAB PO (21:56)
[2018-05-20] MEDS: HEPARIN SOD (PORCINE) 5000 UNITS/ML VIAL SC ×3 (06:38→21:32)
[2018-05-20] MEDS: LEVOTHYROXINE 150MCG TABLET (0.15MG) PO (06:38)
[2018-05-20] MEDS: METOPROLOL TART 50 MG TAB PO ×2 (06:39→21:31)
[2018-05-20] MEDS: LOSARTAN 25 MG TAB PO (06:39)
[2018-05-20] MEDS: CINACALCET 30 MG TAB (SENSIPAR) PO (06:39)
[2018-05-20] MEDS: **hydrALAZINE** 50 MG TAB PO ×3 (06:40→21:31)
[2018-05-20] MEDS: SENOKOT S TAB PO ×3 (06:40→21:00)
[2018-05-20] MEDS: amLODIPine 10 MG TAB PO (06:40)
[2018-05-20] MEDS: PANTOPRAZOLE 40MG TAB (PROTONIX) PO ×2 (06:40→21:30)
[2018-05-20] MEDS: LANTHANUM CARBONATE 500 MG CHEW TABLET PO ×3 (06:40→17:30)
[2018-05-20] MEDS: GABAPENTIN 100 MG CAP PO ×3 (06:41→21:31)
[2018-05-20] MEDS: SANTYL OINT 30GM TOP (06:41)
[2018-05-20] MEDS: CEFDINIR 300 MG CAP (OMNICEF) PO (06:41)
[2018-05-20] MEDS: HEPARIN 1,000 UNITS/ML 10ML VIAL (FOR RADIOLOGY& DIALYSIS ONLY) XX (10:00)
[2018-05-20] MEDS: HEPARIN 1,000 UNITS/ML 10ML VIAL (FOR RADIOLOGY& DIALYSIS ONLY) IV (10:00)
[2018-05-20] MEDS: PERCOCET 5MG/325MG TAB PO (17:37)
[2018-05-20] MEDS: ONDANSETRON 4MG/2ML VIAL (J2405) IV (21:29)
[2018-05-20] MEDS: QUEtiapine FUMARATE 25 MG TAB PO (21:31)
[2018-05-21] MEDS: traMADol 50 MG TAB PO ×2 (00:38→17:53)
[2018-05-21] MEDS: PERCOCET 5MG/325MG TAB PO ×3 (02:34→21:55)
[2018-05-21] MEDS: LEVOTHYROXINE 150MCG TABLET (0.15MG) PO (05:52)
[2018-05-21] MEDS: HEPARIN SOD (PORCINE) 5000 UNITS/ML VIAL SC ×3 (05:52→21:54)
[2018-05-21] MEDS: LANTHANUM CARBONATE 500 MG CHEW TABLET PO ×3 (09:53→17:06)
[2018-05-21] MEDS: CEFDINIR 300 MG CAP (OMNICEF) PO (09:54)
[2018-05-21] MEDS: CINACALCET 30 MG TAB (SENSIPAR) PO (09:54)
[2018-05-21] MEDS: GABAPENTIN 100 MG CAP PO ×3 (09:56→21:52)
[2018-05-21] MEDS: PANTOPRAZOLE 40MG TAB (PROTONIX) PO ×2 (09:56→21:52)
[2018-05-21] MEDS: LOSARTAN 25 MG TAB PO (09:56)
[2018-05-21] MEDS: METOPROLOL TART 50 MG TAB PO ×2 (09:56→21:53)
[2018-05-21] MEDS: amLODIPine 10 MG TAB PO (09:57)
[2018-05-21] MEDS: SENOKOT S TAB PO ×2 (09:57→21:00)
[2018-05-21] MEDS: **hydrALAZINE** 50 MG TAB PO ×3 (09:57→21:53)
[2018-05-21] MEDS: SANTYL OINT 30GM TOP (09:58)
[2018-05-21 11:43] LABS: BEDSIDE GLUCOSE 104 MG/DL (70-105)
[2018-05-21 11:43] LABS: BEDSIDE GLUCOSE 104 MG/DL (70-105)
[2018-05-21 11:43] LABS: BEDSIDE GLUCOSE 106 MG/DL (70-105)
[2018-05-21 11:43] LABS: BEDSIDE GLUCOSE 75 MG/DL (70-105)
[2018-05-21 11:43] LABS: BEDSIDE GLUCOSE 94 MG/DL (70-105)
[2018-05-21 11:43] LABS: BEDSIDE GLUCOSE 73 MG/DL (70-105)
[2018-05-21 11:43] LABS: BEDSIDE GLUCOSE 91 MG/DL (70-105)
[2018-05-21 11:44] LABS: BEDSIDE GLUCOSE 82 MG/DL (70-105)
[2018-05-21 11:44] LABS: BEDSIDE GLUCOSE 96 MG/DL (70-105)
[2018-05-21 11:44] LABS: BEDSIDE GLUCOSE 106 MG/DL (70-105)
[2018-05-21 11:44] LABS: BEDSIDE GLUCOSE 112 MG/DL (70-105)
[2018-05-21 11:44] LABS: BEDSIDE GLUCOSE 100 MG/DL (70-105)
[2018-05-21 11:44] LABS: BEDSIDE GLUCOSE 99 MG/DL (70-105)
[2018-05-21 12:18] LABS: BEDSIDE GLUCOSE 76 MG/DL (70-105)
[2018-05-21 16:03] LABS: BEDSIDE GLUCOSE 84 MG/DL (70-105)
[2018-05-21 16:32] LABS: BEDSIDE GLUCOSE 98 MG/DL (70-105)
[2018-05-21] MEDS: QUEtiapine FUMARATE 25 MG TAB PO (21:53)
[2018-05-21 23:31] LABS: BEDSIDE GLUCOSE 98 MG/DL (70-105)
[2018-05-22] MEDS: HEPARIN SOD (PORCINE) 5000 UNITS/ML VIAL SC ×3 (06:05→22:00)
[2018-05-22] MEDS: LEVOTHYROXINE 150MCG TABLET (0.15MG) PO (06:05)
[2018-05-22 06:07] LABS: BEDSIDE GLUCOSE 86 MG/DL (70-105)
[2018-05-22 08:11] LABS: BEDSIDE GLUCOSE 161 MG/DL (70-105)
[2018-05-22] MEDS: GABAPENTIN 100 MG CAP PO ×3 (10:10→21:00)
[2018-05-22] MEDS: PANTOPRAZOLE 40MG TAB (PROTONIX) PO ×2 (10:10→21:00)
[2018-05-22] MEDS: CEFDINIR 300 MG CAP (OMNICEF) PO (10:10)
[2018-05-22] MEDS: CINACALCET 30 MG TAB (SENSIPAR) PO (10:10)
[2018-05-22] MEDS: LANTHANUM CARBONATE 500 MG CHEW TABLET PO ×3 (10:10→17:14)
[2018-05-22] MEDS: METOPROLOL TART 50 MG TAB PO ×2 (10:12→21:00)
[2018-05-22] MEDS: amLODIPine 10 MG TAB PO (10:12)
[2018-05-22] MEDS: LOSARTAN 25 MG TAB PO (10:13)
[2018-05-22] MEDS: **hydrALAZINE** 50 MG TAB PO ×3 (10:13→21:00)
[2018-05-22] MEDS: SANTYL OINT 30GM TOP (10:14)
[2018-05-22] MEDS: SENOKOT S TAB PO ×2 (10:14→21:00)
[2018-05-22 11:35] LABS: BEDSIDE GLUCOSE 87 MG/DL (70-105)
[2018-05-22] MEDS: PERCOCET 5MG/325MG TAB PO (14:13)
[2018-05-22 16:39] LABS: BEDSIDE GLUCOSE 99 MG/DL (70-105)
[2018-05-22] MEDS: ONDANSETRON 4MG/2ML VIAL (J2405) IV ×2 (18:13→22:38)
[2018-05-22 20:07] LABS: BEDSIDE GLUCOSE 99 MG/DL (70-105)
[2018-05-22] MEDS: QUEtiapine FUMARATE 25 MG TAB PO (21:00)
[2018-05-22] MEDS: ALBUTEROL 90 MCG/ACT 8GM HFA INHALER INH (22:00)
[2018-05-22 22:36] LABS: HEMATOCRIT 34.9 % (42.0-52.0); HEMOGLOBIN 10.5 g/dl (13.5-17.5); MEAN CORPUSCULAR HEMOGLOBIN 26.8 pg (27.0-33.0); MEAN CORPUSCULAR HGB CONC 30.1 g/dl (32.0-36.5); PLATELET COUNT, AUTOMATED 182 10^3/uL (150-450); RED BLOOD COUNT 3.92 10^6/uL (4.30-6.10); RED CELL DISTRIBUTION WIDTH 17.5 % (11.5-14.5); WHITE BLOOD COUNT 11.8 10^3/uL (4.0-10.0)
[2018-05-22 22:39] LABS: ABG BASE EXCESS 1.9 (-2.0-2.0); ABG HCO3 28.7 MEQ/L (22.0-26.0); ABG O2 SATURATION 93.5 % (95.0-99.0); ABG PARTIAL PRESSURE CO2 55.6 mmHg (35.0-45.0); ABG PARTIAL PRESSURE O2 76.6 mmHg (75.0-100.0); ABG STANDARD HCO3 26.1 MEQ/L (22.0-26.0); ABG TOTAL CO2 30.4 MEQ/L (22.0-29.0); ABG pH (ARTERIAL) 7.331 UNITS (7.350-7.450)
[2018-05-23 00:09] LABS: NT-PRO BNP 18849 PG/ML (<125)
[2018-05-23] MEDS ORDERED: VANCOMYCIN HCL 1,000 MG, VIAL MATE ADAPTER 1 EACH in D5W 250 ML IV (00:45)
[2018-05-23] MEDS: VANCOMYCIN HCL 1,000 MG, VIAL MATE ADAPTER 1 EACH in D5W 250 ML IV ×2 (00:51→13:20)
[2018-05-23 00:59] LABS: ALBUMIN 2.1 GM/DL (3.2-5.2); ALBUMIN/GLOBULIN RATIO 0.34 (1.00-1.93); ALKALINE PHOSPHATASE 245 U/L (45-117); ALT/SGPT 20 U/L (12-78); ANION GAP 9 MEQ/L (8-16); AST/SGOT 33 U/L (7-37); BILIRUBIN,TOTAL 0.4 MG/DL (0.2-1.0); BLOOD UREA NITROGEN 59 MG/DL (7-18); CALCIUM LEVEL 7.3 MG/DL (8.5-10.1); CARBON DIOXIDE LEVEL 26 MEQ/L (21-32); CHLORIDE LEVEL 100 MEQ/L (98-107); CREATININE FOR GFR 6.89 MG/DL (0.70-1.30); GLOMERULAR FILTRATION RATE 9.2 (>60); GLUCOSE, FASTING 88 MG/DL (70-100); SODIUM LEVEL 135 MEQ/L (136-145); TOTAL PROTEIN 8.2 GM/DL (6.4-8.2)
[2018-05-23] MEDS ORDERED: SOD POLYSTYRENE SULFONATE SUSP 15 GM/60 ML UD PO (01:15)
[2018-05-23] MEDS: ALBUTEROL SULFATE 2.5 MG/0.5 ML INH NEB SOLN NEB (01:16)
[2018-05-23] MEDS: CALCIUM GLUCONATE 1,000 MG in D5W MINI-BAG PLUS 100 ML IV (01:26)
[2018-05-23] MEDS: PATIROMER SORBITEX CALCIUM 8.4 GM POWDER PACKET (VELTASSA) PO (01:29)
[2018-05-23] MEDS: DEXTROSE 50% 50 ML SYRINGE IV (01:49)
[2018-05-23] MEDS: HumuLIN R (REGULAR) INSULIN (NovoLIN R) **100U/ML** PER UNIT IV (01:49)
[2018-05-23] MEDS: AMPICILLIN SOD/SULBACTAM SOD 1.5 GM in D5W MINI-BAG PLUS 50 ML IV (02:00)
[2018-05-23 02:07] LABS: BEDSIDE GLUCOSE 140 MG/DL (70-105)
[2018-05-23 02:22] LABS: ABG BASE EXCESS -0.3 (-2.0-2.0); ABG HCO3 25.7 MEQ/L (22.0-26.0); ABG O2 SATURATION 93.7 % (95.0-99.0); ABG PARTIAL PRESSURE CO2 47.9 mmHg (35.0-45.0); ABG PARTIAL PRESSURE O2 78.5 mmHg (75.0-100.0); ABG STANDARD HCO3 24.2 MEQ/L (22.0-26.0); ABG TOTAL CO2 27.1 MEQ/L (22.0-29.0); ABG pH (ARTERIAL) 7.347 UNITS (7.350-7.450)
[2018-05-23] MEDS: LEVOTHYROXINE 150MCG TABLET (0.15MG) PO (05:19)
[2018-05-23] MEDS: HEPARIN SOD (PORCINE) 5000 UNITS/ML VIAL SC ×3 (05:22→21:16)
[2018-05-23 06:38] LABS: HEMATOCRIT 31.9 % (42.0-52.0); HEMOGLOBIN 9.7 g/dl (13.5-17.5); MEAN CORPUSCULAR HEMOGLOBIN 26.6 pg (27.0-33.0); MEAN CORPUSCULAR HGB CONC 30.4 g/dl (32.0-36.5); MEAN CORPUSCULAR VOLUME 87.4 fl (80.0-96.0); PLATELET COUNT, AUTOMATED 171 10^3/uL (150-450); RED BLOOD COUNT 3.65 10^6/uL (4.30-6.10); RED CELL DISTRIBUTION WIDTH 17.2 % (11.5-14.5); WHITE BLOOD COUNT 10.6 10^3/uL (4.0-10.0)
[2018-05-23 07:03] LABS: BLOOD UREA NITROGEN 67 MG/DL (7-18); CARBON DIOXIDE LEVEL 26 MEQ/L (21-32); CHLORIDE LEVEL 100 MEQ/L (98-107); GLUCOSE, FASTING 84 MG/DL (70-100); POTASSIUM SERUM 7.3 MEQ/L (3.5-5.1); SODIUM LEVEL 134 MEQ/L (136-145)
[2018-05-23 07:04] LABS: ANION GAP 8 MEQ/L (8-16); VANCOMYCIN RANDOM 4.8 UG/ML
[2018-05-23] MEDS: LANTHANUM CARBONATE 500 MG CHEW TABLET PO ×3 (08:00→17:53)
[2018-05-23] MEDS: amLODIPine 10 MG TAB PO (09:00)
[2018-05-23] MEDS: SENOKOT S TAB PO ×2 (09:00→20:20)
[2018-05-23] MEDS: **hydrALAZINE** 50 MG TAB PO ×3 (09:00→20:16)
[2018-05-23] MEDS: LOSARTAN 25 MG TAB PO (09:00)
[2018-05-23] MEDS: SANTYL OINT 30GM TOP (09:00)
[2018-05-23] MEDS: METOPROLOL TART 50 MG TAB PO ×2 (09:00→21:17)
[2018-05-23 11:48] LABS: BEDSIDE GLUCOSE 82 MG/DL (70-105)
[2018-05-23] MEDS: PANTOPRAZOLE 40MG TAB (PROTONIX) PO ×2 (13:19→21:17)
[2018-05-23] MEDS: CINACALCET 30 MG TAB (SENSIPAR) PO (13:19)
[2018-05-23] MEDS: GABAPENTIN 100 MG CAP PO ×3 (13:19→21:18)
[2018-05-23] MEDS: CEFDINIR 300 MG CAP (OMNICEF) PO (13:19)
[2018-05-23] MEDS: PERCOCET 5MG/325MG TAB PO (13:30)
[2018-05-23 14:25] LABS: ABG DEVICE NASAL CANN; ABG HCO3 26.3 MEQ/L (22.0-26.0); ABG O2 SATURATION 97.6 % (95.0-99.0); ABG PARTIAL PRESSURE CO2 44.6 mmHg (35.0-45.0); ABG PARTIAL PRESSURE O2 100.4 mmHg (75.0-100.0); ABG STANDARD HCO3 25.4 MEQ/L (22.0-26.0); ABG TOTAL CO2 27.6 MEQ/L (22.0-29.0); ABG pH (ARTERIAL) 7.388 UNITS (7.350-7.450)
[2018-05-23] MEDS: VANCOMYCIN HCL 500 MG in D5W MINI-BAG PLUS 100 ML IV (14:45)
[2018-05-23] MEDS: HEPARIN 1,000 UNITS/ML 10ML VIAL (FOR RADIOLOGY& DIALYSIS ONLY) IV (15:20)
[2018-05-23] MEDS ORDERED: **VANCO AFTER HD** MISC XX (16:00)
[2018-05-23 16:46] LABS: BEDSIDE GLUCOSE 109 MG/DL (70-105)
[2018-05-23] MEDS: ONDANSETRON 4MG/2ML VIAL (J2405) IV (17:52)
[2018-05-23 19:38] LABS: BEDSIDE GLUCOSE 98 MG/DL (70-105)
[2018-05-23] MEDS: QUEtiapine FUMARATE 25 MG TAB PO (21:18)
[2018-05-24 04:57] LABS: HEMATOCRIT 30.9 % (42.0-52.0); HEMOGLOBIN 9.2 g/dl (13.5-17.5); MEAN CORPUSCULAR HEMOGLOBIN 26.9 pg (27.0-33.0); MEAN CORPUSCULAR HGB CONC 29.8 g/dl (32.0-36.5); MEAN CORPUSCULAR VOLUME 90.4 fl (80.0-96.0); PLATELET COUNT, AUTOMATED 150 10^3/uL (150-450); RED BLOOD COUNT 3.42 10^6/uL (4.30-6.10); RED CELL DISTRIBUTION WIDTH 17.3 % (11.5-14.5); WHITE BLOOD COUNT 6.2 10^3/uL (4.0-10.0)
[2018-05-24 05:19] LABS: ANION GAP 10 MEQ/L (8-16); BLOOD UREA NITROGEN 39 MG/DL (7-18); CALCIUM LEVEL 7.9 MG/DL (8.5-10.1); CARBON DIOXIDE LEVEL 25 MEQ/L (21-32); CHLORIDE LEVEL 100 MEQ/L (98-107); CREATININE FOR GFR 4.81 MG/DL (0.70-1.30); GLOMERULAR FILTRATION RATE 13.9 (>60); GLUCOSE, FASTING 97 MG/DL (70-100); POTASSIUM SERUM 4.8 MEQ/L (3.5-5.1); SODIUM LEVEL 135 MEQ/L (136-145)
[2018-05-24] MEDS: LEVOTHYROXINE 150MCG TABLET (0.15MG) PO (06:22)
[2018-05-24] MEDS: HEPARIN SOD (PORCINE) 5000 UNITS/ML VIAL SC ×3 (06:22→22:07)
[2018-05-24] MEDS: LANTHANUM CARBONATE 500 MG CHEW TABLET PO ×3 (08:24→17:06)
[2018-05-24] MEDS: PERCOCET 5MG/325MG TAB PO ×2 (08:24→22:06)
[2018-05-24] MEDS: SENOKOT S TAB PO (08:57)
[2018-05-24] MEDS: **hydrALAZINE** 50 MG TAB PO ×3 (09:00→21:42)
[2018-05-24] MEDS ORDERED: CEFDINIR 300 MG CAP (OMNICEF) PO (09:00)
[2018-05-24] MEDS ORDERED: LOSARTAN 25 MG TAB PO (09:00)
[2018-05-24] MEDS: GABAPENTIN 100 MG CAP PO ×3 (09:53→22:06)
[2018-05-24] MEDS: PANTOPRAZOLE 40MG TAB (PROTONIX) PO ×2 (09:53→22:06)
[2018-05-24] MEDS: CINACALCET 30 MG TAB (SENSIPAR) PO (09:53)
[2018-05-24] MEDS: amLODIPine 10 MG TAB PO (09:53)
[2018-05-24] MEDS: METOPROLOL TART 50 MG TAB PO ×2 (09:53→22:07)
[2018-05-24] MEDS: SANTYL OINT 30GM TOP (09:54)
[2018-05-24] MEDS: traMADol 50 MG TAB PO (11:24)
[2018-05-24 12:14] LABS: ALBUMIN 1.7 GM/DL (3.2-5.2); ALKALINE PHOSPHATASE 154 U/L (45-117); ALT/SGPT 18 U/L (12-78); AST/SGOT 27 U/L (7-37); BILIRUBIN,TOTAL 0.3 MG/DL (0.2-1.0); NT-PRO BNP 23009 PG/ML (<125); TOTAL PROTEIN 7.4 GM/DL (6.4-8.2)
[2018-05-24 12:39] LABS: BEDSIDE GLUCOSE 100 MG/DL (70-105)
[2018-05-24] MEDS ORDERED: VANCOMYCIN HCL 1,000 MG, VIAL MATE ADAPTER 1 EACH in D5W 250 ML IV (16:00)
[2018-05-24] MEDS: **VANCO AFTER HD** MISC XX (16:00)
[2018-05-24 21:14] LABS: BEDSIDE GLUCOSE 97 MG/DL (70-105)
[2018-05-24] MEDS: QUEtiapine FUMARATE 25 MG TAB PO (22:06)
[2018-05-25] MEDS: traMADol 50 MG TAB PO (02:57)
[2018-05-25 03:08] LABS: BEDSIDE GLUCOSE 97 MG/DL (70-105)
[2018-05-25] MEDS: HEPARIN SOD (PORCINE) 5000 UNITS/ML VIAL SC ×3 (06:00→20:05)
[2018-05-25] MEDS: amLODIPine 10 MG TAB PO (06:00)
[2018-05-25] MEDS: CINACALCET 30 MG TAB (SENSIPAR) PO (06:00)
[2018-05-25] MEDS: GABAPENTIN 100 MG CAP PO ×3 (06:00→20:01)
[2018-05-25] MEDS: METOPROLOL TART 50 MG TAB PO ×2 (06:00→20:02)
[2018-05-25] MEDS: PANTOPRAZOLE 40MG TAB (PROTONIX) PO ×2 (06:00→20:01)
[2018-05-25] MEDS: LEVOTHYROXINE 150MCG TABLET (0.15MG) PO (06:00)
[2018-05-25 06:45] LABS: HEMATOCRIT 30.7 % (42.0-52.0); HEMOGLOBIN 9.1 g/dl (13.5-17.5); MEAN CORPUSCULAR HEMOGLOBIN 26.7 pg (27.0-33.0); MEAN CORPUSCULAR HGB CONC 29.6 g/dl (32.0-36.5); PLATELET COUNT, AUTOMATED 190 10^3/uL (150-450); RED BLOOD COUNT 3.41 10^6/uL (4.30-6.10); RED CELL DISTRIBUTION WIDTH 17.2 % (11.5-14.5); WHITE BLOOD COUNT 5.9 10^3/uL (4.0-10.0)
[2018-05-25 07:09] LABS: BLOOD UREA NITROGEN 54 MG/DL (7-18); CREATININE FOR GFR 6.21 MG/DL (0.70-1.30); GLUCOSE, FASTING 67 MG/DL (70-100)
[2018-05-25 07:10] LABS: ANION GAP 7 MEQ/L (8-16); CALCIUM LEVEL 7.7 MG/DL (8.5-10.1); CARBON DIOXIDE LEVEL 27 MEQ/L (21-32); CHLORIDE LEVEL 102 MEQ/L (98-107); GLOMERULAR FILTRATION RATE 10.3 (>60); POTASSIUM SERUM 5.5 MEQ/L (3.5-5.1); SODIUM LEVEL 136 MEQ/L (136-145); VANCOMYCIN RANDOM 18.7 UG/ML
[2018-05-25] MEDS: LANTHANUM CARBONATE 500 MG CHEW TABLET PO ×3 (07:50→18:21)
[2018-05-25] MEDS: **hydrALAZINE** 50 MG TAB PO ×3 (08:49→20:04)
[2018-05-25] MEDS: HEPARIN 1,000 UNITS/ML 10ML VIAL (FOR RADIOLOGY& DIALYSIS ONLY) IV (11:30)
[2018-05-25] MEDS: HEPARIN 1,000 UNITS/ML 10ML VIAL (FOR RADIOLOGY& DIALYSIS ONLY) XX (11:30)
[2018-05-25] MEDS: PERCOCET 5MG/325MG TAB PO (14:25)
[2018-05-25 17:23] LABS: BEDSIDE GLUCOSE 89 MG/DL (70-105)
[2018-05-25] MEDS: QUEtiapine FUMARATE 25 MG TAB PO (20:01)
[2018-05-25] MEDS: SIMETHICONE 80 MG CHEW TAB PO (22:09)
[2018-05-26] MEDS: HEPARIN SOD (PORCINE) 5000 UNITS/ML VIAL SC ×3 (05:56→22:00)
[2018-05-26] MEDS: LEVOTHYROXINE 150MCG TABLET (0.15MG) PO (05:56)
[2018-05-26 07:01] LABS: HEMATOCRIT 31.7 % (42.0-52.0); HEMOGLOBIN 9.6 g/dl (13.5-17.5); MEAN CORPUSCULAR HEMOGLOBIN 26.9 pg (27.0-33.0); MEAN CORPUSCULAR HGB CONC 30.3 g/dl (32.0-36.5); MEAN CORPUSCULAR VOLUME 88.8 fl (80.0-96.0); PLATELET COUNT, AUTOMATED 198 10^3/uL (150-450); RED BLOOD COUNT 3.57 10^6/uL (4.30-6.10); RED CELL DISTRIBUTION WIDTH 16.9 % (11.5-14.5)
[2018-05-26 07:20] LABS: ANION GAP 10 MEQ/L (8-16); BLOOD UREA NITROGEN 38 MG/DL (7-18); CALCIUM LEVEL 7.8 MG/DL (8.5-10.1); CARBON DIOXIDE LEVEL 26 MEQ/L (21-32); CHLORIDE LEVEL 101 MEQ/L (98-107); CREATININE FOR GFR 4.83 MG/DL (0.70-1.30); GLOMERULAR FILTRATION RATE 13.8 (>60); GLUCOSE, FASTING 75 MG/DL (70-100); SODIUM LEVEL 137 MEQ/L (136-145)
[2018-05-26] MEDS: amLODIPine 10 MG TAB PO (09:00)
[2018-05-26] MEDS: CINACALCET 30 MG TAB (SENSIPAR) PO (09:59)
[2018-05-26] MEDS: LANTHANUM CARBONATE 500 MG CHEW TABLET PO ×3 (09:59→18:00)
[2018-05-26] MEDS: PANTOPRAZOLE 40MG TAB (PROTONIX) PO ×2 (09:59→22:06)
[2018-05-26] MEDS: GABAPENTIN 100 MG CAP PO ×3 (09:59→22:06)
[2018-05-26] MEDS: **hydrALAZINE** 50 MG TAB PO ×3 (10:01→21:00)
[2018-05-26] MEDS: METOPROLOL TART 50 MG TAB PO ×2 (10:02→22:07)
[2018-05-26] MEDS: traMADol 50 MG TAB PO (10:03)
[2018-05-26 12:17] LABS: BEDSIDE GLUCOSE 93 MG/DL (70-105)
[2018-05-26] MEDS: PERCOCET 5MG/325MG TAB PO ×4 (14:20→23:32)
[2018-05-26 21:58] LABS: BEDSIDE GLUCOSE 82 MG/DL (70-105)
[2018-05-26 21:59] LABS: BEDSIDE GLUCOSE 89 MG/DL (70-105)
[2018-05-26 21:59] LABS: BEDSIDE GLUCOSE 92 MG/DL (70-105)
[2018-05-26 21:59] LABS: BEDSIDE GLUCOSE 87 MG/DL (70-105)
[2018-05-26] MEDS: QUEtiapine FUMARATE 25 MG TAB PO (22:07)
[2018-05-27] MEDS: MORPHINE 4 MG/ML 1ML VIAL/SYRINGE (J2270) IV (00:49)
[2018-05-27] MEDS: LEVOTHYROXINE 150MCG TABLET (0.15MG) PO (05:50)
[2018-05-27] MEDS: HEPARIN SOD (PORCINE) 5000 UNITS/ML VIAL SC ×3 (05:50→22:00)
[2018-05-27] MEDS: LANTHANUM CARBONATE 500 MG CHEW TABLET PO ×3 (08:00→18:32)
[2018-05-27] MEDS: **hydrALAZINE** 50 MG TAB PO ×3 (09:00→21:00)
[2018-05-27] MEDS: GABAPENTIN 100 MG CAP PO ×3 (09:00→22:12)
[2018-05-27] MEDS ORDERED: DARBEPOETIN 100 MCG/0.5 ML *DIALYSIS* SYRINGE (J0882) IV (12:00)
[2018-05-27] MEDS: METOPROLOL TART 50 MG TAB PO ×2 (13:25→22:12)
[2018-05-27] MEDS: amLODIPine 10 MG TAB PO (13:26)
[2018-05-27] MEDS: PERCOCET 5MG/325MG TAB PO (13:26)
[2018-05-27] MEDS: CINACALCET 30 MG TAB (SENSIPAR) PO (13:27)
[2018-05-27] MEDS: PANTOPRAZOLE 40MG TAB (PROTONIX) PO ×2 (13:34→22:12)
[2018-05-27 15:41] LABS: BEDSIDE GLUCOSE 72 MG/DL (70-105)
[2018-05-27 15:41] LABS: BEDSIDE GLUCOSE 73 MG/DL (70-105)
[2018-05-27 16:18] LABS: BEDSIDE GLUCOSE 98 MG/DL (70-105)
[2018-05-27] MEDS: MORPHINE 30 MG TAB **MSIR PO ×2 (17:11→23:39)
[2018-05-27] MEDS: HEPARIN 1,000 UNITS/ML 10ML VIAL (FOR RADIOLOGY& DIALYSIS ONLY) XX (17:13)
[2018-05-27] MEDS: HEPARIN 1,000 UNITS/ML 10ML VIAL (FOR RADIOLOGY& DIALYSIS ONLY) IV (17:13)
[2018-05-27] MEDS ORDERED: PILL CRUSHER/CUTTER 1 EACH XX (18:15)
[2018-05-27 21:40] LABS: BEDSIDE GLUCOSE 123 MG/DL (70-105)
[2018-05-27] MEDS: AMITRIPTYLINE 25 MG TAB PO (22:11)
[2018-05-27] MEDS: QUEtiapine FUMARATE 25 MG TAB PO (22:12)
[2018-05-28] MEDS: HEPARIN SOD (PORCINE) 5000 UNITS/ML VIAL SC ×3 (05:50→21:29)
[2018-05-28] MEDS: LEVOTHYROXINE 150MCG TABLET (0.15MG) PO (05:51)
[2018-05-28] MEDS: MORPHINE 30 MG TAB **MSIR PO (05:51)
[2018-05-28 06:14] LABS: BEDSIDE GLUCOSE 77 MG/DL (70-105)
[2018-05-28] MEDS: METOPROLOL TART 50 MG TAB PO ×2 (09:00→21:00)
[2018-05-28] MEDS: amLODIPine 10 MG TAB PO (09:00)
[2018-05-28] MEDS: LANTHANUM CARBONATE 500 MG CHEW TABLET PO ×4 (09:04→17:13)
[2018-05-28] MEDS: CINACALCET 30 MG TAB (SENSIPAR) PO (09:04)
[2018-05-28] MEDS: GABAPENTIN 100 MG CAP PO ×3 (09:04→21:28)
[2018-05-28] MEDS: PANTOPRAZOLE 40MG TAB (PROTONIX) PO ×2 (09:04→21:28)
[2018-05-28 11:52] LABS: BEDSIDE GLUCOSE 76 MG/DL (70-105)
[2018-05-28 16:59] LABS: BEDSIDE GLUCOSE 79 MG/DL (70-105)
[2018-05-28 20:36] LABS: BEDSIDE GLUCOSE 71 MG/DL (70-105)
[2018-05-28] MEDS: AMITRIPTYLINE 25 MG TAB PO (21:28)
[2018-05-28] MEDS: QUEtiapine FUMARATE 25 MG TAB PO (21:28)
[2018-05-28 22:00] LABS: BEDSIDE GLUCOSE 82 MG/DL (70-105)
[2018-05-29] MEDS: HEPARIN SOD (PORCINE) 5000 UNITS/ML VIAL SC ×3 (05:44→21:48)
[2018-05-29] MEDS: LEVOTHYROXINE 150MCG TABLET (0.15MG) PO (05:44)
[2018-05-29 05:59] LABS: BEDSIDE GLUCOSE 68 MG/DL (70-105)
[2018-05-29] MEDS: LANTHANUM CARBONATE 500 MG CHEW TABLET PO ×3 (08:35→17:21)
[2018-05-29] MEDS: CINACALCET 30 MG TAB (SENSIPAR) PO (08:35)
[2018-05-29] MEDS: PANTOPRAZOLE 40MG TAB (PROTONIX) PO ×2 (08:36→21:48)
[2018-05-29] MEDS: METOPROLOL TART 50 MG TAB PO ×2 (08:36→21:48)
[2018-05-29] MEDS: amLODIPine 10 MG TAB PO (08:36)
[2018-05-29] MEDS: GABAPENTIN 100 MG CAP PO ×3 (08:36→21:48)
[2018-05-29] MEDS: MORPHINE 30 MG TAB **MSIR PO (10:39)
[2018-05-29 12:12] LABS: BEDSIDE GLUCOSE 84 MG/DL (70-105)
[2018-05-29 17:11] LABS: BEDSIDE GLUCOSE 80 MG/DL (70-105)
[2018-05-29 20:19] LABS: BEDSIDE GLUCOSE 71 MG/DL (70-105)
[2018-05-29] MEDS ORDERED: HEPARIN SOD (PORCINE) 5000 UNITS/ML VIAL As Ordered (21:42)
[2018-05-29] MEDS: QUEtiapine FUMARATE 25 MG TAB PO (21:48)
[2018-05-29] MEDS: AMITRIPTYLINE 25 MG TAB PO (21:48)
[2018-05-30] MEDS: HEPARIN SOD (PORCINE) 5000 UNITS/ML VIAL SC ×3 (06:04→22:35)
[2018-05-30] MEDS: PANTOPRAZOLE 40MG TAB (PROTONIX) PO ×2 (06:05→21:00)
[2018-05-30] MEDS: LEVOTHYROXINE 150MCG TABLET (0.15MG) PO (06:05)
[2018-05-30] MEDS: GABAPENTIN 100 MG CAP PO ×3 (06:05→21:00)
[2018-05-30] MEDS: CINACALCET 30 MG TAB (SENSIPAR) PO (06:05)
[2018-05-30] MEDS: METOPROLOL TART 50 MG TAB PO ×2 (06:06→21:29)
[2018-05-30] MEDS: amLODIPine 10 MG TAB PO (06:06)
[2018-05-30 07:03] LABS: HEMATOCRIT 30.8 % (42.0-52.0); HEMOGLOBIN 9.3 g/dl (13.5-17.5); MEAN CORPUSCULAR HEMOGLOBIN 27.4 pg (27.0-33.0); MEAN CORPUSCULAR HGB CONC 30.2 g/dl (32.0-36.5); MEAN CORPUSCULAR VOLUME 90.6 fl (80.0-96.0); PLATELET COUNT, AUTOMATED 293 10^3/uL (150-450); RED CELL DISTRIBUTION WIDTH 16.8 % (11.5-14.5); WHITE BLOOD COUNT 9.4 10^3/uL (4.0-10.0)
[2018-05-30 07:35] LABS: ANION GAP 10 MEQ/L (8-16); BLOOD UREA NITROGEN 65 MG/DL (7-18); CALCIUM LEVEL 7.7 MG/DL (8.5-10.1); CARBON DIOXIDE LEVEL 24 MEQ/L (21-32); CHLORIDE LEVEL 97 MEQ/L (98-107); CREATININE FOR GFR 7.85 MG/DL (0.70-1.30); GLOMERULAR FILTRATION RATE 7.9 (>60); GLUCOSE, FASTING 50 MG/DL (70-100); POTASSIUM SERUM 6.4 MEQ/L (3.5-5.1); SODIUM LEVEL 131 MEQ/L (136-145)
[2018-05-30] MEDS: LANTHANUM CARBONATE 500 MG CHEW TABLET PO ×3 (08:00→17:35)
[2018-05-30] MEDS: HEPARIN 1,000 UNITS/ML 10ML VIAL (FOR RADIOLOGY& DIALYSIS ONLY) XX (11:00)
[2018-05-30] MEDS: HEPARIN 1,000 UNITS/ML 10ML VIAL (FOR RADIOLOGY& DIALYSIS ONLY) IV (11:00)
[2018-05-30 12:24] LABS: BEDSIDE GLUCOSE 72 MG/DL (70-105)
[2018-05-30 18:16] LABS: BEDSIDE GLUCOSE 78 MG/DL (70-105)
[2018-05-30 20:14] LABS: BEDSIDE GLUCOSE 86 MG/DL (70-105)
[2018-05-30] MEDS: AMITRIPTYLINE 25 MG TAB PO (21:00)
[2018-05-30] MEDS: QUEtiapine FUMARATE 25 MG TAB PO (21:00)
[2018-05-30] MEDS ORDERED: HEPARIN SOD (PORCINE) 5000 UNITS/ML VIAL As Ordered (22:32)
[2018-05-31] MEDS: LEVOTHYROXINE 150MCG TABLET (0.15MG) PO (05:54)
[2018-05-31] MEDS: HEPARIN SOD (PORCINE) 5000 UNITS/ML VIAL SC ×3 (05:54→21:59)
[2018-05-31 06:39] LABS: BEDSIDE GLUCOSE 76 MG/DL (70-105)
[2018-05-31] MEDS: LANTHANUM CARBONATE 500 MG CHEW TABLET PO ×3 (07:31→17:01)
[2018-05-31] MEDS: METOPROLOL TART 50 MG TAB PO ×2 (08:49→21:59)
[2018-05-31] MEDS: PANTOPRAZOLE 40MG TAB (PROTONIX) PO ×2 (08:50→22:00)
[2018-05-31] MEDS: amLODIPine 10 MG TAB PO (08:50)
[2018-05-31] MEDS: CINACALCET 30 MG TAB (SENSIPAR) PO (08:50)
[2018-05-31] MEDS: GABAPENTIN 100 MG CAP PO ×3 (08:50→21:58)
[2018-05-31 12:53] LABS: BEDSIDE GLUCOSE 66 MG/DL (70-105)
[2018-05-31 17:31] LABS: BEDSIDE GLUCOSE 92 MG/DL (70-105)
[2018-05-31 20:42] LABS: BEDSIDE GLUCOSE 82 MG/DL (70-105)
[2018-05-31] MEDS ORDERED: HEPARIN SOD (PORCINE) 5000 UNITS/ML VIAL As Ordered (21:51)
[2018-05-31] MEDS: QUEtiapine FUMARATE 25 MG TAB PO (21:59)
[2018-05-31] MEDS: AMITRIPTYLINE 25 MG TAB PO (22:00)
[2018-06-01] MEDS: CINACALCET 30 MG TAB (SENSIPAR) PO (06:28)
[2018-06-01] MEDS: LEVOTHYROXINE 150MCG TABLET (0.15MG) PO (06:29)
[2018-06-01] MEDS: GABAPENTIN 100 MG CAP PO ×3 (06:29→21:33)
[2018-06-01] MEDS: HEPARIN SOD (PORCINE) 5000 UNITS/ML VIAL SC ×3 (06:29→21:34)
[2018-06-01] MEDS: amLODIPine 10 MG TAB PO (06:29)
[2018-06-01] MEDS: PANTOPRAZOLE 40MG TAB (PROTONIX) PO ×2 (06:29→21:33)
[2018-06-01] MEDS: METOPROLOL TART 50 MG TAB PO ×2 (06:30→21:34)
[2018-06-01] MEDS: LANTHANUM CARBONATE 500 MG CHEW TABLET PO ×3 (08:00→17:13)
[2018-06-01 08:19] LABS: HEMATOCRIT 31.4 % (42.0-52.0); HEMOGLOBIN 9.5 g/dl (13.5-17.5); MEAN CORPUSCULAR HEMOGLOBIN 27.4 pg (27.0-33.0); MEAN CORPUSCULAR HGB CONC 30.3 g/dl (32.0-36.5); MEAN CORPUSCULAR VOLUME 90.5 fl (80.0-96.0); PLATELET COUNT, AUTOMATED 280 10^3/uL (150-450); RED BLOOD COUNT 3.47 10^6/uL (4.30-6.10); RED CELL DISTRIBUTION WIDTH 16.9 % (11.5-14.5); WHITE BLOOD COUNT 8.3 10^3/uL (4.0-10.0)
[2018-06-01 08:52] LABS: ALBUMIN 1.9 GM/DL (3.2-5.2); ANION GAP 12 MEQ/L (8-16); BLOOD UREA NITROGEN 57 MG/DL (7-18); CALCIUM LEVEL 8.3 MG/DL (8.5-10.1); CARBON DIOXIDE LEVEL 24 MEQ/L (21-32); CHLORIDE LEVEL 99 MEQ/L (98-107); CREATININE FOR GFR 6.87 MG/DL (0.70-1.30); GLOMERULAR FILTRATION RATE 9.2 (>60); GLUCOSE, FASTING 74 MG/DL (70-100); PHOSPHORUS LEVEL 5.5 MG/DL (2.5-4.9); POTASSIUM SERUM 4.8 MEQ/L (3.5-5.1); SODIUM LEVEL 135 MEQ/L (136-145)
[2018-06-01] MEDS: HEPARIN 1,000 UNITS/ML 10ML VIAL (FOR RADIOLOGY& DIALYSIS ONLY) IV (11:00)
[2018-06-01] MEDS: HEPARIN 1,000 UNITS/ML 10ML VIAL (FOR RADIOLOGY& DIALYSIS ONLY) XX (11:00)
[2018-06-01 17:46] LABS: BEDSIDE GLUCOSE 79 MG/DL (70-105)
[2018-06-01 20:20] LABS: BEDSIDE GLUCOSE 69 MG/DL (70-105)
[2018-06-01] MEDS: QUEtiapine FUMARATE 25 MG TAB PO (21:33)
[2018-06-01] MEDS: AMITRIPTYLINE 25 MG TAB PO (21:33)
[2018-06-02] MEDS: LEVOTHYROXINE 150MCG TABLET (0.15MG) PO (05:38)
[2018-06-02] MEDS: HEPARIN SOD (PORCINE) 5000 UNITS/ML VIAL SC ×3 (05:39→21:55)
[2018-06-02] MEDS: LANTHANUM CARBONATE 500 MG CHEW TABLET PO ×3 (08:00→18:00)
[2018-06-02] MEDS: amLODIPine 10 MG TAB PO (10:06)
[2018-06-02] MEDS: PANTOPRAZOLE 40MG TAB (PROTONIX) PO ×2 (10:06→21:54)
[2018-06-02] MEDS: CINACALCET 30 MG TAB (SENSIPAR) PO (10:06)
[2018-06-02] MEDS: METOPROLOL TART 50 MG TAB PO ×2 (10:06→21:54)
[2018-06-02] MEDS: GABAPENTIN 100 MG CAP PO ×3 (10:07→21:54)
[2018-06-02] MEDS: MORPHINE 30 MG TAB **MSIR PO ×3 (10:56→23:29)
[2018-06-02] MEDS: SANTYL OINT 30GM TOP (11:30)
[2018-06-02 12:33] LABS: BEDSIDE GLUCOSE 80 MG/DL (70-105)
[2018-06-02 16:51] LABS: BEDSIDE GLUCOSE 94 MG/DL (70-105)
[2018-06-02 20:41] LABS: BEDSIDE GLUCOSE 88 MG/DL (70-105)
[2018-06-02] MEDS: QUEtiapine FUMARATE 25 MG TAB PO (21:54)
[2018-06-02] MEDS: AMITRIPTYLINE 25 MG TAB PO (21:54)
[2018-06-03 05:41] LABS: BEDSIDE GLUCOSE 93 MG/DL (70-105)
[2018-06-03] MEDS: HEPARIN SOD (PORCINE) 5000 UNITS/ML VIAL SC ×3 (06:00→20:58)
[2018-06-03] MEDS: CINACALCET 30 MG TAB (SENSIPAR) PO (06:11)
[2018-06-03] MEDS: PANTOPRAZOLE 40MG TAB (PROTONIX) PO ×2 (06:12→20:58)
[2018-06-03] MEDS: METOPROLOL TART 50 MG TAB PO ×2 (06:12→20:59)
[2018-06-03] MEDS: LANTHANUM CARBONATE 500 MG CHEW TABLET PO ×4 (06:12→18:00)
[2018-06-03] MEDS: LEVOTHYROXINE 150MCG TABLET (0.15MG) PO (06:13)
[2018-06-03] MEDS: GABAPENTIN 100 MG CAP PO ×3 (06:13→20:59)
[2018-06-03] MEDS: amLODIPine 10 MG TAB PO (06:13)
[2018-06-03] MEDS: SANTYL OINT 30GM TOP (06:14)
[2018-06-03] MEDS ORDERED: DARBEPOETIN 100 MCG/0.5 ML *DIALYSIS* SYRINGE (J0882) IV (11:00)
[2018-06-03] MEDS ORDERED: LOPERAMIDE 2 MG CAP PO (11:30)
[2018-06-03 11:33] LABS: BEDSIDE GLUCOSE 83 MG/DL (70-105)
[2018-06-03 11:44] LABS: HEMATOCRIT 36.7 % (42.0-52.0); MEAN CORPUSCULAR HEMOGLOBIN 27.2 pg (27.0-33.0); MEAN CORPUSCULAR VOLUME 90.6 fl (80.0-96.0); PLATELET COUNT, AUTOMATED 250 10^3/uL (150-450); RED BLOOD COUNT 4.05 10^6/uL (4.30-6.10); RED CELL DISTRIBUTION WIDTH 16.9 % (11.5-14.5); WHITE BLOOD COUNT 11.2 10^3/uL (4.0-10.0)
[2018-06-03 11:59] LABS: ANION GAP 12 MEQ/L (8-16); BLOOD UREA NITROGEN 55 MG/DL (7-18); CARBON DIOXIDE LEVEL 25 MEQ/L (21-32); CHLORIDE LEVEL 95 MEQ/L (98-107); CREATININE FOR GFR 6.49 MG/DL (0.70-1.30); GLOMERULAR FILTRATION RATE 9.8 (>60); GLUCOSE, FASTING 80 MG/DL (70-100); PHOSPHORUS LEVEL 5.6 MG/DL (2.5-4.9); POTASSIUM SERUM 4.4 MEQ/L (3.5-5.1); SODIUM LEVEL 132 MEQ/L (136-145)
[2018-06-03 13:37] LABS: BEDSIDE GLUCOSE 93 MG/DL (70-105)
[2018-06-03] MEDS: ONDANSETRON 4 MG ORAL DISINTEGRATING TAB (Q0162 PER 1MG) PO (18:22)
[2018-06-03] MEDS: MORPHINE 30 MG TAB **MSIR PO ×2 (18:22→18:30)
[2018-06-03] MEDS: ALTEPLASE 2 MG/2 ML VIAL (J2997 PER 1MG) XX (19:24)
[2018-06-03] MEDS: SODIUM CHLORIDE 0.9% 1000ML IV (19:53)
[2018-06-03 20:15] LABS: BEDSIDE GLUCOSE 93 MG/DL (70-105)
[2018-06-03] MEDS: VANCOMYCIN HCL 1,000 MG, VIAL MATE ADAPTER 1 EACH in D5W 250 ML IV (20:58)
[2018-06-03] MEDS: AMITRIPTYLINE 25 MG TAB PO (20:58)
[2018-06-03] MEDS: VANCOMYCIN HCL 750 MG, VIAL MATE ADAPTER 1 EACH in D5W 250 ML IV (22:26)
[2018-06-03] MEDS: QUEtiapine FUMARATE 25 MG TAB PO (22:26)
[2018-06-04] MEDS: HEPARIN SOD (PORCINE) 5000 UNITS/ML VIAL SC ×3 (06:15→22:09)
[2018-06-04] MEDS: LEVOTHYROXINE 150MCG TABLET (0.15MG) PO (06:15)
[2018-06-04 06:54] LABS: HEMATOCRIT 34.4 % (42.0-52.0); HEMOGLOBIN 10.5 g/dl (13.5-17.5); MEAN CORPUSCULAR HEMOGLOBIN 27.5 pg (27.0-33.0); MEAN CORPUSCULAR HGB CONC 30.5 g/dl (32.0-36.5); MEAN CORPUSCULAR VOLUME 90.1 fl (80.0-96.0); PLATELET COUNT, AUTOMATED 238 10^3/uL (150-450); RED BLOOD COUNT 3.82 10^6/uL (4.30-6.10); RED CELL DISTRIBUTION WIDTH 17.1 % (11.5-14.5); WHITE BLOOD COUNT 15.8 10^3/uL (4.0-10.0)
[2018-06-04 07:12] LABS: ALBUMIN 1.8 GM/DL (3.2-5.2); ANION GAP 10 MEQ/L (8-16); BLOOD UREA NITROGEN 34 MG/DL (7-18); CALCIUM LEVEL 8.3 MG/DL (8.5-10.1); CARBON DIOXIDE LEVEL 22 MEQ/L (21-32); CHLORIDE LEVEL 102 MEQ/L (98-107); CREATININE FOR GFR 4.57 MG/DL (0.70-1.30); GLOMERULAR FILTRATION RATE 14.7 (>60); GLUCOSE, FASTING 84 MG/DL (70-100); PHOSPHORUS LEVEL 3.9 MG/DL (2.5-4.9); POTASSIUM SERUM 4.1 MEQ/L (3.5-5.1); SODIUM LEVEL 134 MEQ/L (136-145)
[2018-06-04] MEDS: LANTHANUM CARBONATE 500 MG CHEW TABLET PO ×4 (08:00→18:00)
[2018-06-04] MEDS ORDERED: LIDOCAINE 1% MDV 20ML VIAL As Ordered (08:33)
[2018-06-04] MEDS: LIDOCAINE 1% MDV 20ML VIAL SC (08:47)
[2018-06-04] MEDS: MORPHINE 30 MG TAB **MSIR PO ×2 (08:48→22:08)
[2018-06-04] MEDS: METOPROLOL TART 50 MG TAB PO ×2 (09:00→21:00)
[2018-06-04] MEDS: amLODIPine 10 MG TAB PO (09:00)
[2018-06-04] MEDS: CINACALCET 30 MG TAB (SENSIPAR) PO (10:12)
[2018-06-04] MEDS: PANTOPRAZOLE 40MG TAB (PROTONIX) PO ×2 (10:13→22:08)
[2018-06-04] MEDS: GABAPENTIN 100 MG CAP PO ×3 (10:13→22:08)
[2018-06-04] MEDS: SANTYL OINT 30GM TOP (10:15)
[2018-06-04 11:46] LABS: BEDSIDE GLUCOSE 78 MG/DL (70-105)
[2018-06-04] MEDS: ACETAMINOPHEN TAB 650MG DOSE (2X325MG) PO (12:40)
[2018-06-04] MEDS ORDERED: LevoFLOXacin IV 250 MG in APPROPRIATE DILUENT 1 EA IV (13:00)
[2018-06-04] MEDS: NS 1,000 ML IV (15:15)
[2018-06-04] MEDS: **VANCO AFTER HD** MISC XX (16:00)
[2018-06-04 16:33] LABS: BEDSIDE GLUCOSE 83 MG/DL (70-105)
[2018-06-04 17:08] LABS: BEDSIDE GLUCOSE 147 MG/DL (70-105)
[2018-06-04 19:58] LABS: BEDSIDE GLUCOSE 80 MG/DL (70-105)
[2018-06-04] MEDS: QUEtiapine FUMARATE 25 MG TAB PO (22:08)
[2018-06-04] MEDS: AMITRIPTYLINE 25 MG TAB PO (22:08)
[2018-06-04] MEDS: MEROPENEM INJ 500 MG in APPROPRIATE DILUENT 1 EA IV (22:09)
[2018-06-05] MEDS: LEVOTHYROXINE 150MCG TABLET (0.15MG) PO ×2 (06:00→06:02)
[2018-06-05] MEDS: HEPARIN SOD (PORCINE) 5000 UNITS/ML VIAL SC ×3 (06:02→22:55)
[2018-06-05 07:06] LABS: HEMATOCRIT 34.1 % (42.0-52.0); HEMOGLOBIN 10.2 g/dl (13.5-17.5); MEAN CORPUSCULAR HEMOGLOBIN 27.3 pg (27.0-33.0); MEAN CORPUSCULAR HGB CONC 29.9 g/dl (32.0-36.5); MEAN CORPUSCULAR VOLUME 91.4 fl (80.0-96.0); PLATELET COUNT, AUTOMATED 243 10^3/uL (150-450); RED BLOOD COUNT 3.73 10^6/uL (4.30-6.10); RED CELL DISTRIBUTION WIDTH 16.8 % (11.5-14.5)
[2018-06-05] MEDS ORDERED: CEFEPIME HCL 2 GM in D5W MINI-BAG PLUS 50 ML IV (07:15)
[2018-06-05 07:32] LABS: ALBUMIN 1.8 GM/DL (3.2-5.2); ANION GAP 11 MEQ/L (8-16); BLOOD UREA NITROGEN 44 MG/DL (7-18); CALCIUM LEVEL 7.8 MG/DL (8.5-10.1); CARBON DIOXIDE LEVEL 23 MEQ/L (21-32); CHLORIDE LEVEL 102 MEQ/L (98-107); CREATININE FOR GFR 6.18 MG/DL (0.70-1.30); GLOMERULAR FILTRATION RATE 10.4 (>60); GLUCOSE, FASTING 73 MG/DL (70-100); PHOSPHORUS LEVEL 4.2 MG/DL (2.5-4.9); POTASSIUM SERUM 4.3 MEQ/L (3.5-5.1); SODIUM LEVEL 136 MEQ/L (136-145)
[2018-06-05] MEDS: LANTHANUM CARBONATE 500 MG CHEW TABLET PO ×3 (08:00→18:13)
[2018-06-05] MEDS: amLODIPine 5 MG TAB PO (08:56)
[2018-06-05] MEDS: METOPROLOL TART 50 MG TAB PO ×2 (08:56→20:44)
[2018-06-05] MEDS: CINACALCET 30 MG TAB (SENSIPAR) PO (09:00)
[2018-06-05] MEDS: PANTOPRAZOLE 40MG TAB (PROTONIX) PO ×2 (09:00→20:43)
[2018-06-05] MEDS: SANTYL OINT 30GM TOP (09:00)
[2018-06-05] MEDS: GABAPENTIN 100 MG CAP PO ×3 (09:00→20:43)
[2018-06-05] MEDS: NS 1,000 ML IV (09:10)
[2018-06-05] MEDS: NALOXONE INJ 0.4 MG/1 ML VIAL (J2310) IV (09:10)
[2018-06-05] MEDS: SODIUM CHLORIDE 0.9% 1000ML IV (15:45)
[2018-06-05] MEDS: **VANCO AFTER HD** MISC XX (16:00)
[2018-06-05 16:23] LABS: HEMATOCRIT 32.9 % (42.0-52.0); HEMOGLOBIN 9.6 g/dl (13.5-17.5); MEAN CORPUSCULAR HGB CONC 29.2 g/dl (32.0-36.5); MEAN CORPUSCULAR VOLUME 92.7 fl (80.0-96.0); PLATELET COUNT, AUTOMATED 234 10^3/uL (150-450); RED BLOOD COUNT 3.55 10^6/uL (4.30-6.10); RED CELL DISTRIBUTION WIDTH 17.1 % (11.5-14.5); WHITE BLOOD COUNT 19.2 10^3/uL (4.0-10.0)
[2018-06-05 16:44] LABS: ALBUMIN 1.7 GM/DL (3.2-5.2); ANION GAP 13 MEQ/L (8-16); BLOOD UREA NITROGEN 50 MG/DL (7-18); CALCIUM LEVEL 7.4 MG/DL (8.5-10.1); CARBON DIOXIDE LEVEL 21 MEQ/L (21-32); CHLORIDE LEVEL 102 MEQ/L (98-107); CREATININE FOR GFR 6.52 MG/DL (0.70-1.30); GLOMERULAR FILTRATION RATE 9.8 (>60); GLUCOSE, FASTING 84 MG/DL (70-100); PHOSPHORUS LEVEL 4.7 MG/DL (2.5-4.9); POTASSIUM SERUM 4.4 MEQ/L (3.5-5.1); SODIUM LEVEL 136 MEQ/L (136-145)
[2018-06-05 16:46] LABS: LACTIC ACID SEPSIS PROTOCOL 0.9 MMOL/L (0.4-2.0)
[2018-06-05] MEDS ORDERED: NOREPINEPHRINE 4 MG/4 ML AMP As Ordered (17:25)
[2018-06-05 17:41] LABS: ABG BASE EXCESS -6.8 (-2.0-2.0); ABG HCO3 20.2 MEQ/L (22.0-26.0); ABG O2 SATURATION 94.8 % (95.0-99.0); ABG PARTIAL PRESSURE O2 82.5 mmHg (75.0-100.0); ABG STANDARD HCO3 18.9 MEQ/L (22.0-26.0); ABG TOTAL CO2 21.6 MEQ/L (22.0-29.0); ABG pH (ARTERIAL) 7.251 UNITS (7.350-7.450)
[2018-06-05] MEDS: NS 250 ML IV (17:45)
[2018-06-05] MEDS: NOREPINEPHRINE BITARTRATE 16 MG in D5W 484 ML IV (19:15)
[2018-06-05] MEDS: CEFEPIME HCL 1 GM in D5W MINI-BAG PLUS 50 ML IV (20:43)
[2018-06-05] MEDS: QUEtiapine FUMARATE 25 MG TAB PO (20:44)
[2018-06-05] MEDS: AMITRIPTYLINE 25 MG TAB PO (20:44)
[2018-06-05] MEDS ORDERED: HEPARIN 1,000 UNITS/ML 10ML VIAL (FOR RADIOLOGY& DIALYSIS ONLY) IV (20:45)
[2018-06-05 21:17] LABS: BEDSIDE GLUCOSE 107 MG/DL (70-105)
[2018-06-06 03:56] LABS: BEDSIDE GLUCOSE 91 MG/DL (70-105)
[2018-06-06 03:56] LABS: BEDSIDE GLUCOSE 78 MG/DL (70-105)
[2018-06-06 03:56] LABS: BEDSIDE GLUCOSE 77 MG/DL (70-105)
[2018-06-06 05:21] LABS: HEMATOCRIT 31.9 % (42.0-52.0); HEMOGLOBIN 9.4 g/dl (13.5-17.5); MEAN CORPUSCULAR HGB CONC 29.5 g/dl (32.0-36.5); MEAN CORPUSCULAR VOLUME 91.7 fl (80.0-96.0); PLATELET COUNT, AUTOMATED 265 10^3/uL (150-450); RED BLOOD COUNT 3.48 10^6/uL (4.30-6.10); RED CELL DISTRIBUTION WIDTH 16.9 % (11.5-14.5); WHITE BLOOD COUNT 27.1 10^3/uL (4.0-10.0)
[2018-06-06] MEDS: LEVOTHYROXINE 150MCG TABLET (0.15MG) PO (05:29)
[2018-06-06] MEDS: NOREPINEPHRINE BITARTRATE 16 MG in D5W 484 ML IV (05:29)
[2018-06-06] MEDS: HEPARIN SOD (PORCINE) 5000 UNITS/ML VIAL SC ×3 (05:29→21:05)
[2018-06-06 05:43] LABS: ALBUMIN 1.7 GM/DL (3.2-5.2); ANION GAP 10 MEQ/L (8-16); BLOOD UREA NITROGEN 56 MG/DL (7-18); CALCIUM LEVEL 7.8 MG/DL (8.5-10.1); CARBON DIOXIDE LEVEL 23 MEQ/L (21-32); CHLORIDE LEVEL 103 MEQ/L (98-107); CREATININE FOR GFR 7.06 MG/DL (0.70-1.30); GLOMERULAR FILTRATION RATE 8.9 (>60); GLUCOSE, FASTING 89 MG/DL (70-100); PHOSPHORUS LEVEL 5.3 MG/DL (2.5-4.9); POTASSIUM SERUM 4.3 MEQ/L (3.5-5.1); SODIUM LEVEL 136 MEQ/L (136-145); VANCOMYCIN RANDOM 18.6 UG/ML
[2018-06-06] MEDS: LANTHANUM CARBONATE 500 MG CHEW TABLET PO ×2 (08:00→12:30)
[2018-06-06] MEDS: METOPROLOL TART 50 MG TAB PO ×2 (09:00→21:00)
[2018-06-06 09:06] LABS: ABG BASE EXCESS -8.2 (-2.0-2.0); ABG HCO3 19.6 MEQ/L (22.0-26.0); ABG O2 SATURATION 89.3 % (95.0-99.0); ABG PARTIAL PRESSURE CO2 50.8 mmHg (35.0-45.0); ABG PARTIAL PRESSURE O2 66.2 mmHg (75.0-100.0); ABG STANDARD HCO3 17.7 MEQ/L (22.0-26.0); ABG TOTAL CO2 21.1 MEQ/L (22.0-29.0)
[2018-06-06 09:12] LABS: ABG pH (ARTERIAL) 7.204 UNITS (7.350-7.450)
[2018-06-06] MEDS: CINACALCET 30 MG TAB (SENSIPAR) PO (11:05)
[2018-06-06] MEDS: GABAPENTIN 100 MG CAP PO ×3 (11:06→21:04)
[2018-06-06] MEDS: SANTYL OINT 30GM TOP (11:07)
[2018-06-06] MEDS: PANTOPRAZOLE 40MG TAB (PROTONIX) PO ×2 (11:07→21:04)
[2018-06-06 12:16] LABS: BEDSIDE GLUCOSE 78 MG/DL (70-105)
[2018-06-06 12:30] LABS: ABG BASE EXCESS -7.2 (-2.0-2.0); ABG HCO3 19.2 MEQ/L (22.0-26.0); ABG O2 SATURATION 96.1 % (95.0-99.0); ABG PARTIAL PRESSURE CO2 42.5 mmHg (35.0-45.0); ABG PARTIAL PRESSURE O2 89.8 mmHg (75.0-100.0); ABG STANDARD HCO3 18.5 MEQ/L (22.0-26.0); ABG TOTAL CO2 20.5 MEQ/L (22.0-29.0); ABG pH (ARTERIAL) 7.273 UNITS (7.350-7.450)
[2018-06-06] MEDS ORDERED: LIDOCAINE 1% MDV 20ML VIAL As Ordered (14:04)
[2018-06-06 17:13] LABS: BEDSIDE GLUCOSE 99 MG/DL (70-105)
[2018-06-06] MEDS: SODIUM CHLORIDE 0.9% INJ 10 ML SYR IV (17:53)
[2018-06-06 20:43] LABS: BEDSIDE GLUCOSE 101 MG/DL (70-105)
[2018-06-06] MEDS: **VANCO AFTER HD** MISC XX (21:00)
[2018-06-06] MEDS: QUEtiapine FUMARATE 25 MG TAB PO (21:04)
[2018-06-06] MEDS: CEFEPIME HCL 0.5 GM in D5W MINI-BAG PLUS 50 ML IV (21:05)
[2018-06-06] MEDS: VANCOMYCIN HCL 1,000 MG, VIAL MATE ADAPTER 1 EACH in D5W 250 ML IV (21:05)
[2018-06-06] MEDS: AMITRIPTYLINE 25 MG TAB PO (21:05)
[2018-06-07 05:22] LABS: HEMATOCRIT 28.5 % (42.0-52.0); HEMOGLOBIN 8.5 g/dl (13.5-17.5); MEAN CORPUSCULAR HEMOGLOBIN 27.2 pg (27.0-33.0); MEAN CORPUSCULAR HGB CONC 29.8 g/dl (32.0-36.5); MEAN CORPUSCULAR VOLUME 91.1 fl (80.0-96.0); PLATELET COUNT, AUTOMATED 230 10^3/uL (150-450); RED BLOOD COUNT 3.13 10^6/uL (4.30-6.10); WHITE BLOOD COUNT 21.2 10^3/uL (4.0-10.0)
[2018-06-07] MEDS: NOREPINEPHRINE BITARTRATE 16 MG in D5W 484 ML IV (05:30)
[2018-06-07 06:00] LABS: ALBUMIN 1.7 GM/DL (3.2-5.2); ANION GAP 10 MEQ/L (8-16); BLOOD UREA NITROGEN 34 MG/DL (7-18); CALCIUM LEVEL 7.6 MG/DL (8.5-10.1); CARBON DIOXIDE LEVEL 25 MEQ/L (21-32); CHLORIDE LEVEL 101 MEQ/L (98-107); CREATININE FOR GFR 4.99 MG/DL (0.70-1.30); GLOMERULAR FILTRATION RATE 13.3 (>60); GLUCOSE, FASTING 85 MG/DL (70-100); POTASSIUM SERUM 4.2 MEQ/L (3.5-5.1); SODIUM LEVEL 136 MEQ/L (136-145)
[2018-06-07] MEDS: HEPARIN SOD (PORCINE) 5000 UNITS/ML VIAL SC ×3 (06:45→20:13)
[2018-06-07] MEDS: LEVOTHYROXINE 150MCG TABLET (0.15MG) PO (06:46)
[2018-06-07] MEDS: SODIUM CHLORIDE 0.9% INJ 10 ML SYR IV ×2 (06:46→18:04)
[2018-06-07] MEDS: METOPROLOL TART 50 MG TAB PO ×2 (08:52→20:09)
[2018-06-07] MEDS: CINACALCET 30 MG TAB (SENSIPAR) PO (10:12)
[2018-06-07] MEDS: SANTYL OINT 30GM TOP (10:12)
[2018-06-07] MEDS: GABAPENTIN 100 MG CAP PO ×3 (10:12→20:12)
[2018-06-07] MEDS: PANTOPRAZOLE 40MG TAB (PROTONIX) PO ×2 (10:12→20:12)
[2018-06-07] MEDS: ACETAMINOPHEN TAB 650MG DOSE (2X325MG) PO (11:24)
[2018-06-07] MEDS: MIDODRINE 5 MG TAB PO ×2 (12:00→15:53)
[2018-06-07 12:03] LABS: BEDSIDE GLUCOSE 114 MG/DL (70-105)
[2018-06-07] MEDS: **VANCO AFTER HD** MISC XX (16:00)
[2018-06-07 18:05] LABS: BEDSIDE GLUCOSE 83 MG/DL (70-105)
[2018-06-07] MEDS: AMITRIPTYLINE 25 MG TAB PO (20:12)
[2018-06-07] MEDS: QUEtiapine FUMARATE 25 MG TAB PO (20:12)
[2018-06-07] MEDS: CEFEPIME HCL 0.5 GM in D5W MINI-BAG PLUS 50 ML IV (20:13)
[2018-06-08 04:52] LABS: HEMATOCRIT 29.2 % (42.0-52.0); HEMOGLOBIN 8.8 g/dl (13.5-17.5); MEAN CORPUSCULAR HEMOGLOBIN 27.5 pg (27.0-33.0); MEAN CORPUSCULAR HGB CONC 30.1 g/dl (32.0-36.5); MEAN CORPUSCULAR VOLUME 91.3 fl (80.0-96.0); PLATELET COUNT, AUTOMATED 233 10^3/uL (150-450); RED CELL DISTRIBUTION WIDTH 17.3 % (11.5-14.5); WHITE BLOOD COUNT 14.1 10^3/uL (4.0-10.0)
[2018-06-08] MEDS: LEVOTHYROXINE 150MCG TABLET (0.15MG) PO (05:13)
[2018-06-08] MEDS: HEPARIN SOD (PORCINE) 5000 UNITS/ML VIAL SC ×3 (05:13→20:39)
[2018-06-08] MEDS: NOREPINEPHRINE BITARTRATE 16 MG in D5W 484 ML IV (05:14)
[2018-06-08] MEDS: SODIUM CHLORIDE 0.9% INJ 10 ML SYR IV ×2 (05:16→16:49)
[2018-06-08 05:17] LABS: ALBUMIN 1.6 GM/DL (3.2-5.2); ANION GAP 9 MEQ/L (8-16); BLOOD UREA NITROGEN 44 MG/DL (7-18); CALCIUM LEVEL 7.7 MG/DL (8.5-10.1); CARBON DIOXIDE LEVEL 25 MEQ/L (21-32); CHLORIDE LEVEL 102 MEQ/L (98-107); CREATININE FOR GFR 5.83 MG/DL (0.70-1.30); GLOMERULAR FILTRATION RATE 11.1 (>60); GLUCOSE, FASTING 81 MG/DL (70-100); POTASSIUM SERUM 4.1 MEQ/L (3.5-5.1); SODIUM LEVEL 136 MEQ/L (136-145)
[2018-06-08] MEDS: METOPROLOL TART 50 MG TAB PO ×2 (09:00→20:39)
[2018-06-08] MEDS: GABAPENTIN 100 MG CAP PO ×3 (09:55→20:38)
[2018-06-08] MEDS: MIDODRINE 5 MG TAB PO ×3 (09:55→16:48)
[2018-06-08] MEDS: CINACALCET 30 MG TAB (SENSIPAR) PO (09:56)
[2018-06-08] MEDS: SANTYL OINT 30GM TOP (09:56)
[2018-06-08] MEDS: PANTOPRAZOLE 40MG TAB (PROTONIX) PO ×2 (09:56→20:39)
[2018-06-08] MEDS: HEPARIN 1,000 UNITS/ML 10ML VIAL (FOR RADIOLOGY& DIALYSIS ONLY) IV (11:00)
[2018-06-08] MEDS: HEPARIN 1,000 UNITS/ML 10ML VIAL (FOR RADIOLOGY& DIALYSIS ONLY) XX (11:00)
[2018-06-08] MEDS: ACETAMINOPHEN TAB 650MG DOSE (2X325MG) PO (11:47)
[2018-06-08] MEDS: LIDOCAINE 2% JELLY 30 ML TOP (11:48)
[2018-06-08] MEDS: SILVER SULFADIAZINE 1% CR 50 GM JAR TOP (11:48)
[2018-06-08 14:21] LABS: BEDSIDE GLUCOSE 76 MG/DL (70-105)
[2018-06-08] MEDS: **VANCO AFTER HD** MISC XX (16:00)
[2018-06-08 17:53] LABS: BEDSIDE GLUCOSE 71 MG/DL (70-105)
[2018-06-08 18:14] LABS: IMMEDIATE SPIN CROSSMATCH 1 1
[2018-06-08] MEDS: QUEtiapine FUMARATE 25 MG TAB PO (20:38)
[2018-06-08] MEDS: AMITRIPTYLINE 25 MG TAB PO (20:39)
[2018-06-08] MEDS: CEFEPIME HCL 0.5 GM in D5W MINI-BAG PLUS 50 ML IV (21:00)
[2018-06-09] MEDS: SODIUM CHLORIDE 0.9% INJ 10 ML SYR IV ×2 (05:59→17:10)
[2018-06-09] MEDS: HEPARIN SOD (PORCINE) 5000 UNITS/ML VIAL SC ×3 (05:59→22:00)
[2018-06-09] MEDS: LEVOTHYROXINE 150MCG TABLET (0.15MG) PO (06:00)
[2018-06-09 06:23] LABS: HEMOGLOBIN 9.9 g/dl (13.5-17.5); MEAN CORPUSCULAR HEMOGLOBIN 26.9 pg (27.0-33.0); MEAN CORPUSCULAR VOLUME 89.7 fl (80.0-96.0); PLATELET COUNT, AUTOMATED 216 10^3/uL (150-450); RED BLOOD COUNT 3.68 10^6/uL (4.30-6.10); RED CELL DISTRIBUTION WIDTH 16.9 % (11.5-14.5); WHITE BLOOD COUNT 12.1 10^3/uL (4.0-10.0)
[2018-06-09 06:43] LABS: ALBUMIN 1.7 GM/DL (3.2-5.2); ANION GAP 7 MEQ/L (8-16); BLOOD UREA NITROGEN 26 MG/DL (7-18); CALCIUM LEVEL 7.7 MG/DL (8.5-10.1); CARBON DIOXIDE LEVEL 28 MEQ/L (21-32); CHLORIDE LEVEL 102 MEQ/L (98-107); CREATININE FOR GFR 4.04 MG/DL (0.70-1.30); GLOMERULAR FILTRATION RATE 16.9 (>60); GLUCOSE, FASTING 79 MG/DL (70-100); PHOSPHORUS LEVEL 3.1 MG/DL (2.5-4.9); POTASSIUM SERUM 4.1 MEQ/L (3.5-5.1); SODIUM LEVEL 137 MEQ/L (136-145)
[2018-06-09 08:13] LABS: BEDSIDE GLUCOSE 71 MG/DL (70-105)
[2018-06-09] MEDS: PANTOPRAZOLE 40MG TAB (PROTONIX) PO ×2 (08:44→21:59)
[2018-06-09] MEDS: GABAPENTIN 100 MG CAP PO ×3 (08:44→21:59)
[2018-06-09] MEDS: METOPROLOL TART 50 MG TAB PO ×2 (08:45→21:59)
[2018-06-09] MEDS: CINACALCET 30 MG TAB (SENSIPAR) PO (08:45)
[2018-06-09] MEDS: MIDODRINE 5 MG TAB PO ×3 (09:11→16:57)
[2018-06-09 09:18] LABS: ABG BASE EXCESS 0.6 (-2.0-2.0); ABG HCO3 27.4 MEQ/L (22.0-26.0); ABG O2 SATURATION 95.8 % (95.0-99.0); ABG PARTIAL PRESSURE CO2 54.6 mmHg (35.0-45.0); ABG pH (ARTERIAL) 7.318 UNITS (7.350-7.450)
[2018-06-09] MEDS: SANTYL OINT 30GM TOP (09:30)
[2018-06-09 12:55] LABS: BEDSIDE GLUCOSE 72 MG/DL (70-105)
[2018-06-09] MEDS: **VANCO AFTER HD** MISC XX (15:33)
[2018-06-09 20:34] LABS: BEDSIDE GLUCOSE 68 MG/DL (70-105)
[2018-06-09 21:16] LABS: BEDSIDE GLUCOSE 75 MG/DL (70-105)
[2018-06-09] MEDS: CEFEPIME HCL 0.5 GM in D5W MINI-BAG PLUS 50 ML IV (21:56)
[2018-06-09] MEDS: AMITRIPTYLINE 25 MG TAB PO (21:58)
[2018-06-09] MEDS: QUEtiapine FUMARATE 25 MG TAB PO (21:59)
[2018-06-10] MEDS: DEXTROSE 50% 50 ML SYRINGE IV ×5 (02:39→12:27)
[2018-06-10 02:53] LABS: BEDSIDE GLUCOSE CONFIRMATION 74 MG/DL (LESS THAN 200)
[2018-06-10] MEDS: D10W 1,000 ML IV (03:14)
[2018-06-10 03:55] LABS: BEDSIDE GLUCOSE 101 MG/DL (70-105)
[2018-06-10 04:25] LABS: BEDSIDE GLUCOSE 43 MG/DL (70-105)
[2018-06-10 04:25] LABS: BEDSIDE GLUCOSE 66 MG/DL (70-105)
[2018-06-10 04:25] LABS: BEDSIDE GLUCOSE 64 MG/DL (70-105)
[2018-06-10 05:31] LABS: HEMATOCRIT 33.5 % (42.0-52.0); MEAN CORPUSCULAR HEMOGLOBIN 26.8 pg (27.0-33.0); MEAN CORPUSCULAR HGB CONC 29.9 g/dl (32.0-36.5); MEAN CORPUSCULAR VOLUME 89.8 fl (80.0-96.0); PLATELET COUNT, AUTOMATED 222 10^3/uL (150-450); RED BLOOD COUNT 3.73 10^6/uL (4.30-6.10); RED CELL DISTRIBUTION WIDTH 16.7 % (11.5-14.5); WHITE BLOOD COUNT 11.3 10^3/uL (4.0-10.0)
[2018-06-10 05:57] LABS: ALBUMIN 1.7 GM/DL (3.2-5.2); ANION GAP 7 MEQ/L (8-16); BLOOD UREA NITROGEN 33 MG/DL (7-18); CALCIUM LEVEL 7.3 MG/DL (8.5-10.1); CARBON DIOXIDE LEVEL 27 MEQ/L (21-32); CHLORIDE LEVEL 101 MEQ/L (98-107); CREATININE FOR GFR 5.07 MG/DL (0.70-1.30); GLUCOSE, FASTING 82 MG/DL (70-100); PHOSPHORUS LEVEL 2.7 MG/DL (2.5-4.9); POTASSIUM SERUM 4.3 MEQ/L (3.5-5.1); SODIUM LEVEL 135 MEQ/L (136-145)
[2018-06-10 05:59] LABS: VANCOMYCIN RANDOM 26.6 UG/ML
[2018-06-10] MEDS: SODIUM CHLORIDE 0.9% INJ 10 ML SYR IV ×2 (06:00→17:02)
[2018-06-10] MEDS: LEVOTHYROXINE 150MCG TABLET (0.15MG) PO ×2 (06:00→06:27)
[2018-06-10] MEDS: HEPARIN SOD (PORCINE) 5000 UNITS/ML VIAL SC ×3 (06:26→20:34)
[2018-06-10] MEDS: MIDODRINE 5 MG TAB PO ×3 (08:00→17:01)
[2018-06-10] MEDS: LANTHANUM CARBONATE 500 MG CHEW TABLET PO ×2 (08:00→12:35)
[2018-06-10] MEDS: GABAPENTIN 100 MG CAP PO ×3 (09:00→20:33)
[2018-06-10] MEDS: SANTYL OINT 30GM TOP (09:00)
[2018-06-10] MEDS: METOPROLOL TART 50 MG TAB PO ×2 (09:00→20:33)
[2018-06-10] MEDS: PANTOPRAZOLE 40MG TAB (PROTONIX) PO ×2 (09:00→20:32)
[2018-06-10 09:49] LABS: ABG BASE EXCESS -2.2 (-2.0-2.0); ABG HCO3 23.4 MEQ/L (22.0-26.0); ABG PARTIAL PRESSURE CO2 43.7 mmHg (35.0-45.0); ABG PARTIAL PRESSURE O2 142.1 mmHg (75.0-100.0); ABG STANDARD HCO3 22.6 MEQ/L (22.0-26.0); ABG TOTAL CO2 24.8 MEQ/L (22.0-29.0); ABG pH (ARTERIAL) 7.347 UNITS (7.350-7.450)
[2018-06-10] MEDS: HEPARIN 1,000 UNITS/ML 10ML VIAL (FOR RADIOLOGY& DIALYSIS ONLY) IV (11:15)
[2018-06-10] MEDS: CINACALCET 30 MG TAB (SENSIPAR) PO (12:35)
[2018-06-10 14:07] LABS: BEDSIDE GLUCOSE 83 MG/DL (70-105)
[2018-06-10 16:11] LABS: BEDSIDE GLUCOSE 99 MG/DL (70-105)
[2018-06-10 17:03] LABS: BEDSIDE GLUCOSE 106 MG/DL (70-105)
[2018-06-10 17:03] LABS: BEDSIDE GLUCOSE 116 MG/DL (70-105)
[2018-06-10 17:03] LABS: BEDSIDE GLUCOSE 82 MG/DL (70-105)
[2018-06-10 17:04] LABS: BEDSIDE GLUCOSE 75 MG/DL (70-105)
[2018-06-10 18:44] LABS: BEDSIDE GLUCOSE 83 MG/DL (70-105)
[2018-06-10] MEDS: AMITRIPTYLINE 25 MG TAB PO (20:32)
[2018-06-10] MEDS: CEFEPIME HCL 0.5 GM in D5W MINI-BAG PLUS 50 ML IV (20:32)
[2018-06-10] MEDS: QUEtiapine FUMARATE 25 MG TAB PO (20:33)
[2018-06-10 22:05] LABS: BEDSIDE GLUCOSE 85 MG/DL (70-105)
[2018-06-11 00:23] LABS: BEDSIDE GLUCOSE 92 MG/DL (70-105)
[2018-06-11 02:25] LABS: BEDSIDE GLUCOSE 79 MG/DL (70-105)
[2018-06-11] MEDS: SANTYL OINT 30GM TOP (03:50)
[2018-06-11 04:09] LABS: BEDSIDE GLUCOSE 83 MG/DL (70-105)
[2018-06-11] MEDS: HEPARIN SOD (PORCINE) 5000 UNITS/ML VIAL SC ×3 (05:38→21:11)
[2018-06-11] MEDS: LEVOTHYROXINE 150MCG TABLET (0.15MG) PO (05:38)
[2018-06-11] MEDS: SODIUM CHLORIDE 0.9% INJ 10 ML SYR IV ×2 (05:38→16:26)
[2018-06-11 06:04] LABS: HEMATOCRIT 35.1 % (42.0-52.0); HEMOGLOBIN 10.6 g/dl (13.5-17.5); MEAN CORPUSCULAR HEMOGLOBIN 26.8 pg (27.0-33.0); MEAN CORPUSCULAR HGB CONC 30.2 g/dl (32.0-36.5); MEAN CORPUSCULAR VOLUME 88.6 fl (80.0-96.0); PLATELET COUNT, AUTOMATED 235 10^3/uL (150-450); RED BLOOD COUNT 3.96 10^6/uL (4.30-6.10); RED CELL DISTRIBUTION WIDTH 16.8 % (11.5-14.5)
[2018-06-11 06:38] LABS: ALBUMIN 1.7 GM/DL (3.2-5.2); ANION GAP 7 MEQ/L (8-16); BLOOD UREA NITROGEN 21 MG/DL (7-18); CALCIUM LEVEL 7.8 MG/DL (8.5-10.1); CARBON DIOXIDE LEVEL 28 MEQ/L (21-32); CHLORIDE LEVEL 101 MEQ/L (98-107); CREATININE FOR GFR 3.66 MG/DL (0.70-1.30); GLUCOSE, FASTING 79 MG/DL (70-100); PHOSPHORUS LEVEL 2.4 MG/DL (2.5-4.9); POTASSIUM SERUM 4.3 MEQ/L (3.5-5.1); SODIUM LEVEL 136 MEQ/L (136-145); VANCOMYCIN RANDOM 22.6 UG/ML
[2018-06-11] MEDS: CINACALCET 30 MG TAB (SENSIPAR) PO (09:07)
[2018-06-11] MEDS: METOPROLOL TART 50 MG TAB PO ×2 (09:07→21:15)
[2018-06-11] MEDS: GABAPENTIN 100 MG CAP PO ×3 (09:08→16:26)
[2018-06-11] MEDS: MIDODRINE 5 MG TAB PO (09:08)
[2018-06-11] MEDS: PANTOPRAZOLE 40MG TAB (PROTONIX) PO ×2 (09:08→21:11)
[2018-06-11 10:14] LABS: BEDSIDE GLUCOSE 80 MG/DL (70-105)
[2018-06-11 11:28] LABS: BEDSIDE GLUCOSE 106 MG/DL (70-105)
[2018-06-11 11:44] LABS: BEDSIDE GLUCOSE 77 MG/DL (70-105)
[2018-06-11 11:44] LABS: BEDSIDE GLUCOSE 82 MG/DL (70-105)
[2018-06-11 17:27] LABS: BEDSIDE GLUCOSE 84 MG/DL (70-105)
[2018-06-11] MEDS: PERCOCET 5MG/325MG TAB PO (17:35)
[2018-06-11] MEDS: CEFEPIME HCL 0.5 GM in D5W MINI-BAG PLUS 50 ML IV (21:10)
[2018-06-11] MEDS: AMITRIPTYLINE 25 MG TAB PO (21:12)
[2018-06-11] MEDS: QUEtiapine FUMARATE 25 MG TAB PO (21:12)
[2018-06-12] MEDS: DEXTROSE 50% 50 ML SYRINGE IV ×2 (01:06→14:27)
[2018-06-12 01:40] LABS: BEDSIDE GLUCOSE 74 MG/DL (70-105)
[2018-06-12] MEDS: LEVOTHYROXINE 150MCG TABLET (0.15MG) PO (05:17)
[2018-06-12] MEDS: HEPARIN SOD (PORCINE) 5000 UNITS/ML VIAL SC ×3 (05:17→21:12)
[2018-06-12] MEDS: SODIUM CHLORIDE 0.9% INJ 10 ML SYR IV ×3 (05:18→22:00)
[2018-06-12] MEDS: **hydrALAZINE HCL** 25 MG TAB PO ×3 (06:00→21:11)
[2018-06-12 06:12] LABS: BEDSIDE GLUCOSE 81 MG/DL (70-105)
[2018-06-12] MEDS: PERCOCET 5MG/325MG TAB PO ×3 (06:30→21:09)
[2018-06-12 08:32] LABS: HEMATOCRIT 37.2 % (42.0-52.0); HEMOGLOBIN 11.3 g/dl (13.5-17.5); MEAN CORPUSCULAR HGB CONC 30.4 g/dl (32.0-36.5); MEAN CORPUSCULAR VOLUME 88.8 fl (80.0-96.0); PLATELET COUNT, AUTOMATED 225 10^3/uL (150-450); RED BLOOD COUNT 4.19 10^6/uL (4.30-6.10); WHITE BLOOD COUNT 9.3 10^3/uL (4.0-10.0)
[2018-06-12 08:57] LABS: ANION GAP 7 MEQ/L (8-16); BLOOD UREA NITROGEN 30 MG/DL (7-18); CALCIUM LEVEL 7.7 MG/DL (8.5-10.1); CARBON DIOXIDE LEVEL 27 MEQ/L (21-32); CHLORIDE LEVEL 101 MEQ/L (98-107); CREATININE FOR GFR 4.86 MG/DL (0.70-1.30); GLOMERULAR FILTRATION RATE 13.7 (>60); GLUCOSE, FASTING 78 MG/DL (70-100); SODIUM LEVEL 135 MEQ/L (136-145)
[2018-06-12] MEDS: SANTYL OINT 30GM TOP (09:00)
[2018-06-12] MEDS: GABAPENTIN 100 MG CAP PO ×3 (10:55→21:11)
[2018-06-12] MEDS: PANTOPRAZOLE 40MG TAB (PROTONIX) PO ×2 (10:55→21:10)
[2018-06-12] MEDS: CINACALCET 30 MG TAB (SENSIPAR) PO (10:55)
[2018-06-12] MEDS: METOPROLOL TART 50 MG TAB PO ×2 (10:56→21:10)
[2018-06-12 14:14] LABS: BEDSIDE GLUCOSE 74 MG/DL (70-105)
[2018-06-12 16:56] LABS: BEDSIDE GLUCOSE 90 MG/DL (70-105)
[2018-06-12 18:55] LABS: BEDSIDE GLUCOSE 75 MG/DL (70-105)
[2018-06-12] MEDS: AMITRIPTYLINE 25 MG TAB PO (21:08)
[2018-06-12] MEDS: QUEtiapine FUMARATE 25 MG TAB PO (21:09)
[2018-06-12] MEDS: CEFEPIME HCL 0.5 GM in D5W MINI-BAG PLUS 50 ML IV (21:12)
[2018-06-13 00:13] LABS: BEDSIDE GLUCOSE 77 MG/DL (70-105)
[2018-06-13] MEDS: SODIUM CHLORIDE 0.9% INJ 10 ML SYR IV ×2 (05:11→19:47)
[2018-06-13] MEDS: HEPARIN SOD (PORCINE) 5000 UNITS/ML VIAL SC ×3 (05:12→21:33)
[2018-06-13] MEDS: **hydrALAZINE HCL** 25 MG TAB PO ×3 (05:13→21:32)
[2018-06-13] MEDS: LEVOTHYROXINE 150MCG TABLET (0.15MG) PO (05:13)
[2018-06-13 05:31] LABS: BEDSIDE GLUCOSE 84 MG/DL (70-105)
[2018-06-13 05:41] LABS: HEMATOCRIT 34.8 % (42.0-52.0); HEMOGLOBIN 10.4 g/dl (13.5-17.5); MEAN CORPUSCULAR HEMOGLOBIN 26.9 pg (27.0-33.0); MEAN CORPUSCULAR HGB CONC 29.9 g/dl (32.0-36.5); MEAN CORPUSCULAR VOLUME 89.9 fl (80.0-96.0); PLATELET COUNT, AUTOMATED 249 10^3/uL (150-450); RED BLOOD COUNT 3.87 10^6/uL (4.30-6.10); RED CELL DISTRIBUTION WIDTH 17.2 % (11.5-14.5); WHITE BLOOD COUNT 12.1 10^3/uL (4.0-10.0)
[2018-06-13 06:24] LABS: ANION GAP 7 MEQ/L (8-16); BLOOD UREA NITROGEN 38 MG/DL (7-18); CALCIUM LEVEL 7.3 MG/DL (8.5-10.1); CARBON DIOXIDE LEVEL 28 MEQ/L (21-32); CHLORIDE LEVEL 99 MEQ/L (98-107); CREATININE FOR GFR 5.79 MG/DL (0.70-1.30); GLOMERULAR FILTRATION RATE 11.2 (>60); GLUCOSE, FASTING 82 MG/DL (70-100); POTASSIUM SERUM 5.1 MEQ/L (3.5-5.1); SODIUM LEVEL 134 MEQ/L (136-145); VANCOMYCIN RANDOM 19.1 UG/ML
[2018-06-13] MEDS: PANTOPRAZOLE 40MG TAB (PROTONIX) PO ×2 (06:29→21:32)
[2018-06-13] MEDS: GABAPENTIN 100 MG CAP PO ×3 (06:29→21:32)
[2018-06-13] MEDS: CINACALCET 30 MG TAB (SENSIPAR) PO (06:29)
[2018-06-13] MEDS: METOPROLOL TART 50 MG TAB PO ×2 (06:30→21:32)
[2018-06-13] MEDS: PERCOCET 5MG/325MG TAB PO ×2 (09:15→21:56)
[2018-06-13 10:32] LABS: PTH INTACT 366.8 PG/ML (18.5-88.0)
[2018-06-13 11:57] LABS: BEDSIDE GLUCOSE 81 MG/DL (70-105)
[2018-06-13] MEDS: BACITRACIN OINT 30GM TOP ×2 (12:21→21:33)
[2018-06-13] MEDS: SANTYL OINT 30GM TOP (12:22)
[2018-06-13] MEDS: LIDOCAINE 2% JELLY 30 ML TOP (12:30)
[2018-06-13] MEDS: HEPARIN 1,000 UNITS/ML 10ML VIAL (FOR RADIOLOGY& DIALYSIS ONLY) XX (15:50)
[2018-06-13] MEDS: HEPARIN 1,000 UNITS/ML 10ML VIAL (FOR RADIOLOGY& DIALYSIS ONLY) IV (15:50)
[2018-06-13 18:46] LABS: BEDSIDE GLUCOSE 100 MG/DL (70-105)
[2018-06-13] MEDS: VANCOMYCIN HCL 750 MG, VIAL MATE ADAPTER 1 EACH in D5W 250 ML IV (19:46)
[2018-06-13] MEDS: AMITRIPTYLINE 25 MG TAB PO (21:32)
[2018-06-13] MEDS: CEFEPIME HCL 0.5 GM in D5W MINI-BAG PLUS 50 ML IV (21:32)
[2018-06-13] MEDS: QUEtiapine FUMARATE 25 MG TAB PO (21:33)
[2018-06-13 23:37] LABS: BEDSIDE GLUCOSE 104 MG/DL (70-105)
[2018-06-14] MEDS: HEPARIN SOD (PORCINE) 5000 UNITS/ML VIAL SC ×4 (06:00→21:21)
[2018-06-14] MEDS: SODIUM CHLORIDE 0.9% INJ 10 ML SYR IV ×3 (06:00→21:21)
[2018-06-14] MEDS: LEVOTHYROXINE 150MCG TABLET (0.15MG) PO (06:06)
[2018-06-14] MEDS: **hydrALAZINE HCL** 25 MG TAB PO (06:09)
[2018-06-14 06:28] LABS: HEMATOCRIT 34.5 % (42.0-52.0); HEMOGLOBIN 10.4 g/dl (13.5-17.5); MEAN CORPUSCULAR HGB CONC 30.1 g/dl (32.0-36.5); MEAN CORPUSCULAR VOLUME 89.6 fl (80.0-96.0); PLATELET COUNT, AUTOMATED 221 10^3/uL (150-450); RED BLOOD COUNT 3.85 10^6/uL (4.30-6.10); RED CELL DISTRIBUTION WIDTH 17.4 % (11.5-14.5); WHITE BLOOD COUNT 11.3 10^3/uL (4.0-10.0)
[2018-06-14 06:46] LABS: ANION GAP 7 MEQ/L (8-16); BLOOD UREA NITROGEN 25 MG/DL (7-18); CALCIUM LEVEL 7.6 MG/DL (8.5-10.1); CARBON DIOXIDE LEVEL 30 MEQ/L (21-32); CHLORIDE LEVEL 99 MEQ/L (98-107); CREATININE FOR GFR 4.16 MG/DL (0.70-1.30); GLOMERULAR FILTRATION RATE 16.4 (>60); GLUCOSE, FASTING 77 MG/DL (70-100); POTASSIUM SERUM 4.5 MEQ/L (3.5-5.1); SODIUM LEVEL 136 MEQ/L (136-145)
[2018-06-14] MEDS: CINACALCET 30 MG TAB (SENSIPAR) PO (08:57)
[2018-06-14] MEDS: BACITRACIN OINT 30GM TOP ×2 (08:58→20:25)
[2018-06-14] MEDS: SANTYL OINT 30GM TOP (08:58)
[2018-06-14] MEDS: METOPROLOL TART 50 MG TAB PO ×2 (08:58→21:20)
[2018-06-14] MEDS: GABAPENTIN 100 MG CAP PO ×3 (08:59→20:24)
[2018-06-14] MEDS: PANTOPRAZOLE 40MG TAB (PROTONIX) PO ×2 (08:59→20:24)
[2018-06-14 09:07] LABS: C REACTIVE PROTEIN QUANTITATIV 6.95 MG/DL (0.00-0.30)
[2018-06-14 09:21] LABS: ERYTHROCYTE SEDIMENTATION RATE 57 mm/hr (0-15)
[2018-06-14] MEDS: PERCOCET 5MG/325MG TAB PO ×2 (10:26→17:25)
[2018-06-14 11:40] LABS: BEDSIDE GLUCOSE 93 MG/DL (70-105)
[2018-06-14] MEDS: **VANCO AFTER HD** MISC XX (12:53)
[2018-06-14] MEDS: **hydrALAZINE** 50 MG TAB PO ×2 (15:35→21:20)
[2018-06-14 17:04] LABS: BEDSIDE GLUCOSE 82 MG/DL (70-105)
[2018-06-14] MEDS: AMITRIPTYLINE 25 MG TAB PO (20:24)
[2018-06-14] MEDS: ERTAPENEM SODIUM 0.5 GM in NS 50 ML IV (20:24)
[2018-06-14] MEDS: QUEtiapine FUMARATE 25 MG TAB PO (20:24)
[2018-06-15 00:08] LABS: BEDSIDE GLUCOSE 68 MG/DL (70-105)
[2018-06-15] MEDS: SODIUM CHLORIDE 0.9% INJ 10 ML SYR IV ×3 (00:12→16:29)
[2018-06-15] MEDS: DEXTROSE 50% 50 ML SYRINGE IV ×3 (00:12→11:40)
[2018-06-15 00:45] LABS: BEDSIDE GLUCOSE 140 MG/DL (70-105)
[2018-06-15 05:23] LABS: HEMATOCRIT 33.8 % (42.0-52.0); HEMOGLOBIN 10.2 g/dl (13.5-17.5); MEAN CORPUSCULAR HEMOGLOBIN 27.3 pg (27.0-33.0); MEAN CORPUSCULAR HGB CONC 30.2 g/dl (32.0-36.5); MEAN CORPUSCULAR VOLUME 90.6 fl (80.0-96.0); PLATELET COUNT, AUTOMATED 220 10^3/uL (150-450); RED BLOOD COUNT 3.73 10^6/uL (4.30-6.10); RED CELL DISTRIBUTION WIDTH 17.8 % (11.5-14.5); WHITE BLOOD COUNT 9.6 10^3/uL (4.0-10.0)
[2018-06-15 05:43] LABS: ANION GAP 6 MEQ/L (8-16); BLOOD UREA NITROGEN 37 MG/DL (7-18); CALCIUM LEVEL 7.2 MG/DL (8.5-10.1); CARBON DIOXIDE LEVEL 29 MEQ/L (21-32); CHLORIDE LEVEL 98 MEQ/L (98-107); CREATININE FOR GFR 4.96 MG/DL (0.70-1.30); GLOMERULAR FILTRATION RATE 13.4 (>60); GLUCOSE, FASTING 68 MG/DL (70-100); POTASSIUM SERUM 4.9 MEQ/L (3.5-5.1); SODIUM LEVEL 133 MEQ/L (136-145)
[2018-06-15] MEDS: GABAPENTIN 100 MG CAP PO ×3 (06:08→20:43)
[2018-06-15] MEDS: **hydrALAZINE** 50 MG TAB PO ×3 (06:09→20:42)
[2018-06-15] MEDS: CINACALCET 30 MG TAB (SENSIPAR) PO (06:09)
[2018-06-15] MEDS: LEVOTHYROXINE 150MCG TABLET (0.15MG) PO (06:09)
[2018-06-15] MEDS: METOPROLOL TART 50 MG TAB PO ×2 (06:10→20:43)
[2018-06-15] MEDS: BACITRACIN OINT 30GM TOP ×2 (06:11→20:44)
[2018-06-15] MEDS: HEPARIN SOD (PORCINE) 5000 UNITS/ML VIAL SC ×3 (06:11→20:41)
[2018-06-15] MEDS: PANTOPRAZOLE 40MG TAB (PROTONIX) PO ×2 (06:11→20:43)
[2018-06-15 06:31] LABS: BEDSIDE GLUCOSE 112 MG/DL (70-105)
[2018-06-15] MEDS: GASTROGRAFIN SOLUTION 30ML PO ×2 (07:06→07:30)
[2018-06-15] MEDS: SANTYL OINT 30GM TOP (08:09)
[2018-06-15] MEDS ORDERED: ISOVUE-370 76% 100ML VIAL (Q9967) As Ordered (09:05)
[2018-06-15 11:33] LABS: BEDSIDE GLUCOSE 67 MG/DL (70-105)
[2018-06-15] MEDS: HEPARIN 1,000 UNITS/ML 10ML VIAL (FOR RADIOLOGY& DIALYSIS ONLY) IV (12:15)
[2018-06-15] MEDS: HEPARIN 1,000 UNITS/ML 10ML VIAL (FOR RADIOLOGY& DIALYSIS ONLY) XX (12:15)
[2018-06-15] MEDS: PERCOCET 5MG/325MG TAB PO (18:48)
[2018-06-15 18:53] LABS: BEDSIDE GLUCOSE 69 MG/DL (70-105)
[2018-06-15] MEDS: ERTAPENEM SODIUM 0.5 GM in NS 50 ML IV (20:00)
[2018-06-15] MEDS: AMITRIPTYLINE 25 MG TAB PO (20:43)
[2018-06-15] MEDS: QUEtiapine FUMARATE 25 MG TAB PO (20:43)
[2018-06-16] MEDS: PERCOCET 5MG/325MG TAB PO ×3 (01:42→14:45)
[2018-06-16 03:04] LABS: BEDSIDE GLUCOSE 92 MG/DL (70-105)
[2018-06-16] MEDS: HEPARIN SOD (PORCINE) 5000 UNITS/ML VIAL SC ×3 (05:54→20:21)
[2018-06-16] MEDS: LEVOTHYROXINE 150MCG TABLET (0.15MG) PO (05:55)
[2018-06-16 05:56] LABS: HEMATOCRIT 33.2 % (42.0-52.0); HEMOGLOBIN 10.1 g/dl (13.5-17.5); MEAN CORPUSCULAR HEMOGLOBIN 27.2 pg (27.0-33.0); MEAN CORPUSCULAR HGB CONC 30.4 g/dl (32.0-36.5); MEAN CORPUSCULAR VOLUME 89.5 fl (80.0-96.0); PLATELET COUNT, AUTOMATED 199 10^3/uL (150-450); RED BLOOD COUNT 3.71 10^6/uL (4.30-6.10); RED CELL DISTRIBUTION WIDTH 18.1 % (11.5-14.5); WHITE BLOOD COUNT 9.9 10^3/uL (4.0-10.0)
[2018-06-16] MEDS: SODIUM CHLORIDE 0.9% INJ 10 ML SYR IV ×2 (05:56→18:29)
[2018-06-16] MEDS: **hydrALAZINE** 50 MG TAB PO ×3 (05:56→20:22)
[2018-06-16 06:21] LABS: ANION GAP 8 MEQ/L (8-16); BLOOD UREA NITROGEN 20 MG/DL (7-18); C REACTIVE PROTEIN QUANTITATIV 4.95 MG/DL (0.00-0.30); CALCIUM LEVEL 7.1 MG/DL (8.5-10.1); CARBON DIOXIDE LEVEL 29 MEQ/L (21-32); CHLORIDE LEVEL 101 MEQ/L (98-107); CREATININE FOR GFR 3.47 MG/DL (0.70-1.30); GLOMERULAR FILTRATION RATE 20.2 (>60); GLUCOSE, FASTING 76 MG/DL (70-100); POTASSIUM SERUM 4.4 MEQ/L (3.5-5.1); SODIUM LEVEL 138 MEQ/L (136-145)
[2018-06-16] MEDS: PANTOPRAZOLE 40MG TAB (PROTONIX) PO ×2 (08:24→20:21)
[2018-06-16] MEDS: CINACALCET 30 MG TAB (SENSIPAR) PO (08:27)
[2018-06-16] MEDS: GABAPENTIN 100 MG CAP PO ×3 (08:28→20:21)
[2018-06-16] MEDS: METOPROLOL TART 50 MG TAB PO ×2 (08:28→20:23)
[2018-06-16] MEDS: BACITRACIN OINT 30GM TOP ×2 (08:28→20:23)
[2018-06-16] MEDS: SANTYL OINT 30GM TOP (08:29)
[2018-06-16 17:47] LABS: BEDSIDE GLUCOSE 104 MG/DL (70-105)
[2018-06-16] MEDS: ERTAPENEM SODIUM 0.5 GM in NS 50 ML IV (20:21)
[2018-06-16] MEDS: QUEtiapine FUMARATE 25 MG TAB PO (20:21)
[2018-06-16] MEDS: AMITRIPTYLINE 25 MG TAB PO (20:22)
[2018-06-17 00:41] LABS: BEDSIDE GLUCOSE 81 MG/DL (70-105)
[2018-06-17] MEDS: PERCOCET 5MG/325MG TAB PO ×3 (00:46→21:59)
[2018-06-17] MEDS: SODIUM CHLORIDE 0.9% INJ 10 ML SYR IV ×2 (05:55→17:37)
[2018-06-17] MEDS: HEPARIN SOD (PORCINE) 5000 UNITS/ML VIAL SC ×3 (05:55→20:29)
[2018-06-17] MEDS: LEVOTHYROXINE 150MCG TABLET (0.15MG) PO (05:56)
[2018-06-17] MEDS: CINACALCET 30 MG TAB (SENSIPAR) PO (05:56)
[2018-06-17] MEDS: **hydrALAZINE** 50 MG TAB PO ×4 (05:56→20:30)
[2018-06-17] MEDS: PANTOPRAZOLE 40MG TAB (PROTONIX) PO ×2 (06:00→20:29)
[2018-06-17] MEDS: GABAPENTIN 100 MG CAP PO ×3 (06:00→20:30)
[2018-06-17] MEDS: BACITRACIN OINT 30GM TOP ×2 (06:01→20:28)
[2018-06-17] MEDS: METOPROLOL TART 50 MG TAB PO ×2 (06:01→20:30)
[2018-06-17 06:02] LABS: HEMATOCRIT 33.6 % (42.0-52.0); HEMOGLOBIN 10.1 g/dl (13.5-17.5); MEAN CORPUSCULAR HEMOGLOBIN 27.5 pg (27.0-33.0); MEAN CORPUSCULAR HGB CONC 30.1 g/dl (32.0-36.5); MEAN CORPUSCULAR VOLUME 91.6 fl (80.0-96.0); PLATELET COUNT, AUTOMATED 205 10^3/uL (150-450); RED BLOOD COUNT 3.67 10^6/uL (4.30-6.10); RED CELL DISTRIBUTION WIDTH 18.3 % (11.5-14.5); WHITE BLOOD COUNT 10.6 10^3/uL (4.0-10.0)
[2018-06-17] MEDS: SANTYL OINT 30GM TOP (06:03)
[2018-06-17 06:26] LABS: C REACTIVE PROTEIN QUANTITATIV 4.39 MG/DL (0.00-0.30)
[2018-06-17 06:30] LABS: ANION GAP 7 MEQ/L (8-16); BLOOD UREA NITROGEN 30 MG/DL (7-18); CALCIUM LEVEL 7.2 MG/DL (8.5-10.1); CARBON DIOXIDE LEVEL 30 MEQ/L (21-32); CHLORIDE LEVEL 98 MEQ/L (98-107); GLOMERULAR FILTRATION RATE 14.2 (>60); GLUCOSE, FASTING 72 MG/DL (70-100); POTASSIUM SERUM 5.3 MEQ/L (3.5-5.1); SODIUM LEVEL 135 MEQ/L (136-145)
[2018-06-17] MEDS: HEPARIN 1,000 UNITS/ML 10ML VIAL (FOR RADIOLOGY& DIALYSIS ONLY) XX (11:45)
[2018-06-17] MEDS: HEPARIN 1,000 UNITS/ML 10ML VIAL (FOR RADIOLOGY& DIALYSIS ONLY) IV (11:45)
[2018-06-17 12:01] LABS: BEDSIDE GLUCOSE 73 MG/DL (70-105)
[2018-06-17 12:01] LABS: BEDSIDE GLUCOSE 93 MG/DL (70-105)
[2018-06-17 12:01] LABS: BEDSIDE GLUCOSE 73 MG/DL (70-105)
[2018-06-17 19:42] LABS: BEDSIDE GLUCOSE 110 MG/DL (70-105)
[2018-06-17] MEDS: ERTAPENEM SODIUM 0.5 GM in NS 50 ML IV (20:29)
[2018-06-17] MEDS: AMITRIPTYLINE 25 MG TAB PO (20:31)
[2018-06-17] MEDS: QUEtiapine FUMARATE 25 MG TAB PO (20:31)
[2018-06-18] MEDS: SODIUM CHLORIDE 0.9% INJ 10 ML SYR IV ×3 (05:04→20:23)
[2018-06-18] MEDS: LEVOTHYROXINE 150MCG TABLET (0.15MG) PO (05:22)
[2018-06-18] MEDS: HEPARIN SOD (PORCINE) 5000 UNITS/ML VIAL SC ×3 (05:23→20:22)
[2018-06-18] MEDS: **hydrALAZINE** 50 MG TAB PO ×3 (05:33→20:23)
[2018-06-18 05:36] LABS: HEMATOCRIT 33.1 % (42.0-52.0); HEMOGLOBIN 10.1 g/dl (13.5-17.5); MEAN CORPUSCULAR HEMOGLOBIN 27.6 pg (27.0-33.0); MEAN CORPUSCULAR HGB CONC 30.5 g/dl (32.0-36.5); MEAN CORPUSCULAR VOLUME 90.4 fl (80.0-96.0); PLATELET COUNT, AUTOMATED 195 10^3/uL (150-450); RED BLOOD COUNT 3.66 10^6/uL (4.30-6.10); RED CELL DISTRIBUTION WIDTH 18.4 % (11.5-14.5); WHITE BLOOD COUNT 10.3 10^3/uL (4.0-10.0)
[2018-06-18 05:59] LABS: ANION GAP 6 MEQ/L (8-16); BLOOD UREA NITROGEN 20 MG/DL (7-18); C REACTIVE PROTEIN QUANTITATIV 6.44 MG/DL (0.00-0.30); CALCIUM LEVEL 7.3 MG/DL (8.5-10.1); CARBON DIOXIDE LEVEL 29 MEQ/L (21-32); CHLORIDE LEVEL 102 MEQ/L (98-107); CREATININE FOR GFR 3.31 MG/DL (0.70-1.30); GLOMERULAR FILTRATION RATE 21.3 (>60); GLUCOSE, FASTING 72 MG/DL (70-100); POTASSIUM SERUM 4.8 MEQ/L (3.5-5.1); SODIUM LEVEL 137 MEQ/L (136-145)
[2018-06-18] MEDS: BACITRACIN OINT 30GM TOP ×2 (09:31→20:23)
[2018-06-18] MEDS: SANTYL OINT 30GM TOP (09:33)
[2018-06-18] MEDS: CINACALCET 30 MG TAB (SENSIPAR) PO (09:37)
[2018-06-18] MEDS: GABAPENTIN 100 MG CAP PO ×3 (09:37→20:21)
[2018-06-18] MEDS: METOPROLOL TART 50 MG TAB PO ×2 (09:37→20:22)
[2018-06-18] MEDS: PANTOPRAZOLE 40MG TAB (PROTONIX) PO ×2 (09:37→20:21)
[2018-06-18] MEDS: PERCOCET 5MG/325MG TAB PO ×2 (11:07→17:36)
[2018-06-18] MEDS: ACETAMINOPHEN TAB 650MG DOSE (2X325MG) PO (14:16)
[2018-06-18] MEDS: QUEtiapine FUMARATE 25 MG TAB PO (20:21)
[2018-06-18] MEDS: AMITRIPTYLINE 25 MG TAB PO (20:22)
[2018-06-18] MEDS: ERTAPENEM SODIUM 0.5 GM in NS 50 ML IV (20:23)
[2018-06-18 21:39] LABS: BEDSIDE GLUCOSE 67 MG/DL (70-105)
[2018-06-18] MEDS: DEXTROSE 50% 50 ML SYRINGE IV (21:41)
[2018-06-19 00:15] LABS: BEDSIDE GLUCOSE 94 MG/DL (70-105)
[2018-06-19 00:15] LABS: BEDSIDE GLUCOSE 86 MG/DL (70-105)
[2018-06-19 00:16] LABS: BEDSIDE GLUCOSE 59 MG/DL (70-105)
[2018-06-19 00:16] LABS: BEDSIDE GLUCOSE 62 MG/DL (70-105)
[2018-06-19] MEDS: DEXTROSE 50% 50 ML SYRINGE IV ×3 (00:22→20:45)
[2018-06-19] MEDS: SODIUM CHLORIDE 0.9% INJ 10 ML SYR IV ×4 (00:23→20:45)
[2018-06-19 00:54] LABS: BEDSIDE GLUCOSE 124 MG/DL (70-105)
[2018-06-19 02:44] LABS: BEDSIDE GLUCOSE 80 MG/DL (70-105)
[2018-06-19 04:15] LABS: BEDSIDE GLUCOSE 73 MG/DL (70-105)
[2018-06-19 05:14] LABS: HEMATOCRIT 33.7 % (42.0-52.0); MEAN CORPUSCULAR HEMOGLOBIN 27.1 pg (27.0-33.0); MEAN CORPUSCULAR HGB CONC 29.7 g/dl (32.0-36.5); MEAN CORPUSCULAR VOLUME 91.3 fl (80.0-96.0); PLATELET COUNT, AUTOMATED 200 10^3/uL (150-450); RED BLOOD COUNT 3.69 10^6/uL (4.30-6.10); RED CELL DISTRIBUTION WIDTH 18.6 % (11.5-14.5)
[2018-06-19 05:32] LABS: ANION GAP 7 MEQ/L (8-16); BLOOD UREA NITROGEN 29 MG/DL (7-18); C REACTIVE PROTEIN QUANTITATIV 7.73 MG/DL (0.00-0.30); CALCIUM LEVEL 7.2 MG/DL (8.5-10.1); CARBON DIOXIDE LEVEL 29 MEQ/L (21-32); CHLORIDE LEVEL 101 MEQ/L (98-107); CREATININE FOR GFR 4.33 MG/DL (0.70-1.30); GLOMERULAR FILTRATION RATE 15.6 (>60); GLUCOSE, FASTING 77 MG/DL (70-100); POTASSIUM SERUM 5.2 MEQ/L (3.5-5.1); SODIUM LEVEL 137 MEQ/L (136-145)
[2018-06-19] MEDS: **hydrALAZINE** 50 MG TAB PO ×3 (06:03→20:44)
[2018-06-19] MEDS: LEVOTHYROXINE 150MCG TABLET (0.15MG) PO (06:03)
[2018-06-19] MEDS: HEPARIN SOD (PORCINE) 5000 UNITS/ML VIAL SC ×3 (06:03→20:43)
[2018-06-19] MEDS: CINACALCET 30 MG TAB (SENSIPAR) PO (07:55)
[2018-06-19] MEDS: METOPROLOL TART 50 MG TAB PO ×2 (07:55→20:44)
[2018-06-19] MEDS: GABAPENTIN 100 MG CAP PO ×3 (07:55→20:44)
[2018-06-19] MEDS: PANTOPRAZOLE 40MG TAB (PROTONIX) PO ×2 (07:55→20:43)
[2018-06-19] MEDS: BACITRACIN OINT 30GM TOP ×2 (07:56→20:45)
[2018-06-19] MEDS: SANTYL OINT 30GM TOP (07:56)
[2018-06-19] MEDS: PERCOCET 5MG/325MG TAB PO (15:01)
[2018-06-19 20:34] LABS: BEDSIDE GLUCOSE 67 MG/DL (70-105)
[2018-06-19] MEDS: ERTAPENEM SODIUM 0.5 GM in NS 50 ML IV (20:43)
[2018-06-19] MEDS: AMITRIPTYLINE 25 MG TAB PO (20:43)
[2018-06-19] MEDS: QUEtiapine FUMARATE 25 MG TAB PO (20:44)
[2018-06-20] MEDS: PERCOCET 5MG/325MG TAB PO ×2 (00:15→20:54)
[2018-06-20] MEDS: SODIUM CHLORIDE 0.9% INJ 10 ML SYR IV ×3 (06:05→22:11)
[2018-06-20] MEDS: CINACALCET 30 MG TAB (SENSIPAR) PO (06:05)
[2018-06-20] MEDS: GABAPENTIN 100 MG CAP PO ×3 (06:05→20:54)
[2018-06-20] MEDS: HEPARIN SOD (PORCINE) 5000 UNITS/ML VIAL SC ×3 (06:05→20:55)
[2018-06-20] MEDS: PANTOPRAZOLE 40MG TAB (PROTONIX) PO ×2 (06:06→20:54)
[2018-06-20] MEDS: LEVOTHYROXINE 150MCG TABLET (0.15MG) PO (06:06)
[2018-06-20] MEDS: METOPROLOL TART 50 MG TAB PO ×2 (06:10→20:52)
[2018-06-20] MEDS: **hydrALAZINE** 50 MG TAB PO (06:11)
[2018-06-20] MEDS: SANTYL OINT 30GM TOP (06:40)
[2018-06-20] MEDS: BACITRACIN OINT 30GM TOP ×2 (06:40→20:56)
[2018-06-20 06:51] LABS: C REACTIVE PROTEIN QUANTITATIV 9.18 MG/DL (0.00-0.30)
[2018-06-20 09:34] LABS: HEMATOCRIT 32.9 % (42.0-52.0); MEAN CORPUSCULAR HEMOGLOBIN 27.5 pg (27.0-33.0); MEAN CORPUSCULAR HGB CONC 30.4 g/dl (32.0-36.5); MEAN CORPUSCULAR VOLUME 90.4 fl (80.0-96.0); PLATELET COUNT, AUTOMATED 203 10^3/uL (150-450); RED BLOOD COUNT 3.64 10^6/uL (4.30-6.10); RED CELL DISTRIBUTION WIDTH 18.7 % (11.5-14.5); WHITE BLOOD COUNT 10.4 10^3/uL (4.0-10.0)
[2018-06-20 09:43] LABS: ANION GAP 8 MEQ/L (8-16); BLOOD UREA NITROGEN 43 MG/DL (7-18); CALCIUM LEVEL 7.4 MG/DL (8.5-10.1); CARBON DIOXIDE LEVEL 27 MEQ/L (21-32); CHLORIDE LEVEL 100 MEQ/L (98-107); CREATININE FOR GFR 5.55 MG/DL (0.70-1.30); GLOMERULAR FILTRATION RATE 11.7 (>60); GLUCOSE, FASTING 70 MG/DL (70-100); POTASSIUM SERUM 5.9 MEQ/L (3.5-5.1); SODIUM LEVEL 135 MEQ/L (136-145)
[2018-06-20] MEDS: DEXTROSE 50% 50 ML SYRINGE IV ×2 (09:53→11:37)
[2018-06-20 11:36] LABS: BEDSIDE GLUCOSE 62 MG/DL (70-105)
[2018-06-20 12:31] LABS: BEDSIDE GLUCOSE 67 MG/DL (70-105)
[2018-06-20 12:31] LABS: BEDSIDE GLUCOSE 81 MG/DL (70-105)
[2018-06-20 12:31] LABS: BEDSIDE GLUCOSE 81 MG/DL (70-105)
[2018-06-20] MEDS: **hydrALAZINE HCL** 25 MG TAB PO ×2 (14:30→20:55)
[2018-06-20] MEDS: HEPARIN 1,000 UNITS/ML 10ML VIAL (FOR RADIOLOGY& DIALYSIS ONLY) XX (16:30)
[2018-06-20] MEDS: HEPARIN 1,000 UNITS/ML 10ML VIAL (FOR RADIOLOGY& DIALYSIS ONLY) IV (16:30)
[2018-06-20 20:23] LABS: BEDSIDE GLUCOSE 78 MG/DL (70-105)
[2018-06-20] MEDS: ERTAPENEM SODIUM 0.5 GM in NS 50 ML IV (20:52)
[2018-06-20] MEDS: QUEtiapine FUMARATE 25 MG TAB PO (20:54)
[2018-06-20] MEDS: AMITRIPTYLINE 25 MG TAB PO (20:56)
[2018-06-20 23:41] LABS: BEDSIDE GLUCOSE 82 MG/DL (70-105)
[2018-06-21 05:39] LABS: BEDSIDE GLUCOSE 64 MG/DL (70-105)
[2018-06-21] MEDS: SODIUM CHLORIDE 0.9% INJ 10 ML SYR IV ×4 (05:56→23:56)
[2018-06-21] MEDS: DEXTROSE 50% 50 ML SYRINGE IV ×2 (05:57→23:44)
[2018-06-21] MEDS: LEVOTHYROXINE 150MCG TABLET (0.15MG) PO (06:16)
[2018-06-21] MEDS: HEPARIN SOD (PORCINE) 5000 UNITS/ML VIAL SC ×3 (06:17→21:07)
[2018-06-21] MEDS: **hydrALAZINE HCL** 25 MG TAB PO ×3 (06:17→21:07)
[2018-06-21 06:28] LABS: MEAN CORPUSCULAR HEMOGLOBIN 27.6 pg (27.0-33.0); MEAN CORPUSCULAR HGB CONC 30.3 g/dl (32.0-36.5); MEAN CORPUSCULAR VOLUME 91.2 fl (80.0-96.0); PLATELET COUNT, AUTOMATED 193 10^3/uL (150-450); RED BLOOD COUNT 3.62 10^6/uL (4.30-6.10); RED CELL DISTRIBUTION WIDTH 18.9 % (11.5-14.5); WHITE BLOOD COUNT 7.8 10^3/uL (4.0-10.0)
[2018-06-21 06:34] LABS: BEDSIDE GLUCOSE 129 MG/DL (70-105)
[2018-06-21 06:40] LABS: INR 1.13; PROTHROMBIN TIME 14.7 SECONDS (12.1-14.4)
[2018-06-21 06:45] LABS: ALBUMIN 1.5 GM/DL (3.2-5.2); ALBUMIN/GLOBULIN RATIO 0.29 (1.00-1.93); ALKALINE PHOSPHATASE 199 U/L (45-117); ALT/SGPT 10 U/L (12-78); ANION GAP 5 MEQ/L (8-16); AST/SGOT 25 U/L (7-37); BILIRUBIN,DIRECT 0.1 MG/DL (0.0-0.2); BILIRUBIN,TOTAL 0.3 MG/DL (0.2-1.0); BLOOD UREA NITROGEN 24 MG/DL (7-18); C REACTIVE PROTEIN QUANTITATIV 9.71 MG/DL (0.00-0.30); CALCIUM LEVEL 7.6 MG/DL (8.5-10.1); CARBON DIOXIDE LEVEL 30 MEQ/L (21-32); CHLORIDE LEVEL 101 MEQ/L (98-107); CREATININE FOR GFR 3.74 MG/DL (0.70-1.30); GLOMERULAR FILTRATION RATE 18.5 (>60); GLUCOSE, FASTING 65 MG/DL (70-100); MAGNESIUM LEVEL 1.9 MG/DL (1.8-2.4); PHOSPHORUS LEVEL 3.6 MG/DL (2.5-4.9); POTASSIUM SERUM 4.9 MEQ/L (3.5-5.1); SODIUM LEVEL 136 MEQ/L (136-145); TOTAL PROTEIN 6.7 GM/DL (6.4-8.2)
[2018-06-21 06:53] LABS: CORTISOL AM 12.3 UG/DL (4.3-22.4)
[2018-06-21] MEDS: METOPROLOL TART 50 MG TAB PO ×2 (08:23→21:08)
[2018-06-21] MEDS: GABAPENTIN 100 MG CAP PO ×3 (08:23→21:08)
[2018-06-21] MEDS: SANTYL OINT 30GM TOP (08:23)
[2018-06-21] MEDS: PANTOPRAZOLE 40MG TAB (PROTONIX) PO ×2 (08:23→21:08)
[2018-06-21] MEDS: CINACALCET 30 MG TAB (SENSIPAR) PO (08:23)
[2018-06-21] MEDS: BACITRACIN OINT 30GM TOP ×2 (08:23→21:10)
[2018-06-21] MEDS: PERCOCET 5MG/325MG TAB PO ×2 (11:28→21:09)
[2018-06-21 11:55] LABS: BEDSIDE GLUCOSE 83 MG/DL (70-105)
[2018-06-21] MEDS: DRONABINOL 2.5 MG CAP (MARINOL) PO (17:22)
[2018-06-21 17:38] LABS: BEDSIDE GLUCOSE 80 MG/DL (70-105)
[2018-06-21] MEDS: CEFEPIME HCL 1 GM in D5W MINI-BAG PLUS 50 ML IV (19:49)
[2018-06-21] MEDS: LINEZOLID 600MG TABLET (ZYVOX) PO (21:08)
[2018-06-21] MEDS: QUEtiapine FUMARATE 25 MG TAB PO (21:08)
[2018-06-21] MEDS: AMITRIPTYLINE 25 MG TAB PO (21:08)
[2018-06-21 23:27] LABS: BEDSIDE GLUCOSE 74 MG/DL (70-105)
[2018-06-22 00:30] LABS: BEDSIDE GLUCOSE 112 MG/DL (70-105)
[2018-06-22] MEDS: SODIUM CHLORIDE 0.9% INJ 10 ML SYR IV ×2 (05:32→19:30)
[2018-06-22 05:58] LABS: HEMATOCRIT 33.7 % (42.0-52.0); HEMOGLOBIN 9.9 g/dl (13.5-17.5); MEAN CORPUSCULAR HGB CONC 29.4 g/dl (32.0-36.5); MEAN CORPUSCULAR VOLUME 91.8 fl (80.0-96.0); PLATELET COUNT, AUTOMATED 212 10^3/uL (150-450); RED BLOOD COUNT 3.67 10^6/uL (4.30-6.10); RED CELL DISTRIBUTION WIDTH 18.9 % (11.5-14.5); WHITE BLOOD COUNT 7.5 10^3/uL (4.0-10.0)
[2018-06-22 06:00] LABS: BEDSIDE GLUCOSE 62 MG/DL (70-105)
[2018-06-22 06:09] LABS: INR 1.14; PROTHROMBIN TIME 14.8 SECONDS (12.1-14.4)
[2018-06-22 06:16] LABS: ALBUMIN 1.6 GM/DL (3.2-5.2); ANION GAP 6 MEQ/L (8-16); BLOOD UREA NITROGEN 33 MG/DL (7-18); C REACTIVE PROTEIN QUANTITATIV 9.46 MG/DL (0.00-0.30); CALCIUM LEVEL 7.2 MG/DL (8.5-10.1); CARBON DIOXIDE LEVEL 29 MEQ/L (21-32); CHLORIDE LEVEL 100 MEQ/L (98-107); CREATININE FOR GFR 4.77 MG/DL (0.70-1.30); GLUCOSE, FASTING 66 MG/DL (70-100); PHOSPHORUS LEVEL 4.1 MG/DL (2.5-4.9); POTASSIUM SERUM 5.3 MEQ/L (3.5-5.1); SODIUM LEVEL 135 MEQ/L (136-145)
[2018-06-22] MEDS: LINEZOLID 600MG TABLET (ZYVOX) PO ×3 (06:16→20:55)
[2018-06-22] MEDS: HEPARIN SOD (PORCINE) 5000 UNITS/ML VIAL SC ×3 (06:17→20:56)
[2018-06-22] MEDS: DEXTROSE 50% 50 ML SYRINGE IV ×2 (06:17→12:17)
[2018-06-22] MEDS: GABAPENTIN 100 MG CAP PO ×3 (06:17→20:55)
[2018-06-22] MEDS: CINACALCET 30 MG TAB (SENSIPAR) PO (06:17)
[2018-06-22] MEDS: LEVOTHYROXINE 150MCG TABLET (0.15MG) PO (06:18)
[2018-06-22] MEDS: PANTOPRAZOLE 40MG TAB (PROTONIX) PO ×2 (06:18→20:55)
[2018-06-22] MEDS: METOPROLOL TART 50 MG TAB PO ×2 (06:18→20:55)
[2018-06-22] MEDS: SANTYL OINT 30GM TOP (06:19)
[2018-06-22] MEDS: **hydrALAZINE HCL** 25 MG TAB PO ×3 (06:19→20:55)
[2018-06-22] MEDS: BACITRACIN OINT 30GM TOP ×2 (06:20→20:56)
[2018-06-22 06:21] LABS: ALBUMIN 1.6 GM/DL (3.2-5.2); ALKALINE PHOSPHATASE 203 U/L (45-117); ALT/SGPT 11 U/L (12-78); AST/SGOT 24 U/L (7-37); BILIRUBIN,DIRECT 0.2 MG/DL (0.0-0.2); BILIRUBIN,TOTAL 0.4 MG/DL (0.2-1.0)
[2018-06-22 06:46] LABS: BEDSIDE GLUCOSE 131 MG/DL (70-105)
[2018-06-22] MEDS: FLUCONAZOLE 100 MG TAB PO (10:18)
[2018-06-22 11:52] LABS: BEDSIDE GLUCOSE 65 MG/DL (70-105)
[2018-06-22] MEDS: DRONABINOL 2.5 MG CAP (MARINOL) PO ×2 (12:32→16:55)
[2018-06-22] MEDS: HEPARIN 1,000 UNITS/ML 10ML VIAL (FOR RADIOLOGY& DIALYSIS ONLY) XX (16:04)
[2018-06-22] MEDS: HEPARIN 1,000 UNITS/ML 10ML VIAL (FOR RADIOLOGY& DIALYSIS ONLY) IV (16:04)
[2018-06-22 19:29] LABS: BEDSIDE GLUCOSE 87 MG/DL (70-105)
[2018-06-22] MEDS: CEFEPIME HCL 1 GM in D5W MINI-BAG PLUS 50 ML IV (19:29)
[2018-06-22] MEDS: PERCOCET 5MG/325MG TAB PO (19:30)
[2018-06-22] MEDS: QUEtiapine FUMARATE 25 MG TAB PO (20:55)
[2018-06-22] MEDS: AMITRIPTYLINE 25 MG TAB PO (20:56)
[2018-06-22] MEDS: ONDANSETRON 4 MG ORAL DISINTEGRATING TAB (Q0162 PER 1MG) PO (21:19)
[2018-06-23 04:58] LABS: BEDSIDE GLUCOSE 80 MG/DL (70-105)
[2018-06-23] MEDS: SODIUM CHLORIDE 0.9% INJ 10 ML SYR IV ×4 (05:10→14:24)
[2018-06-23 05:22] LABS: HEMATOCRIT 33.4 % (42.0-52.0); HEMOGLOBIN 9.8 g/dl (13.5-17.5); MEAN CORPUSCULAR HEMOGLOBIN 27.5 pg (27.0-33.0); MEAN CORPUSCULAR HGB CONC 29.3 g/dl (32.0-36.5); MEAN CORPUSCULAR VOLUME 93.6 fl (80.0-96.0); PLATELET COUNT, AUTOMATED 183 10^3/uL (150-450); RED BLOOD COUNT 3.57 10^6/uL (4.30-6.10); RED CELL DISTRIBUTION WIDTH 19.2 % (11.5-14.5); WHITE BLOOD COUNT 6.3 10^3/uL (4.0-10.0)
[2018-06-23] MEDS: **hydrALAZINE HCL** 25 MG TAB PO ×3 (05:48→21:59)
[2018-06-23] MEDS: LEVOTHYROXINE 150MCG TABLET (0.15MG) PO (05:48)
[2018-06-23] MEDS: HEPARIN SOD (PORCINE) 5000 UNITS/ML VIAL SC ×3 (05:48→22:00)
[2018-06-23 05:51] LABS: ALBUMIN 1.6 GM/DL (3.2-5.2); ALKALINE PHOSPHATASE 186 U/L (45-117); ALT/SGPT 11 U/L (12-78); ANION GAP 5 MEQ/L (8-16); AST/SGOT 24 U/L (7-37); BILIRUBIN,DIRECT 0.1 MG/DL (0.0-0.2); BILIRUBIN,TOTAL 0.3 MG/DL (0.2-1.0); BLOOD UREA NITROGEN 18 MG/DL (7-18); C REACTIVE PROTEIN QUANTITATIV 7.55 MG/DL (0.00-0.30); CALCIUM LEVEL 7.2 MG/DL (8.5-10.1); CARBON DIOXIDE LEVEL 31 MEQ/L (21-32); CHLORIDE LEVEL 99 MEQ/L (98-107); CREATININE FOR GFR 3.32 MG/DL (0.70-1.30); GLOMERULAR FILTRATION RATE 21.3 (>60); GLUCOSE, FASTING 67 MG/DL (70-100); MAGNESIUM LEVEL 1.9 MG/DL (1.8-2.4); PHOSPHORUS LEVEL 3.6 MG/DL (2.5-4.9); POTASSIUM SERUM 4.5 MEQ/L (3.5-5.1); SODIUM LEVEL 135 MEQ/L (136-145)
[2018-06-23] MEDS: DEXTROSE 50% 50 ML SYRINGE IV ×4 (05:57→23:06)
[2018-06-23 08:50] LABS: BEDSIDE GLUCOSE 64 MG/DL (70-105)
[2018-06-23] MEDS: PANTOPRAZOLE 40MG TAB (PROTONIX) PO ×2 (08:51→22:00)
[2018-06-23] MEDS: GABAPENTIN 100 MG CAP PO ×3 (08:51→21:56)
[2018-06-23] MEDS: METOPROLOL TART 50 MG TAB PO ×2 (08:51→21:59)
[2018-06-23] MEDS: CINACALCET 30 MG TAB (SENSIPAR) PO (08:51)
[2018-06-23] MEDS: SANTYL OINT 30GM TOP (08:52)
[2018-06-23] MEDS: BACITRACIN OINT 30GM TOP ×2 (08:52→22:00)
[2018-06-23] MEDS: FLUCONAZOLE 100 MG TAB PO (08:52)
[2018-06-23] MEDS: LINEZOLID 600MG TABLET (ZYVOX) PO ×2 (08:56→21:56)
[2018-06-23 09:33] LABS: BEDSIDE GLUCOSE 96 MG/DL (70-105)
[2018-06-23 10:56] LABS: BEDSIDE GLUCOSE 70 MG/DL (70-105)
[2018-06-23 12:11] LABS: BEDSIDE GLUCOSE 103 MG/DL (70-105)
[2018-06-23] MEDS: DRONABINOL 2.5 MG CAP (MARINOL) PO ×2 (12:46→16:33)
[2018-06-23] MEDS: PERCOCET 5MG/325MG TAB PO ×2 (14:46→22:01)
[2018-06-23 16:43] LABS: BEDSIDE GLUCOSE 79 MG/DL (70-105)
[2018-06-23] MEDS: CEFEPIME HCL 1 GM in D5W MINI-BAG PLUS 50 ML IV (18:36)
[2018-06-23] MEDS: QUEtiapine FUMARATE 25 MG TAB PO (21:56)
[2018-06-23] MEDS: AMITRIPTYLINE 25 MG TAB PO (22:00)
[2018-06-23 23:00] LABS: BEDSIDE GLUCOSE 74 MG/DL (70-105)
[2018-06-24 02:30] LABS: BEDSIDE GLUCOSE 89 MG/DL (70-105)
[2018-06-24 02:30] LABS: BEDSIDE GLUCOSE 60 MG/DL (70-105)
[2018-06-24 02:30] LABS: BEDSIDE GLUCOSE 70 MG/DL (70-105)
[2018-06-24 04:21] LABS: BEDSIDE GLUCOSE 73 MG/DL (70-105)
[2018-06-24] MEDS: DEXTROSE 50% 50 ML SYRINGE IV ×4 (04:28→18:31)
[2018-06-24] MEDS: PERCOCET 5MG/325MG TAB PO (04:29)
[2018-06-24] MEDS: HEPARIN SOD (PORCINE) 5000 UNITS/ML VIAL SC ×3 (05:28→21:28)
[2018-06-24] MEDS: **hydrALAZINE HCL** 25 MG TAB PO ×3 (05:28→21:27)
[2018-06-24] MEDS: LEVOTHYROXINE 150MCG TABLET (0.15MG) PO (05:28)
[2018-06-24] MEDS: SODIUM CHLORIDE 0.9% INJ 10 ML SYR IV ×2 (05:29→18:32)
[2018-06-24 05:46] LABS: HEMOGLOBIN 9.6 g/dl (13.5-17.5); MEAN CORPUSCULAR HEMOGLOBIN 27.7 pg (27.0-33.0); MEAN CORPUSCULAR HGB CONC 29.1 g/dl (32.0-36.5); MEAN CORPUSCULAR VOLUME 95.1 fl (80.0-96.0); PLATELET COUNT, AUTOMATED 173 10^3/uL (150-450); RED BLOOD COUNT 3.47 10^6/uL (4.30-6.10); RED CELL DISTRIBUTION WIDTH 19.3 % (11.5-14.5); WHITE BLOOD COUNT 6.9 10^3/uL (4.0-10.0)
[2018-06-24 06:26] LABS: ALBUMIN 1.6 GM/DL (3.2-5.2); ALKALINE PHOSPHATASE 180 U/L (45-117); ALT/SGPT 9 U/L (12-78); ANION GAP 5 MEQ/L (8-16); AST/SGOT 26 U/L (7-37); BILIRUBIN,DIRECT 0.1 MG/DL (0.0-0.2); BILIRUBIN,TOTAL 0.3 MG/DL (0.2-1.0); BLOOD UREA NITROGEN 27 MG/DL (7-18); C REACTIVE PROTEIN QUANTITATIV 6.38 MG/DL (0.00-0.30); CARBON DIOXIDE LEVEL 31 MEQ/L (21-32); CHLORIDE LEVEL 98 MEQ/L (98-107); CREATININE FOR GFR 4.48 MG/DL (0.70-1.30); GLUCOSE, FASTING 83 MG/DL (70-100); MAGNESIUM LEVEL 2.1 MG/DL (1.8-2.4); PHOSPHORUS LEVEL 4.9 MG/DL (2.5-4.9); SODIUM LEVEL 134 MEQ/L (136-145); TOTAL PROTEIN 6.9 GM/DL (6.4-8.2)
[2018-06-24 08:17] LABS: BEDSIDE GLUCOSE 62 MG/DL (70-105)
[2018-06-24 09:04] LABS: BEDSIDE GLUCOSE 118 MG/DL (70-105)
[2018-06-24] MEDS: FLUCONAZOLE 100 MG TAB PO (09:45)
[2018-06-24] MEDS: PANTOPRAZOLE 40MG TAB (PROTONIX) PO ×2 (09:45→21:26)
[2018-06-24] MEDS: METOPROLOL TART 50 MG TAB PO ×2 (09:45→21:27)
[2018-06-24] MEDS: CINACALCET 30 MG TAB (SENSIPAR) PO (09:45)
[2018-06-24] MEDS: LINEZOLID 600MG TABLET (ZYVOX) PO ×2 (09:45→21:27)
[2018-06-24] MEDS: BACITRACIN OINT 30GM TOP ×2 (09:46→21:29)
[2018-06-24] MEDS: GABAPENTIN 100 MG CAP PO ×3 (09:46→21:26)
[2018-06-24] MEDS: SANTYL OINT 30GM TOP (09:46)
[2018-06-24 11:50] LABS: BEDSIDE GLUCOSE 67 MG/DL (70-105)
[2018-06-24] MEDS: D10W/0.45% SODIUM CHLORIDE 1,000 ML IV (12:17)
[2018-06-24] MEDS: DRONABINOL 2.5 MG CAP (MARINOL) PO ×2 (12:17→17:46)
[2018-06-24 13:14] LABS: BEDSIDE GLUCOSE 67 MG/DL (70-105)
[2018-06-24] MEDS: HEPARIN 1,000 UNITS/ML 10ML VIAL (FOR RADIOLOGY& DIALYSIS ONLY) IV (13:15)
[2018-06-24] MEDS: HEPARIN 1,000 UNITS/ML 10ML VIAL (FOR RADIOLOGY& DIALYSIS ONLY) XX (13:15)
[2018-06-24 14:54] LABS: ABG BASE EXCESS 3.3 (-2.0-2.0); ABG O2 SATURATION 96.1 % (95.0-99.0); ABG PARTIAL PRESSURE O2 91.6 mmHg (75.0-100.0); ABG STANDARD HCO3 27.4 MEQ/L (22.0-26.0); ABG pH (ARTERIAL) 7.297 UNITS (7.350-7.450)
[2018-06-24 14:56] LABS: ABG PARTIAL PRESSURE CO2 64.9 mmHg (35.0-45.0)
[2018-06-24 17:30] LABS: BEDSIDE GLUCOSE 67 MG/DL (70-105)
[2018-06-24] MEDS: CEFEPIME HCL 1 GM in D5W MINI-BAG PLUS 50 ML IV (20:02)
[2018-06-24] MEDS: QUEtiapine FUMARATE 25 MG TAB PO (21:28)
[2018-06-24] MEDS: AMITRIPTYLINE 25 MG TAB PO (21:29)
[2018-06-25 00:16] LABS: BEDSIDE GLUCOSE 74 MG/DL (70-105)
[2018-06-25] MEDS: DEXTROSE 50% 50 ML SYRINGE IV ×4 (00:21→21:37)
[2018-06-25] MEDS: LEVOTHYROXINE 150MCG TABLET (0.15MG) PO (05:12)
[2018-06-25] MEDS: **hydrALAZINE HCL** 25 MG TAB PO ×3 (05:12→22:00)
[2018-06-25] MEDS: SODIUM CHLORIDE 0.9% INJ 10 ML SYR IV ×2 (05:13→17:28)
[2018-06-25] MEDS: HEPARIN SOD (PORCINE) 5000 UNITS/ML VIAL SC ×3 (05:13→21:08)
[2018-06-25 05:32] LABS: HEMATOCRIT 33.6 % (42.0-52.0); HEMOGLOBIN 9.8 g/dl (13.5-17.5); MEAN CORPUSCULAR HEMOGLOBIN 27.6 pg (27.0-33.0); MEAN CORPUSCULAR HGB CONC 29.2 g/dl (32.0-36.5); MEAN CORPUSCULAR VOLUME 94.6 fl (80.0-96.0); PLATELET COUNT, AUTOMATED 171 10^3/uL (150-450); RED BLOOD COUNT 3.55 10^6/uL (4.30-6.10); RED CELL DISTRIBUTION WIDTH 19.3 % (11.5-14.5); WHITE BLOOD COUNT 5.9 10^3/uL (4.0-10.0)
[2018-06-25 06:15] LABS: ALBUMIN 1.6 GM/DL (3.2-5.2); ALKALINE PHOSPHATASE 166 U/L (45-117); ALT/SGPT 10 U/L (12-78); ANION GAP 4 MEQ/L (8-16); AST/SGOT 24 U/L (7-37); BILIRUBIN,DIRECT 0.1 MG/DL (0.0-0.2); BILIRUBIN,TOTAL 0.4 MG/DL (0.2-1.0); BLOOD UREA NITROGEN 14 MG/DL (7-18); C REACTIVE PROTEIN QUANTITATIV 5.46 MG/DL (0.00-0.30); CALCIUM LEVEL 7.2 MG/DL (8.5-10.1); CARBON DIOXIDE LEVEL 31 MEQ/L (21-32); CHLORIDE LEVEL 99 MEQ/L (98-107); CREATININE FOR GFR 3.16 MG/DL (0.70-1.30); GLOMERULAR FILTRATION RATE 22.5 (>60); GLUCOSE, FASTING 66 MG/DL (70-100); MAGNESIUM LEVEL 1.8 MG/DL (1.8-2.4); PHOSPHORUS LEVEL 3.4 MG/DL (2.5-4.9); POTASSIUM SERUM 4.4 MEQ/L (3.5-5.1); SODIUM LEVEL 134 MEQ/L (136-145); TOTAL PROTEIN 6.9 GM/DL (6.4-8.2)
[2018-06-25] MEDS: CINACALCET 30 MG TAB (SENSIPAR) PO (09:42)
[2018-06-25] MEDS: LINEZOLID 600MG TABLET (ZYVOX) PO ×2 (09:43→21:06)
[2018-06-25] MEDS: FLUCONAZOLE 100 MG TAB PO (09:43)
[2018-06-25] MEDS: GABAPENTIN 100 MG CAP PO ×3 (09:43→21:06)
[2018-06-25] MEDS: PANTOPRAZOLE 40MG TAB (PROTONIX) PO ×2 (09:43→21:06)
[2018-06-25] MEDS: METOPROLOL TART 50 MG TAB PO ×2 (10:03→21:00)
[2018-06-25] MEDS: SANTYL OINT 30GM TOP (10:03)
[2018-06-25] MEDS: BACITRACIN OINT 30GM TOP ×2 (10:04→21:00)
[2018-06-25] MEDS: SILVER SULFADIAZINE 1% CR 50 GM JAR TOP (10:11)
[2018-06-25 12:11] LABS: BEDSIDE GLUCOSE 89 MG/DL (70-105)
[2018-06-25] MEDS: ASPIRIN 81 MG ENTERIC TAB PO (13:22)
[2018-06-25] MEDS: ATORVASTATIN 20 MG TAB PO (13:22)
[2018-06-25] MEDS: DRONABINOL 2.5 MG CAP (MARINOL) PO ×2 (13:25→17:34)
[2018-06-25] MEDS: D10W/0.45% SODIUM CHLORIDE 1,000 ML IV (13:46)
[2018-06-25 17:22] LABS: BEDSIDE GLUCOSE 74 MG/DL (70-105)
[2018-06-25] MEDS: PERCOCET 5MG/325MG TAB PO (17:34)
[2018-06-25] MEDS: CEFEPIME HCL 1 GM in D5W MINI-BAG PLUS 50 ML IV (18:47)
[2018-06-25] MEDS: QUEtiapine FUMARATE 25 MG TAB PO (21:06)
[2018-06-25] MEDS: AMITRIPTYLINE 25 MG TAB PO (21:06)
[2018-06-25 21:20] LABS: BEDSIDE GLUCOSE 70 MG/DL (70-105)
[2018-06-26 00:34] LABS: BEDSIDE GLUCOSE 69 MG/DL (70-105)
[2018-06-26] MEDS: DEXTROSE 50% 50 ML SYRINGE IV ×3 (00:37→12:02)
[2018-06-26 04:01] LABS: BEDSIDE GLUCOSE 58 MG/DL (70-105)
[2018-06-26] MEDS: LEVOTHYROXINE 150MCG TABLET (0.15MG) PO (05:10)
[2018-06-26] MEDS: SODIUM CHLORIDE 0.9% INJ 10 ML SYR IV ×4 (05:11→20:19)
[2018-06-26] MEDS: HEPARIN SOD (PORCINE) 5000 UNITS/ML VIAL SC ×3 (05:11→21:24)
[2018-06-26] MEDS: **hydrALAZINE HCL** 25 MG TAB PO ×3 (05:11→21:26)
[2018-06-26 05:29] LABS: HEMOGLOBIN 8.9 g/dl (13.5-17.5); MEAN CORPUSCULAR HEMOGLOBIN 27.9 pg (27.0-33.0); MEAN CORPUSCULAR HGB CONC 28.7 g/dl (32.0-36.5); MEAN CORPUSCULAR VOLUME 97.2 fl (80.0-96.0); PLATELET COUNT, AUTOMATED 145 10^3/uL (150-450); RED BLOOD COUNT 3.19 10^6/uL (4.30-6.10); RED CELL DISTRIBUTION WIDTH 19.6 % (11.5-14.5); WHITE BLOOD COUNT 4.1 10^3/uL (4.0-10.0)
[2018-06-26 06:05] LABS: ALBUMIN 1.4 GM/DL (3.2-5.2); ALBUMIN/GLOBULIN RATIO 0.28 (1.00-1.93); ALKALINE PHOSPHATASE 150 U/L (45-117); ALT/SGPT 6 U/L (12-78); ANION GAP 5 MEQ/L (8-16); AST/SGOT 18 U/L (7-37); BILIRUBIN,DIRECT < 0.1 MG/DL (0.0-0.2); BILIRUBIN,TOTAL 0.3 MG/DL (0.2-1.0); BLOOD UREA NITROGEN 21 MG/DL (7-18); C REACTIVE PROTEIN QUANTITATIV 4.33 MG/DL (0.00-0.30); CALCIUM LEVEL 6.6 MG/DL (8.5-10.1); CARBON DIOXIDE LEVEL 29 MEQ/L (21-32); CHLORIDE LEVEL 96 MEQ/L (98-107); GLOMERULAR FILTRATION RATE 16.7 (>60); GLUCOSE, FASTING 607 MG/DL (70-100); MAGNESIUM LEVEL 1.7 MG/DL (1.8-2.4); PHOSPHORUS LEVEL 3.6 MG/DL (2.5-4.9); POTASSIUM SERUM 3.7 MEQ/L (3.5-5.1); SODIUM LEVEL 130 MEQ/L (136-145); TOTAL PROTEIN 6.4 GM/DL (6.4-8.2)
[2018-06-26 06:54] LABS: BEDSIDE GLUCOSE CONFIRMATION 91 MG/DL (LESS THAN 200)
[2018-06-26] MEDS: ATORVASTATIN 20 MG TAB PO (08:41)
[2018-06-26] MEDS: CINACALCET 30 MG TAB (SENSIPAR) PO (08:41)
[2018-06-26] MEDS: FLUCONAZOLE 100 MG TAB PO (08:41)
[2018-06-26] MEDS: ASPIRIN 81 MG ENTERIC TAB PO (08:41)
[2018-06-26] MEDS: PANTOPRAZOLE 40MG TAB (PROTONIX) PO ×2 (08:41→20:17)
[2018-06-26] MEDS: GABAPENTIN 100 MG CAP PO ×3 (08:41→20:17)
[2018-06-26] MEDS: LINEZOLID 600MG TABLET (ZYVOX) PO ×2 (08:41→20:17)
[2018-06-26] MEDS: METOPROLOL TART 50 MG TAB PO ×2 (08:42→21:25)
[2018-06-26 11:56] LABS: BEDSIDE GLUCOSE 71 MG/DL (70-105)
[2018-06-26] MEDS: DRONABINOL 2.5 MG CAP (MARINOL) PO ×2 (12:02→18:33)
[2018-06-26] MEDS: BACITRACIN OINT 30GM TOP ×2 (12:08→20:18)
[2018-06-26] MEDS: D10W/0.45% SODIUM CHLORIDE 1,000 ML IV (15:27)
[2018-06-26] MEDS: SANTYL OINT 30GM TOP (15:34)
[2018-06-26 17:27] LABS: BEDSIDE GLUCOSE 78 MG/DL (70-105)
[2018-06-26] MEDS: CEFEPIME HCL 1 GM in D5W MINI-BAG PLUS 50 ML IV (18:33)
[2018-06-26 20:08] LABS: BEDSIDE GLUCOSE 84 MG/DL (70-105)
[2018-06-26] MEDS: AMITRIPTYLINE 25 MG TAB PO (20:17)
[2018-06-26] MEDS: QUEtiapine FUMARATE 25 MG TAB PO (20:17)
[2018-06-26] MEDS: PERCOCET 5MG/325MG TAB PO (20:18)
[2018-06-27 00:07] LABS: BEDSIDE GLUCOSE 83 MG/DL (70-105)
[2018-06-27] MEDS: SODIUM CHLORIDE 0.9% INJ 10 ML SYR IV ×3 (05:59→11:51)
[2018-06-27] MEDS: LEVOTHYROXINE 150MCG TABLET (0.15MG) PO (05:59)
[2018-06-27] MEDS: ATORVASTATIN 20 MG TAB PO (06:00)
[2018-06-27] MEDS: CINACALCET 30 MG TAB (SENSIPAR) PO (06:00)
[2018-06-27] MEDS: GABAPENTIN 100 MG CAP PO ×3 (06:00→21:05)
[2018-06-27] MEDS: FLUCONAZOLE 100 MG TAB PO (06:00)
[2018-06-27] MEDS: PANTOPRAZOLE 40MG TAB (PROTONIX) PO ×2 (06:00→21:05)
[2018-06-27] MEDS: **hydrALAZINE HCL** 25 MG TAB PO ×3 (06:00→21:05)
[2018-06-27] MEDS: LINEZOLID 600MG TABLET (ZYVOX) PO ×2 (06:01→21:05)
[2018-06-27] MEDS: ASPIRIN 81 MG ENTERIC TAB PO (06:01)
[2018-06-27] MEDS: HEPARIN SOD (PORCINE) 5000 UNITS/ML VIAL SC ×3 (06:01→21:06)
[2018-06-27 06:24] LABS: HEMATOCRIT 32.7 % (42.0-52.0); HEMOGLOBIN 9.9 g/dl (13.5-17.5); MEAN CORPUSCULAR HGB CONC 30.3 g/dl (32.0-36.5); MEAN CORPUSCULAR VOLUME 92.6 fl (80.0-96.0); PLATELET COUNT, AUTOMATED 186 10^3/uL (150-450); RED BLOOD COUNT 3.53 10^6/uL (4.30-6.10); RED CELL DISTRIBUTION WIDTH 19.1 % (11.5-14.5); WHITE BLOOD COUNT 6.2 10^3/uL (4.0-10.0)
[2018-06-27 07:31] LABS: ALBUMIN 1.5 GM/DL (3.2-5.2); ANION GAP 7 MEQ/L (8-16); BLOOD UREA NITROGEN 28 MG/DL (7-18); CALCIUM LEVEL 6.6 MG/DL (8.5-10.1); CARBON DIOXIDE LEVEL 27 MEQ/L (21-32); CHLORIDE LEVEL 96 MEQ/L (98-107); CREATININE FOR GFR 5.17 MG/DL (0.70-1.30); GLOMERULAR FILTRATION RATE 12.8 (>60); GLUCOSE, FASTING 72 MG/DL (70-100); PHOSPHORUS LEVEL 4.4 MG/DL (2.5-4.9); SODIUM LEVEL 130 MEQ/L (136-145)
[2018-06-27] MEDS: DEXTROSE 50% 50 ML SYRINGE IV ×2 (07:43→11:51)
[2018-06-27] MEDS: METOPROLOL TART 50 MG TAB PO ×2 (09:55→21:05)
[2018-06-27] MEDS: BACITRACIN OINT 30GM TOP ×2 (09:57→21:06)
[2018-06-27] MEDS: SANTYL OINT 30GM TOP (09:57)
[2018-06-27] MEDS: HEPARIN 1,000 UNITS/ML 10ML VIAL (FOR RADIOLOGY& DIALYSIS ONLY) XX (10:15)
[2018-06-27] MEDS: HEPARIN 1,000 UNITS/ML 10ML VIAL (FOR RADIOLOGY& DIALYSIS ONLY) IV (10:15)
[2018-06-27 11:49] LABS: BEDSIDE GLUCOSE 67 MG/DL (70-105)
[2018-06-27 12:58] LABS: BEDSIDE GLUCOSE 94 MG/DL (70-105)
[2018-06-27 16:26] LABS: BEDSIDE GLUCOSE 87 MG/DL (70-105)
[2018-06-27] MEDS: PERCOCET 5MG/325MG TAB PO (17:35)
[2018-06-27] MEDS: CEFEPIME HCL 1 GM in D5W MINI-BAG PLUS 50 ML IV (18:22)
[2018-06-27] MEDS: D10W/0.45% SODIUM CHLORIDE 1,000 ML IV (19:08)
[2018-06-27] MEDS: QUEtiapine FUMARATE 25 MG TAB PO (21:05)
[2018-06-27] MEDS: AMITRIPTYLINE 25 MG TAB PO (21:05)
[2018-06-27 21:40] LABS: BEDSIDE GLUCOSE 101 MG/DL (70-105)
[2018-06-28 01:29] LABS: BEDSIDE GLUCOSE 74 MG/DL (70-105)
[2018-06-28] MEDS: PERCOCET 5MG/325MG TAB PO ×3 (01:45→21:51)
[2018-06-28] MEDS: HEPARIN SOD (PORCINE) 5000 UNITS/ML VIAL SC ×3 (05:44→21:53)
[2018-06-28] MEDS: SODIUM CHLORIDE 0.9% INJ 10 ML SYR IV ×4 (05:45→19:09)
[2018-06-28] MEDS: **hydrALAZINE HCL** 25 MG TAB PO ×3 (05:46→21:51)
[2018-06-28] MEDS: LEVOTHYROXINE 150MCG TABLET (0.15MG) PO (05:49)
[2018-06-28 06:22] LABS: BEDSIDE GLUCOSE 66 MG/DL (70-105)
[2018-06-28] MEDS: DEXTROSE 50% 50 ML SYRINGE IV (06:30)
[2018-06-28 06:55] LABS: BEDSIDE GLUCOSE 120 MG/DL (70-105)
[2018-06-28] MEDS: PANTOPRAZOLE 40MG TAB (PROTONIX) PO ×2 (08:16→21:51)
[2018-06-28] MEDS: LINEZOLID 600MG TABLET (ZYVOX) PO ×2 (08:17→21:50)
[2018-06-28] MEDS: CALCITRIOL 0.25 MCG CAP (S0169) PO (08:17)
[2018-06-28] MEDS: FLUCONAZOLE 100 MG TAB PO (08:17)
[2018-06-28] MEDS: ATORVASTATIN 20 MG TAB PO (08:17)
[2018-06-28] MEDS: GABAPENTIN 100 MG CAP PO ×3 (08:17→21:51)
[2018-06-28] MEDS: CINACALCET 30 MG TAB (SENSIPAR) PO (08:17)
[2018-06-28] MEDS: ASPIRIN 81 MG ENTERIC TAB PO (08:18)
[2018-06-28] MEDS: METOPROLOL TART 50 MG TAB PO ×2 (08:21→21:51)
[2018-06-28] MEDS: BACITRACIN OINT 30GM TOP ×2 (08:22→21:00)
[2018-06-28 09:03] LABS: HEMATOCRIT 32.8 % (42.0-52.0); HEMOGLOBIN 9.8 g/dl (13.5-17.5); MEAN CORPUSCULAR HGB CONC 29.9 g/dl (32.0-36.5); MEAN CORPUSCULAR VOLUME 93.7 fl (80.0-96.0); PLATELET COUNT, AUTOMATED 170 10^3/uL (150-450); RED CELL DISTRIBUTION WIDTH 19.5 % (11.5-14.5); WHITE BLOOD COUNT 4.7 10^3/uL (4.0-10.0)
[2018-06-28] MEDS: ONDANSETRON 4 MG ORAL DISINTEGRATING TAB (Q0162 PER 1MG) PO (09:23)
[2018-06-28 09:37] LABS: ALBUMIN 1.5 GM/DL (3.2-5.2); ALBUMIN/GLOBULIN RATIO 0.29 (1.00-1.93); ALKALINE PHOSPHATASE 160 U/L (45-117); ALT/SGPT 7 U/L (12-78); ANION GAP 8 MEQ/L (8-16); AST/SGOT 23 U/L (7-37); BILIRUBIN,TOTAL 0.3 MG/DL (0.2-1.0); BLOOD UREA NITROGEN 17 MG/DL (7-18); C REACTIVE PROTEIN QUANTITATIV 6.74 MG/DL (0.00-0.30); CALCIUM LEVEL 6.7 MG/DL (8.5-10.1); CARBON DIOXIDE LEVEL 28 MEQ/L (21-32); CHLORIDE LEVEL 98 MEQ/L (98-107); CREATININE FOR GFR 3.78 MG/DL (0.70-1.30); GLOMERULAR FILTRATION RATE 18.3 (>60); GLUCOSE, FASTING 76 MG/DL (70-100); MAGNESIUM LEVEL 1.8 MG/DL (1.8-2.4); POTASSIUM SERUM 4.1 MEQ/L (3.5-5.1); SODIUM LEVEL 134 MEQ/L (136-145); TOTAL PROTEIN 6.7 GM/DL (6.4-8.2)
[2018-06-28] MEDS: ALBUTEROL 90 MCG/ACT 8GM HFA INHALER INH (09:38)
[2018-06-28 11:38] LABS: BEDSIDE GLUCOSE 84 MG/DL (70-105)
[2018-06-28] MEDS: CEFEPIME HCL 1 GM in D5W MINI-BAG PLUS 50 ML IV (18:02)
[2018-06-28] MEDS: D10W/0.45% SODIUM CHLORIDE 1,000 ML IV (18:10)
[2018-06-28 18:15] LABS: BEDSIDE GLUCOSE 92 MG/DL (70-105)
[2018-06-28] MEDS: QUEtiapine FUMARATE 25 MG TAB PO (21:51)
[2018-06-28] MEDS: SANTYL OINT 30GM TOP (21:52)
[2018-06-28] MEDS: AMITRIPTYLINE 25 MG TAB PO (21:52)
[2018-06-29 00:43] LABS: BEDSIDE GLUCOSE 74 MG/DL (70-105)
[2018-06-29] MEDS: DEXTROSE 50% 50 ML SYRINGE IV ×6 (00:50→21:51)
[2018-06-29 01:33] LABS: BEDSIDE GLUCOSE 121 MG/DL (70-105)
[2018-06-29] MEDS: SODIUM CHLORIDE 0.9% INJ 10 ML SYR IV (05:42)
[2018-06-29] MEDS: **hydrALAZINE HCL** 25 MG TAB PO ×3 (05:43→21:35)
[2018-06-29] MEDS: PANTOPRAZOLE 40MG TAB (PROTONIX) PO ×2 (05:44→21:35)
[2018-06-29] MEDS: CINACALCET 30 MG TAB (SENSIPAR) PO (05:44)
[2018-06-29] MEDS: ASPIRIN 81 MG ENTERIC TAB PO (05:44)
[2018-06-29] MEDS: BACITRACIN OINT 30GM TOP ×2 (05:45→21:00)
[2018-06-29] MEDS: ATORVASTATIN 20 MG TAB PO (05:45)
[2018-06-29] MEDS: CALCITRIOL 0.25 MCG CAP (S0169) PO (05:45)
[2018-06-29] MEDS: METOPROLOL TART 50 MG TAB PO ×2 (05:45→21:35)
[2018-06-29] MEDS: HEPARIN SOD (PORCINE) 5000 UNITS/ML VIAL SC ×3 (05:46→21:36)
[2018-06-29 05:50] LABS: BEDSIDE GLUCOSE 59 MG/DL (70-105)
[2018-06-29] MEDS: LEVOTHYROXINE 150MCG TABLET (0.15MG) PO (06:00)
[2018-06-29 06:13] LABS: HEMATOCRIT 31.4 % (42.0-52.0); HEMOGLOBIN 9.5 g/dl (13.5-17.5); MEAN CORPUSCULAR HEMOGLOBIN 27.9 pg (27.0-33.0); MEAN CORPUSCULAR HGB CONC 30.3 g/dl (32.0-36.5); MEAN CORPUSCULAR VOLUME 92.4 fl (80.0-96.0); PLATELET COUNT, AUTOMATED 144 10^3/uL (150-450); RED CELL DISTRIBUTION WIDTH 19.3 % (11.5-14.5); WHITE BLOOD COUNT 4.3 10^3/uL (4.0-10.0)
[2018-06-29 06:28] LABS: BEDSIDE GLUCOSE 118 MG/DL (70-105)
[2018-06-29 06:51] LABS: ALBUMIN 1.5 GM/DL (3.2-5.2); ALBUMIN/GLOBULIN RATIO 0.28 (1.00-1.93); ALKALINE PHOSPHATASE 156 U/L (45-117); ALT/SGPT 8 U/L (12-78); ANION GAP 8 MEQ/L (8-16); AST/SGOT 20 U/L (7-37); BILIRUBIN,TOTAL 0.3 MG/DL (0.2-1.0); BLOOD UREA NITROGEN 24 MG/DL (7-18); CALCIUM LEVEL 6.8 MG/DL (8.5-10.1); CARBON DIOXIDE LEVEL 28 MEQ/L (21-32); CHLORIDE LEVEL 98 MEQ/L (98-107); CREATININE FOR GFR 4.48 MG/DL (0.70-1.30); GLUCOSE, FASTING 61 MG/DL (70-100); POTASSIUM SERUM 4.5 MEQ/L (3.5-5.1); SODIUM LEVEL 134 MEQ/L (136-145); TOTAL PROTEIN 6.8 GM/DL (6.4-8.2)
[2018-06-29] MEDS: LINEZOLID 600MG TABLET (ZYVOX) PO ×2 (08:31→21:35)
[2018-06-29] MEDS: PERCOCET 5MG/325MG TAB PO (08:32)
[2018-06-29] MEDS: GABAPENTIN 100 MG CAP PO ×3 (08:32→21:34)
[2018-06-29 09:56] LABS: ABG BASE EXCESS -2.7 (-2.0-2.0); ABG HCO3 24.2 MEQ/L (22.0-26.0); ABG O2 SATURATION 95.1 % (95.0-99.0); ABG PARTIAL PRESSURE CO2 51.5 mmHg (35.0-45.0); ABG PARTIAL PRESSURE O2 77.6 mmHg (75.0-100.0); ABG STANDARD HCO3 22.2 MEQ/L (22.0-26.0); ABG TOTAL CO2 25.7 MEQ/L (22.0-29.0); ABG pH (ARTERIAL) 7.289 UNITS (7.350-7.450)
[2018-06-29] MEDS: HEPARIN 1,000 UNITS/ML 10ML VIAL (FOR RADIOLOGY& DIALYSIS ONLY) XX (10:45)
[2018-06-29] MEDS: HEPARIN 1,000 UNITS/ML 10ML VIAL (FOR RADIOLOGY& DIALYSIS ONLY) IV (10:45)
[2018-06-29 11:22] LABS: BEDSIDE GLUCOSE 61 MG/DL (70-105)
[2018-06-29 11:49] LABS: BEDSIDE GLUCOSE 160 MG/DL (70-105)
[2018-06-29 14:11] LABS: BEDSIDE GLUCOSE 65 MG/DL (70-105)
[2018-06-29 15:25] LABS: BEDSIDE GLUCOSE 94 MG/DL (70-105)
[2018-06-29] MEDS: SANTYL OINT 30GM TOP (16:42)
[2018-06-29 17:33] LABS: GLUCOSE, FASTING 66 MG/DL (70-100)
[2018-06-29] MEDS: CEFEPIME HCL 1 GM in D5W MINI-BAG PLUS 50 ML IV (18:08)
[2018-06-29 19:25] LABS: BEDSIDE GLUCOSE 104 MG/DL (70-105)
[2018-06-29] MEDS: QUEtiapine FUMARATE 25 MG TAB PO (21:35)
[2018-06-29] MEDS: AMITRIPTYLINE 25 MG TAB PO (21:35)
[2018-06-29 21:49] LABS: BEDSIDE GLUCOSE 74 MG/DL (70-105)
[2018-06-29 22:23] LABS: BEDSIDE GLUCOSE 137 MG/DL (70-105)
[2018-06-30 00:08] LABS: INSULIN ANTIBODY 10 uU/mL (.)
[2018-06-30 00:08] LABS: "\\\"INSULIN \\\"\\\"PRO\\\"\\\" LEVEL\\\"" 6.1 pmol/L (0.0-10.0); ACETOHEXAMIDE Negative ug/mL (20-60); CHLORPROPAMIDE Negative ug/mL (75-250); GLIMEPIRIDE Negative ng/mL (80-250); GLIPIZIDE Negative ng/mL (200-1000); GLYBURIDE Negative ng/mL (UP TO 1500); INSULIN FREE 1.9 uU/mL (.); INSULIN TOTAL2 2.2 uU/mL (.); NATEGLINIDE Negative ng/mL (UP TO 10000); REPAGLINIDE Negative ng/mL (UP TO 200); TOLAZAMIDE Negative ug/mL (UP TO 80); TOLBUTAMIDE Negative ug/mL (40-100)
[2018-06-30 00:24] LABS: BEDSIDE GLUCOSE 58 MG/DL (70-105)
[2018-06-30] MEDS: D10W/0.45% SODIUM CHLORIDE 1,000 ML IV (00:41)
[2018-06-30] MEDS: DEXTROSE 50% 50 ML SYRINGE IV ×3 (00:41→14:22)
[2018-06-30 01:16] LABS: BEDSIDE GLUCOSE 116 MG/DL (70-105)
[2018-06-30 04:20] LABS: BEDSIDE GLUCOSE 76 MG/DL (70-105)
[2018-06-30 05:21] LABS: HEMATOCRIT 30.9 % (42.0-52.0); HEMOGLOBIN 9.3 g/dl (13.5-17.5); MEAN CORPUSCULAR HEMOGLOBIN 27.8 pg (27.0-33.0); MEAN CORPUSCULAR HGB CONC 30.1 g/dl (32.0-36.5); MEAN CORPUSCULAR VOLUME 92.5 fl (80.0-96.0); PLATELET COUNT, AUTOMATED 141 10^3/uL (150-450); RED BLOOD COUNT 3.34 10^6/uL (4.30-6.10); RED CELL DISTRIBUTION WIDTH 19.2 % (11.5-14.5); WHITE BLOOD COUNT 3.9 10^3/uL (4.0-10.0)
[2018-06-30] MEDS: SODIUM CHLORIDE 0.9% INJ 10 ML SYR IV ×2 (06:00→17:23)
[2018-06-30] MEDS: HEPARIN SOD (PORCINE) 5000 UNITS/ML VIAL SC ×3 (06:00→21:01)
[2018-06-30 06:08] LABS: ALBUMIN 1.5 GM/DL (3.2-5.2); ALBUMIN/GLOBULIN RATIO 0.28 (1.00-1.93); ALKALINE PHOSPHATASE 146 U/L (45-117); ALT/SGPT 8 U/L (12-78); ANION GAP 4 MEQ/L (8-16); AST/SGOT 23 U/L (7-37); BILIRUBIN,TOTAL 0.3 MG/DL (0.2-1.0); BLOOD UREA NITROGEN 13 MG/DL (7-18); C REACTIVE PROTEIN QUANTITATIV 6.43 MG/DL (0.00-0.30); CALCIUM LEVEL 6.9 MG/DL (8.5-10.1); CARBON DIOXIDE LEVEL 30 MEQ/L (21-32); CHLORIDE LEVEL 99 MEQ/L (98-107); CREATININE FOR GFR 3.21 MG/DL (0.70-1.30); GLOMERULAR FILTRATION RATE 22.1 (>60); GLUCOSE, FASTING 70 MG/DL (70-100); MAGNESIUM LEVEL 1.7 MG/DL (1.8-2.4); POTASSIUM SERUM 3.9 MEQ/L (3.5-5.1); SODIUM LEVEL 133 MEQ/L (136-145); TOTAL PROTEIN 6.8 GM/DL (6.4-8.2)
[2018-06-30] MEDS: LEVOTHYROXINE 150MCG TABLET (0.15MG) PO (06:21)
[2018-06-30] MEDS: **hydrALAZINE HCL** 25 MG TAB PO ×3 (06:22→18:18)
[2018-06-30 06:30] LABS: BEDSIDE GLUCOSE 64 MG/DL (70-105)
[2018-06-30] MEDS: MAG SULF 1GM/100ML (MAG RUN) 1 GM in APPROPRIATE DILUENT 1 EA IV (06:45)
[2018-06-30 07:08] LABS: BEDSIDE GLUCOSE 130 MG/DL (70-105)
[2018-06-30 08:43] LABS: BEDSIDE GLUCOSE 75 MG/DL (70-105)
[2018-06-30] MEDS: METOPROLOL TART 50 MG TAB PO ×2 (09:00→21:00)
[2018-06-30] MEDS: SANTYL OINT 30GM TOP (09:00)
[2018-06-30] MEDS: PANTOPRAZOLE 40MG TAB (PROTONIX) PO ×2 (09:09→21:01)
[2018-06-30] MEDS: GABAPENTIN 100 MG CAP PO ×3 (09:09→21:01)
[2018-06-30] MEDS: CALCITRIOL 0.25 MCG CAP (S0169) PO (09:10)
[2018-06-30] MEDS: CINACALCET 30 MG TAB (SENSIPAR) PO (09:10)
[2018-06-30] MEDS: LINEZOLID 600MG TABLET (ZYVOX) PO ×2 (09:12→21:01)
[2018-06-30] MEDS: ATORVASTATIN 20 MG TAB PO (09:12)
[2018-06-30] MEDS: ASPIRIN 81 MG ENTERIC TAB PO (09:12)
[2018-06-30] MEDS: BACITRACIN OINT 30GM TOP ×2 (09:13→21:01)
[2018-06-30 11:12] LABS: BEDSIDE GLUCOSE 77 MG/DL (70-105)
[2018-06-30] MEDS: D50W 325 ML in D10W 975 ML IV (14:07)
[2018-06-30 14:20] LABS: BEDSIDE GLUCOSE 71 MG/DL (70-105)
[2018-06-30 16:38] LABS: BEDSIDE GLUCOSE 100 MG/DL (70-105)
[2018-06-30] MEDS ORDERED: hydrALAZINE INJ 20 MG/ML VIAL IV (17:20)
[2018-06-30] MEDS: CEFEPIME HCL 1 GM in D5W MINI-BAG PLUS 50 ML IV (17:27)
[2018-06-30 18:09] LABS: BEDSIDE GLUCOSE 102 MG/DL (70-105)
[2018-06-30 20:31] LABS: BEDSIDE GLUCOSE 94 MG/DL (70-105)
[2018-06-30] MEDS: QUEtiapine FUMARATE 25 MG TAB PO (21:01)
[2018-06-30] MEDS: AMITRIPTYLINE 25 MG TAB PO (21:01)
[2018-06-30 22:15] LABS: BEDSIDE GLUCOSE 83 MG/DL (70-105)
[2018-07-01 00:23] LABS: BEDSIDE GLUCOSE 84 MG/DL (70-105)
[2018-07-01 02:13] LABS: BEDSIDE GLUCOSE 79 MG/DL (70-105)
[2018-07-01 04:04] LABS: BEDSIDE GLUCOSE 71 MG/DL (70-105)
[2018-07-01] MEDS: DEXTROSE 50% 50 ML SYRINGE IV (04:12)
[2018-07-01 04:48] LABS: BEDSIDE GLUCOSE 137 MG/DL (70-105)
[2018-07-01] MEDS: SODIUM CHLORIDE 0.9% INJ 10 ML SYR IV ×2 (05:22→16:50)
[2018-07-01 05:31] LABS: HEMATOCRIT 31.2 % (42.0-52.0); HEMOGLOBIN 9.5 g/dl (13.5-17.5); MEAN CORPUSCULAR HEMOGLOBIN 28.4 pg (27.0-33.0); MEAN CORPUSCULAR HGB CONC 30.4 g/dl (32.0-36.5); MEAN CORPUSCULAR VOLUME 93.4 fl (80.0-96.0); PLATELET COUNT, AUTOMATED 133 10^3/uL (150-450); RED BLOOD COUNT 3.34 10^6/uL (4.30-6.10); RED CELL DISTRIBUTION WIDTH 19.7 % (11.5-14.5); WHITE BLOOD COUNT 4.1 10^3/uL (4.0-10.0)
[2018-07-01] MEDS: LEVOTHYROXINE 150MCG TABLET (0.15MG) PO (05:34)
[2018-07-01] MEDS: **hydrALAZINE HCL** 25 MG TAB PO ×3 (05:34→20:44)
[2018-07-01] MEDS: ATORVASTATIN 20 MG TAB PO (05:35)
[2018-07-01] MEDS: CINACALCET 30 MG TAB (SENSIPAR) PO (05:35)
[2018-07-01] MEDS: METOPROLOL TART 50 MG TAB PO ×2 (05:35→20:44)
[2018-07-01] MEDS: PANTOPRAZOLE 40MG TAB (PROTONIX) PO ×2 (05:35→20:43)
[2018-07-01] MEDS: ASPIRIN 81 MG ENTERIC TAB PO (05:35)
[2018-07-01] MEDS: CALCITRIOL 0.25 MCG CAP (S0169) PO (05:35)
[2018-07-01] MEDS: BACITRACIN OINT 30GM TOP (05:36)
[2018-07-01] MEDS: HEPARIN SOD (PORCINE) 5000 UNITS/ML VIAL SC ×3 (05:36→20:45)
[2018-07-01 06:05] LABS: ALBUMIN 1.4 GM/DL (3.2-5.2); ALBUMIN/GLOBULIN RATIO 0.27 (1.00-1.93); ALKALINE PHOSPHATASE 151 U/L (45-117); ALT/SGPT 9 U/L (12-78); ANION GAP 7 MEQ/L (8-16); AST/SGOT 21 U/L (7-37); BILIRUBIN,TOTAL 0.2 MG/DL (0.2-1.0); BLOOD UREA NITROGEN 18 MG/DL (7-18); C REACTIVE PROTEIN QUANTITATIV 4.01 MG/DL (0.00-0.30); CALCIUM LEVEL 6.8 MG/DL (8.5-10.1); CARBON DIOXIDE LEVEL 27 MEQ/L (21-32); CHLORIDE LEVEL 97 MEQ/L (98-107); CREATININE FOR GFR 4.16 MG/DL (0.70-1.30); GLOMERULAR FILTRATION RATE 16.4 (>60); GLUCOSE, FASTING 110 MG/DL (70-100); MAGNESIUM LEVEL 2.2 MG/DL (1.8-2.4); POTASSIUM SERUM 3.9 MEQ/L (3.5-5.1); SODIUM LEVEL 131 MEQ/L (136-145); TOTAL PROTEIN 6.6 GM/DL (6.4-8.2)
[2018-07-01 06:29] LABS: BEDSIDE GLUCOSE 84 MG/DL (70-105)
[2018-07-01 08:23] LABS: BEDSIDE GLUCOSE 61 MG/DL (70-105)
[2018-07-01] MEDS: GABAPENTIN 100 MG CAP PO ×3 (09:00→20:44)
[2018-07-01] MEDS: HEPARIN 1,000 UNITS/ML 10ML VIAL (FOR RADIOLOGY& DIALYSIS ONLY) XX (11:00)
[2018-07-01] MEDS: HEPARIN 1,000 UNITS/ML 10ML VIAL (FOR RADIOLOGY& DIALYSIS ONLY) IV (11:00)
[2018-07-01 12:33] LABS: BEDSIDE GLUCOSE 72 MG/DL (70-105)
[2018-07-01 14:12] LABS: BEDSIDE GLUCOSE 74 MG/DL (70-105)
[2018-07-01] MEDS: SANTYL OINT 30GM TOP (14:20)
[2018-07-01] MEDS: D50W 325 ML in D10W 975 ML IV (14:21)
[2018-07-01 16:15] LABS: BEDSIDE GLUCOSE 87 MG/DL (70-105)
[2018-07-01 18:23] LABS: BEDSIDE GLUCOSE 93 MG/DL (70-105)
[2018-07-01] MEDS: AMITRIPTYLINE 25 MG TAB PO (20:44)
[2018-07-01] MEDS: QUEtiapine FUMARATE 25 MG TAB PO (20:44)
[2018-07-01 23:54] LABS: BEDSIDE GLUCOSE 81 MG/DL (70-105)
[2018-07-02] MEDS: hydrALAZINE INJ 20 MG/ML VIAL IV (03:59)
[2018-07-02] MEDS: SODIUM CHLORIDE 0.9% INJ 10 ML SYR IV ×3 (04:00→17:51)
[2018-07-02 05:20] LABS: HEMATOCRIT 33.6 % (42.0-52.0); HEMOGLOBIN 10.4 g/dl (13.5-17.5); MEAN CORPUSCULAR HEMOGLOBIN 28.7 pg (27.0-33.0); MEAN CORPUSCULAR VOLUME 92.6 fl (80.0-96.0); PLATELET COUNT, AUTOMATED 134 10^3/uL (150-450); RED BLOOD COUNT 3.63 10^6/uL (4.30-6.10); RED CELL DISTRIBUTION WIDTH 19.7 % (11.5-14.5); WHITE BLOOD COUNT 4.4 10^3/uL (4.0-10.0)
[2018-07-02 05:41] LABS: ALBUMIN 1.5 GM/DL (3.2-5.2); ALBUMIN/GLOBULIN RATIO 0.27 (1.00-1.93); ALKALINE PHOSPHATASE 168 U/L (45-117); ALT/SGPT 10 U/L (12-78); ANION GAP 6 MEQ/L (8-16); AST/SGOT 20 U/L (7-37); BILIRUBIN,TOTAL 0.3 MG/DL (0.2-1.0); BLOOD UREA NITROGEN 10 MG/DL (7-18); C REACTIVE PROTEIN QUANTITATIV 3.37 MG/DL (0.00-0.30); CALCIUM LEVEL 7.3 MG/DL (8.5-10.1); CARBON DIOXIDE LEVEL 28 MEQ/L (21-32); CHLORIDE LEVEL 99 MEQ/L (98-107); CREATININE FOR GFR 3.17 MG/DL (0.70-1.30); GLOMERULAR FILTRATION RATE 22.4 (>60); GLUCOSE, FASTING 78 MG/DL (70-100); POTASSIUM SERUM 3.9 MEQ/L (3.5-5.1); SODIUM LEVEL 133 MEQ/L (136-145)
[2018-07-02] MEDS: **hydrALAZINE HCL** 25 MG TAB PO (05:43)
[2018-07-02] MEDS: LEVOTHYROXINE 150MCG TABLET (0.15MG) PO (05:43)
[2018-07-02] MEDS: HEPARIN SOD (PORCINE) 5000 UNITS/ML VIAL SC ×3 (05:44→21:51)
[2018-07-02] MEDS: ASPIRIN 81 MG ENTERIC TAB PO (08:50)
[2018-07-02] MEDS: ATORVASTATIN 20 MG TAB PO (08:51)
[2018-07-02] MEDS: METOPROLOL TART 50 MG TAB PO ×2 (08:51→20:34)
[2018-07-02] MEDS: CALCITRIOL 0.25 MCG CAP (S0169) PO (08:52)
[2018-07-02] MEDS: GABAPENTIN 100 MG CAP PO ×3 (08:52→20:34)
[2018-07-02] MEDS: CINACALCET 30 MG TAB (SENSIPAR) PO (08:52)
[2018-07-02] MEDS: PANTOPRAZOLE 40MG TAB (PROTONIX) PO ×2 (08:52→20:33)
[2018-07-02] MEDS: SANTYL OINT 30GM TOP (08:53)
[2018-07-02] MEDS: PERCOCET 5MG/325MG TAB PO ×2 (08:58→15:21)
[2018-07-02 11:19] LABS: BEDSIDE GLUCOSE 99 MG/DL (70-105)
[2018-07-02] MEDS: D50W 325 ML in D10W 975 ML IV (13:17)
[2018-07-02] MEDS: **hydrALAZINE** 50 MG TAB PO ×2 (13:17→21:50)
[2018-07-02 15:23] LABS: C-PEPTIDE 7.8 ng/mL (1.1-4.4)
[2018-07-02] MEDS: ISOSORBIDE DIN. (ISORDIL) 30 MG TAB PO ×2 (15:52→21:51)
[2018-07-02 16:47] LABS: BEDSIDE GLUCOSE 94 MG/DL (70-105)
[2018-07-02] MEDS: AMITRIPTYLINE 25 MG TAB PO (20:33)
[2018-07-02] MEDS: QUEtiapine FUMARATE 25 MG TAB PO (20:33)
[2018-07-03 00:30] LABS: BEDSIDE GLUCOSE 92 MG/DL (70-105)
[2018-07-03 05:35] LABS: HEMATOCRIT 31.3 % (42.0-52.0); HEMOGLOBIN 9.6 g/dl (13.5-17.5); MEAN CORPUSCULAR HEMOGLOBIN 28.5 pg (27.0-33.0); MEAN CORPUSCULAR HGB CONC 30.7 g/dl (32.0-36.5); MEAN CORPUSCULAR VOLUME 92.9 fl (80.0-96.0); PLATELET COUNT, AUTOMATED 120 10^3/uL (150-450); RED BLOOD COUNT 3.37 10^6/uL (4.30-6.10); WHITE BLOOD COUNT 4.5 10^3/uL (4.0-10.0)
[2018-07-03 06:09] LABS: ALBUMIN 1.4 GM/DL (3.2-5.2); ALBUMIN/GLOBULIN RATIO 0.27 (1.00-1.93); ALKALINE PHOSPHATASE 178 U/L (45-117); ALT/SGPT 9 U/L (12-78); ANION GAP 6 MEQ/L (8-16); AST/SGOT 19 U/L (7-37); BILIRUBIN,TOTAL 0.3 MG/DL (0.2-1.0); BLOOD UREA NITROGEN 16 MG/DL (7-18); C REACTIVE PROTEIN QUANTITATIV 2.77 MG/DL (0.00-0.30); CALCIUM LEVEL 6.8 MG/DL (8.5-10.1); CARBON DIOXIDE LEVEL 28 MEQ/L (21-32); CHLORIDE LEVEL 99 MEQ/L (98-107); CREATININE FOR GFR 4.34 MG/DL (0.70-1.30); GLOMERULAR FILTRATION RATE 15.6 (>60); GLUCOSE, FASTING 84 MG/DL (70-100); MAGNESIUM LEVEL 1.9 MG/DL (1.8-2.4); SODIUM LEVEL 133 MEQ/L (136-145); TOTAL PROTEIN 6.5 GM/DL (6.4-8.2)
[2018-07-03] MEDS: ISOSORBIDE DIN. (ISORDIL) 30 MG TAB PO ×3 (06:17→22:45)
[2018-07-03] MEDS: LEVOTHYROXINE 150MCG TABLET (0.15MG) PO (06:18)
[2018-07-03] MEDS: **hydrALAZINE** 50 MG TAB PO ×3 (06:18→22:45)
[2018-07-03] MEDS: SODIUM CHLORIDE 0.9% INJ 10 ML SYR IV ×2 (06:18→17:14)
[2018-07-03] MEDS: HEPARIN SOD (PORCINE) 5000 UNITS/ML VIAL SC ×3 (06:18→22:44)
[2018-07-03] MEDS: METOPROLOL TART 50 MG TAB PO ×2 (08:20→20:37)
[2018-07-03] MEDS: ATORVASTATIN 20 MG TAB PO (08:20)
[2018-07-03] MEDS: MOM 30ML SUSPENSION UDC PO (08:20)
[2018-07-03] MEDS: GABAPENTIN 100 MG CAP PO ×3 (08:21→20:38)
[2018-07-03] MEDS: CINACALCET 30 MG TAB (SENSIPAR) PO (08:21)
[2018-07-03] MEDS: ASPIRIN 81 MG ENTERIC TAB PO (08:21)
[2018-07-03] MEDS: PANTOPRAZOLE 40MG TAB (PROTONIX) PO ×2 (08:21→20:38)
[2018-07-03] MEDS: CALCITRIOL 0.25 MCG CAP (S0169) PO (08:21)
[2018-07-03] MEDS: SANTYL OINT 30GM TOP (08:25)
[2018-07-03 11:35] LABS: BEDSIDE GLUCOSE 93 MG/DL (70-105)
[2018-07-03] MEDS: D50W 325 ML in D10W 975 ML IV (14:02)
[2018-07-03 17:22] LABS: BEDSIDE GLUCOSE 110 MG/DL (70-105)
[2018-07-03] MEDS: PERCOCET 5MG/325MG TAB PO (18:10)
[2018-07-03] MEDS: QUEtiapine FUMARATE 25 MG TAB PO (20:37)
[2018-07-03] MEDS: AMITRIPTYLINE 25 MG TAB PO (20:37)
[2018-07-03 23:36] LABS: BEDSIDE GLUCOSE 93 MG/DL (70-105)
[2018-07-04 04:25] LABS: HEMATOCRIT 30.4 % (42.0-52.0); HEMOGLOBIN 9.4 g/dl (13.5-17.5); MEAN CORPUSCULAR HEMOGLOBIN 28.8 pg (27.0-33.0); MEAN CORPUSCULAR HGB CONC 30.9 g/dl (32.0-36.5); MEAN CORPUSCULAR VOLUME 93.3 fl (80.0-96.0); PLATELET COUNT, AUTOMATED 124 10^3/uL (150-450); RED BLOOD COUNT 3.26 10^6/uL (4.30-6.10); RED CELL DISTRIBUTION WIDTH 20.1 % (11.5-14.5)
[2018-07-04 05:04] LABS: ALBUMIN 1.3 GM/DL (3.2-5.2); ALBUMIN/GLOBULIN RATIO 0.26 (1.00-1.93); ALKALINE PHOSPHATASE 192 U/L (45-117); ALT/SGPT 11 U/L (12-78); ANION GAP 6 MEQ/L (8-16); AST/SGOT 29 U/L (7-37); BILIRUBIN,TOTAL 0.3 MG/DL (0.2-1.0); BLOOD UREA NITROGEN 21 MG/DL (7-18); C REACTIVE PROTEIN QUANTITATIV 2.09 MG/DL (0.00-0.30); CALCIUM LEVEL 6.4 MG/DL (8.5-10.1); CARBON DIOXIDE LEVEL 27 MEQ/L (21-32); CHLORIDE LEVEL 100 MEQ/L (98-107); CREATININE FOR GFR 5.23 MG/DL (0.70-1.30); GLOMERULAR FILTRATION RATE 12.6 (>60); GLUCOSE, FASTING 83 MG/DL (70-100); POTASSIUM SERUM 4.4 MEQ/L (3.5-5.1); SODIUM LEVEL 133 MEQ/L (136-145); TOTAL PROTEIN 6.3 GM/DL (6.4-8.2)
[2018-07-04] MEDS: SODIUM CHLORIDE 0.9% INJ 10 ML SYR IV ×2 (06:18→18:42)
[2018-07-04] MEDS: CINACALCET 30 MG TAB (SENSIPAR) PO (06:19)
[2018-07-04] MEDS: HEPARIN SOD (PORCINE) 5000 UNITS/ML VIAL SC ×3 (06:19→21:49)
[2018-07-04] MEDS: **hydrALAZINE** 50 MG TAB PO ×3 (06:20→21:49)
[2018-07-04] MEDS: CALCITRIOL 0.25 MCG CAP (S0169) PO (06:20)
[2018-07-04] MEDS: ISOSORBIDE DIN. (ISORDIL) 30 MG TAB PO ×3 (06:20→21:49)
[2018-07-04] MEDS: ATORVASTATIN 20 MG TAB PO (06:20)
[2018-07-04] MEDS: ASPIRIN 81 MG ENTERIC TAB PO (06:21)
[2018-07-04] MEDS: LEVOTHYROXINE 150MCG TABLET (0.15MG) PO (06:21)
[2018-07-04] MEDS: GABAPENTIN 100 MG CAP PO ×3 (06:21→20:50)
[2018-07-04] MEDS: PANTOPRAZOLE 40MG TAB (PROTONIX) PO ×2 (06:23→20:50)
[2018-07-04] MEDS: SANTYL OINT 30GM TOP (06:24)
[2018-07-04] MEDS: MOM 30ML SUSPENSION UDC PO (06:26)
[2018-07-04] MEDS: METOPROLOL TART 50 MG TAB PO ×2 (09:00→20:54)
[2018-07-04 13:00] LABS: BEDSIDE GLUCOSE 82 MG/DL (70-105)
[2018-07-04] MEDS: HEPARIN 1,000 UNITS/ML 10ML VIAL (FOR RADIOLOGY& DIALYSIS ONLY) IV (15:15)
[2018-07-04 15:19] LABS: HEMATOCRIT 31.1 % (42.0-52.0); HEMOGLOBIN 9.6 g/dl (13.5-17.5)
[2018-07-04 17:36] LABS: BEDSIDE GLUCOSE 96 MG/DL (70-105)
[2018-07-04] MEDS: D50W 325 ML in D10W 975 ML IV (18:41)
[2018-07-04] MEDS: QUEtiapine FUMARATE 25 MG TAB PO (20:50)
[2018-07-04] MEDS: AMITRIPTYLINE 25 MG TAB PO (20:50)
[2018-07-05 00:48] LABS: BEDSIDE GLUCOSE 95 MG/DL (70-105)
[2018-07-05] MEDS: SODIUM CHLORIDE 0.9% INJ 10 ML SYR IV ×2 (05:24→17:30)
[2018-07-05] MEDS: HEPARIN SOD (PORCINE) 5000 UNITS/ML VIAL SC ×3 (05:24→21:01)
[2018-07-05] MEDS: LEVOTHYROXINE 150MCG TABLET (0.15MG) PO (05:25)
[2018-07-05] MEDS: **hydrALAZINE** 50 MG TAB PO ×3 (05:25→21:00)
[2018-07-05] MEDS: ISOSORBIDE DIN. (ISORDIL) 30 MG TAB PO ×3 (05:25→21:00)
[2018-07-05 05:48] LABS: HEMOGLOBIN 8.8 g/dl (13.5-17.5); MEAN CORPUSCULAR HEMOGLOBIN 28.6 pg (27.0-33.0); MEAN CORPUSCULAR HGB CONC 30.3 g/dl (32.0-36.5); MEAN CORPUSCULAR VOLUME 94.2 fl (80.0-96.0); PLATELET COUNT, AUTOMATED 116 10^3/uL (150-450); RED BLOOD COUNT 3.08 10^6/uL (4.30-6.10); RED CELL DISTRIBUTION WIDTH 20.5 % (11.5-14.5); WHITE BLOOD COUNT 5.7 10^3/uL (4.0-10.0)
[2018-07-05 06:44] LABS: C REACTIVE PROTEIN QUANTITATIV 2.83 MG/DL (0.00-0.30)
[2018-07-05 06:47] LABS: ALBUMIN 1.4 GM/DL (3.2-5.2); ALBUMIN/GLOBULIN RATIO 0.28 (1.00-1.93); ALKALINE PHOSPHATASE 188 U/L (45-117); ALT/SGPT 10 U/L (12-78); ANION GAP 6 MEQ/L (8-16); AST/SGOT 23 U/L (7-37); BILIRUBIN,TOTAL 0.3 MG/DL (0.2-1.0); BLOOD UREA NITROGEN 12 MG/DL (7-18); CALCIUM LEVEL 6.8 MG/DL (8.5-10.1); CARBON DIOXIDE LEVEL 29 MEQ/L (21-32); CHLORIDE LEVEL 99 MEQ/L (98-107); CREATININE FOR GFR 3.75 MG/DL (0.70-1.30); GLOMERULAR FILTRATION RATE 18.5 (>60); GLUCOSE, FASTING 88 MG/DL (70-100); POTASSIUM SERUM 3.8 MEQ/L (3.5-5.1); SODIUM LEVEL 134 MEQ/L (136-145); TOTAL PROTEIN 6.4 GM/DL (6.4-8.2)
[2018-07-05] MEDS: ASPIRIN 81 MG ENTERIC TAB PO (08:40)
[2018-07-05] MEDS: ATORVASTATIN 20 MG TAB PO (08:41)
[2018-07-05] MEDS: PANTOPRAZOLE 40MG TAB (PROTONIX) PO ×2 (08:41→20:47)
[2018-07-05] MEDS: CINACALCET 30 MG TAB (SENSIPAR) PO (08:41)
[2018-07-05] MEDS: CALCITRIOL 0.25 MCG CAP (S0169) PO (08:41)
[2018-07-05] MEDS: METOPROLOL TART 50 MG TAB PO ×2 (08:43→20:46)
[2018-07-05] MEDS: SANTYL OINT 30GM TOP (08:44)
[2018-07-05] MEDS: GABAPENTIN 100 MG CAP PO ×3 (08:44→20:47)
[2018-07-05 11:53] LABS: BEDSIDE GLUCOSE 88 MG/DL (70-105)
[2018-07-05 16:58] LABS: BEDSIDE GLUCOSE 95 MG/DL (70-105)
[2018-07-05] MEDS: D50W 325 ML in D10W 975 ML IV (17:30)
[2018-07-05] MEDS: QUEtiapine FUMARATE 25 MG TAB PO (20:47)
[2018-07-05] MEDS: AMITRIPTYLINE 25 MG TAB PO (20:47)
[2018-07-06] MEDS: PERCOCET 5MG/325MG TAB PO ×3 (00:55→21:33)
[2018-07-06] MEDS: **hydrALAZINE** 50 MG TAB PO ×4 (01:18→21:34)
[2018-07-06 01:25] LABS: BEDSIDE GLUCOSE 102 MG/DL (70-105)
[2018-07-06] MEDS: ISOSORBIDE DIN. (ISORDIL) 30 MG TAB PO ×3 (06:38→21:34)
[2018-07-06] MEDS: LEVOTHYROXINE 150MCG TABLET (0.15MG) PO (06:38)
[2018-07-06] MEDS: ASPIRIN 81 MG ENTERIC TAB PO (06:38)
[2018-07-06] MEDS: GABAPENTIN 100 MG CAP PO ×3 (06:38→20:52)
[2018-07-06] MEDS: PANTOPRAZOLE 40MG TAB (PROTONIX) PO ×2 (06:39→20:52)
[2018-07-06] MEDS: CINACALCET 30 MG TAB (SENSIPAR) PO (06:39)
[2018-07-06] MEDS: CALCITRIOL 0.25 MCG CAP (S0169) PO (06:39)
[2018-07-06] MEDS: ATORVASTATIN 20 MG TAB PO (06:39)
[2018-07-06] MEDS: SODIUM CHLORIDE 0.9% INJ 10 ML SYR IV ×2 (06:41→16:41)
[2018-07-06] MEDS: METOPROLOL TART 50 MG TAB PO ×2 (06:41→20:53)
[2018-07-06] MEDS: HEPARIN SOD (PORCINE) 5000 UNITS/ML VIAL SC ×3 (06:42→21:32)
[2018-07-06 06:49] LABS: BEDSIDE GLUCOSE 78 MG/DL (70-105)
[2018-07-06 07:10] LABS: HEMATOCRIT 28.9 % (42.0-52.0); HEMOGLOBIN 9.1 g/dl (13.5-17.5); MEAN CORPUSCULAR HEMOGLOBIN 29.4 pg (27.0-33.0); MEAN CORPUSCULAR HGB CONC 31.5 g/dl (32.0-36.5); MEAN CORPUSCULAR VOLUME 93.2 fl (80.0-96.0); PLATELET COUNT, AUTOMATED 134 10^3/uL (150-450); RED CELL DISTRIBUTION WIDTH 20.6 % (11.5-14.5); WHITE BLOOD COUNT 5.2 10^3/uL (4.0-10.0)
[2018-07-06 07:35] LABS: C REACTIVE PROTEIN QUANTITATIV 2.82 MG/DL (0.00-0.30)
[2018-07-06 07:44] LABS: ALBUMIN 1.5 GM/DL (3.2-5.2); ALBUMIN/GLOBULIN RATIO 0.28 (1.00-1.93); ALKALINE PHOSPHATASE 200 U/L (45-117); ALT/SGPT 11 U/L (12-78); ANION GAP 7 MEQ/L (8-16); AST/SGOT 23 U/L (7-37); BILIRUBIN,TOTAL 0.3 MG/DL (0.2-1.0); BLOOD UREA NITROGEN 19 MG/DL (7-18); CALCIUM LEVEL 7.1 MG/DL (8.5-10.1); CARBON DIOXIDE LEVEL 29 MEQ/L (21-32); CHLORIDE LEVEL 98 MEQ/L (98-107); CREATININE FOR GFR 4.87 MG/DL (0.70-1.30); GLOMERULAR FILTRATION RATE 13.7 (>60); GLUCOSE, FASTING 86 MG/DL (70-100); POTASSIUM SERUM 3.9 MEQ/L (3.5-5.1); SODIUM LEVEL 134 MEQ/L (136-145); TOTAL PROTEIN 6.8 GM/DL (6.4-8.2)
[2018-07-06] MEDS: SANTYL OINT 30GM TOP (08:50)
[2018-07-06] MEDS: amLODIPine 10 MG TAB PO (08:50)
[2018-07-06] MEDS: HEPARIN 1,000 UNITS/ML 10ML VIAL (FOR RADIOLOGY& DIALYSIS ONLY) XX (11:00)
[2018-07-06] MEDS: HEPARIN 1,000 UNITS/ML 10ML VIAL (FOR RADIOLOGY& DIALYSIS ONLY) IV (11:00)
[2018-07-06 12:39] LABS: BEDSIDE GLUCOSE 80 MG/DL (70-105)
[2018-07-06] MEDS: D50W 325 ML in D10W 975 ML IV (16:16)
[2018-07-06] MEDS: ACETAMINOPHEN TAB 650MG DOSE (2X325MG) PO (16:41)
[2018-07-06 16:47] LABS: BEDSIDE GLUCOSE 97 MG/DL (70-105)
[2018-07-06] MEDS: AMITRIPTYLINE 25 MG TAB PO (20:52)
[2018-07-06] MEDS: QUEtiapine FUMARATE 25 MG TAB PO (20:52)
[2018-07-07 00:17] LABS: BEDSIDE GLUCOSE 95 MG/DL (70-105)
[2018-07-07] MEDS: ACETAMINOPHEN TAB 650MG DOSE (2X325MG) PO (00:59)
[2018-07-07] MEDS: LIDOCAINE 2% JELLY 30 ML TOP (01:32)
[2018-07-07] MEDS: PERCOCET 5MG/325MG TAB PO ×3 (04:16→18:04)
[2018-07-07] MEDS: **hydrALAZINE** 50 MG TAB PO ×3 (05:07→22:17)
[2018-07-07] MEDS: ISOSORBIDE DIN. (ISORDIL) 30 MG TAB PO ×3 (05:07→22:18)
[2018-07-07] MEDS: HEPARIN SOD (PORCINE) 5000 UNITS/ML VIAL SC ×3 (05:08→21:09)
[2018-07-07] MEDS: LEVOTHYROXINE 150MCG TABLET (0.15MG) PO (05:08)
[2018-07-07] MEDS: SODIUM CHLORIDE 0.9% INJ 10 ML SYR IV ×2 (05:09→18:06)
[2018-07-07 05:32] LABS: HEMATOCRIT 28.8 % (42.0-52.0); HEMOGLOBIN 8.7 g/dl (13.5-17.5); MEAN CORPUSCULAR HEMOGLOBIN 28.4 pg (27.0-33.0); MEAN CORPUSCULAR HGB CONC 30.2 g/dl (32.0-36.5); MEAN CORPUSCULAR VOLUME 94.1 fl (80.0-96.0); PLATELET COUNT, AUTOMATED 128 10^3/uL (150-450); RED BLOOD COUNT 3.06 10^6/uL (4.30-6.10); RED CELL DISTRIBUTION WIDTH 21.1 % (11.5-14.5); WHITE BLOOD COUNT 5.3 10^3/uL (4.0-10.0)
[2018-07-07 06:06] LABS: C REACTIVE PROTEIN QUANTITATIV 2.55 MG/DL (0.00-0.30)
[2018-07-07 06:11] LABS: ALBUMIN 1.5 GM/DL (3.2-5.2); ALKALINE PHOSPHATASE 212 U/L (45-117); ALT/SGPT 13 U/L (12-78); ANION GAP 4 MEQ/L (8-16); AST/SGOT 27 U/L (7-37); BILIRUBIN,TOTAL 0.1 MG/DL (0.2-1.0); BLOOD UREA NITROGEN 13 MG/DL (7-18); CALCIUM LEVEL 7.4 MG/DL (8.5-10.1); CARBON DIOXIDE LEVEL 30 MEQ/L (21-32); CHLORIDE LEVEL 101 MEQ/L (98-107); CREATININE FOR GFR 3.59 MG/DL (0.70-1.30); GLOMERULAR FILTRATION RATE 19.4 (>60); GLUCOSE, FASTING 103 MG/DL (70-100); MAGNESIUM LEVEL 1.9 MG/DL (1.8-2.4); SODIUM LEVEL 135 MEQ/L (136-145); TOTAL PROTEIN 6.5 GM/DL (6.4-8.2)
[2018-07-07] MEDS: ATORVASTATIN 20 MG TAB PO (10:24)
[2018-07-07] MEDS: GABAPENTIN 100 MG CAP PO ×3 (10:24→22:17)
[2018-07-07] MEDS: CALCITRIOL 0.25 MCG CAP (S0169) PO (10:26)
[2018-07-07] MEDS: PANTOPRAZOLE 40MG TAB (PROTONIX) PO ×2 (10:26→21:08)
[2018-07-07] MEDS: CINACALCET 30 MG TAB (SENSIPAR) PO (10:26)
[2018-07-07] MEDS: ASPIRIN 81 MG ENTERIC TAB PO (10:27)
[2018-07-07] MEDS: METOPROLOL TART 50 MG TAB PO ×2 (10:27→21:08)
[2018-07-07] MEDS: amLODIPine 10 MG TAB PO (10:27)
[2018-07-07 12:02] LABS: BEDSIDE GLUCOSE 85 MG/DL (70-105)
[2018-07-07 18:13] LABS: BEDSIDE GLUCOSE 93 MG/DL (70-105)
[2018-07-07] MEDS: SANTYL OINT 30GM TOP (20:14)
[2018-07-07] MEDS: D50W 325 ML in D10W 975 ML IV (20:34)
[2018-07-07] MEDS: QUEtiapine FUMARATE 25 MG TAB PO (21:08)
[2018-07-07] MEDS: AMITRIPTYLINE 25 MG TAB PO (21:18)
[2018-07-07 23:43] LABS: BEDSIDE GLUCOSE 106 MG/DL (70-105)
[2018-07-08] MEDS: PERCOCET 5MG/325MG TAB PO ×4 (00:47→22:32)
[2018-07-08] MEDS: SODIUM CHLORIDE 0.9% INJ 10 ML SYR IV ×2 (05:10→18:30)
[2018-07-08 05:14] LABS: BEDSIDE GLUCOSE 76 MG/DL (70-105)
[2018-07-08 05:21] LABS: HEMATOCRIT 29.7 % (42.0-52.0); MEAN CORPUSCULAR HEMOGLOBIN 28.6 pg (27.0-33.0); MEAN CORPUSCULAR HGB CONC 30.3 g/dl (32.0-36.5); MEAN CORPUSCULAR VOLUME 94.3 fl (80.0-96.0); PLATELET COUNT, AUTOMATED 156 10^3/uL (150-450); RED BLOOD COUNT 3.15 10^6/uL (4.30-6.10); RED CELL DISTRIBUTION WIDTH 21.2 % (11.5-14.5); WHITE BLOOD COUNT 6.4 10^3/uL (4.0-10.0)
[2018-07-08 06:02] LABS: C REACTIVE PROTEIN QUANTITATIV 2.88 MG/DL (0.00-0.30)
[2018-07-08] MEDS: **hydrALAZINE** 50 MG TAB PO ×3 (06:46→21:06)
[2018-07-08] MEDS: CINACALCET 30 MG TAB (SENSIPAR) PO (06:47)
[2018-07-08] MEDS: HEPARIN SOD (PORCINE) 5000 UNITS/ML VIAL SC ×3 (06:47→21:08)
[2018-07-08] MEDS: ISOSORBIDE DIN. (ISORDIL) 30 MG TAB PO ×3 (06:47→21:06)
[2018-07-08] MEDS: ATORVASTATIN 20 MG TAB PO (06:48)
[2018-07-08] MEDS: ASPIRIN 81 MG ENTERIC TAB PO (06:48)
[2018-07-08] MEDS: GABAPENTIN 100 MG CAP PO ×3 (06:49→21:07)
[2018-07-08] MEDS: PANTOPRAZOLE 40MG TAB (PROTONIX) PO ×2 (06:49→21:07)
[2018-07-08] MEDS: CALCITRIOL 0.25 MCG CAP (S0169) PO (06:49)
[2018-07-08] MEDS: SANTYL OINT 30GM TOP (06:50)
[2018-07-08] MEDS: LEVOTHYROXINE 150MCG TABLET (0.15MG) PO (06:57)
[2018-07-08 11:12] LABS: ALBUMIN 1.5 GM/DL (3.2-5.2); ALBUMIN/GLOBULIN RATIO 0.29 (1.00-1.93); ALKALINE PHOSPHATASE 206 U/L (45-117); ALT/SGPT 12 U/L (12-78); ANION GAP 4 MEQ/L (8-16); AST/SGOT 22 U/L (7-37); BILIRUBIN,TOTAL 0.3 MG/DL (0.2-1.0); BLOOD UREA NITROGEN 19 MG/DL (7-18); CALCIUM LEVEL 7.1 MG/DL (8.5-10.1); CARBON DIOXIDE LEVEL 30 MEQ/L (21-32); CHLORIDE LEVEL 101 MEQ/L (98-107); CREATININE FOR GFR 4.62 MG/DL (0.70-1.30); GLOMERULAR FILTRATION RATE 14.5 (>60); GLUCOSE, FASTING 72 MG/DL (70-100); MAGNESIUM LEVEL 1.8 MG/DL (1.8-2.4); POTASSIUM SERUM 4.6 MEQ/L (3.5-5.1); SODIUM LEVEL 135 MEQ/L (136-145); TOTAL PROTEIN 6.6 GM/DL (6.4-8.2)
[2018-07-08] MEDS: METOPROLOL TART 50 MG TAB PO ×2 (11:23→21:05)
[2018-07-08] MEDS: amLODIPine 10 MG TAB PO (11:24)
[2018-07-08 12:29] LABS: BEDSIDE GLUCOSE 78 MG/DL (70-105)
[2018-07-08] MEDS: D50W 325 ML in D10W 975 ML IV (15:39)
[2018-07-08 18:33] LABS: BEDSIDE GLUCOSE 79 MG/DL (70-105)
[2018-07-08] MEDS: QUEtiapine FUMARATE 25 MG TAB PO (21:06)
[2018-07-08] MEDS: AMITRIPTYLINE 25 MG TAB PO (21:06)
[2018-07-08] MEDS: ONDANSETRON 4MG/2ML VIAL (J2405) IV (21:29)
[2018-07-08 23:34] LABS: BEDSIDE GLUCOSE 97 MG/DL (70-105)
[2018-07-09] MEDS: CINACALCET 30 MG TAB (SENSIPAR) PO (06:09)
[2018-07-09] MEDS: CALCITRIOL 0.25 MCG CAP (S0169) PO (06:09)
[2018-07-09] MEDS: ATORVASTATIN 20 MG TAB PO (06:09)
[2018-07-09] MEDS: PERCOCET 5MG/325MG TAB PO ×3 (06:10→21:00)
[2018-07-09] MEDS: ISOSORBIDE DIN. (ISORDIL) 30 MG TAB PO ×3 (06:10→21:01)
[2018-07-09] MEDS: GABAPENTIN 100 MG CAP PO ×3 (06:10→20:59)
[2018-07-09] MEDS: PANTOPRAZOLE 40MG TAB (PROTONIX) PO ×2 (06:10→20:58)
[2018-07-09] MEDS: ONDANSETRON 4MG/2ML VIAL (J2405) IV (06:11)
[2018-07-09] MEDS: **hydrALAZINE** 50 MG TAB PO ×3 (06:11→21:01)
[2018-07-09] MEDS: ASPIRIN 81 MG ENTERIC TAB PO (06:11)
[2018-07-09] MEDS: HEPARIN SOD (PORCINE) 5000 UNITS/ML VIAL SC ×3 (06:11→21:00)
[2018-07-09] MEDS: SODIUM CHLORIDE 0.9% INJ 10 ML SYR IV ×3 (06:12→17:48)
[2018-07-09] MEDS: LEVOTHYROXINE 150MCG TABLET (0.15MG) PO (06:15)
[2018-07-09 06:23] LABS: HEMATOCRIT 28.9 % (42.0-52.0); HEMOGLOBIN 8.6 g/dl (13.5-17.5); MEAN CORPUSCULAR HEMOGLOBIN 28.9 pg (27.0-33.0); MEAN CORPUSCULAR HGB CONC 29.8 g/dl (32.0-36.5); PLATELET COUNT, AUTOMATED 155 10^3/uL (150-450); RED BLOOD COUNT 2.98 10^6/uL (4.30-6.10); RED CELL DISTRIBUTION WIDTH 21.2 % (11.5-14.5); WHITE BLOOD COUNT 5.2 10^3/uL (4.0-10.0)
[2018-07-09 06:30] LABS: ALBUMIN 1.4 GM/DL (3.2-5.2); ALBUMIN/GLOBULIN RATIO 0.26 (1.00-1.93); ALKALINE PHOSPHATASE 207 U/L (45-117); ALT/SGPT 11 U/L (12-78); ANION GAP 5 MEQ/L (8-16); AST/SGOT 21 U/L (7-37); BILIRUBIN,TOTAL 0.3 MG/DL (0.2-1.0); BLOOD UREA NITROGEN 26 MG/DL (7-18); CALCIUM LEVEL 6.9 MG/DL (8.5-10.1); CARBON DIOXIDE LEVEL 28 MEQ/L (21-32); CHLORIDE LEVEL 101 MEQ/L (98-107); CREATININE FOR GFR 5.62 MG/DL (0.70-1.30); GLOMERULAR FILTRATION RATE 11.6 (>60); GLUCOSE, FASTING 75 MG/DL (70-100); MAGNESIUM LEVEL 1.9 MG/DL (1.8-2.4); POTASSIUM SERUM 5.2 MEQ/L (3.5-5.1); SODIUM LEVEL 134 MEQ/L (136-145); TOTAL PROTEIN 6.8 GM/DL (6.4-8.2)
[2018-07-09] MEDS: SANTYL OINT 30GM TOP (09:00)
[2018-07-09] MEDS: METOPROLOL TART 50 MG TAB PO ×2 (09:00→20:59)
[2018-07-09] MEDS: amLODIPine 10 MG TAB PO (09:30)
[2018-07-09 12:13] LABS: BEDSIDE GLUCOSE 110 MG/DL (70-105)
[2018-07-09 17:21] LABS: BEDSIDE GLUCOSE 77 MG/DL (70-105)
[2018-07-09] MEDS: QUEtiapine FUMARATE 25 MG TAB PO (20:58)
[2018-07-09] MEDS: AMITRIPTYLINE 25 MG TAB PO (20:59)
[2018-07-09] MEDS: LIDOCAINE 2% JELLY 30 ML TOP (21:02)
[2018-07-10 00:08] LABS: BEDSIDE GLUCOSE 88 MG/DL (70-105)
[2018-07-10] MEDS: **hydrALAZINE** 50 MG TAB PO ×3 (06:00→22:00)
[2018-07-10] MEDS: LEVOTHYROXINE 150MCG TABLET (0.15MG) PO (06:46)
[2018-07-10] MEDS: CALCITRIOL 0.25 MCG CAP (S0169) PO (06:46)
[2018-07-10] MEDS: CINACALCET 30 MG TAB (SENSIPAR) PO (06:46)
[2018-07-10] MEDS: SODIUM CHLORIDE 0.9% INJ 10 ML SYR IV ×2 (06:47→17:12)
[2018-07-10] MEDS: ASPIRIN 81 MG ENTERIC TAB PO (06:47)
[2018-07-10] MEDS: ATORVASTATIN 20 MG TAB PO (06:47)
[2018-07-10] MEDS: GABAPENTIN 100 MG CAP PO ×3 (06:47→20:25)
[2018-07-10] MEDS: HEPARIN SOD (PORCINE) 5000 UNITS/ML VIAL SC ×3 (06:47→21:46)
[2018-07-10] MEDS: ISOSORBIDE DIN. (ISORDIL) 30 MG TAB PO ×3 (06:50→23:32)
[2018-07-10 06:56] LABS: BEDSIDE GLUCOSE 103 MG/DL (70-105)
[2018-07-10 06:58] LABS: HEMATOCRIT 30.6 % (42.0-52.0); HEMOGLOBIN 9.1 g/dl (13.5-17.5); MEAN CORPUSCULAR HEMOGLOBIN 29.2 pg (27.0-33.0); MEAN CORPUSCULAR HGB CONC 29.7 g/dl (32.0-36.5); MEAN CORPUSCULAR VOLUME 98.1 fl (80.0-96.0); PLATELET COUNT, AUTOMATED 174 10^3/uL (150-450); RED BLOOD COUNT 3.12 10^6/uL (4.30-6.10); RED CELL DISTRIBUTION WIDTH 21.2 % (11.5-14.5); WHITE BLOOD COUNT 6.1 10^3/uL (4.0-10.0)
[2018-07-10] MEDS: PANTOPRAZOLE 40MG TAB (PROTONIX) PO ×2 (06:58→20:25)
[2018-07-10 07:18] LABS: ALBUMIN 1.6 GM/DL (3.2-5.2); ALBUMIN/GLOBULIN RATIO 0.28 (1.00-1.93); ALKALINE PHOSPHATASE 235 U/L (45-117); ALT/SGPT 12 U/L (12-78); ANION GAP 5 MEQ/L (8-16); AST/SGOT 23 U/L (7-37); BILIRUBIN,TOTAL 0.3 MG/DL (0.2-1.0); BLOOD UREA NITROGEN 35 MG/DL (7-18); CARBON DIOXIDE LEVEL 27 MEQ/L (21-32); CHLORIDE LEVEL 102 MEQ/L (98-107); CREATININE FOR GFR 6.64 MG/DL (0.70-1.30); GLOMERULAR FILTRATION RATE 9.6 (>60); GLUCOSE, FASTING 88 MG/DL (70-100); MAGNESIUM LEVEL 2.1 MG/DL (1.8-2.4); SODIUM LEVEL 134 MEQ/L (136-145); TOTAL PROTEIN 7.3 GM/DL (6.4-8.2)
[2018-07-10] MEDS: amLODIPine 10 MG TAB PO (09:05)
[2018-07-10] MEDS: SANTYL OINT 30GM TOP (09:05)
[2018-07-10] MEDS: METOPROLOL TART 50 MG TAB PO ×2 (09:05→20:25)
[2018-07-10 11:38] LABS: BEDSIDE GLUCOSE 74 MG/DL (70-105)
[2018-07-10 12:52] LABS: BEDSIDE GLUCOSE 90 MG/DL (70-105)
[2018-07-10] MEDS: HEPARIN 1,000 UNITS/ML 10ML VIAL (FOR RADIOLOGY& DIALYSIS ONLY) XX (14:00)
[2018-07-10] MEDS: HEPARIN 1,000 UNITS/ML 10ML VIAL (FOR RADIOLOGY& DIALYSIS ONLY) IV (14:00)
[2018-07-10 17:07] LABS: BEDSIDE GLUCOSE 82 MG/DL (70-105)
[2018-07-10] MEDS: QUEtiapine FUMARATE 25 MG TAB PO (20:25)
[2018-07-10] MEDS: AMITRIPTYLINE 25 MG TAB PO (20:25)
[2018-07-10 23:40] LABS: BEDSIDE GLUCOSE 64 MG/DL (70-105)
[2018-07-11] MEDS: D5W 1,000 ML IV (00:19)
[2019-06-05] MEDS ORDERED: NS 1,000 ML IV (19:30)
== END 2018-07-11 01:45 | disposition expired | DRG 853 ==
LOC: M ICU 05-23 00:28 → M MS5PR 05-24 15:07 → M MSPAV 06-09 15:15 → M PCU 06-24 14:01 → M MSPAV 07-10 13:12 → M PCU 06-05 14:40 → M ICU 06-05 17:20 → M ED 11:57 → M ED INP 15:07 → M ICU 20:00
PROVIDERS: Hospitalist
PROC: 0QB10ZZ Excision of Sacrum, Open Approach (ICD-10-PCS; principal; 2018-06-04)
PROC: 02HV33Z Insertion of Infusion Device into Superior Vena Cava, Percutaneous Approach (ICD-10-PCS; 2018-06-05)
PROC: 30233N1 Transfusion of Nonautologous Red Blood Cells into Peripheral Vein, Percutaneous Approach (ICD-10-PCS; 2018-06-08)
DX: A41.9 Sepsis, unspecified organism (principal); N18.6 End stage renal disease; J96.01 Acute respiratory failure with hypoxia; R65.21 Severe sepsis with septic shock; J96.02 Acute respiratory failure with hypercapnia; J18.9 Pneumonia, unspecified organism; L89.154 Pressure ulcer of sacral region, stage 4; I63.9 Cerebral infarction, unspecified; E87.1 Hypo-osmolality and hyponatremia; E87.2 Acidosis; E46 Unspecified protein-calorie malnutrition; I13.2 Hypertensive heart and chronic kidney disease with heart failure and with stage 5 chronic kidney disease, or end stage renal disease; N25.81 Secondary hyperparathyroidism of renal origin; Z66 Do not resuscitate; E87.5 Hyperkalemia; G47.33 Obstructive sleep apnea (adult) (pediatric); E11.51 Type 2 diabetes mellitus with diabetic peripheral angiopathy without gangrene; Z51.5 Encounter for palliative care; E03.9 Hypothyroidism, unspecified; F32.9 Major depressive disorder, single episode, unspecified; E11.65 Type 2 diabetes mellitus with hyperglycemia; Z79.899 Other long term (current) drug therapy; Z88.0 Allergy status to penicillin; Z91.041 Radiographic dye allergy status; E11.319 Type 2 diabetes mellitus with unspecified diabetic retinopathy without macular edema; E11.40 Type 2 diabetes mellitus with diabetic neuropathy, unspecified; H54.8 Legal blindness, as defined in USA; F17.210 Nicotine dependence, cigarettes, uncomplicated; I15.0 Renovascular hypertension; D63.1 Anemia in chronic kidney disease; Z89.611 Acquired absence of right leg above knee; Z89.512 Acquired absence of left leg below knee; E83.39 Other disorders of phosphorus metabolism; K59.00 Constipation, unspecified; K21.9 Gastro-esophageal reflux disease without esophagitis; F41.9 Anxiety disorder, unspecified